=== PATIENT | female | born 1960 | race Caucasian/White ===

== ENCOUNTER 2023-11-06 14:22 | Inpatient (IN) ==
--- NOTE | 2023-11-06 14:45 | Emergency Department Note ---
Impression & Plan Abdominal pain, Metastatic disease ED Provider Note NAME: PRANEETH SHOEMAKER AGE: 63 SEX: F : 1960 ARRIVES VIA: Walk-In INFORMANT: Patient ED PROVIDER(S): Jozef Singer DO CHIEF COMPLAINT: Abdominal pain HPI: Patient is a 63-year-old female who presents ER following abdominal pain which has been present since October. Patient notes that when she eats she has pain in the epigastric region. Patient admits to nausea but no vomiting. Denies any headache or change in vision. No chest pain or shortness of breath. She notes the pain is worse with eating and drinking. She also feels constipated and believes that the constipation started it. She has been having trouble going to the bathroom. No dysuria, urgency, or frequency. Previous bowel resection for diverticulitis. Additional history obtained by family who is present at bedside who notes she has had the resection of a foot of colon secondary to diverticulitis. No other abdominal surgeries. ADDITIONAL HISTORY OBTAINED: Per HPI Chronic Medical/Social Conditions Affecting Care: Per HPI PAST MEDICAL HISTORY:See Below PAST SURGICAL HISTORY:See Below FAMILY HISTORY:See Below SOCIAL HISTORY:See Below HOME MEDICATIONS:See Below ALLERGIES:See Below VITALS:See Below PHYSICAL EXAMINATION: GENERAL: Sitting up in bed, alert, well appearing, well nourished, no distress, non-toxic EYE EXAM: normal conjunctiva. OROPHARYNX: no exudate, no erythema, lips, buccal mucosa, and tongue normal and mucous membranes are moist NECK: supple, no nuchal rigidity, no adenopathy, non-tender LUNGS: Clear to auscultation. Normal chest wall mechanics HEART: no murmurs, S1 normal and S2 normal ABDOMEN: abdomen soft, TTP in epigastric, normo-active bowel sounds, no masses, no rebound or guarding. UPPER EXTREMITIES: upper extremities are grossly normal. LOWER EXTREMITIES: No pitting edema. NEURO EXAM: Normal sensorium, cranial nerves II-XII grossly intact, normal speech, no gross weakness of arms, no gross weakness of legs. No drift. Finger to nose intact. Gross sensation intact. MEDICAL DECISION MAKING: Patient is a 63-year-old female who presents ER for above-stated complaint. IV was established blood work was obtained. Labs show no significant leukocytosis or anemia. BMP was unremarkable with exception of a slightly low glucose of 69. Mild transaminitis. Lipase at 150. UA was clean. CT abdomen pelvis suggest diffuse metastatic disease within the abdomen. Discussed with hematology oncology and they recommended admission for further workup of her metastatic disease. She also has a lymph node on her left upper neck which is likely metastatic from the cancer. Discussed with the hospitalist for further evaluation management treatment. Consults/Care Managements Discussions: Per MDM Triage Nursing notes reviewed. Limited review of prior medical records performed Vital Signs: reviewed and remarkable for tachy Differential diagnosis: Differential diagnoses includes but is not limited to gastritis, peptic ulcer disease, GERD, gallbladder disease, pancreatitis, small bowel obstruction, appendicitis, diverticulitis, hernia, urinary tract infection, torsion, /ectopic (if female), perforation, trauma, infectious. ER treatment provided: See below Diagnostics interpreted by me include EKG and cardiac monitoring as listed below: -Cardiac Monitoring: An order was placed for continuous cardiac monitoring. The monitor shows a rate of 120 with sinus rhythm. -ECG: none -Laboratory studies:Interpreted by me as stated above in MDM and shown below. Imaging studies: Xrays: As interpreted by me:none CTs show: CT abdomen pelvis per my preliminary interpretation shows significantly abnormal liver CT abdomen pelvis shows metastatic disease Procedures:none Critical Care: None Past Med/Surg History Medical History (Updated 11/06/23 @ 20:51 by Jozef Singer DO) Diverticulitis Depression Anxiety Surgical History (Updated 11/06/23 @ 18:17 by Criselda Cota PA-C) Tubal ligation status History of colon resection partial colectomy with anastomosis in 2007 Family History (Updated 11/06/23 @ 18:17 by Criselda Cota PA-C) Other COPD (chronic obstructive pulmonary disease) Ovarian cancer Social History Smoking Status: Current every day smoker Tobacco Type: E-cigarettes / Vaping Hx Alcohol Use: No Preferred Language: [place] Feels Safe at Home: Yes Allergies Allergies Allergy/AdvReac Type Severity Reaction Status Date / Time No Known Allergies Allergy Unknown Verified 11/06/23 17:11 Home Meds Home Medications Medication Instructions Recorded Confirmed acetylcysteine 600 mg capsule (NAC) 600 mg PO DAILY 11/06/23 11/06/23 boron 6 mg tablet 6 mg PO DAILY 11/06/23 11/06/23 cholecalciferol (vitamin D3) 125 125 mcg PO DAILY 11/06/23 11/06/23 mcg (5,000 unit) tablet (Vitamin D3) colostrum, bovine 500 mg capsule 500 mg PO DAILY 11/06/23 11/06/23 cyanocobalamin (vitamin B-12) 2,000 mcg PO DAILY 11/06/23 11/06/23 2,000 mcg tablet lysine 500 mg tablet (L-Lysine) 500 mg PO DAILY 11/06/23 11/06/23 magnesium mal 50 mg-potassium cit 1 tab PO DAILY 11/06/23 11/06/23 25 mg-taurine 175 mg-B6 1 mg tablet multivitamin 1 tab PO DAILY 11/06/23 11/06/23 Results & Data (ED) Vital Signs Vital Signs - 24 hr 11/06/23 14:24 11/06/23 14:34 11/06/23 16:10 Temperature 36.6 C Temperature Source Temporal Artery Scan Pulse Rate 133 H 114 H 102 H Pulse Rhythm Regular Respiratory Rate 20 20 Respiratory Effort / Characteristics Non-Labored Spontaneous Respiratory Depth Normal Respiratory Pattern Regular Blood Pressure 127/74 Blood Pressure Mean 91 Blood Pressure Position Sitting Pulse Oximetry 93 95 Oxygen Delivery Method Room Air Room Air Sepsis Recent Fever Within 48 Hours No Sepsis New/Unexplained Change in Mental Status No Sepsis Action Taken by Nursing No Action Required Laboratory Data 11/06/23 Unknown 11/06/23 Unknown Administered Medications Discontinued Medications Sodium Chloride (Nss) 1,000 mls @ 999 mls/hr IV .Q1H1M DANNY Stop: 11/06/23 16:45 Last Infusion: 11/06/23 17:22 Dose: Infused Documented By: Admin: 11/06/23 16:06 Dose: 999 mls/hr Documented By: Infusion: 11/06/23 16:06 Dose: Infused Documented By: Admin: 11/06/23 15:01 Dose: 999 mls/hr Documented By: MARCELINO Ioversol (Optiray 320 500ml) 87 ml IV ONCE ONE Stop: 11/06/23 16:23 Last Admin: 11/06/23 16:22 Dose: 87 ml Documented By: AMOS Ioversol (Optiray 320 500ml) 84 ml IV ONCE ONE Stop: 11/06/23 19:07 Last Admin: 11/06/23 19:06 Dose: 84 ml Documented By: PATIENCE Morphine Sulfate (Morphine Sulfate 4 Mg/Ml 1 Ml Carp\Vial) 4 mg IV NOW STA Stop: 11/06/23 14:58 Last Admin: 11/06/23 16:00 Dose: 4 mg Documented By: CPB Imaging Data Radiologist's Impression: Abdomen/Pelvis CT 11/06/23 14:34 CT SCAN OF THE ABDOMEN AND PELVIS WITH IV CONTRAST CLINICAL HISTORY: Epigastric abdominal pain. COMPARISON STUDY: Abdominal CT dated 09/18/2007. TECHNIQUE: Following the IV administration of 87 cc of Optiray 320, CT scan of the abdomen and pelvis is performed from the lung bases to the proximal femora. Images are reviewed in the axial, sagittal, and coronal planes. IV contrast was administered without complication. A dose lowering technique was utilized adhering to the principles of ALARA. CT DOSE: 672.78 mGy.cm FINDINGS: Lung bases: The heart is top normal in size noting a small pericardial effusion. There are coronary artery calcifications. Emphysematous changes noted. There is bibasilar scarring/atelectasis. No airspace consolidation or pleural effusion is identified. Liver: The contrast-enhanced liver is enlarged and heterogeneous, measuring 19.7 cm in length. There is evidence of extensive/diffuse multifocal hepatic metastatic disease, with greater than 20 lesions identified. A traveling representative right lobe lesion on image #96 measures up to 4.6 cm. There is no intrahepatic biliary ductal dilatation. The hepatic veins and portal veins are patent. The main portal vein is mildly narrowed by lymphadenopathy. Gallbladder: The gallbladder is contracted and there is nonspecific gallbladder wall thickening/edema. Spleen: Normal in size and attenuation. Pancreas: Unremarkable. Adrenal glands: Unremarkable. Kidneys: The contrast enhanced kidneys are normal in size and without hydronephrosis. The kidneys enhance symmetrically. A circumaortic left renal vein is incidentally noted. Abdominal vasculature: The abdominal aorta is normal in course and caliber noting moderate to advanced atherosclerotic calcification. Bowel: There is postsurgical change from sigmoid colon resection with colocolonic anastomosis. No bowel obstruction is identified. There is rugw-gw-ekvwbrst colonic fecal retention. There are scattered colonic diverticula without CT evidence of acute diverticulitis. The appendix is well- visualized and normal. Peritoneum: No intraperitoneal free air is identified. There is trace perihepatic ascites. Lymphadenopathy: There is pathologic retroperitoneal lymphadenopathy. A left periaortic node on image #128 measures 2.2 x 1.6 cm. An aortocaval node on image #1 extra 20 measures 2.3 x 1.1 cm. There is also bulky lymphadenopathy in the lilia hepatis. A lidia aggregate on image #92 measures 4.3 x 2.5 cm. There is no pelvic sidewall or inguinal lymphadenopathy. Pelvic viscera: The bladder, uterus, and adnexa are normal as visualized. Skeletal structures: The skeletal structures are osteopenic. Mild lumbosacral spondylosis is observed. No lytic or blastic lesions are seen. IMPRESSION: 1. The liver is enlarged and infiltrated by diffuse hepatic metastatic disease. 2. There is metastatic upper abdominal and retroperitoneal lymphadenopathy. 3. There is postsurgical change from sigmoid colon resection. If there is a history of colon cancer this may represent the primary tumor. 4. The gallbladder is decompressed and the wall is thickened/edematous. This is likely related to adjacent hepatocellular disease. Correlate clinically. 5. There is trace perihepatic ascites. 6. Additional findings as above. ACT 112: Negative or not required by law. Electronically signed by: Arnie Palma M.D. 11/06/2023 4:51 PM Discharge Plan Visit Data Chief Complaint: Constipation Stated Complaint: UNABLE TO EAT NOT ABLE TO EAT ED Provider: Jozef Singer Discharge Problem: Abdominal pain, Metastatic disease Discharge Problem: Abdominal pain Qualifiers: Abdominal location: unspecified location Qualified Code(s): R10.9 - Unspecified abdominal pain Metastatic disease Qualifiers: Area of secondary neoplastic involvement: unspecified site Qualified Code(s): C 79.9 - Secondary malignant neoplasm of unspecified site
[2023-11-06] MEDS ORDERED: MoRPHine SULFATE 4 MG/ML 1 ML CARP\\VIAL IV STA (14:57)
[2023-11-06] MEDS: SODIUM CHLORIDE 0.9% 1,000 ML IV SCH ×2 (15:01→16:06)
[2023-11-06 15:27] LABS: Basophils # (auto) 0.08 K/uL (0.00-0.20); Basophils % (auto) 1.1 %; Eosinophils # (auto) 0.31 K/uL (0.00-0.50); Eosinophils % (auto) 4.1 %; Hematocrit (blood only) 43.4 % (37.0-47.0); Hemoglobin 14.5 g/dl (12.0-16.0); Immature Granulocytes # (auto) 0.02 K/uL (0.01-0.20); Immature Granulocytes % (auto) 0.3 %; Lymphocytes # (auto) 1.47 K/uL (1.20-3.40); Lymphocytes % (auto) 19.7 %; Mean Corpuscular Hemoglobin 29.4 pg (25.0-34.0); Mean Corpuscular Hgb Conc 33.4 g/dL (32.0-36.0); Mean Platelet Volume 9.4 fL (9.4-12.4); Monocytes % (auto) 9.4 %; Neutrophils # (auto) 4.89 K/uL (1.40-6.50); Neutrophils % (auto) 65.4 %; Platelet Count 293 K/uL (130-400); RDW Coefficient of Variation 12.4 % (11.5-14.5); RDW Standard Deviation 39.8 fL (36.4-46.3); Red Blood Count 4.93 M/uL (4.20-5.40); White Blood Count 7.47 K/ul (4.8-10.8)
[2023-11-06 15:34] LABS: Albumin Globulin Ratio 0.9 (0.9-2); Albumin Level 3.9 gm/dl (3.4-5.0); Calcium 9.8 mg/dl (8.6-10.3); Creatinine Clr Calc Pharmacy 66.5 ml/min; Est GFR (African American) 89.6 ml/min; Est GFR (Non-African American) 77.3 ml/min; Globulin 4.2 gm/dl (2.5-4.0); Potassium 3.9 mmol/L (3.5-5.1); Total Protein 8.1 gm/dl (6.0-8.3)
[2023-11-06] MEDS ORDERED: OPTIRAY 320 500ml IV ONE ×2 (16:22→19:06)
--- NOTE | 2023-11-06 16:53 | CT Scan Report ---
CT SCAN OF THE ABDOMEN AND PELVIS WITH IV CONTRAST CLINICAL HISTORY: Epigastric abdominal pain. COMPARISON STUDY: Abdominal CT dated 09/18/2007. TECHNIQUE: Following the IV administration of 87 cc of Optiray 320, CT scan of the abdomen and pelvi s is performed from the lung bases to the proximal femora. Images are reviewed in the axial, sagittal , and coronal planes. IV contrast was administered without complication. A dose lowering technique wa s utilized adhering to the principles of ALARA. CT DOSE: 672.78 mGy.cm FINDINGS: Lung bases: The heart is top normal in size noting a small pericardial effusion. There are coronary a rtery calcifications. Emphysematous changes noted. There is bibasilar scarring/atelectasis. No airspa ce consolidation or pleural effusion is identified. Liver: The contrast-enhanced liver is enlarged and heterogeneous, measuring 19.7 cm in length. There is evidence of extensive/diffuse multifocal hepatic metastatic disease, with greater than 20 lesions identified. A digital sales representative right lobe lesion on image #96 measures up to 4.6 cm. There is no intrah epatic biliary ductal dilatation. The hepatic veins and portal veins are patent. The main portal vein is mildly narrowed by lymphadenopathy. Gallbladder: The gallbladder is contracted and there is nonspecific gallbladder wall thickening/edema . Spleen: Normal in size and attenuation. Pancreas: Unremarkable. Adrenal glands: Unremarkable. Kidneys: The contrast enhanced kidneys are normal in size and without hydronephrosis. The kidneys enh ance symmetrically. A circumaortic left renal vein is incidentally noted. Abdominal vasculature: The abdominal aorta is normal in course and caliber noting moderate to advance d atherosclerotic calcification. Bowel: There is postsurgical change from sigmoid colon resection with colocolonic anastomosis. No bow el obstruction is identified. There is [id number]-va-[id number] colonic fecal retention. There are scattered colonic diverticula without CT evidence of acute diverticulitis. The appendix is well-visualized and normal. Peritoneum: No intraperitoneal free air is identified. There is trace perihepatic ascites. Lymphadenopathy: There is pathologic retroperitoneal lymphadenopathy. A left periaortic node on image #128 measures 2.2 x 1.6 cm. An aortocaval node on image #1 extra 20 measures 2.3 x 1.1 cm. There is also bulky lymphadenopathy in the lilia hepatis. A lidia aggregate on image #92 measures 4.3 x 2.5 cm . There is no pelvic sidewall or inguinal lymphadenopathy. Pelvic viscera: The bladder, uterus, and adnexa are normal as visualized. Skeletal structures: The skeletal structures are osteopenic. Mild lumbosacral spondylosis is observed . No lytic or blastic lesions are seen. IMPRESSION: 1. The liver is enlarged and infiltrated by diffuse hepatic metastatic disease. 2. There is metastatic upper abdominal and retroperitoneal lymphadenopathy. 3. There is postsurgical change from sigmoid colon resection. If there is a history of colon cancer t his may represent the primary tumor. 4. The gallbladder is decompressed and the wall is thickened/edematous. This is likely related to adj acent hepatocellular disease. Correlate clinically. 5. There is trace perihepatic ascites. 6. Additional findings as above. ACT 112: Negative or not required by law. Electronically signed by: Arnie Palma M.D. 11/06/2023 4:51 PM
--- NOTE | 2023-11-06 17:33 | History & Physical Report ---
Date of Service November 06, 2023 Assessment & Plan (1) Metastatic disease: Plan: This is a 63yo F with a PMH of anxiety/depression and recurrent diverticulitis s/p colon resection in 2007 who presents with persistent abdominal pain over the past few weeks and CT abd/pelvis shows diffuse metastatic disease in liver, upper abdominal and retroperitoneal lymphadenopathy. Post-prandial abdominal pain, constipation x [address] abd/pelvis with 1. The liver is enlarged and infiltrated by diffuse hepatic metastatic disease. 2. There is metastatic upper abdominal and retroperitoneal lymphadenopathy. 3. There is postsurgical change from sigmoid colon resection. If there is a history of colon cancer this may represent the primary tumor. 4. The gallbladder is decompressed and the wall is thickened/edematous. This is likely related to adjacent hepatocellular disease. Correlate clinically. 5. There is trace perihepatic ascites. Obtain CT head, CT chest for further staging, unknown primary GI consult for abd pain, N/V, possible indication for scope if concern for obstruction given above findings Discussed with Dr. Worthy, heme/onc who requests CT chest, clinic follow-up. Confirmed patient prefers to establish with [facility] IR FNA biopsy prominent L anterior cervical lymph node vs liver biopsy if preferred by IR Gentle fluids overnight, clears as tolerated for now, NPO at [place] in case of IR intervention in AM (2) Depression: (3) Anxiety: Plan: Stable mood; not on any medications besides supplements which she has been holding for past few weeks DVT Ppx: SCDs until biopsy then consider adding chemical VTE Code status: FULL PCP: Jarod Dispo: Admit to med/surg Patient seen in collaboration with Dr. Luz. Please see addendum. History of Present Illness Chief Complaint: abdominal pain, N/V Primary Care Provider: NO PCP This is a 63yo F with a PMH of anxiety/depression and recurrent diverticulitis s/p colon resection in 2007 who presents with persistent abdominal pain over the past few weeks. Notable increased constipation over the holidays. Last bowel movement on Sunday and then no bowel movement again for 4 days. Has been eating less due to abdominal pain that follows, so feels extremely hungry. Passing gas. Notably swollen lymph node on front aspect of L neck noticed this past Sunday. Increased fatigue and has been less active than previously. Tiring easily when ambulating in the house, which is new over the past few weeks. + occasional dizziness from chronic ear issues. No F/C, lightheadedness, CP, SOB, dysuria, hematuria, vaginal bleeding or diarrhea. Does have a 20-wtmg-qrpz history of smoking but has transition to vaping in the past few years. Was due for a colonoscopy this past April but canceled for insurance purposes. Allergies Allergy/AdvReac Type Severity Reaction Status Date / Time No Known Allergies Allergy Unknown Verified 11/06/23 17:11 Home Medications Medication Instructions Recorded Confirmed Type acetylcysteine 600 mg capsule (NAC) 600 mg PO DAILY 11/06/23 11/06/23 History boron 6 mg tablet 6 mg PO DAILY 11/06/23 11/06/23 History cholecalciferol (vitamin D3) 125 125 mcg PO DAILY 11/06/23 11/06/23 History mcg (5,000 unit) tablet (Vitamin D3) colostrum, bovine 500 mg capsule 500 mg PO DAILY 11/06/23 11/06/23 History cyanocobalamin (vitamin B-12) 2,000 mcg PO DAILY 11/06/23 11/06/23 History 2,000 mcg tablet lysine 500 mg tablet (L-Lysine) 500 mg PO DAILY 11/06/23 11/06/23 History magnesium mal 50 mg-potassium cit 1 tab PO DAILY 11/06/23 11/06/23 History 25 mg-taurine 175 mg-B6 1 mg tablet multivitamin 1 tab PO DAILY 11/06/23 11/06/23 History Past Med/Surg History Medical History (Updated 11/06/23 @ 18:10 by Criselda Cota PA-C) Diverticulitis Depression Anxiety Surgical History (Updated 11/06/23 @ 18:17 by Criselda Cota PA-C) Tubal ligation status History of colon resection partial colectomy with anastomosis in 2007 Family History (Updated 11/06/23 @ 18:17 by Criselda Cota PA-C) Other COPD (chronic obstructive pulmonary disease) Ovarian cancer Social History Smoking Status: Current every day smoker Tobacco Type: E-cigarettes / Vaping Hx Alcohol Use: No Preferred Language: Amharic Feels Safe at Home: Yes Review of Systems Review of Systems: At least ten systems reviewed and negative except as noted in the HPI. Physical Exam Physical Exam: Please see Dr. Luz' addendum for physical exam. Results & Data Results & Data Vital Signs (Past 12 Hours) Vital Signs Temp Pulse Resp BP Pulse Ox O2 Del Method 11/06/23 16:10 102 H 11/06/23 14:34 114 H 20 95 Room Air 11/06/23 14:24 36.6 C 133 H 20 127/74 93 Room Air Laboratory Results Short CBC 11/06/23 Range/Units Unknown WBC 7.47 (4.8-10.8) K/ul Hgb 14.5 (12.0-16.0) g/dl Hct 43.4 (37.0-47.0) % Plt Count 293 (130-400) K/uL BMP 11/06/23 Unknown Sodium 135 L Potassium 3.9 Chloride 99 Carbon Dioxide 24 BUN 17 Creatinine 0.81 Glucose 69 L Calcium 9.8 Liver Function 11/06/23 Range/Units Unknown Total Bilirubin 1.0 (0.2-1.0) mg/dl AST 90 H (13-39) U/L ALT 89 H (7-52) U/L Alkaline Phosphatase 319 H (34-104) U/L Albumin 3.9 (3.4-5.0) gm/dl Diagnostic Findings Abdomen/Pelvis CT 11/06/23 14:34 CT SCAN OF THE ABDOMEN AND PELVIS WITH IV CONTRAST CLINICAL HISTORY: Epigastric abdominal pain. COMPARISON STUDY: Abdominal CT dated 09/18/2007. TECHNIQUE: Following the IV administration of 87 cc of Optiray 320, CT scan of the abdomen and pelvis is performed from the lung bases to the proximal femora. Images are reviewed in the axial, sagittal, and coronal planes. IV contrast was administered without complication. A dose lowering technique was utilized adhering to the principles of ALARA. CT DOSE: 672.78 mGy.cm FINDINGS: Lung bases: The heart is top normal in size noting a small pericardial effusion. There are coronary artery calcifications. Emphysematous changes noted. There is bibasilar scarring/atelectasis. No airspace consolidation or pleural effusion is identified. Liver: The contrast-enhanced liver is enlarged and heterogeneous, measuring 19.7 cm in length. There is evidence of extensive/diffuse multifocal hepatic metastatic disease, with greater than 20 lesions identified. 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 There is no intrahepatic biliary ductal dilatation. The hepatic veins and portal veins are patent. The main portal vein is mildly narrowed by lymphadenopathy. Gallbladder: The gallbladder is contracted and there is nonspecific gallbladder wall thickening/edema. Spleen: Normal in size and attenuation. Pancreas: Unremarkable. Adrenal glands: Unremarkable. Kidneys: The contrast enhanced kidneys are normal in size and without hydronephrosis. The kidneys enhance symmetrically. A circumaortic left renal vein is incidentally noted. Abdominal vasculature: The abdominal aorta is normal in course and caliber noting moderate to advanced atherosclerotic calcification. Bowel: There is postsurgical change from sigmoid colon resection with colocolonic anastomosis. No bowel obstruction is identified. There is [id number] colonic fecal retention. There are scattered colonic diverticula without CT evidence of acute diverticulitis. The appendix is well- visualized and normal. Peritoneum: No intraperitoneal free air is identified. There is trace perihepatic ascites. Lymphadenopathy: There is pathologic retroperitoneal lymphadenopathy. A left periaortic node on image #128 measures 2.2 x 1.6 cm. An aortocaval node on image #1 extra 20 measures 2.3 x 1.1 cm. There is also bulky lymphadenopathy in the lilia hepatis. A lidia aggregate on image #92 measures 4.3 x 2.5 cm. There is no pelvic sidewall or inguinal lymphadenopathy. Pelvic viscera: The bladder, uterus, and adnexa are normal as visualized. Skeletal structures: The skeletal structures are osteopenic. Mild lumbosacral spondylosis is observed. No lytic or blastic lesions are seen. IMPRESSION: 1. The liver is enlarged and infiltrated by diffuse hepatic metastatic disease. 2. There is metastatic upper abdominal and retroperitoneal lymphadenopathy. 3. There is postsurgical change from sigmoid colon resection. If there is a history of colon cancer this may represent the primary tumor. 4. The gallbladder is decompressed and the wall is thickened/edematous. This is likely related to adjacent hepatocellular disease. Correlate clinically. 5. There is trace perihepatic ascites. 6. Additional findings as above. ACT 112: Negative or not required by law. Electronically signed by: Arnie Palma M.D. 11/06/2023 4:51 PM Supervising Physician Co-Signing Physician Notes I have seen and discussed the case with the collaborating ANGY. I agree with the above H&P. I have reviewed and confirmed the patients medical history, the findings on physical examination, and the patients diagnosis and treatment plan with Cipriano TRAVIS and agree with the information documented. In short, Ms. Martinez is a 63 year old woman with history of recurrent diverticulitis s/p resection in 2007 who presented for concerns of constipation. Admission for concerns of metastatic disease on imaging with plans for biopsy and GI consult. Dr. Worthy with heme/onc aware. Patient denies history of cancer, family history of cancer, unintentional weightloss. She reports issues with constipation for over 2 weeks, not responding to usual bowel regimen. Still with belching/flatus. Endorsing epigastric pain postprandial. Labs with LFT elevation, Lipase 152 CT with diffuse hepatic metastatic disease and upper abdominal/retroperitoneal LAD. Physical Exam General: cooperative and pleasant woman, NAD CV sinus tachycardia, no murmur Resp CTAB GI soft, nontender outside of mild epigastric discomfort MSK no focal deficits LYMPH, Left anterior cervical chain palable mobile LN, nontender, bulky ?LAD in axillary difficult to ascertain (left), no LAD on right, no inguinal LAD BL Plan #Diffuse Metastatic Disease, unknown primary #Lymphadenopathy, palpable Left anterior cervical LN #Transaminitis -Hep panel (likely 2/2 mets, however, B/C for eitology?) -Trend CMP -CT chest head for other lesions -Heme/ONc on consult, appreciate further recs -NPO midnight for biopsy of LN #Epigastric pain #Constipation -Iv antiemetics prn -GI consult, timing of scope? Rest of plan as above
--- NOTE | 2023-11-06 19:59 | CT Scan Report ---
Exam(s): CT HEAD With Contrast IV Amt: 84 ml optiray 320 EXAM: CT Head With Intravenous Contrast CLINICAL HISTORY: Reason for exam: diffuse metastatic disease on ct abd/pelvis, LAD. TECHNIQUE: Axial computed tomography images of the head/brain with intravenous contrast. CTDI is 36.79 mGy and DLP is 546.36 mGy-cm. Automated exposure control was utilized for the study. A dose lowering technique was utilized adhering to the principles of ALARA. CONTRAST: Patient received 84 ml optiray 320 of IV contrast COMPARISON: No relevant prior studies available. FINDINGS: Brain: Unremarkable. No hemorrhage. No edema. Normal enhancement. Ventricles: Unremarkable. No ventriculomegaly. Bones/joints: Unremarkable. No acute fracture. Soft tissues: Unremarkable. Sinuses: Unremarkable as visualized. No acute sinusitis. Mastoid air cells: Unremarkable as visualized. No mastoid effusion. IMPRESSION: Normal head/brain CT. The presence of contrast limits evaluation for small bleeds. Need for brain MRI should be determined clinically. Electronically signed by: Rafael Levi MD 11/06/23 19:59 PM
--- NOTE | 2023-11-06 20:01 | CT Scan Report ---
Exam(s): CT CHEST With Contrast IV Amt: 84 ml optiray 320 EXAM: CT Chest With Intravenous Contrast CLINICAL HISTORY: Reason for exam: diffuse metastatic disease, unknown primary. TECHNIQUE: Axial computed tomography images of the chest with intravenous contrast. CTDI is 36.79 mGy and DLP is 546.36 mGy-cm. Automated exposure control was utilized for the study. A dose lowering technique was utilized adhering to the principles of ALARA. CONTRAST: Patient received 84 ml optiray 320 of IV contrast COMPARISON: No relevant prior studies available. FINDINGS: Lungs: Centrilobular emphysema. No mass. No consolidation. Pleural space: Unremarkable. No pneumothorax. No significant effusion. Heart: Unremarkable. No cardiomegaly. No significant pericardial effusion. No significant coronary artery calcifications. Mediastinum: Mass in the RIGHT upper lobe, measures 4.5 x 2.6 cm. Findings are concerning for lung cancer. RIGHT hilar mass measures 3.3 x 4.7 cm. Enlarged subcarinal lymph node measures 4.9 x 2.7 cm. Bones/joints: Unremarkable. No acute fracture. No dislocation. Soft tissues: Unremarkable. Vasculature: Unremarkable. No thoracic aortic aneurysm. Lymph nodes: See above. Liver: Diffuse hepatic metastases. IMPRESSION: 1. Mass in the RIGHT upper lobe, measures 4.5 x 2.6 cm. Findings are concerning for lung cancer. RIGHT hilar mass measures 3.3 x 4.7 cm. Enlarged subcarinal lymph node measures 4.9 x 2.7 cm. 2. Diffuse hepatic metastases. 3. Centrilobular emphysema. Electronically signed by: Rafael Levi MD 11/06/23 20:00 PM
[2023-11-06 20:13] LABS: Appearance Urine Clear (Clear); Bilirubin Urine Negative (Negative); Blood Urine Negative (Negative); Color Urine Yellow; Glucose Urine UA Negative (Negative); Ketones Urine 1+ (Negative); Leukocyte Esterase Urine Negative (Negative); Nitrite Urine Negative (Negative); Protein Urine Negative (Negative); Specific Gravity Urine > 1.045 (1.000-1.030); Urobilinogen Urine Negative (Negative); pH Urine 5.5 (4.5-7.5)
[2023-11-06] MEDS ORDERED: POLYETHYLENE (MIRALAX) 17 GM PACK PO PRN (21:26)
[2023-11-06] MEDS ORDERED: ACETAMINOPHEN 1,000 MG/100 ML VIAL IV PRN (21:26)
[2023-11-06] MEDS ORDERED: ONDANSETRON INJ 2 MG/ML 2 ML VIAL IV PRN (21:26)
[2023-11-06] MEDS ORDERED: SODIUM CHLORIDE 0.9% 1,000 ML IV SCH (21:26)
[2023-11-07] MEDS: MoRPHine SULFATE 4 MG/ML 1 ML CARP\\VIAL IV PRN (05:28)
[2023-11-07 07:58] LABS: Hematocrit (blood only) 36.3 % (37.0-47.0); Hemoglobin 11.7 g/dl (12.0-16.0); Mean Corpuscular Hemoglobin 28.6 pg (25.0-34.0); Mean Corpuscular Hgb Conc 32.2 g/dL (32.0-36.0); Mean Corpuscular Volume 88.8 fL (80.0-100.0); Mean Platelet Volume 9.4 fL (9.4-12.4); Platelet Count 241 K/uL (130-400); RDW Coefficient of Variation 12.5 % (11.5-14.5); RDW Standard Deviation 40.5 fL (36.4-46.3); Red Blood Count 4.09 M/uL (4.20-5.40); White Blood Count 5.29 K/ul (4.8-10.8)
[2023-11-07] MEDS: MULTIVITAMIN TAB PO SCH (08:15)
[2023-11-07 08:22] LABS: Albumin Globulin Ratio 0.9 (0.9-2); Albumin Level 3.2 gm/dl (3.4-5.0); BUN Creatinine Ratio 18.8 (10-20); Bilirubin,Total 0.8 mg/dl (0.2-1.0); Calcium 8.6 mg/dl (8.6-10.3); Creatinine Clr Calc Pharmacy 84.2 ml/min; Est GFR (African American) 110.1 ml/min; Globulin 3.4 gm/dl (2.5-4.0); Total Protein 6.6 gm/dl (6.0-8.3)
--- NOTE | 2023-11-07 08:25 | Anesthesiology Consultation ---
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 Surgery Operation Date: 11/07/23 09:15 Proposed Procedures p Endoscopic Ultrasonography Matthew - Selena Faust DO Height/Weight Height: 5 ft 6 in Weight: 66 kg Allergies Allergy/AdvReac Type Severity Reaction Status Date / Time No Known Allergies Allergy Unknown Verified 11/06/23 17:11 Medications Home Medications Medication Instructions Recorded Confirmed Last Taken acetylcysteine 600 mg capsule (NAC) 600 mg PO DAILY 11/06/23 11/06/23 Unknown boron 6 mg tablet 6 mg PO DAILY 11/06/23 11/06/23 Unknown cholecalciferol (vitamin D3) 125 125 mcg PO DAILY 11/06/23 11/06/23 Unknown mcg (5,000 unit) tablet (Vitamin D3) colostrum, bovine 500 mg capsule 500 mg PO DAILY 11/06/23 11/06/23 Unknown cyanocobalamin (vitamin B-12) 2,000 mcg PO DAILY 11/06/23 11/06/23 Unknown 2,000 mcg tablet lysine 500 mg tablet (L-Lysine) 500 mg PO DAILY 11/06/23 11/06/23 Unknown magnesium mal 50 mg-potassium cit 1 tab PO DAILY 11/06/23 11/06/23 Unknown 25 mg-taurine 175 mg-B6 1 mg tablet multivitamin 1 tab PO DAILY 11/06/23 11/06/23 Unknown Active Medications Generic Name Dose Route Start Last Admin Trade Name Freq PRN Reason Stop Dose Admin Sodium Chloride 1,000 mls @ 80 mls/hr 11/06/23 21:26 11/06/23 22:17 Nss IV 11/07/23 09:55 80 mls/hr .[id number] DANNY Administration Morphine Sulfate 3 mg 11/06/23 21:26 11/07/23 05:28 Morphine Sulfate 4 Mg/Ml 1 Ml Carp\Vial IV 11/20/23 21:25 3 mg Q4H PRN Administration Severe Pain (Scale 7, 8, 9,10) Multivitamins 1 tab 11/07/23 09:00 11/07/23 08:15 Multivitamin Tab PO 12/07/23 08:59 1 tab DAILY DANNY Administration Past Medical History Medical History Diverticulitis Depression Anxiety Past Family History Family History Other COPD (chronic obstructive pulmonary disease) Ovarian cancer Past Surgical History Surgical History Tubal ligation status History of colon resection partial colectomy with anastomosis in 2007 Social History Smoking Status: Current some day smoker Do You Dip or Chew Tobacco: No Hx Alcohol Use: Yes alcohol intake frequency: holidays/special occasions only Hx Substance Use: No substance use type: does not use Physical Exam Vital Signs Last Vital Signs Temp 97.7 F 11/07/23 08:00 Pulse 86 11/07/23 08:00 Resp 16 11/07/23 08:00 BP 100/67 11/07/23 08:00 Pulse Ox 92 11/07/23 08:00 O2 Del Method Room Air 11/07/23 08:00 Testing Laboratory Results 11/07/23 07:02 11/07/23 07:02 Urine Color Yellow 11/06/23 19:56 Urine Appearance Clear (Clear) 11/06/23 19:56 Urine pH 5.5 (4.5-7.5) 11/06/23 19:56 Ur Specific [place] > 1.045 (1.000-1.030) H 11/06/23 19:56 Urine Protein Negative (Negative) 11/06/23 19:56 Urine Glucose (UA) Negative (Negative) 11/06/23 19:56 Urine Ketones 1+ (Negative) H 11/06/23 19:56 Urine Nitrite Negative (Negative) 11/06/23 19:56 Ur Leukocyte Esterase Negative (Negative) 11/06/23 19:56
[2023-11-07] MEDS ORDERED: MIDAZOLAM HCL 1 MG/ML 2ML VIAL ONE (08:40)
[2023-11-07] MEDS ORDERED: fentaNYL citrate PF 100 MCG/2 ML VIAL ONE (08:40)
[2023-11-07] MEDS ORDERED: LIDOCAINE 2% 2 ML VIAL/AMP(20MG/ML) INFIL ONE (08:46)
[2023-11-07] MEDS ORDERED: ONDANSETRON INJ 2 MG/ML 2 ML VIAL ONE (08:46)
[2023-11-07] MEDS ORDERED: PROPOFOL IV EMULSION 10 MG/ML 20 ML VIAL IV ONE ×2 (08:46→08:50)
--- NOTE | 2023-11-07 09:14 | Gastrointestinal Consultation ---
Date of Consultation November 07, 2023 Assessment & Plan (1) Abdominal pain: (2) Metastatic disease: Pt is a 63 yo female w abd pain, n/v, weight and appetite loss symptoms, found to have elevated LFTs and CT chest/abd/pelvis signs of lung masses w suspected liver mets. - NPO - EUS w FNA of liver masses today - Heme/Onc consult - GI recs after procedure above completed Supervising Physician Co-Signing Physician Notes I have examined the patient, reviewed the History & Physical and in the interval since the performance of the History & Physical I have noted the following changes of clinical significance: no changes noted. The patient appears to have evidence of metastatic disease based on her recent CT scan. Suspect the elevated liver enzymes are a result of diffuse hepatic metastasis. Will plan to proceed with upper endoscopy and endoscopic ultrasound for further evaluation today. I discussed the risks and benefits of the procedure with the patient and her to include bleeding infection perforation pain insufficient cellularity and the need for follow-up studies. History of Present Illness Reason for Consultation: Abd pain, elevated LFTs, ? liver mets on CT Requesting Physician: Dr. Glen Siegel Attending Physician: Dr. Selena Faust History of Present Illness Pt is a 63 yo male w PMHx of anxiety/depression and recurrent diverticulitis s/p colon resection in 2007 who presents with persistent abdominal pain over the past few weeks. Has associated constipation, nausea, and vomiting. Loss of appetite with 10lbs weight loss in the last week or so. She also noticed inc reased fatigue, L neck lymph node swelling. Workup here showed elevated LFTs: Tbili 0.8, AST 63, ALT 64, alk phos 233. CT chest/abd/pelvis concerning for RUL mass, R hilar mass, diffuse hepatic metastases w several lymphadenopathies. She was a smoker, social ETOH drinker. Father w hx of lung ca. Last colonoscopy in 2010: diverticulosis Allergies Allergy/AdvReac Type Severity Reaction Status Date / Time No Known Allergies Allergy Unknown Verified 11/06/23 17:11 Home Medications Medication Instructions Recorded Confirmed Type acetylcysteine 600 mg capsule (NAC) 600 mg PO DAILY 11/06/23 11/06/23 History boron 6 mg tablet 6 mg PO DAILY 11/06/23 11/06/23 History cholecalciferol (vitamin D3) 125 125 mcg PO DAILY 11/06/23 11/06/23 History mcg (5,000 unit) tablet (Vitamin D3) colostrum, bovine 500 mg capsule 500 mg PO DAILY 11/06/23 11/06/23 History cyanocobalamin (vitamin B-12) 2,000 mcg PO DAILY 11/06/23 11/06/23 History 2,000 mcg tablet lysine 500 mg tablet (L-Lysine) 500 mg PO DAILY 11/06/23 11/06/23 History magnesium mal 50 mg-potassium cit 1 tab PO DAILY 11/06/23 11/06/23 History 25 mg-taurine 175 mg-B6 1 mg tablet multivitamin 1 tab PO DAILY 11/06/23 11/06/23 History Patient History Medical History Diverticulitis Depression Anxiety Surgical History Tubal ligation status History of colon resection partial colectomy with anastomosis in 2007 Family History Other COPD (chronic obstructive pulmonary disease) Ovarian cancer Social History Smoking Status: Current some day smoker Tobacco Type: E-cigarettes / Vaping Second Hand Exposure: No; Do You Dip or Chew Tobacco: No; Tobacco Cessation Education Requested by Patient: No Hx Alcohol Use: Yes Hx Substance Use: No Preferred Language: Czech Communication Ability: Effective Air Analysis Engineering Technician Required: No Beliefs That Will Affect Care: None Current Living Situation: Spouse Other Information That Helps Us Care for You: No Feels Safe at Home: Yes Safety Concerns: Feels Safe At This Time Assistive Devices: Glasses Review of Systems Review of Systems: All systems reviewed & are unremarkable except as noted in HPI & below Physical Exam Constitutional: WD/WN, vitals as above well groomed, cooperative and comfortable Eyes: PERRL, conjunctivae normal, anicteric sclerae ENMT: external ear and nose normal, oropharynx normal Respiratory: normal respiratory effort, lungs clear to auscultation Cardiovascular: RRR, no murmur, no edema Gastrointestinal (Abdomen): normal bowel sounds, soft, nontender, no hepatosplenomegaly Skin: no rashes, warm and dry no jaundice Psychiatric: A+Ox3, euthymic affect Lymphatic: no lymphedema Results & Data Vital Signs (Past 12 Hours) Vital Signs Temp Pulse Resp BP Pulse Ox O2 Del Method 11/07/23 08:00 36.5 C 86 16 100/67 92 Room Air 11/06/23 22:33 Room Air 11/06/23 21:10 36.4 C L 93 H 18 129/74 93 Room Air Laboratory Results Laboratory Results - last 24 hr 11/06/23 11/06/23 11/07/23 19:56 Unknown 07:02 WBC 7.47 5.29 RBC 4.93 4.09 L Hgb 14.5 11.7 L Hct 43.4 36.3 L MCV 88.0 88.8 MCH 29.4 28.6 MCHC 33.4 32.2 RDW Std Deviation 39.8 40.5 RDW Coeff of Brad 12.4 12.5 Plt Count 293 241 MPV 9.4 9.4 Immature Gran % (Auto) 0.3 Neut % (Auto) 65.4 Lymph % (Auto) 19.7 [place] % (Auto) 9.4 Eos % (Auto) 4.1 Baso % (Auto) 1.1 Neut # (Auto) 4.89 Lymph # (Auto) 1.47 [place] # (Auto) 0.70 H Eos # (Auto) 0.31 Baso # (Auto) 0.08 Immature Gran # (Auto) 0.02 Sodium 135 L 136 Potassium 3.9 4.0 Chloride 99 105 Carbon Dioxide 24 24 Anion Gap 12 H 7 BUN 17 12 Creatinine 0.81 0.64 Est Cr Clr Drug Dosing 66.5 84.2 Est GFR ( Amer) 89.6 110.1 Est GFR (Non-Af Amer) 77.3 95.0 BUN/Creatinine Ratio 21.0 H 18.8 Glucose 69 L 73 Calcium 9.8 8.6 Total Bilirubin 1.0 0.8 AST 90 H 63 H ALT 89 H 64 H Alkaline Phosphatase 319 H 233 H Total Protein 8.1 6.6 Albumin 3.9 3.2 L Globulin 4.2 H 3.4 Albumin/Globulin Ratio 0.9 0.9 Lipase 152 H Urine Color Yellow Urine Appearance Clear Urine pH 5.5 Ur Specific [place] > 1.045 H Urine Protein Negative Urine Glucose (UA) Negative Urine Ketones 1+ H Urine Blood Negative Urine Nitrite Negative Urine Bilirubin Negative Urine Urobilinogen Negative Ur Leukocyte Esterase Negative Hepatitis A IgM Ab Pending Hep Bs Antigen Pending Hep Bs Ag Confirmation Pending Hep B Core IgM Ab Pending Hepatitis C Ab (EIA) Pending Diagnostic Findings [place], [place] [phone] CT Scan Report Patient: PRANEETH SHOEMAKER Admit Date: 11/06/23 MR#: [id number] Address1: [address] Acct ID:[id number] Address2: Date: 1960 [facility] Zip: [place] [address] Age: 63 Location: ED Sex: F Room/Bed: Att Phy: Diagnosis: UNABLE TO EAT NOT ABLE TO EAT Ronda Phy: PCP,NO Service Date: 11/06/23 Fam Phy: Interpreting Phy: Arnie Palma MD Admit Phy: Ordering Phy: Jozef Singer, DO cc: ~ CT SCAN OF THE ABDOMEN AND PELVIS WITH IV CONTRAST CLINICAL HISTORY: Epigastric abdominal pain. COMPARISON STUDY: Abdominal CT dated 09/18/2007. TECHNIQUE: Following the IV administration of 87 cc of Optiray 320, CT scan of the abdomen and pelvis is performed from the lung bases to the proximal femora. Images are reviewed in the axial, sagittal, and coronal planes. IV contrast was administered without complication. A dose lowering technique was utilized adhering to the principles of ALARA. CT DOSE: 672.78 mGy.cm FINDINGS: Lung bases: The heart is top normal in size noting a small pericardial effusion. There are coronary artery calcifications. Emphysematous changes noted. There is bibasilar scarring/atelectasis. No airspace consolidation or pleural effusion is identified. Liver: The contrast-enhanced liver is enlarged and heterogeneous, measuring 19.7 cm in length. There is evidence of extensive/diffuse multifocal hepatic metastatic disease, with greater than 20 lesions identified. A termite control representative right lobe lesion on image #96 measures up to 4.6 cm. There is no intrahepatic biliary ductal dilatation. The hepatic veins and portal veins are patent. The main portal vein is mildly narrowed by lymphadenopathy. Gallbladder: The gallbladder is contracted and there is nonspecific gallbladder wall thickening/edema. Spleen: Normal in size and attenuation. Pancreas: Unremarkable. Adrenal glands: Unremarkable. Kidneys: The contrast enhanced kidneys are normal in size and without hydronephrosis. The kidneys enhance symmetrically. A circumaortic left renal vein is incidentally noted. Abdominal vasculature: The abdominal aorta is normal in course and caliber noting moderate to advanced atherosclerotic calcification. Bowel: There is postsurgical change from sigmoid colon resection with colocolonic anastomosis. No bowel obstruction is identified. There is [id number] colonic fecal retention. There are scattered colonic diverticula without CT evidence of acute diverticulitis. The appendix is well- visualized and normal. Peritoneum: No intraperitoneal free air is identified. There is trace jerel hepatic ascites. Lymphadenopathy: There is pathologic retroperitoneal lymphadenopathy. A left periaortic node on image #128 measures 2.2 x 1.6 cm. An aortocaval node on image #1 extra 20 measures 2.3 x 1.1 cm. There is also bulky lymphadenopathy in the lilia hepatis. A lidia aggregate on image #92 measures 4.3 x 2.5 cm. There is no pelvic sidewall or inguinal lymphadenopathy. Pelvic viscera: The bladder, uterus, and adnexa are normal as visualized. Skeletal structures: The skeletal structures are osteopenic. Mild lumbosacral spondylosis is observed. No lytic or blastic lesions are seen. IMPRESSION: 1. The liver is enlarged and infiltrated by diffuse hepatic metastatic disease. 2. There is metastatic upper abdominal and retroperitoneal lymphadenopathy. 3. There is postsurgical change from sigmoid colon resection. If there is a history of colon cancer this may represent the primary tumor. 4. The gallbladder is decompressed and the wall is thickened/edematous. This is likely related to adjacent hepatocellular disease. Correlate clinically. 5. There is trace perihepatic ascites. 6. Additional findings as above. (1) Abdominal pain Abdominal location: unspecified location Qualified Code(s): R10.9 - Unspecified abdominal pain (2) Metastatic disease Area of secondary neoplastic involvement: unspecified site Qualified Code(s): C79.9 - Secondary malignant neoplasm of unspecified site
[2023-11-07] MEDS ORDERED: ONDANSETRON INJ 2 MG/ML 2 ML VIAL IV PRN (09:27)
[2023-11-07] MEDS ORDERED: ePHEDrine sulfate 50 MG/ML AMP IV PRN (09:27)
[2023-11-07] MEDS ORDERED: fentaNYL citrate PF 100 MCG/2 ML VIAL IV PRN (09:27)
[2023-11-07] MEDS ORDERED: ATROPINE SULFATE 0.1 MG/ML 10ML SYR IV PRN (09:27)
--- NOTE | 2023-11-07 09:43 | History & Physical Bridge Note ---
Date of Service November 07, 2023 History & Physical Bridge Note I have examined the patient, reviewed the History & Physical and in the interval since the performance of the History & Physical I have noted the following changes of clinical significance: no changes noted. The patient appears to have evidence of metastatic disease based on her recent CT scan. Suspect the elevated liver enzymes are a result of diffuse hepatic metastasis. Will plan to proceed with upper endoscopy and endoscopic ultrasound for further evaluation today. I discussed the risks and benefits of the procedure with the patient and her to include bleeding infection perforation pain insufficient cellularity and the need for follow-up studies.
[2023-11-07] MEDS ORDERED: LACTATED RINGER'S 1,000 ML IV SCH (09:45)
--- NOTE | 2023-11-07 10:19 | Post Operative Brief Note ---
Immediate Post Op Note v1 Date of Surgery November 07, 2023 Pre & Post Diagnosis Operation Date: 11/07/23 09:15 Upper endoscopy Endoscopic ultrasound with fine-needle aspiration I identified the patient and participated in the time-out.: Yes Procedure Operation Date: 11/07/23 09:15 <No data on this case meets the specified criteria> Surgeon Selena Faust, DO Wet Process Head Miller none Estimated Blood Loss 0 Findings See Below (Gastritis, probable Lopez's esophagus, diffuse masses throughout the liver)
--- NOTE | 2023-11-07 10:21 | Communication Note ---
Date of Service: November 07, 2023 The patient underwent to be an endoscopic ultrasound this morning. The patient was found to have mild gastritis and possible Lopez's esophagus numerous masses were also noted throughout the liver. Biopsies were taken from the stomach and esophagus. A fine-needle aspiration of the masses within the liver. No evidence of biliary obstruction. Recommendations Await pathology results Medical oncology referral Would suggest tumor markers to include, CA19-9, CEA, AFP and CA-125 Avoid NSAIDS for 1 week Please call with questions, GI to sign off.
--- NOTE | 2023-11-07 10:24 | GI REPORT ---
Patient Name: María Martinez Procedure Date: 11/07/2023 9:35 AM Date of : 1960 Admit Type: Inpatient Age: 63 Gender: Female Attending MD: Selena Faust DO, Procedure: Upper GI endoscopy Providers: Selena Faust DO Referring MD: Glen Siegel Md Indications: Epigastric abdominal pain, Abnormal CT of the GI tract Medicines: Monitored Anesthesia Care Complications: No immediate complications. Estimated blood loss: Minimal. Estimated Blood Loss: Estimated blood loss was minimal. Procedure: Pre-Anesthesia Assessment: - Prior to the procedure, a History and Physical was performed, and patient medications, allergies and sensitivities were reviewed. The patient's tolerance of previous anesthesia was reviewed. - The risks and benefits of the procedure and the sedation options and risks were discussed with the patient. All questions were answered and informed consent was obtained. - Patient identification and proposed procedure were verified prior to the procedure by the physician, the nurse and the shingle sawyer. The procedure was verified in the procedure room. - Pre-procedure physical examination revealed no contraindications to sedation. - ASA Grade Assessment: III - A patient with severe systemic disease. - After reviewing the risks and benefits, the patient was deemed in satisfactory condition to undergo the procedure. - The anesthesia plan was to use monitored anesthesia care (MAC). - Immediately prior to administration of medications, the patient was re-assessed for adequacy to receive sedatives. - The heart rate, respiratory rate, oxygen saturations, blood pressure, adequacy of pulmonary ventilation, and response to care were monitored throughout the procedure. - The physical status of the patient was re-assessed after the procedure. After obtaining informed consent, the endoscope was passed under direct vision. Throughout the procedure, the patient's blood pressure, pulse, and oxygen saturations were monitored continuously. The Endoscope was introduced through the mouth, and advanced to the third part of duodenum. The upper GI endoscopy was accomplished without difficulty. The patient tolerated the procedure well. Findings: The examined esophagus was normal. The Z-line was irregular and was found 39 cm from the incisors. Biopsies were taken with a cold forceps for histology. The pathology specimen was placed into Bottle B. Estimated blood loss was minimal. Diffuse mild inflammation characterized by erythema and granularity was found in the entire examined stomach. Biopsies were taken with a cold forceps for histology. The pathology specimen was placed into Bottle A. Estimated blood loss was minimal. The examined duodenum was normal. Impression: - Normal esophagus. - Z-line irregular, 39 cm from the incisors. Biopsied. - Gastritis. Biopsied. - Normal examined duodenum. Recommendation: - Perform an upper endoscopic ultrasound (UEUS) today. - Await pathology results. Selena Faust D.O. Selena Faust, DO 11/07/2023 10:23:22 AM This report has been signed electronically. Note Initiated On: 11/07/2023 9:35 AM Number of Addenda: 0 I attest to the content of the Intraoperative Record and orders documented therein, exceptions below {[id number]}
--- NOTE | 2023-11-07 10:32 | GI REPORT ---
Patient Name: María Martinez Procedure Date: 11/07/2023 9:34 AM Date of : 1960 Admit Type: Inpatient Age: 63 Gender: Female Attending MD: Selena Faust DO, Procedure: Upper EUS Providers: Selena Faust DO Referring MD: Glen Siegel Md Indications: Suspected mass in liver on CT scan Medicines: Monitored Anesthesia Care Complications: No immediate complications. Estimated blood loss: Minimal. Estimated Blood Loss: Estimated blood loss was minimal. Procedure: Pre-Anesthesia Assessment: - Prior to the procedure, a History and Physical was performed, and patient medications, allergies and sensitivities were reviewed. The patient's tolerance of previous anesthesia was reviewed. - The risks and benefits of the procedure and the sedation options and risks were discussed with the patient. All questions were answered and informed consent was obtained. - Patient identification and proposed procedure were verified prior to the procedure by the physician, the nurse and the security developer. The procedure was verified in the procedure room. - Pre-procedure physical examination revealed no contraindications to sedation. - ASA Grade Assessment: III - A patient with severe systemic disease. - After reviewing the risks and benefits, the patient was deemed in satisfactory condition to undergo the procedure. - The anesthesia plan was to use monitored anesthesia care (MAC). - The heart rate, respiratory rate, oxygen saturations, blood pressure, adequacy of pulmonary ventilation, and response to care were monitored throughout the procedure. - The physical status of the patient was re-assessed after the procedure. After obtaining informed consent, the endoscope was passed under direct vision. Throughout the procedure, the patient's blood pressure, pulse, and oxygen saturations were monitored continuously. The Endosonoscope was introduced through the mouth, and advanced to the second part of duodenum. The upper EUS was accomplished without difficulty. The patient tolerated the procedure well. Findings: ENDOSONOGRAPHIC FINDING: : There was no sign of significant endosonographic abnormality in the ampulla. No masses were identified. There was no sign of significant endosonographic abnormality in the entire pancreas. The pancreatic duct measured up to 2 mm in diameter. No masses, no cysts, the pancreatic duct was thin in caliber. There was no sign of significant endosonographic abnormality in the common bile duct. The maximum diameter of the duct was 4 mm. No stones, no biliary sludge, ducts of normal caliber and ducts with regular contour were identified. There was no sign of significant endosonographic abnormality in the gallbladder. No masses, no stones and no biliary sludge were identified. There was no sign of significant endosonographic abnormality in the left adrenal gland. No adrenal gland enlargement was identified. Multiple oval masses (too numerous to count) was identified endosonographically in the visualized portion of the liver. The mass was hypoechoic. The mass measured 22 mm by 12 mm in maximal cross-sectional diameter. The endosonographic borders were well-defined. Fine needle aspiration for cytology was performed. Color Doppler imaging was utilized prior to needle puncture to confirm a lack of significant vascular structures within the needle path. Five passes were made with the 22 gauge needle (InboundWriter Pro-Core) using a transgastric approach. A stylet was used. A gleason operator was present and performed a preliminary cytologic examination. Final cytology results are pending. Estimated blood loss was minimal. A few enlarged lymph nodes were visualized in the celiac region (level 20). The largest measured 22 mm by 10 mm in maximal cross-sectional diameter. The nodes were irregular, hypoechoic and had well defined margins. Many enlarged lymph nodes were visualized in the lilai hepatis region. The largest measured 20 mm by 18 mm in maximal cross-sectional diameter. The nodes were irregular, hypoechoic and had well defined margins. Impression: - There was no sign of significant pathology in the ampulla. - There was no sign of significant pathology in the entire pancreas. - There was no sign of significant pathology in the common bile duct. No evidence of biliary obstruction. - There was no sign of significant pathology in the gallbladder. - Endosonographic images of the left adrenal gland were unremarkable. - Multiple masses were found in the visualized portion of the liver. Fine needle aspiration performed. - A few enlarged lymph nodes were visualized in the celiac region (level 20). - Many enlarged lymph nodes were visualized in the lilia hepatis region. Recommendation: - [facility]. - Await cytology results. Selena Faust D.O. Selena Faust DO 11/07/2023 10:32:15 AM This report has been signed electronically. Note Initiated On: 11/07/2023 9:34 AM Number of Addenda: 0 I attest to the content of the Intraoperative Record and orders documented therein, exceptions below {[id number]}
--- NOTE | 2023-11-07 10:50 | Anesthesiology Progress Note ---
Date of Service November 07, 2023 Anesthesia Post Procedure Vital Signs Vital Signs: Temp Pulse Pulse Pulse Resp BP BP 11/07/23 10:40 99.3 F 79 16 102/58 L 11/07/23 10:30 86 22 94/60 L 11/07/23 10:23 97.0 F L 83 18 98/60 L 11/07/23 09:15 98.2 F 87 20 118/70 11/07/23 08:00 97.7 F 86 16 100/67 11/06/23 22:33 11/06/23 21:10 97.5 F L 93 H 18 129/74 11/06/23 20:39 90 20 103/68 11/06/23 20:23 93 H 11/06/23 20:00 97 H 23 11/06/23 19:18 106 H 22 117/72 11/06/23 19:00 109 H 13 11/06/23 18:09 101 H 19 11/06/23 18:00 98 H 24 11/06/23 17:00 105 H 18 11/06/23 16:10 102 H 11/06/23 16:01 101 H 26 H 11/06/23 14:34 114 H 20 11/06/23 14:24 97.9 F 133 H 20 127/74 Pulse Ox O2 Del Method O2 Flow Rate 11/07/23 10:40 93 Nasal Cannula 2 11/07/23 10:30 93 Oxymask 5 11/07/23 10:23 92 Oxymask 5 11/07/23 09:15 92 Room Air 11/07/23 08:00 92 Room Air 11/06/23 22:33 Room Air 11/06/23 21:10 93 Room Air 11/06/23 20:39 11/06/23 20:23 11/06/23 20:00 91 11/06/23 19:18 11/06/23 19:00 11/06/23 18:09 97 11/06/23 18:00 11/06/23 17:00 11/06/23 16:10 11/06/23 16:01 95 11/06/23 14:34 95 Room Air 11/06/23 14:24 93 Room Air Pain Intensity Right Shoulder: Pain Intensity: 3 Upper Abdomen: Pain Intensity: 2 Transfer of Care Handoff Completed per policy Notes Mental Status: alert / awake / arousable and participated in evaluation Patient Amnestic to Procedure: Yes Nausea / Vomiting: adequately controlled Pain: adequately controlled Airway Patency, RR, SpO2: stable & adequate BP & HR: stable & adequate Hydration State: stable & adequate Anesthetic Complications: no major complications apparent and Pt Satisfied with anesthetic care
--- NOTE | 2023-11-07 11:20 | Hospitalist Progress Note ---
Date of Service November 07, 2023 Assessment & Plan (1) Metastatic disease: Plan: This is a 63 yo F with a PMH of anxiety/depression and recurrent diverticulitis s/p colon resection in 2007 who presents with persistent abdominal pain over the past few weeks and CT abd/pelvis shows diffuse metastatic disease in liver, upper abdominal and retroperitoneal lymphadenopathy. Post-prandial abdominal pain, constipation x [address] abd/pelvis with 1. The liver is enlarged and infiltrated by diffuse hepatic metastatic disease. 2. There is metastatic upper abdominal and retroperitoneal lymphadenopathy. 3. There is postsurgical change from sigmoid colon resection. If there is a history of colon cancer this may represent the primary tumor. 4. The gallbladder is decompressed and the wall is thickened/edematous. This is likely related to adjacent hepatocellular disease. Correlate clinically. 5. There is trace perihepatic ascites. Obtain CT head, CT chest for further staging, unknown primary Discussed with Dr. Worthy, sugey/onc who requests CT chest, clinic follow-up. Confirmed patient prefers to establish with [facility] sugey onc CT head - Normal head/brain CT. CT chest - 1. Mass in the RIGHT upper lobe, measures 4.5 x 2.6 cm. Findings are concerning for lung cancer. RIGHT hilar mass measures 3.3 x 4.7 cm. Enlarged subcarinal lymph node measures 4.9 x 2.7 cm. 2. Diffuse hepatic metastases. 3. Centrilobular emphysema. IR FNA biopsy ordered by admitting team - prominent L anterior cervical lymph node vs liver biopsy if preferred by IR -> GI discussed w/ IR that they were able to obtain biopsies, therefore cancelled IR consult GI consulted for abd pain, N/V, possible indication for scope if concern for obstruction given above findings - per GI - The patient appears to have evidence of metastatic disease based on her recent CT scan. Suspect the elevated liver enzymes are a result of diffuse hepatic metastasis. Will plan to proceed with upper endoscopy and endoscopic ultrasound for further evaluation today. The patient underwent an endoscopic ultrasound this morning (11/07/2023). The patient was found to have mild gastritis and possible Lopez's esophagus numerous masses were also noted throughout the liver. Biopsies were taken from the stomach and esophagus. A fine-needle aspiration of the masses within the liver. No evidence of biliary obstruction. Recommendations Await pathology results Medical oncology referral Would suggest tumor markers to include, CA19-9, CEA, AFP and CA-125 Avoid NSAIDS for 1 week (2) Depression: (3) Anxiety: Plan: Stable mood - not on any medications besides supplements which she has been holding for past few weeks Code status: FULL PCP: Dr. Olivera Dispo: med/surg Admission and Anticipated Discharge Date Admission Date: November 06, 2023 Subjective Pt seen in follow up of metastatic disease, n/v Underwent endoscopy w/ biopsies w/ GI today. Currently sitting up in chair, in NAD. She is on suppl. O2. Pt's is present at the bedside. Pt currently denies any abd. pain, n/v, overall seems to feel somewhat better. Discussed in detail need for close follow up with hematology/ oncology - pt and her are aware. Review of Systems Review of Systems: All systems reviewed & are unremarkable except as noted in Subjective Physical Exam Physical Exam: General: WD/WN F in NAD HEENT: NC/AT, EOMI, PERRL CV : rrr, no murmur Resp: CTAB Abdomen : soft, + mild epigastric discomfort on palp. , + bowel sounds MSK : moves extremities LYMPH: + Left anterior cervical chain palpable mobile LN, nontender, bulky Skin: warm, dry, no rashes Results & Data Results & Data Vital Signs (Past 12 Hours) Vital Signs Temp Pulse Pulse Resp BP Pulse Ox O2 Del Method 11/07/23 10:55 36.7 C 78 16 98/60 L 93 Nasal Cannula 11/07/23 10:40 37.4 C 79 16 102/58 L 93 Nasal Cannula 11/07/23 10:30 86 22 94/60 L 93 Oxymask 11/07/23 10:23 36.1 C L 83 18 98/60 L 92 Oxymask 11/07/23 09:15 36.8 C 87 20 118/70 92 Room Air 11/07/23 08:00 36.5 C 86 16 100/67 92 Room Air O2 Flow Rate 11/07/23 10:55 2 11/07/23 10:40 2 11/07/23 10:30 5 11/07/23 10:23 5 11/07/23 09:15 11/07/23 08:00 Laboratory Results 11/07/23 11/06/23 11/06/23 Range/Units 07:02 Unknown 19:56 WBC 5.29 7.47 (4.8-10.8) K/ul RBC 4.09 L 4.93 (4.20-5.40) M/uL Hgb 11.7 L 14.5 (12.0-16.0) g/dl Hct 36.3 L 43.4 (37.0-47.0) % MCV 88.8 88.0 (80.0-100.0) fL MCH 28.6 29.4 (25.0-34.0) pg MCHC 32.2 33.4 (32.0-36.0) g/dL RDW Std Deviation 40.5 39.8 (36.4-46.3) fL RDW Coeff of Brad 12.5 12.4 (11.5-14.5) % Plt Count 241 293 (130-400) K/uL MPV 9.4 9.4 (9.4-12.4) fL Immature Gran % (Auto) 0.3 % Neut % (Auto) 65.4 % Lymph % (Auto) 19.7 % [place] % (Auto) 9.4 % Eos % (Auto) 4.1 % Baso % (Auto) 1.1 % Neut # (Auto) 4.89 (1.40-6.50) K/uL Lymph # (Auto) 1.47 (1.20-3.40) K/uL Sequ[place]ah # (Auto) 0.70 H (0.11-0.59) K/uL Eos # (Auto) 0.31 (0.00-0.50) K/uL Baso # (Auto) 0.08 (0.00-0.20) K/uL Immature Gran # (Auto) 0.02 (0.01-0.20) K/uL Sodium 136 135 L (136-145) mmol/L Potassium 4.0 3.9 (3.5-5.1) mmol/L Chloride 105 99 (98-107) mmol/L Carbon Dioxide 24 24 (21-32) mmol/L Anion Gap 7 12 H (3-11) BUN 12 17 (6-23) mg/dl Creatinine 0.64 0.81 (0.6-1.2) mg/dl Est Cr Clr Drug Dosing 84.2 66.5 ml/min Est GFR ( Amer) 110.1 89.6 ml/min Est GFR (Non-Af Amer) 95.0 77.3 ml/min BUN/Creatinine Ratio 18.8 21.0 H (10-20) Glucose 73 69 L (70-99(Fasting)) mg/dl Calcium 8.6 9.8 (8.6-10.3) mg/dl Total Bilirubin 0.8 1.0 (0.2-1.0) mg/dl AST 63 H 90 H (13-39) U/L ALT 64 H 89 H (7-52) U/L Alkaline Phosphatase 233 H 319 H (34-104) U/L Total Protein 6.6 8.1 (6.0-8.3) gm/dl Albumin 3.2 L 3.9 (3.4-5.0) gm/dl Globulin 3.4 4.2 H (2.5-4.0) gm/dl Albumin/Globulin Ratio 0.9 0.9 (0.9-2) Lipase 152 H (11-82) U/L Urine Color Yellow Urine Appearance Clear (Clear) Urine pH 5.5 (4.5-7.5) Ur Specific [place] > 1.045 H (1.000-1.030) Urine Protein Negative (Negative) Urine Glucose (UA) Negative (Negative) Urine Ketones 1+ H (Negative) Urine Blood Negative (Negative) Urine Nitrite Negative (Negative) Urine Bilirubin Negative (Negative) Urine Urobilinogen Negative (Negative) Ur Leukocyte Esterase Negative (Negative) Hepatitis A IgM Ab Pending Hep Bs Antigen Pending Hep Bs Ag Confirmation Pending Hep B Core IgM Ab Pending Hepatitis C Ab (EIA) Pending Medications Administered Current Inpatient Medications Acetaminophen (Ofirmev) 1,000 mg in 100 mls @ 400 mls/hr IV Q8H PRN PRN Reason: Pain Stop: 11/09/23 21:25 Morphine Sulfate (Morphine Sulfate 4 Mg/Ml 1 Ml Carp\Vial) 3 mg IV Q4H PRN PRN Reason: Severe Pain (Scale 7, 8, 9,10) Stop: 11/20/23 21:25 Last Admin: 11/07/23 05:28 Dose: 3 mg Multivitamins (Multivitamin Tab) 1 tab PO DAILY DANNY Stop: 12/07/23 08:59 Last Admin: 11/07/23 08:15 Dose: 1 tab Ondansetron HCl (Ondansetron Inj 2 Mg/Ml 2 Ml Vial) 4 mg IV Q6H PRN PRN Reason: Nausea Stop: 12/06/23 21:25 Polyethylene Glycol (Polyethylene (Miralax) 17 Gm Pack) 17 gm PO DAILY PRN PRN Reason: Constipation Stop: 12/06/23 21:25 (1) Metastatic disease Area of secondary neoplastic involvement: unspecified site Qualified Code(s): C79.9 - Secondary malignant neoplasm of unspecified site
[2023-11-07] MEDS: SODIUM CHLORIDE 0.9% 1,000 ML IV SCH (15:10)
[2023-11-07] MEDS ORDERED: MELATONIN 3 MG TAB PO PRN (23:37)
[2023-11-08] MEDS: SODIUM CHLORIDE 0.9% 1,000 ML IV SCH ×2 (03:01→15:50)
[2023-11-08] MEDS: MULTIVITAMIN TAB PO SCH (08:33)
[2023-11-08 12:52] LABS: HBSAG NON-REACTIVE (NON-REACTIVE); Hepatitis A Antibody IgM NON-REACTIVE (NON-REACTIVE); Hepatitis B Core Antibody IgM NON-REACTIVE (NON-REACTIVE)
--- NOTE | 2023-11-08 13:23 | Hospitalist Progress Note ---
Date of Service November 08, 2023 Assessment & Plan (1) Metastatic disease: Plan: This is a 63 yo F with a PMH of anxiety/depression and recurrent diverticulitis s/p colon resection in 2007 who presents with persistent abdominal pain over the past few weeks and CT abd/pelvis shows diffuse metastatic disease in liver, upper abdominal and retroperitoneal lymphadenopathy. Post-prandial abdominal pain, constipation x [address] abd/pelvis with 1. The liver is enlarged and infiltrated by diffuse hepatic metastatic disease. 2. There is metastatic upper abdominal and retroperitoneal lymphadenopathy. 3. There is postsurgical change from sigmoid colon resection. If there is a history of colon cancer this may represent the primary tumor. 4. The gallbladder is decompressed and the wall is thickened/edematous. This is likely related to adjacent hepatocellular disease. Correlate clinically. 5. There is trace perihepatic ascites. Obtain CT head, CT chest for further staging, unknown primary Discussed with Dr. Worthy, sugey/onc who requests CT chest, clinic follow-up. Confirmed patient prefers to establish with [facility] sugey onc CT head - Normal head/brain CT. CT chest - 1. Mass in the RIGHT upper lobe, measures 4.5 x 2.6 cm. Findings are concerning for lung cancer. RIGHT hilar mass measures 3.3 x 4.7 cm. Enlarged subcarinal lymph node measures 4.9 x 2.7 cm. 2. Diffuse hepatic metastases. 3. Centrilobular emphysema. IR FNA biopsy ordered by admitting team - prominent L anterior cervical lymph node vs liver biopsy if preferred by IR -> GI discussed w/ IR that they were able to obtain biopsies, therefore cancelled IR consult GI consulted for abd pain, N/V, possible indication for scope if concern for obstruction given above findings - per GI - The patient appears to have evidence of metastatic disease based on her recent CT scan. Suspect the elevated liver enzymes are a result of diffuse hepatic metastasis. Will plan to proceed with upper endoscopy and endoscopic ultrasound for further evaluation today. The patient underwent an endoscopic ultrasound this morning (11/07/2023). The patient was found to have mild gastritis and possible Lopez's esophagus numerous masses were also noted throughout the liver. Biopsies were taken from the stomach and esophagus. A fine-needle aspiration of the masses within the liver. No evidence of biliary obstruction. Recommendations Await pathology results Medical oncology referral Would suggest tumor markers to include, CA19-9, CEA, AFP and CA-125 Avoid NSAIDS for 1 week Gastritis, poss. Lopez's esophagus - started PPI ? cholecystitis Gallbladder on CT scan decompressed and edematous, likely from adjacent hepatocellular disease. Discussed with general surgery. They did evaluate the patient, and offered HIDA scan, patient declined at this time. (2) Depression: (3) Anxiety: Plan: Stable mood - not on any medications besides supplements which she has been holding for past few weeks Code status: FULL PCP: Dr. Olivera Dispo: med/surg Admission and Anticipated Discharge Date Admission Date: November 06, 2023 Subjective Pt seen in follow up of metastatic disease, n/v Underwent endoscopy w/ biopsies w/ GI Currently sitting up in bed in NAD. Off oxygen. Pt's and daughter present at the bedside. Continues to have abd. discomfort and difficulty eating Discussed in detail need for close follow up with hematology/ oncology - pt and her are aware. Review of Systems Review of Systems: All systems reviewed & are unremarkable except as noted in Subjective Physical Exam Physical Exam: General: WD/WN F in NAD HEENT: NC/AT, EOMI, PERRL CV : rrr, no murmur Resp: CTAB Abdomen : soft, + mild epigastric discomfort on palp. , + bowel sounds MSK : moves extremities LYMPH: + Left anterior cervical chain palpable mobile LN, nontender, bulky Skin: warm, dry, no rashes Results & Data Results & Data Vital Signs (Past 12 Hours) Vital Signs Temp Pulse Resp BP Pulse Ox O2 Del Method 11/08/23 06:59 37.2 C 89 16 112/69 94 Room Air (1) Metastatic disease Area of secondary neoplastic involvement: unspecified site Qualified Code(s): C79.9 - Secondary malignant neoplasm of unspecified site
[2023-11-08] MEDS: PANTOprazole 40 MG in SYRINGE 0 ML IV SCH ×2 (14:10→20:16)
[2023-11-08] MEDS: SENNA 8.6 MG TAB PO SCH (14:11)
[2023-11-08] MEDS: POLYETHYLENE (MIRALAX) 17 GM PACK PO SCH (14:11)
--- NOTE | 2023-11-08 15:02 | Surgery Consultation ---
<Statement entered by Dorothy Delarosa DO - 11/08/23 21:52> This case was discussed with the surgical PA. Acute cholecystitis not suspicious with current clinical presentation. Please re-consult surgery if patient decides to move forward with further work up that reveals acute cholecystitis. Otherwise, she may follow up as an outpatient. Date of Consultation November 08, 2023 Assessment & Plan (1) Abdominal pain: Patient is a pleasant 63 yo female with PMH of diverticulitis, depression and anxiety that presented to the [facility] 11/06/23 with complaint of abdominal pain that has been ongoing for sometime. She reports that it is not associated with nausea, vomiting, or eating certain foods, that she has this pain eating anything. Pain is described as a pressure and reports it a 2/10. She reports that she also has been dealing with some constipation and has been taking OTC stool softeners, and increasing her water intake and thought abdominal pain was associated with constipation. Past surgical history includes a sigmoid bowel resection in 2007 at [facility]. Last colonoscopy 8 years ago and a Tubal in 1990. Work up in the ER included an Abdominal /pelvis CT , chest CT, and head CT. abd/pelvis IMPRESSION: 1. The liver is enlarged and infiltrated by diffuse hepatic metastatic disease. 2. There is metastatic upper abdominal and retroperitoneal lymphadenopathy. 3. There is postsurgical change from sigmoid colon resection. If there is a history of colon cancer this may represent the primary tumor. 4. The gallbladder is decompressed and the wall is thickened/edematous. This is likely related to adjacent hepatocellular disease. Correlate clinically. 5. There is trace perihepatic ascites. chest IMPRESSION: 1. Mass in the RIGHT upper lobe, measures 4.5 x 2.6 cm. Findings are concerning for lung cancer. RIGHT hilar mass measures 3.3 x 4.7 cm. Enlarged subcarinal lymph node measures 4.9 x 2.7 cm. 2. Diffuse hepatic metastases. 3. Centrilobular emphysema. General surgery was consulted on abd/pelvis CT reading decompressed GB with thickened/edematous wall. On exam patient is afebrile, in no acute distress, abdomen is soft non- distended, TTP in the midepigastric region. VSS, WBC wnl, LFTs mildly elevated AST 63 (90), ALT 64 (89), alkaline phosphatase 233 (319), T.bili 0.8 (1.0). Patient underwent an EUS upper FNA, and EGD w. bx with Dr. Faust today, results not in yet. Discussed with patient that her abdominal pain and GB decompression/ thickened wall reading on CT could be related to the under lying malignancy, however if she wished to proceed with a HIDA scan to r/o acute cholecystitis this would be a reasonable option. Patient wished to defer HIDA scan at this time. Patient verbalized understanding that if she changes her mind it can be ordered and she can also have the scan done as an outpatient. All questions answered, hospitalist updated. Thank you for allowing us to participate in the care of this patient, General surgery will sign off at this time. Please call with question /concerns. (2) Metastatic disease: Follow up with oncology History of Present Illness Reason for Consultation: gallbladder is decompression and gallbladder wall is thickened/edematous Attending Physician: Glen Siegel MD History of Present Illness Patient is a pleasant 63 yo female with PMH of diverticulitis, depression and anxiety that presented to the [facility] 11/06/23 with complaint of abdominal pain that has been ongoing for sometime. She reports that it is not associated with nausea, vomiting, or eating certain foods, that she has this pain eating anything. Pain is described as a pressure and reports it a 2/10. She reports that she also has been dealing with some constipation and has been taking OTC stool softeners, and increasing her water intake and thought abdominal pain was associated with constipation. Past surgical history includes a sigmoid bowel resection in 2007 at [facility]. Last colonoscopy 8 years ago and a Tubal in 1990. Allergies Allergy/AdvReac Type Severity Reaction Status Date / Time No Known Allergies Allergy Unknown Verified 11/06/23 17:11 Home Medications Medication Instructions Recorded Confirmed Type acetylcysteine 600 mg capsule (NAC) 600 mg PO DAILY 11/06/23 11/06/23 History boron 6 mg tablet 6 mg PO DAILY 11/06/23 11/06/23 History cholecalciferol (vitamin D3) 125 125 mcg PO DAILY 11/06/23 11/06/23 History mcg (5,000 unit) tablet (Vitamin D3) colostrum, bovine 500 mg capsule 500 mg PO DAILY 11/06/23 11/06/23 History cyanocobalamin (vitamin B-12) 2,000 mcg PO DAILY 11/06/23 11/06/23 History 2,000 mcg tablet lysine 500 mg tablet (L-Lysine) 500 mg PO DAILY 11/06/23 11/06/23 History magnesium mal 50 mg-potassium cit 1 tab PO DAILY 11/06/23 11/06/23 History 25 mg-taurine 175 mg-B6 1 mg tablet multivitamin 1 tab PO DAILY 11/06/23 11/06/23 History Patient History Medical History Diverticulitis Depression Anxiety Surgical History Tubal ligation status History of colon resection partial colectomy with anastomosis in 2007 Family History Other COPD (chronic obstructive pulmonary disease) Ovarian cancer Social History Smoking Status: Current some day smoker Tobacco Type: E-cigarettes / Vaping Second Hand Exposure: No; Do You Dip or Chew Tobacco: No; Tobacco Cessation Education Requested by Patient: No Hx Alcohol Use: Yes Hx Substance Use: No Preferred Language: Georgian Communication Ability: Effective Producer Director Required: No Beliefs That Will Affect Care: None Current Living Situation: Spouse Other Information That Helps Us Care for You: No Feels Safe at Home: Yes Safety Concerns: Feels Safe At This Time Assistive Devices: None Review of Systems Constitutional: no fever and no chills Ear, Nose, Mouth, Throat: no problem reported Respiratory: no dyspnea Cardiovascular: no chest pain Gastrointestinal: + abdominal pain and + constipation; no nausea and no vomiting Genitourinary: no problem reported Musculoskeletal: no muscle weakness Integumentary: no rash Neurologic: no confusion and no memory loss Psychiatric: no problem reported Physical Exam Physical Exam: alert oriented Constitutional: cooperative and comfortable; no acute distress ENMT: external ear and nose normal, oropharynx normal Respiratory: normal respiratory effort and able to speak in complete sentences; no respiratory distress Cardiovascular: Rate/Rhythm: regular rate Gastrointestinal (Abdomen): Inspection/Auscultation: abdomen not distended Percussion/Palpation: + abdomen tender (mid epigastric ) and abdomen soft; no guarding Musculoskeletal: no cyanosis or clubbing, extremities motor strength 5/5 Skin: no rashes, warm and dry Psychiatric: A+Ox3, euthymic affect Results & Data Vital Signs (Past 12 Hours) Vital Signs Temp Pulse Resp BP Pulse Ox O2 Del Method 11/08/23 14:23 97.9 F 88 16 96/56 L 95 Room Air 11/08/23 06:59 99.0 F 89 16 112/69 94 Room Air Diagnostic Findings [place] [phone] CT Scan Report Patient: PRANEETH SHOEMAKER Admit Date: 11/06/23 MR#: [id number] Address1: [address] Acct ID:[id number] Address2: Date: 1960 [facility] Zip: [place] [id number] Age: 63 Location: ED Sex: F Room/Bed: Att Phy: Diagnosis: UNABLE TO EAT NOT ABLE TO EAT Ronda Phy: PCP,NO Service Date: 11/06/23 Fam Phy: Interpreting Phy: Arnie Palma MDAdmit Phy: Ordering Phy: Jozef Singer, DO cc: ~ CT SCAN OF THE ABDOMEN AND PELVIS WITH IV CONTRAST CLINICAL HISTORY: Epigastric abdominal pain. COMPARISON STUDY: Abdominal CT dated 09/18/2007. TECHNIQUE: Following the IV administration of 87 cc of Optiray 320, CT scan of the abdomen and pelvis is performed from the lung bases to the proximal femora. Images are reviewed in the axial, sagittal, and coronal planes. IV contrast was administered without complication. A dose lowering technique was utilized adhering to the principles of ALARA. CT DOSE: 672.78 mGy.cm FINDINGS: Lung bases: The heart is top normal in size noting a small pericardial effusion. There are coronary artery calcifications. Emphysematous changes noted. There is bibasilar scarring/atelectasis. No airspace consolidation or pleural effusion is identified. Liver: The contrast-enhanced liver is enlarged and heterogeneous, measuring 19.7 cm in length. There is evidence of extensive/diffuse multifocal hepatic metastatic disease, with greater than 20 lesions identified. 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 There is no intrahepatic biliary ductal dilatation. The hepatic veins and portal veins are patent. The main portal vein is mildly narrowed by lymphadenopathy. Gallbladder: The gallbladder is contracted and there is nonspecific gallbladder wall thickening/edema. Spleen: Normal in size and attenuation. Pancreas: Unremarkable. Adrenal glands: Unremarkable. Kidneys: The contrast enhanced kidneys are normal in size and without hydronephrosis. The kidneys enhance symmetrically. A circumaortic left renal vein is incidentally noted. Abdominal vasculature: The abdominal aorta is normal in course and caliber noting moderate to advanced atherosclerotic calcification. Bowel: There is postsurgical change from sigmoid colon resection with colocolonic anastomosis. No bowel obstruction is identified. There is [id number] colonic fecal retention. There are scattered colonic diverticula without CT evidence of acute diverticulitis. The appendix is well- visualized and normal. Peritoneum: No intraperitoneal free air is identified. There is trace perihepatic ascites. Lymphadenopathy: There is pathologic retroperitoneal lymphadenopathy. A left periaortic node on image #128 measures 2.2 x 1.6 cm. An aortocaval node on image #1 extra 20 measures 2.3 x 1.1 cm. There is also bulky lymphadenopathy in the lilia hepatis. A lidia aggregate on image #92 measures 4.3 x 2.5 cm. There is no pelvic sidewall or inguinal lymphadenopathy. Pelvic viscera: The bladder, uterus, and adnexa are normal as visualized. Skeletal structures: The skeletal structures are osteopenic. Mild lumbosacral spondylosis is observed. No lytic or blastic lesions are seen. IMPRESSION: 1. The liver is enlarged and infiltrated by diffuse hepatic metastatic disease. 2. There is metastatic upper abdominal and retroperitoneal lymphadenopathy. 3. There is postsurgical change from sigmoid colon resection. If there is a history of colon cancer this may represent the primary tumor. 4. The gallbladder is decompressed and the wall is thickened/edematous. This is likely related to adjacent hepatocellular disease. Correlate clinically. 5. There is trace perihepatic ascites. 6. Additional findings as above. ACT 112: Negative or not required by law. Electronically signed by: Arnie Palma M.D. 11/06/2023 4:51 PM Dictated: 11/06/231642 Transcribed: 11/06/23 164 [place], [place] [phone] CT Scan Report Patient: PRANEETH SHOEMAKER Admit Date: 11/06/23 MR#: [id number] Address1: [address] Acct ID:[id number] Address2: Date: 1960 [facility] Zip: [place] [id number] Age: 63 Location: [facility] Sex: F Room/Bed: [facility] 1-3 Att Phy: Maria Dolores Luz MD Diagnosis: DIFFUSE METASTATIC DISEASE ON CT ABD/PELVIS, UNKNO Ronda Phy: Abdulkadir Olivera MD Service Date: 11/06/23 [facility] Phy: Interpreting Phy: Rafael Levi MDAdmit Phy: Maria Dolores Luz MD Ordering Phy: Criselda Cota PA-C cc: ~ Exam(s): CT CHEST With Contrast IV Amt: 84 ml optiray 320 EXAM: CT Chest With Intravenous Contrast CLINICAL HISTORY: Reason for exam: diffuse metastatic disease, unknown primary. TECHNIQUE: Axial computed tomography images of the chest with intravenous contrast. CTDI is 36.79 mGy and DLP is 546.36 mGy-cm. Automated exposure control was utilized for the study. A dose lowering technique was utilized adhering to the principles of ALARA. CONTRAST: Patient received 84 ml optiray 320 of IV contrast COMPARISON: No relevant prior studies available. FINDINGS: Lungs: Centrilobular emphysema. No mass. No consolidation. Pleural space: Unremarkable. No pneumothorax. No significant effusion. Heart: Unremarkable. No cardiomegaly. No significant pericardial effusion. No significant coronary artery calcifications. Mediastinum: Mass in the RIGHT upper lobe, measures 4.5 x 2.6 cm. Findings are concerning for lung cancer. RIGHT hilar mass measures 3.3 x 4.7 cm. Enlarged subcarinal lymph node measures 4.9 x 2.7 cm. Bones/joints: Unremarkable. No acute fracture. No dislocation. Soft tissues: Unremarkable. Vasculature: Unremarkable. No thoracic aortic aneurysm. Lymph nodes: See above. Liver: Diffuse hepatic metastases. IMPRESSION: 1. Mass in the RIGHT upper lobe, measures 4.5 x 2.6 cm. Findings are concerning for lung cancer. RIGHT hilar mass measures 3.3 x 4.7 cm. Enlarged subcarinal lymph node measures 4.9 x 2.7 cm. 2. Diffuse hepatic metastases. 3. Centrilobular emphysema. Electronically signed by: Rafael Levi MD 11/06/23 20:00 PM Dictated: 11/06/231999 Transcribed: 11/06/231999 Results Complete Blood Count Results: RBC 4.09 M/uL (4.20-5.40) L 11/07/23 WBC 5.29 K/ul (4.8-10.8) 11/07/23 Hgb 11.7 g/dl (12.0-16.0) L 11/07/23 Hct 36.3 % (37.0-47.0) L 11/07/23 Plt Count 241 K/uL (130-400) 11/07/23 Results CMP Results: Na 136 mmol/L (136-145) 11/07/23 K 4.0 mmol/L (3.5-5.1) 11/07/23 Cl 105 mmol/L (98-107) 11/07/23 CO2 24 mmol/L (21-32) 11/07/23 Anion Gap 7 (3-11) 11/07/23 BUN 12 mg/dl (6-23) 11/07/23 Creatinine 0.64 mg/dl (0.6-1.2) 11/07/23 Estimated GFR ( Amer) 110.1 ml/min 11/07/23 Estimated GFR (Non-Af Amer) 95.0 ml/min 11/07/23 BUN/Creatinine Ratio 18.8 (10-20) 11/07/23 Glu 73 mg/dl (70-99(Fasting)) 11/07/23 Ca 8.6 mg/dl (8.6-10.3) 11/07/23 Total Bilirubin 0.8 mg/dl (0.2-1.0) 11/07/23 AST 63 U/L (13-39) H 11/07/23 ALT 64 U/L (7-52) H 11/07/23 Alkaline Phosphatase 233 U/L (34-104) H 11/07/23 TP 6.6 gm/dl (6.0-8.3) 11/07/23 Albumin 3.2 gm/dl (3.4-5.0) L 11/07/23 Globulin 3.4 gm/dl (2.5-4.0) 11/07/23 Albumin/Globulin Ratio 0.9 (0.9-2) 11/07/23 Results BMP Results: Sodium 136 mmol/L (136-145) 11/07/23 Potassium 4.0 mmol/L (3.5-5.1) 11/07/23 Chloride 105 mmol/L (98-107) 11/07/23 Carbon Dioxide 24 mmol/L (21-32) 11/07/23 Anion Gap 7 (3-11) 11/07/23 BUN 12 mg/dl (6-23) 11/07/23 Creatinine 0.64 mg/dl (0.6-1.2) 11/07/23 Glucose 73 mg/dl (70-99(Fasting)) 11/07/23 PG Care Time/CCT Total # of Minutes Spent Total Time Spent with Patient: Total time spent is greater than 50% in coordination of care (as documented) at patient's floor/unit and/or counseling patient: Coding Level of Care Code 35204 IN/OBS CONSULT LVL 4,60M Diagnoses Abdominal pain R10.9 Abdominal location: unspecified location Metastatic disease C79.9 Area of secondary neoplastic involvement: unspecified site (1) Abdominal pain Abdominal location: unspecified location Qualified Code(s): R10.9 - Unspecified abdominal pain (2) Metastatic disease Area of secondary neoplastic involvement: unspecified site Qualified Code(s): C79.9 - Secondary malignant neoplasm of unspecified site
[2023-11-08] MEDS: MoRPHine SULFATE 4 MG/ML 1 ML CARP\\VIAL IV PRN (20:25)
[2023-11-09] MEDS: SODIUM CHLORIDE 0.9% 1,000 ML IV SCH (03:24)
[2023-11-09 07:31] LABS: Hematocrit (blood only) 35.6 % (37.0-47.0); Hemoglobin 11.7 g/dl (12.0-16.0); Mean Corpuscular Hemoglobin 28.8 pg (25.0-34.0); Mean Corpuscular Hgb Conc 32.9 g/dL (32.0-36.0); Mean Corpuscular Volume 87.7 fL (80.0-100.0); Mean Platelet Volume 9.4 fL (9.4-12.4); Platelet Count 202 K/uL (130-400); RDW Coefficient of Variation 12.4 % (11.5-14.5); RDW Standard Deviation 39.8 fL (36.4-46.3); Red Blood Count 4.06 M/uL (4.20-5.40); White Blood Count 5.52 K/ul (4.8-10.8)
[2023-11-09 08:14] LABS: Albumin Globulin Ratio 0.9 (0.9-2); BUN Creatinine Ratio 9.2 (10-20); Bilirubin,Total 0.8 mg/dl (0.2-1.0); Calcium 8.5 mg/dl (8.6-10.3); Creatinine Clr Calc Pharmacy 82.9 ml/min; Est GFR (African American) 109.5 ml/min; Est GFR (Non-African American) 94.5 ml/min; Globulin 3.2 gm/dl (2.5-4.0); Magnesium 1.7 mg/dl (1.7-2.4); Phosphorus 2.9 mg/dl (2.5-4.9); Total Protein 6.2 gm/dl (6.0-8.3)
[2023-11-09] MEDS: SENNA 8.6 MG TAB PO SCH (08:24)
[2023-11-09] MEDS: MULTIVITAMIN TAB PO SCH (08:24)
[2023-11-09] MEDS: PANTOprazole 40 MG in SYRINGE 0 ML IV SCH (08:24)
[2023-11-09] MEDS: POLYETHYLENE (MIRALAX) 17 GM PACK PO SCH (08:24)
--- NOTE | 2023-11-09 15:59 | Discharge Summary ---
Date of Service November 09, 2023 Admission HPI Per Admitting Provider This is a 63yo F with a PMH of anxiety/depression and recurrent diverticulitis s/p colon resection in 2007 who presents with persistent abdominal pain over the past few weeks. Notable increased constipation over the holidays. Last bowel movement on Sunday and then no bowel movement again for 4 days. Has been eating less due to abdominal pain that follows, so feels extremely hungry. Passing gas. Notably swollen lymph node on front aspect of L neck noticed this past Sunday. Increased fatigue and has been less active than previously. Tiring easily when ambulating in the house, which is new over the past few weeks. + occasional dizziness from chronic ear issues. No F/C, lightheadedness, CP, SOB, dysuria, hematuria, vaginal bleeding or diarrhea. Does have a [id number] history of smoking but has transition to vaping in the past few years. Was due for a colonoscopy this past April but canceled for insurance purposes. Admission Exam Per Admitting Provider General: cooperative and pleasant woman, NAD CV sinus tachycardia, no murmur Resp CTAB GI soft, nontender outside of mild epigastric discomfort MSK no focal deficits LYMPH, Left anterior cervical chain palable mobile LN, nontender, bulky ?LAD in axillary difficult to ascertain (left), no LAD on right, no inguinal LAD BL Principal Diagnosis Diffuse metastatic disease, liver lesions, lung lesion Gastritis, possible Lopez's esophagus Discharge Exam General: WD/WN F in NAD HEENT: NC/AT, EOMI, PERRL CV : rrr, no murmur Resp: CTAB Abdomen : soft, + mild epigastric discomfort on palp. , + bowel sounds MSK : moves extremities LYMPH: + Left anterior cervical chain palpable mobile LN, nontender, bulky Skin: warm, dry, no rashes Discharge Data Allergies Allergy/AdvReac Type Severity Reaction Status Date / Time No Known Allergies Allergy Unknown Verified 11/06/23 17:11 Consultations 11/06/23 17:23 ED Decision to Admit Stat 11/07/23 08:00 Consult Gastroenterology Routine 11/08/23 13:47 Consult General Surgery Routine Procedures Performed Operation Date: 11/07/23 09:15 Actual Procedures p EUS upper FNA - Selena Faust DO s EGD w/ BX, - Selena Faust DO Ordered Studies 11/06/23 14:34 CT abd pelvis IV con only Stat FINDINGS: Lung bases: The heart is top normal in size noting a small pericardial effusion. There are coronary artery calcifications. Emphysematous changes noted. There is bibasilar scarring/atelectasis. No airspace consolidation or pleural effusion is identified. Liver: The contrast-enhanced liver is enlarged and heterogeneous, measuring 19.7 cm in length. There is evidence of extensive/diffuse multifocal hepatic metastatic disease, with greater than 20 lesions identified. A admitting representative right lobe lesion on image #96 measures up to 4.6 cm. There is no intrahepatic biliary ductal dilatation. The hepatic veins and portal veins are patent. The main portal vein is mildly narrowed by lymphadenopathy. Gallbladder: The gallbladder is contracted and there is nonspecific gallbladder wall thickening/edema. Spleen: Normal in size and attenuation. Pancreas: Unremarkable. Adrenal glands: Unremarkable. Kidneys: The contrast enhanced kidneys are normal in size and without hydronephrosis. The kidneys enhance symmetrically. A circumaortic left renal vein is incidentally noted. Abdominal vasculature: The abdominal aorta is normal in course and caliber noting moderate to advanced atherosclerotic calcification. Bowel: There is postsurgical change from sigmoid colon resection with colocolonic anastomosis. No bowel obstruction is identified. There is [id number]-[id number] colonic fecal retention. There are scattered colonic diverticula without CT evidence of acute diverticulitis. The appendix is well-visualized and normal. Peritoneum: No intraperitoneal free air is identified. There is trace perihepatic ascites. Lymphadenopathy: There is pathologic retroperitoneal lymphadenopathy. A left periaortic node on image #128 measures 2.2 x 1.6 cm. An aortocaval node on image #1 extra 20 measures 2.3 x 1.1 cm. There is also bulky lymphadenopathy in the lilia hepatis. A lidia aggregate on image #92 measures 4.3 x 2.5 cm. There is no pelvic sidewall or inguinal lymphadenopathy. Pelvic viscera: The bladder, uterus, and adnexa are normal as visualized. Skeletal structures: The skeletal structures are osteopenic. Mild lumbosacral spondylosis is observed. No lytic or blastic lesions are seen. IMPRESSION: 1. The liver is enlarged and infiltrated by diffuse hepatic metastatic disease. 2. There is metastatic upper abdominal and retroperitoneal lymphadenopathy. 3. There is postsurgical change from sigmoid colon resection. If there is a history of colon cancer this may represent the primary tumor. 4. The gallbladder is decompressed and the wall is thickened/edematous. This is likely related to adjacent hepatocellular disease. Correlate clinically. 5. There is trace perihepatic ascites. 6. Additional findings as above. 11/06/23 18:41 CT chest diagnostic w con Routine FINDINGS: Lungs: Centrilobular emphysema. No mass. No consolidation. Pleural space: Unremarkable. No pneumothorax. No significant effusion. Heart: Unremarkable. No cardiomegaly. No significant pericardial effusion. No significant coronary artery calcifications. Mediastinum: Mass in the RIGHT upper lobe, measures 4.5 x 2.6 cm. Findings are concerning for lung cancer. RIGHT hilar mass measures 3.3 x 4.7 cm. Enlarged subcarinal lymph node measures 4.9 x 2.7 cm. Bones/joints: Unremarkable. No acute fracture. No dislocation. Soft tissues: Unremarkable. Vasculature: Unremarkable. No thoracic aortic aneurysm. Lymph nodes: See above. Liver: Diffuse hepatic metastases. IMPRESSION: 1. Mass in the RIGHT upper lobe, measures 4.5 x 2.6 cm. Findings are concerning for lung cancer. RIGHT hilar mass measures 3.3 x 4.7 cm. Enlarged subcarinal lymph node measures 4.9 x 2.7 cm. 2. Diffuse hepatic metastases. 3. Centrilobular emphysema. CT head/brain w con Routine FINDINGS: Brain: Unremarkable. No hemorrhage. No edema. Normal enhancement. Ventricles: Unremarkable. No ventriculomegaly. Bones/joints: Unremarkable. No acute fracture. Soft tissues: Unremarkable. Sinuses: Unremarkable as visualized. No acute sinusitis. Mastoid air cells: Unremarkable as visualized. No mastoid effusion. IMPRESSION: Normal head/brain CT. The presence of contrast limits evaluation for small bleeds. Need for brain MRI should be determined clinically. 11/07/23 09:34 US upper EUS PACS images Routine 11/07/23 09:44 US upper EUS PACS images Routine Impression: - There was no sign of significant pathology in the ampulla. - There was no sign of significant pathology in the entire pancreas. - There was no sign of significant pathology in the common bile duct. No evidence of biliary obstruction. - There was no sign of significant pathology in the gallbladder. - Endosonographic images of the left adrenal gland were unremarkable. - Multiple masses were found in the visualized portion of the liver. Fine needle aspiration performed. - A few enlarged lymph nodes were visualized in the celiac region (level 20). - Many enlarged lymph nodes were visualized in the lilia hepatis region. Recommendation: - [facility]. - Await cytology results. Hospital Course (1) Metastatic disease: This is a 63 yo F with a PMH of anxiety/depression and recurrent diverticulitis s/p colon resection in 2007 who presents with persistent abdominal pain over the past few weeks and CT abd/pelvis shows diffuse metastatic disease in liver, upper abdominal and retroperitoneal lymphadenopathy. Post-prandial abdominal pain, constipation x [address] abd/pelvis with 1. The liver is enlarged and infiltrated by diffuse hepatic metastatic d isease. 2. There is metastatic upper abdominal and retroperitoneal lymphadenopathy. 3. There is postsurgical change from sigmoid colon resection. If there is a history of colon cancer this may represent the primary tumor. 4. The gallbladder is decompressed and the wall is thickened/edematous. This is likely related to adjacent hepatocellular disease. Correlate clinically. 5. There is trace perihepatic ascites. Obtain CT head, CT chest for further staging, unknown primary Discussed with Dr. Worthy, sugey/onc who requests CT chest, clinic follow-up. Confirmed patient prefers to establish with [facility] sugey onc CT head - Normal head/brain CT. CT chest - 1. Mass in the RIGHT upper lobe, measures 4.5 x 2.6 cm. Findings are concerning for lung cancer. RIGHT hilar mass measures 3.3 x 4.7 cm. Enlarged subcarinal lymph node measures 4.9 x 2.7 cm. 2. Diffuse hepatic metastases. 3. Centrilobular emphysema. IR FNA biopsy ordered by admitting team - prominent L anterior cervical lymph node vs liver biopsy if preferred by IR -> GI discussed w/ IR that they were able to obtain biopsies, therefore cancelled IR consult GI consulted for abd pain, N/V, possible indication for scope if concern for obstruction given above findings - per GI - The patient appears to have evidence of metastatic disease based on her recent CT scan. Suspect the elevated liver enzymes are a result of diffuse hepatic metastasis. Will plan to proceed with upper endoscopy and endoscopic ultrasound for further evaluation today. The patient underwent an endoscopic ultrasound this morning (11/07/2023). The patient was found to have mild gastritis and possible Lopez's esophagus numerous masses were also noted throughout the liver. Biopsies were taken from the stomach and esophagus. A fine-needle aspiration of the masses within the liver. - pending results No evidence of biliary obstruction. Recommendations Await pathology results Medical oncology referral - appointment scheduled w/ Dr. Worthy - oncology - November 13, 2023. Would suggest tumor markers to include, CA19-9, CEA, AFP and CA-125 - ordered a nd results pending. Hepatitis panel also obtained and negative. Avoid NSAIDS for 1 week Gastritis, poss. Lopez's esophagus - started PPI ? cholecystitis Gallbladder on CT scan decompressed and edematous, likely from adjacent hepatocellular disease. Discussed with general surgery. They did evaluate the patient, and offered HIDA scan, patient declined at this time. (2) Depression: (3) Anxiety: Stable mood - not on any medications besides supplements which she has been holding for past few weeks Total Time Total Time Spent Total Time Spent (In Minutes): 40 Discharge Plan Discharge Items Patient Disposition: Home - Self-Care Reason For Visit: DIFFUSE METASTATIC DISEASE ON CT ABD/PELVIS, [place] Discharge Diagnosis: Diffuse metastatic disease, liver lesions, lung lesion Gastritis, possible Lopez's esophagus Activity: Per Instructions section Non-emergency contact: Primary Care Provider and Oncologist Call non-emergency contact if: you have any medication questions and your symptoms worsen Follow-up/Referrals: Jose Worthy MD [Surgeon] - 11/13/23 2:45 pm (This is a direct number to the Hematology/Oncology office, . Please contact them with any questions or the need to reschedule. ) Abdulkadir Olivera MD [Primary Care Provider] - (Date & Time 11/14/2023 11:00 AM Provider Abdulkadir Olivera MD [facility] ) Diet: Regular Addtl Attending Provider Instructions: Follow-up with primary care provider, and oncologist. The appointment with Dr. Worthy, oncologist was scheduled for you for November 13, 2023. The appointment with your primary care provider was scheduled for you for November 14, 2023. Take pantoprazole daily as prescribed for gastritis. Pending Studies at Discharge: Yes Studies:: biopsy, tumor markers Stand-Alone Forms: [employer], Smoking Cessation Medications and DC Order Prescriptions: New pantoprazole 40 mg tablet,delayed release (DR/EC) 40 mg PO DAILY Qty: 30 0RF Continued multivitamin Tablet 1 tab PO DAILY cholecalciferol (vitamin D3) [Vitamin D3] 125 mcg (5,000 unit) Tablet 125 mcg PO DAILY cyanocobalamin (vitamin B-12) 2,000 mcg Tablet 2,000 mcg PO DAILY Discontinued boron 6 mg Tablet 6 mg PO DAILY lysine [L-Lysine] 500 mg Tablet 500 mg PO DAILY acetylcysteine [NAC] 600 mg Capsule 600 mg PO DAILY colostrum, bovine 500 mg Capsule 500 mg PO DAILY magnesium mal-pot [id number]-[id number] 50-25-175-1 mg Tablet 1 tab PO DAILY Discharge Orders: Discharge Order (Routine); Ordered 11/09/23 Ordered By: Glen Siegel Admission Data Admit Date/Time: 11/06/23 17:51 Attending Provider: Glen Siegel Admit Provider: Maria Dolores Luz Primary Care Provider: Abdulkadir Olivera Other Providers: Maria Dolores Luz; Selena Fauts; Dorothy Dlearosa
[2023-11-14 16:17] LABS: AFP Tumor Marker Serum 1.8 ng/mL
== END 2023-11-09 17:04 | disposition home or self-care (01) | DRG 181 ==
LOC: ED 14:22 → SUATTDRO 17:51 → EDINP 17:51 → 3W 20:58

== ENCOUNTER 2023-11-30 20:56 | Inpatient (IN) ==
--- NOTE | 2023-11-30 21:21 | Emergency Department Note ---
Impression & Plan Fever and neutropenia, Acute hyponatremia ED Provider Note NAME: PRANEETH SHOEMAKER AGE: 63 SEX: F : 1960 ARRIVES VIA: Walk-In INFORMANT: Patient, the patient's family member ED PROVIDER(S): Rosales Morales DO CHIEF COMPLAINT: Fever HPI: The patient is a 63-year-old female who has a history of lung cancer who received chemotherapy last week who presented to the emergency department for an evaluation of fever. The patient has no specific symptoms although the family members noted she had some sores in her mouth. She denies having any dysuria or frequency. She did have some episodes of emesis. She denies having any rectal bleeding. She is not able to take medications for fever because of her liver issues. The patient's family called the oncologist this evening and they were told to go to the emergency department for further evaluation. ROS: See above HPI for pertinent positives & negatives. A total of 10 systems reviewed and were otherwise negative. PAST MEDICAL HISTORY: See Below PAST SURGICAL HISTORY: See Below FAMILY HISTORY: See Below SOCIAL HISTORY: See Below HOME MEDICATIONS: See Below ALLERGIES: See Below VITALS: See Below PHYSICAL EXAMINATION: GENERAL: The patient is awake but somewhat listless appearing. She does not appear to be in significant pain. EYES: The conjunctivae are clear. The pupils are round and reactive. EARS, NOSE, MOUTH AND THROAT: The nose is without any evidence of any deformity. Mucous membranes are moist. NECK: The neck is nontender and supple. RESPIRATORY: Diminished breath sounds are noted in the left lung field. There is no specific tachypnea or conversational dyspnea. CARDIOVASCULAR: Tachycardic and regular heart sounds were noted to auscultation. There is no definite murmur. GASTROINTESTINAL: The abdomen is soft. Abdomen is nontender. BACK: No midline tenderness or or step-off noted range of motion in flexion extension as well as rotation no signs of muscle spasm noted MUSCULOSKELETAL/EXTREMITIES: There is no evidence of gross deformity full range of motion is noted in the hips and shoulders. SKIN: There is no obvious evidence of any rash. Skin was cool and dry. Pedal edema was noted bilaterally. NEUROLOGIC: Patient is awake and oriented x3 strength was diminished but symmetric MEDICAL DECISION MAKING: The patient is a 63-year-old female who presented to the emergency department for an evaluation of fever. The patient has a history of lung cancer. She was recently started on chemotherapy for this. The patient presented to the emergency department this evening with fever. The patient was found to be neutropenic. She was treated with IV fluids and well as IV cefepime. The patient was reevaluated. Initially she did have hypotension. She responded well to the IV fluid bolus. She was awake and alert. No definite source for her fever could be found although she does have which could be a pulmonary infiltrate in the right base but the family states that this is where she has her lung cancer. The patient was feeling much better on reevaluation. I discussed this case with the on-call [facility]. They will evaluate the patient in the emergency department. Triage Nursing notes reviewed. Prior medical records reviewed Vital Signs: reviewed and remarkable for hypotension. Differential diagnosis: Viral syndrome, otitis, pharyngitis, pneumonia, influenza, meningitis, urinary tract infection, sepsis, bacteremia, as well as other pathologies. ER treatment provided: See below Diagnostics interpreted by me: ECG: EKG was obtained in the emergency department. My interpretation is sinus tachycardia [address] segment abnormalities were noted. This was compared to a tracing from November 15, 2007. There is an increase in the ventricular rate otherwise no specific changes were noted Cardiac Monitoring: An order was placed for continuous cardiac monitoring. The monitor shows a rate of 108 bpm with sinus tachycardia. Laboratory studies: As stated above and show below. Imaging studies: See below. Radiographic imaging was reviewed by myself Consultation(s): I discussed this case with Dr. Pratt who is on-call for the [facility] group. ED COURSE: Procedures: none Critical Care: I have personally spent greater than 45 minutes of critical care time in the direct management of this patient. This includes bedside care, interpretation of diagnostic studies, and testing, discussion with consultants, patient, and family members, and other required patient management activities. This 45 minutes is in excess of all separately billable procedures. Past Med/Surg History Medical History Diverticulitis Depression Anxiety Surgical History Tubal ligation status History of colon resection partial colectomy with anastomosis in 2007 Family History Other COPD (chronic obstructive pulmonary disease) Ovarian cancer Social History Smoking Status: Former smoker Tobacco Type: E-cigarettes / Vaping Second Hand Exposure: No; Do You Dip or Chew Tobacco: No; Hx Alcohol Use: Yes Hx Substance Use: No Preferred Language: Yakut Communication Ability: Effective Field Care Coordinator Required: No Beliefs That Will Affect Care: None Current Living Situation: Spouse Feels Safe at Home: Yes Assistive Devices: None Allergies Allergies Allergy/AdvReac Type Severity Reaction Status Date / Time No Known Allergies Allergy Unknown Verified 11/30/23 22:31 Home Meds Home Medications Medication Instructions Recorded Confirmed cholecalciferol (vitamin D3) 125 125 mcg PO DAILY 11/06/23 11/30/23 mcg (5,000 unit) tablet (Vitamin D3) cyanocobalamin (vitamin B-12) 2,000 mcg PO DAILY 11/06/23 11/30/23 2,000 mcg tablet multivitamin 1 tab PO DAILY 11/06/23 11/30/23 Previous Rx's Medication Instructions Recorded pantoprazole 40 mg tablet,delayed 40 mg PO DAILY #30 tabs 11/09/23 release Results & Data (ED) Vital Signs Vital Signs - 24 hr 11/30/23 20:59 11/30/23 21:19 11/30/23 21:50 Temperature 36.9 C Temperature Source Oral Pulse Rate 124 H 111 H Pulse Rate from SpO2 Sensor Respiratory Rate 18 Respiratory Effort / Characteristics Non-Labored Spontaneous Respiratory Depth Normal Respiratory Pattern Regular Blood Pressure 91/61 L Blood Pressure Mean 71 Pulse Oximetry 93 93 Oxygen Delivery Method Room Air Room Air Sepsis Recent Fever Within 48 Hours Yes Sepsis New/Unexplained Change in Mental Status No Sepsis Action Taken by Nursing No Action Required 11/30/23 21:50 11/30/23 22:00 Temperature Temperature Source Pulse Rate 110 H 108 H Pulse Rate from SpO2 Sensor 112 H 108 H Respiratory Rate 21 24 Respiratory Effort / Characteristics Respiratory Depth Respiratory Pattern Blood Pressure 97/50 L Blood Pressure Mean 65 Pulse Oximetry 93 95 Oxygen Delivery Method Sepsis Recent Fever Within 48 Hours Sepsis New/Unexplained Change in Mental Status Sepsis Action Taken by Alf Medications Current Medication List: was personally reviewed by me Laboratory Data Attestation: I reviewed the patient's lab results. 11/30/23 21:09 11/30/23 21:09 Lab Results 11/30/23 11/30/23 11/30/23 Range/Units 21:09 21:30 22:34 WBC 0.58 L* (4.8-10.8) K/ul RBC 3.70 L (4.20-5.40) M/uL Hgb 10.7 L (12.0-16.0) g/dl Hct 31.5 L (37.0-47.0) % MCV 85.1 (80.0-100.0) fL MCH 28.9 (25.0-34.0) pg MCHC 34.0 (32.0-36.0) g/dL RDW Std Deviation 37.1 (36.4-46.3) fL RDW Coeff of Brad 11.9 (11.5-14.5) % Plt Count 93 L (130-400) K/uL MPV 9.7 (9.4-12.4) fL Immature Gran % (Auto) 0.0 % Neut % (Auto) 3.5 % Lymph % (Auto) 87.9 % [place] % (Auto) 6.9 % Eos % (Auto) 1.7 % Baso % (Auto) 0.0 % Neut # (Auto) 0.02 L* (1.40-6.50) K/uL Lymph # (Auto) 0.51 L (1.20-3.40) K/uL [place] # (Auto) 0.04 L (0.11-0.59) K/uL Eos # (Auto) 0.01 (0.00-0.50) K/uL Baso # (Auto) 0.00 (0.00-0.20) K/uL Immature Gran # (Auto) 0.00 L (0.01-0.20) K/uL Platelet Estimate Decreased L (Normal) PT 12.1 H (9.0-12.0) Seconds INR 1.1 (0.9-1.1) APTT 30 (21-31) Seconds PTT Ratio 1.1 VBG pH 7.47 H (7.36-7.41) VBG pCO2 36 L (38-50) mmHg VBG pO2 30 mmHg VBG HCO3 26 mmol/L VBG O2 Saturation < 60.0 % VBG Base Excess 2.7 mEq/L Sodium 129 L (136-145) mmol/L Potassium 3.7 (3.5-5.1) mmol/L Chloride 96 L (98-107) mmol/L Carbon Dioxide 25 (21-32) mmol/L Anion Gap 8 (3-11) BUN 10 (6-23) mg/dl Creatinine 0.78 (0.6-1.2) mg/dl Est Cr Clr Drug Dosing Not Reportable Est GFR ( Amer) 93.8 ml/min Est GFR (Non-Af Amer) 80.9 ml/min BUN/Creatinine Ratio 12.8 (10-20) Glucose 116 H (70-99(Fasting)) mg/dl Lactate 1.2 (0.4-2.0) mmol/L Calcium 9.1 (8.6-10.3) mg/dl Magnesium 1.9 (1.7-2.4) mg/dl Total Bilirubin 0.8 (0.2-1.0) mg/dl AST 35 (13-39) U/L ALT 29 (7-52) U/L Alkaline Phosphatase 226 H (34-104) U/L Ammonia TNP 18.0 Troponin I High Sens 2.7 (0-14) pg/ml Total Protein 7.5 (6.0-8.3) gm/dl Albumin 3.5 (3.4-5.0) gm/dl Globulin 4.0 (2.5-4.0) gm/dl Albumin/Globulin Ratio 0.9 (0.9-2) Procalcitonin 0.74 H (0-0.5) ng/ml Administered Medications Sodium Chloride (Nss) 1,000 mls @ 999 mls/hr IV .Q1H1M ONE Stop: 11/30/23 23:29 Last Admin: 11/30/23 22:40 Dose: 999 mls/hr Documented By: KMF Discontinued Medications Sodium Chloride (Nss) 1,000 mls @ 999 mls/hr IV .Q1H1M ONE Stop: 11/30/23 22:10 Last Infusion: 11/30/23 22:50 Dose: Infused Documented By: Admin: 11/30/23 21:39 Dose: 999 mls/hr Documented By: MIK Cefepime HCl (Maxipime) 2,000 mg in 20 mls @ 5 mls/min IV NOW STA; Protocol Stop: 11/30/23 22:32 Last Admin: 11/30/23 22:40 Dose: 5 mls/min Documented By: ROMI Imaging Data Attestation: I personally reviewed and interpreted this imaging study as follows: My Impression: 1 view chest x-ray was obtained in the emergency department. My interpretation is no free air, atelectasis and increased interstitial markings were noted at the right base. There was also hilar fullness noted at the right base. No previous chest x-ray was available. Final report pending. Discharge Plan Visit Data Chief Complaint: Fever Stated Complaint: FEVER,GOING THROUGH CHEMO ED Provider: Rosales Morales Discharge Problem: Fever and neutropenia, Acute hyponatremia Forms Stand Alone Forms: My [facility] Prescriptions Prescriptions: No Action multivitamin Tablet 1 tab PO DAILY cholecalciferol (vitamin D3) [Vitamin D3] 125 mcg (5,000 unit) Tablet 125 mcg PO DAILY cyanocobalamin (vitamin B-12) 2,000 mcg Tablet 2,000 mcg PO DAILY pantoprazole 40 mg tablet,delayed release (DR/EC) 40 mg PO DAILY Qty: 30 0RF Referrals Referrals: Abdulkadir Olivera MD [Primary Care Provider] -
[2023-11-30] MEDS: SODIUM CHLORIDE 0.9% 1,000 ML IV ONE ×2 (21:39→22:40)
[2023-11-30 21:48] LABS: Alanine Aminotransferase 29 U/L (7-52); Albumin Globulin Ratio 0.9 (0.9-2); Albumin Level 3.5 gm/dl (3.4-5.0); Alkaline Phosphatase 226 U/L (34-104); Anion Gap 8 (3-11); Aspartate Aminotransferase 35 U/L (13-39); BUN Creatinine Ratio 12.8 (10-20); Bilirubin,Total 0.8 mg/dl (0.2-1.0); Blood Urea Nitrogen 10 mg/dl (6-23); Calcium 9.1 mg/dl (8.6-10.3); Carbon Dioxide 25 mmol/L (21-32); Chloride 96 mmol/L (98-107); Est GFR (African American) 93.8 ml/min; Est GFR (Non-African American) 80.9 ml/min; Glucose 116 mg/dl (70-99(Fasting)); Magnesium 1.9 mg/dl (1.7-2.4); Potassium 3.7 mmol/L (3.5-5.1); Sodium 129 mmol/L (136-145); Total Protein 7.5 gm/dl (6.0-8.3)
[2023-11-30 21:52] LABS: Base Excess VBG 2.7 mEq/L; HCO3 VBG 26 mmol/L; Oxygen Saturation VBG < 60.0 %; PCO2 VBG 36 mmHg (38-50); PO2 VBG 30 mmHg; pH VBG 7.47 (7.36-7.41)
[2023-11-30 21:55] LABS: INR 1.1 (0.9-1.1); Partial Thromboplastin Ratio 1.1; Partial Thromboplastin Time 30 Seconds (21-31); Prothrombin Time 12.1 Seconds (9.0-12.0); Troponin I High Sensitivity 2.7 pg/ml (0-14)
[2023-11-30 22:28] LABS: Hematocrit (blood only) 31.5 % (37.0-47.0); Hemoglobin 10.7 g/dl (12.0-16.0); Mean Corpuscular Hemoglobin 28.9 pg (25.0-34.0); Mean Corpuscular Volume 85.1 fL (80.0-100.0); Mean Platelet Volume 9.7 fL (9.4-12.4); Platelet Count 93 K/uL (130-400); RDW Coefficient of Variation 11.9 % (11.5-14.5); RDW Standard Deviation 37.1 fL (36.4-46.3); White Blood Count 0.58 K/ul (4.8-10.8)
[2023-11-30 22:40] LABS: Platelet Estimate Decreased (Normal)
[2023-11-30] MEDS: CEFEPIME 2,000 MG/20 ML VIAL IV STA (22:40)
[2023-11-30 22:42] LABS: Eosinophils # (auto) 0.01 K/uL (0.00-0.50); Eosinophils % (auto) 1.7 %; Lymphocytes # (auto) 0.51 K/uL (1.20-3.40); Lymphocytes % (auto) 87.9 %; Monocytes # (auto) 0.04 K/uL (0.11-0.59); Monocytes % (auto) 6.9 %; Neutrophils # (auto) 0.02 K/uL (1.40-6.50); Neutrophils % (auto) 3.5 %
[2023-11-30 23:21] LABS: Influenza A virus by PCR Negative (Neg); Influenza B virus by PCR Negative (Neg); RSV by PCR Negative (Neg); SARS CoV2 RNA(COVID-19) Ceph NEGATIVE (Negative)
--- NOTE | 2023-12-01 00:06 | History & Physical Report ---
Date of Service November 30, 2023 Assessment & Plan (1) Fever and neutropenia: Plan: 63-year-old female with past med history significant for metastatic small cell lung cancer, depression, anxiety presents with fever. Patient was recently diagnosed with right upper lobe small cell lung cancer with multiple metastatic lesions in the liver and right hilar metastasis, subcarinal lymph node status and the left lower cervical lymph node and upper abdominal lymphadenopathy. MRI brain negative for metastasis. Patient was started on chemo last week. Today patient developed fevers at home. No cough. Has some nausea. Appetite is down. No chest pain or shortness of breath. No headache or neck pain. No abdominal pain. Normal bowel and bladder movements. Hemodynamics are okay. Febrile neutropenia Recently diagnosed with small cell lung cancer metastatic Started on chemo last week Procalcitonin 0.74 UA is pending COVID, flu, RSV negative Empirically on IV cefepime and doxycycline IV fluids Will follow MRSA screen Neutropenic precautions Close monitor Pancytopenia Mostly from metastatic cancer and chemo Will follow labs Metastatic small cell lung cancer Started chemo last week Follow-up with heme-onc Hyponatremia Sodium 129 Getting fluids Will follow the labs DVT prophylaxis SCDs as platelets are 93 Full code Med/tele History of Present Illness Chief Complaint: Fever Primary Care Provider: Abdulkadir Olivera MD 63-year-old female with past med history significant for metastatic small cell lung cancer, depression, anxiety presents with fever. Patient was recently diagnosed with right upper lobe small cell lung cancer with multiple metastatic lesions in the liver and right hilar metastasis, subcarinal lymph node status and the left lower cervical lymph node and upper abdominal lymphadenopathy. MRI brain negative for metastasis. Patient was started on chemo last week. Today patient developed fevers at home. No cough. Has some nausea. Appetite is down. No chest pain or shortness of breath. No headache or neck pain. No abdominal pain. Normal bowel and bladder movements. Hemodynamics are okay. Past medical history. As mentioned above Past surgical history. Colonoscopy. Ligation of oviducts. Sigmoidectomy. Right ovarian cystectomy. Treatment of ectopic laparoscopic. Social history. . Smoked 1 pack a day for 26 years. No alcohol use. No drug use. Family history. Mother had cervical cancer and uterine cancer at age 40. Mother had hypothyroidism. Father had COPD. Allergies Allergy/AdvReac Type Severity Reaction Status Date / Time No Known Allergies Allergy Unknown Verified 11/30/23 22:31 Home Medications Medication Instructions Recorded Confirmed Type cholecalciferol (vitamin D3) 125 125 mcg PO DAILY 11/06/23 11/30/23 History mcg (5,000 unit) tablet (Vitamin D3) cyanocobalamin (vitamin B-12) 2,000 mcg PO DAILY 11/06/23 11/30/23 History 2,000 mcg tablet multivitamin 1 tab PO DAILY 11/06/23 11/30/23 History pantoprazole 40 mg tablet,delayed 40 mg PO DAILY #30 tabs 11/09/23 11/30/23 Rx release Past Med/Surg History Medical History Diverticulitis Depression Anxiety Surgical History Tubal ligation status History of colon resection partial colectomy with anastomosis in 2007 Family History Other COPD (chronic obstructive pulmonary disease) Ovarian cancer Social History Smoking Status: Light tobacco smoker Tobacco Type: E-cigarettes / Vaping Second Hand Exposure: No; Do You Dip or Chew Tobacco: No; Hx Alcohol Use: Yes Hx Substance Use: No Preferred Language: Georgian Communication Ability: Effective [employer] Required: No Beliefs That Will Affect Care: None Current Living Situation: Spouse Other Information That Helps Us Care for You: No Feels Safe at Home: Yes Safety Concerns: Feels Safe At This Time Assistive Devices: None Review of Systems Review of Systems: All systems reviewed & are unremarkable except as noted in HPI & below Physical Exam Physical Exam: General- Not in distress Head- atraumatic Eyes- PERRL. ENT- oropharynx clear Neck- supple, no JVD. Lungs- clear to auscultation no wheezing or crackles. Heart- regular rhythm; no murmur, no gallop. Abdomen- normal bowel sounds, soft, nontender, no distension. Extremities- no pretibial edema, no erythema. Neuro- alert, oriented x 3; PERRL, no facial palsy; no dysarthria; moves extremities. Skin- warm & dry Results & Data Results & Data Vital Signs (Past 12 Hours) Vital Signs Temp Pulse Resp BP Pulse Ox O2 Del Method 11/30/23 23:00 103 H 14 99/58 L 96 11/30/23 22:45 104 H 14 105/63 95 11/30/23 22:38 77/59 L 93 11/30/23 22:00 108 H 24 97/50 L 95 11/30/23 21:50 110 H 21 93 11/30/23 21:50 111 H 11/30/23 21:19 93 Room Air 11/30/23 20:59 36.9 C 124 H 18 91/61 L 93 Room Air Diagnostic Findings Laboratory Results WBC 0.58 K/ul (4.8-10.8) L* 11/30/23 21:09 RBC 3.70 M/uL (4.20-5.40) L 11/30/23 21:09 Hgb 10.7 g/dl (12.0-16.0) L 11/30/23 21:09 Hct 31.5 % (37.0-47.0) L 11/30/23 21:09 MCV 85.1 fL (80.0-100.0) 11/30/23 21:09 MCH 28.9 pg (25.0-34.0) 11/30/23 21:09 MCHC 34.0 g/dL (32.0-36.0) 11/30/23 21:09 RDW Std Deviation 37.1 fL (36.4-46.3) 11/30/23 21:09 RDW Coeff of Brad 11.9 % (11.5-14.5) 11/30/23 21:09 Plt Count 93 K/uL (130-400) L 11/30/23 21:09 MPV 9.7 fL (9.4-12.4) 11/30/23 21:09 Immature Gran % (Auto) 0.0 % 11/30/23 21:09 Neut % (Auto) 3.5 % 11/30/23 21:09 Lymph % (Auto) 87.9 % 11/30/23 21:09 [place] % (Auto) 6.9 % 11/30/23 21:09 Eos % (Auto) 1.7 % 11/30/23 21:09 Baso % (Auto) 0.0 % 11/30/23 21:09 Neut # (Auto) 0.02 K/uL (1.40-6.50) L* 11/30/23 21:09 Lymph # (Auto) 0.51 K/uL (1.20-3.40) L 11/30/23 21:09 [place] # (Auto) 0.04 K/uL (0.11-0.59) L 11/30/23 21:09 Eos # (Auto) 0.01 K/uL (0.00-0.50) 11/30/23 21:09 Baso # (Auto) 0.00 K/uL (0.00-0.20) 11/30/23 21:09 Immature Gran # (Auto) 0.00 K/uL (0.01-0.20) L 11/30/23 21:09 Platelet Estimate Decreased (Normal) L 11/30/23 21:09 PT 12.1 Seconds (9.0-12.0) H 11/30/23 21:09 INR 1.1 (0.9-1.1) 11/30/23 21:09 APTT 30 Seconds (21-31) 11/30/23 21:09 PTT Ratio 1.1 11/30/23 21:09 VBG pH 7.47 (7.36-7.41) H 11/30/23 21:30 VBG pCO2 36 mmHg (38-50) L 11/30/23 21:30 VBG pO2 30 mmHg 11/30/23 21:30 VBG HCO3 26 mmol/L 11/30/23 21:30 VBG O2 Saturation < 60.0 % 11/30/23 21:30 VBG Base Excess 2.7 mEq/L 11/30/23 21:30 Sodium 129 mmol/L (136-145) L 11/30/23 21:09 Potassium 3.7 mmol/L (3.5-5.1) 11/30/23 21:09 Chloride 96 mmol/L (98-107) L 11/30/23 21:09 Carbon Dioxide 25 mmol/L (21-32) 11/30/23 21:09 Anion Gap 8 (3-11) 11/30/23 21:09 BUN 10 mg/dl (6-23) 11/30/23 21:09 Creatinine 0.78 mg/dl (0.6-1.2) 11/30/23 21:09 Est Cr Clr Drug Dosing Not Reportable 11/30/23 21:09 Est GFR ( Amer) 93.8 ml/min 11/30/23 21:09 Est GFR (Non-Af Amer) 80.9 ml/min 11/30/23 21:09 BUN/Creatinine Ratio 12.8 (10-20) 11/30/23 21:09 Glucose 116 mg/dl (70-99(Fasting)) H 11/30/23 21:09 Lactate 1.2 mmol/L (0.4-2.0) 11/30/23 21:09 Calcium 9.1 mg/dl (8.6-10.3) 11/30/23 21:09 Magnesium 1.9 mg/dl (1.7-2.4) 11/30/23 21:09 Total Bilirubin 0.8 mg/dl (0.2-1.0) 11/30/23 21:09 AST 35 U/L (13-39) 11/30/23 21:09 ALT 29 U/L (7-52) 11/30/23 21:09 Alkaline Phosphatase 226 U/L (34-104) H 11/30/23 21:09 Ammonia 18.0 umol/L (18-72) 11/30/23 22:34 Troponin I High Sens 2.7 pg/ml (0-14) 11/30/23 21:09 Total Protein 7.5 gm/dl (6.0-8.3) 11/30/23 21:09 Albumin 3.5 gm/dl (3.4-5.0) 11/30/23 21:09 Globulin 4.0 gm/dl (2.5-4.0) 11/30/23 21:09 Albumin/Globulin Ratio 0.9 (0.9-2) 11/30/23 21:09 Procalcitonin 0.74 ng/ml (0-0.5) H 11/30/23 21:09 SARS-CoV-2 (PCR) NEGATIVE (Negative) 11/30/23 Unknown Influenza Type A (PCR) Negative (Neg) 11/30/23 Unknown Influenza Type B (PCR) Negative (Neg) 11/30/23 Unknown RSV (RT-PCR) Negative (Neg) 11/30/23 Unknown ECG Additional Comments: ECG. Sinus tachycardia rate of 111. Code Status & VTE Plan VTE Prophylaxis Plan VTE Prophylaxis will be ordered: Yes
[2023-12-01] MEDS: SODIUM CHLORIDE 0.9% 500 ML IV SCH (03:49)
[2023-12-01] MEDS ORDERED: NITROGLYCERIN SL 0.4 MG/TAB TAB SL PRN (03:50)
[2023-12-01] MEDS ORDERED: POLYETHYLENE (MIRALAX) 17 GM PACK PO PRN (03:50)
[2023-12-01] MEDS: DOXYCYCLINE HYCLATE 100 MG in DEXTROSE 5% MINI-B 100 ML IV SCH (04:57)
[2023-12-01] MEDS: SODIUM CHLORIDE 0.9% 1,000 ML IV SCH (04:57)
[2023-12-01 05:34] LABS: Hematocrit (blood only) 26.1 % (37.0-47.0); Hemoglobin 8.9 g/dl (12.0-16.0); Mean Corpuscular Hemoglobin 28.8 pg (25.0-34.0); Mean Corpuscular Hgb Conc 34.1 g/dL (32.0-36.0); Mean Corpuscular Volume 84.5 fL (80.0-100.0); Mean Platelet Volume 9.4 fL (9.4-12.4); Platelet Count 55 K/uL (130-400); RDW Coefficient of Variation 11.9 % (11.5-14.5); RDW Standard Deviation 36.1 fL (36.4-46.3); Red Blood Count 3.09 M/uL (4.20-5.40); White Blood Count 0.73 K/ul (4.8-10.8)
[2023-12-01 05:42] LABS: BUN Creatinine Ratio 17.6 (10-20); Calcium 7.8 mg/dl (8.6-10.3); Creatinine Clr Calc Pharmacy 105.7 ml/min; Est GFR (African American) 118.6 ml/min; Est GFR (Non-African American) 102.3 ml/min; Magnesium 1.7 mg/dl (1.7-2.4); Potassium 3.4 mmol/L (3.5-5.1)
[2023-12-01] MEDS: CEFEPIME 2,000 MG in SYRINGE 0 ML IV SCH (05:45)
[2023-12-01 05:50] LABS: Dohle Bodies 1+; Lymphocytes # (auto) 0.65 K/uL (1.20-3.40); Monocytes # (auto) 0.06 K/uL (0.11-0.59); Monocytes % (auto) 8.2 %; Neutrophils # (auto) 0.02 K/uL (1.40-6.50); Neutrophils % (auto) 2.8 %
--- NOTE | 2023-12-01 07:15 | XRay Report ---
XR chest 1V not portable HISTORY: 63 years-old Female Sepsis acute sepsis COMPARISON: Chest CT 11/06/2023 TECHNIQUE: AP view of the chest FINDINGS: Cardiomediastinal and hilar silhouettes are unchanged. Pulmonary emphysema. Resolution of the previou sly described right upper lobe consolidation. New from prior study is a subsegmental focus of right b asilar consolidation. IMPRESSION: 1. There is a new focus of right basilar consolidation suggestive of pneumonia. 2. Please refer to the chest CT from 11/06/2023 for discussion of the pathologic thoracic lymphadenopat hy. 3. Pulmonary emphysema.. ACT 112: Negative or not required by law. The above report was generated using voice recognition software. It may contain grammatical, syntax o r spelling errors. Electronically signed by: Jorje Serrano M.D. 12/01/2023 7:14 AM
--- NOTE | 2023-12-01 08:47 | Hospitalist Progress Note ---
Date of Service December 01, 2023 Assessment & Plan (1) Fever and neutropenia: Plan: 63 yo F with past med history significant for metastatic small cell lung cancer, depression, anxiety presents with fever. Patient was recently diagnosed with right upper lobe small cell lung cancer with multiple metastatic lesions in the liver and right hilar metastasis, subcarinal lymph node status and the left lower cervical lymph node and upper abdominal lymphadenopathy. MRI brain negative for metastasis. Patient was started on chemo last week. Today patient developed fevers at home. No cough. Has some nausea. Appetite is down. No chest pain or shortness of breath. No headache or neck pain. No abdominal pain. Normal bowel and bladder movements. Hemodynamics are okay. Febrile neutropenia Pancytopenia secondary to chemotherapy Recently diagnosed with small cell lung cancer metastatic Started on chemo last week PNA Procalcitonin 0.74 CXR - 1. There is a new focus of right basilar consolidation suggestive of pneumonia. 2. Please refer to the chest CT from 11/06/2023 for discussion of the pathologic thoracic lymphadenopathy. 3. Pulmonary emphysema. Sputum cultx - pending Guaifenesin, flutter valve, IS UA is pending COVID, flu, RSV negative Empirically on IV cefepime and doxycycline IV fluids Will follow MRSA screen Neutropenic precautions Close monitor Pancytopenia Mostly from metastatic cancer and chemo Will follow labs Metastatic small cell lung cancer Started chemo last week Follow-up with heme-onc Hyponatremia Sodium 129 Getting fluids, current na 132 Will follow the labs Hypokalemia replete and monitor DVT prophylaxis SCDs as platelets are 93-> 55 Full code Med/tele Admission and Anticipated Discharge Date Admission Date: December 01, 2023 Subjective Pt seen in follow up of neutropenic fever, recently started on chemo CXR concerning for pna urine and blood cultx pending Currently sitting up in bed in NAD, reports she is already feeling better than yesterday Denies having any cough Currently no fevers chills chest pain shortness of breath abdominal pain nausea vomiting Family present at bedside Review of Systems Review of Systems: All systems reviewed & are unremarkable except as noted in Subjective Physical Exam Physical Exam: General- Not in distress Head- atraumatic Eyes- PERRL. ENT- oropharynx clear Neck- supple, no JVD. Lungs- clear to auscultation no wheezing or crackles. Heart- regular rhythm; no murmur, no gallop. Abdomen- normal bowel sounds, soft, nontender, no distension. Extremities- no pretibial edema, no erythema. Neuro- alert, oriented x 3; PERRL, no facial palsy; no dysarthria; moves extremities. Skin- warm & dry Results & Data Results & Data Vital Signs (Past 12 Hours) Vital Signs Temp Pulse Pulse Resp BP BP Pulse Ox 12/01/23 08:19 93 12/01/23 07:36 37.3 C 99 H 18 92/60 L 91 12/01/23 07:21 102 H 12/01/23 05:52 37 C 100 H 18 92/54 L 94 12/01/23 04:15 109 H 12/01/23 03:04 37.0 C 101 H 18 91/50 L 93 12/01/23 02:00 97 H 24 98/59 L 91 12/01/23 01:49 98 H 12/01/23 01:00 102 H 24 95/63 L 92 12/01/23 00:30 102 H 24 97/61 L 91 12/01/23 00:00 103 H 28 H 107/62 90 11/30/23 23:30 107 H 18 101/65 94 11/30/23 23:00 103 H 14 99/58 L 96 11/30/23 22:45 104 H 14 105/63 95 11/30/23 22:38 77/59 L 93 11/30/23 22:00 108 H 24 97/50 L 95 11/30/23 21:50 110 H 21 93 11/30/23 21:50 111 H 11/30/23 21:19 93 11/30/23 20:59 36.9 C 124 H 18 91/61 L 93 O2 Del Method 12/01/23 08:19 Room Air 12/01/23 07:36 Room Air 12/01/23 07:21 12/01/23 05:52 Room Air 12/01/23 04:15 12/01/23 03:04 Room Air 12/01/23 02:00 12/01/23 01:49 12/01/23 01:00 12/01/23 00:30 12/01/23 00:00 11/30/23 23:30 11/30/23 23:00 11/30/23 22:45 11/30/23 22:38 11/30/23 22:00 11/30/23 21:50 11/30/23 21:50 11/30/23 21:19 Room Air 11/30/23 20:59 Room Air Laboratory Results 12/01/23 11/30/23 11/30/23 Range/Units 05:10 Unknown 22:34 WBC 0.73 L* (4.8-10.8) K/ul RBC 3.09 L (4.20-5.40) M/uL Hgb 8.9 L (12.0-16.0) g/dl Hct 26.1 L (37.0-47.0) % MCV 84.5 (80.0-100.0) fL MCH 28.8 (25.0-34.0) pg MCHC 34.1 (32.0-36.0) g/dL RDW Std Deviation 36.1 L (36.4-46.3) fL RDW Coeff of Brad 11.9 (11.5-14.5) % Plt Count 55 L (130-400) K/uL MPV 9.4 (9.4-12.4) fL Immature Gran % (Auto) 0.0 % Neut % (Auto) 2.8 % Lymph % (Auto) 89.0 % [place] % (Auto) 8.2 % Eos % (Auto) 0.0 % Baso % (Auto) 0.0 % Neut # (Auto) 0.02 L* (1.40-6.50) K/uL Lymph # (Auto) 0.65 L (1.20-3.40) K/uL [place] # (Auto) 0.06 L (0.11-0.59) K/uL Eos # (Auto) 0.00 (0.00-0.50) K/uL Baso # (Auto) 0.00 (0.00-0.20) K/uL Immature Gran # (Auto) 0.00 L (0.01-0.20) K/uL Dohle Bodies 1+ Platelet Estimate (Normal) PT (9.0-12.0) Seconds INR (0.9-1.1) APTT (21-31) Seconds PTT Ratio VBG pH (7.36-7.41) VBG pCO2 (38-50) mmHg VBG pO2 mmHg VBG HCO3 mmol/L VBG O2 Saturation % VBG Base Excess mEq/L Sodium 132 L (136-145) mmol/L Potassium 3.4 L (3.5-5.1) mmol/L Chloride 105 (98-107) mmol/L Carbon Dioxide 21 (21-32) mmol/L Anion Gap 6 (3-11) BUN 9 (6-23) mg/dl Creatinine 0.51 L (0.6-1.2) mg/dl Est Cr Clr Drug Dosing 105.7 Est GFR ( Amer) 118.6 ml/min Est GFR (Non-Af Amer) 102.3 ml/min BUN/Creatinine Ratio 17.6 (10-20) Glucose 95 (70-99(Fasting)) mg/dl Lactate (0.4-2.0) mmol/L Calcium 7.8 L (8.6-10.3) mg/dl Magnesium 1.7 (1.7-2.4) mg/dl Total Bilirubin (0.2-1.0) mg/dl AST (13-39) U/L ALT (7-52) U/L Alkaline Phosphatase (34-104) U/L Ammonia 18.0 Troponin I High Sens (0-14) pg/ml Total Protein (6.0-8.3) gm/dl Albumin (3.4-5.0) gm/dl Globulin (2.5-4.0) gm/dl Albumin/Globulin Ratio (0.9-2) Procalcitonin (0-0.5) ng/ml SARS-CoV-2 (PCR) NEGATIVE (Negative) Influenza Type A (PCR) Negative (Neg) Influenza Type B (PCR) Negative (Neg) RSV (RT-PCR) Negative (Neg) 11/30/23 11/30/23 Range/Units 21:30 21:09 WBC 0.58 L* (4.8-10.8) K/ul RBC 3.70 L (4.20-5.40) M/uL Hgb 10.7 L (12.0-16.0) g/dl Hct 31.5 L (37.0-47.0) % MCV 85.1 (80.0-100.0) fL MCH 28.9 (25.0-34.0) pg MCHC 34.0 (32.0-36.0) g/dL RDW Std Deviation 37.1 (36.4-46.3) fL RDW Coeff of Brad 11.9 (11.5-14.5) % Plt Count 93 L (130-400) K/uL MPV 9.7 (9.4-12.4) fL Immature Gran % (Auto) 0.0 % Neut % (Auto) 3.5 % Lymph % (Auto) 87.9 % [place] % (Auto) 6.9 % Eos % (Auto) 1.7 % Baso % (Auto) 0.0 % Neut # (Auto) 0.02 L* (1.40-6.50) K/uL Lymph # (Auto) 0.51 L (1.20-3.40) K/uL [place] # (Auto) 0.04 L (0.11-0.59) K/uL Eos # (Auto) 0.01 (0.00-0.50) K/uL Baso # (Auto) 0.00 (0.00-0.20) K/uL Immature Gran # (Auto) 0.00 L (0.01-0.20) K/uL Dohle Bodies Platelet Estimate Decreased L (Normal) PT 12.1 H (9.0-12.0) Seconds INR 1.1 (0.9-1.1) APTT 30 (21-31) Seconds PTT Ratio 1.1 VBG pH 7.47 H (7.36-7.41) VBG pCO2 36 L (38-50) mmHg VBG pO2 30 mmHg VBG HCO3 26 mmol/L VBG O2 Saturation < 60.0 % VBG Base Excess 2.7 mEq/L Sodium 129 L (136-145) mmol/L Potassium 3.7 (3.5-5.1) mmol/L Chloride 96 L (98-107) mmol/L Carbon Dioxide 25 (21-32) mmol/L Anion Gap 8 (3-11) BUN 10 (6-23) mg/dl Creatinine 0.78 (0.6-1.2) mg/dl Est Cr Clr Drug Dosing Not Reportable Est GFR ( Amer) 93.8 ml/min Est GFR (Non-Af Amer) 80.9 ml/min BUN/Creatinine Ratio 12.8 (10-20) Glucose 116 H (70-99(Fasting)) mg/dl Lactate 1.2 (0.4-2.0) mmol/L Calcium 9.1 (8.6-10.3) mg/dl Magnesium 1.9 (1.7-2.4) mg/dl Total Bilirubin 0.8 (0.2-1.0) mg/dl AST 35 (13-39) U/L ALT 29 (7-52) U/L Alkaline Phosphatase 226 H (34-104) U/L Ammonia TNP Troponin I High Sens 2.7 (0-14) pg/ml Total Protein 7.5 (6.0-8.3) gm/dl Albumin 3.5 (3.4-5.0) gm/dl Globulin 4.0 (2.5-4.0) gm/dl Albumin/Globulin Ratio 0.9 (0.9-2) Procalcitonin 0.74 H (0-0.5) ng/ml SARS-CoV-2 (PCR) (Negative) Influenza Type A (PCR) (Neg) Influenza Type B (PCR) (Neg) RSV (RT-PCR) (Neg) Medications Administered Current Inpatient Medications Acetaminophen (Acetaminophen 325 Mg Tab) 650 mg PO Q4H PRN PRN Reason: Pain or Fever Stop: 12/31/23 03:49 Guaifenesin (Guaifenesin 600 Mg Tabcr) 600 mg PO Q12 [facility] Stop: 12/31/23 08:59 Doxycycline Hyclate 100 mg/ (Dextrose) 100 mls @ 50 mls/hr IV Q12H [facility] Stop: 12/08/23 03:59 Last Infusion: 12/01/23 07:13 Dose: Infused Cefepime HCl 2,000 mg/ Syringe 20 mls @ 5 mls/min IV Q8H [facility]; Protocol Stop: 12/08/23 05:59 Last Admin: 12/01/23 05:45 Dose: 5 mls/min Sodium Chloride (Nss) 1,000 mls @ 100 mls/hr IV .Q10H [facility] Stop: 12/01/23 23:49 Last Admin: 12/01/23 04:57 Dose: 100 mls/hr Albumin Human (Albumin 25%) 25 gm in 100 mls @ 50 mls/hr IV ONE ONE Stop: 12/01/23 10:33 Magnesium Oxide (Magnesium Oxide 400 Mg Tab) 400 mg PO QAM [facility] Stop: 12/31/23 08:59 Multivitamins (Multivitamin Tab) 1 tab PO DAILY DANNY Stop: 12/31/23 08:59 Nitroglycerin (Nitroglycerin Sl 0.4 Mg/Tab Tab) 0.4 mg SL Q5M PRN PRN Reason: Chest Pain Stop: 12/31/23 03:49 Pantoprazole Sodium (Pantoprazole 40 Mg Tab) 40 mg PO DAILY DANNY Stop: 12/31/23 08:59 Polyethylene Glycol (Polyethylene (Miralax) 17 Gm Pack) 17 gm PO DAILY PRN PRN Reason: Constipation Stop: 12/31/23 03:49 Potassium Chloride (Potassium Chloride Crtab 20 Meq Tabcr) 40 meq PO NOW STA Stop: 12/01/23 08:37 Vitamin D (Cholecalciferol 125 Mcg (5,000 Units) Tab) 125 mcg PO DAILY DANNY Stop: 12/31/23 08:59
--- OUTSIDE RECORDS SUMMARY | 2023-12-01 08:47 | External Medical Summary | Summary of Care ---
Author Name Unknown Organization [facility] Address [address] [facility] [place] [address] Phone [phone] Care Team Providers Care Software Manager Name Role Phone Abdulkadir Olivera MD Primary Care Provider [phone] Reason for Visit * Reason Comments Chemotherapy Etoposide * Episode Based Medications (Routine) - Authorized Specialty Diagnoses / Procedures Referred By Contac t Referred To Contact Diagnoses Encounter for antineoplastic chemotherapy Metastasis to liver (HCC) Metastasis to mediastinal lymph node (HCC) Small cell lung cancer (HCC) Procedures FL CARBOPLATIN INJECTION FL FOSAPREPITANT INJECTION FL ETOPOSIDE 10 MG INJ FL INJ, ATEZOLIZUMAB,10 MG Jose Worthy MD [address] [place] [id number] [place] [facility] [address] [address] Referral ID Status Reason Start Date Expiration Date V isits Requested Visits Authorized [id number] Authorized 11/15/2023 10/28/2099 [id number] Encounter Details Date Type Department Care Team (Latest Contact Info) Description 11/21/2023 11:30 AM EST Hem/Onc Treatment Hematology/Oncolog y Treatment, [address] [address] Encounter for antineoplastic chemotherapy*; Metastasis to liver (HCC); Metastasis to mediastinal lymph node (HCC); Small cell lung cancer (HCC) Allergies No known active allergiesdocumented as of this encounter (statuses as of 11/21/2023) Medications Medication Sig Dispensed Refills Start Date End Date Status MULTIVITAMINS PO CAPS 1 tablet daily 0 Active Vitamin D 125 MCG (5000 UT) Oral Capsule Take by mouth. 0 Active Vitamin B-12 ER 2000 MCG Oral Tablet Extended Release Take by mouth. 0 Acti ve Pantoprazole Sodium 40 MG Oral Tablet Delayed Release (Protonix) Take 1 Tablet by mouth in the morning. 0 11/09/2023 Active Ondansetron HCl 8 MG Oral Tablet (Zofran)Indications:Sm all cell lung cancer (HCC),Metastasis to liver (HCC),Metastasis to mediastinal lymph node (HCC) Take 1 Tablet by mouth every 8 hours as needed for Nausea. 30 Tablet 3 11/16/2023 Active Prochlorperazine Maleate 10 MG Oral Tablet (Compazine)Indications :Small cell lung cancer (HCC),Metastasis to liver (HCC),Metastasis to mediastinal lymph node (HCC) Take 1 Tablet by mouth every 6 hours as needed for Nausea. 30 Tablet 3 11/16/2023 Active oxyCODONE HCl 5 MG Oral Tablet (Oxy IR)Indications:Small cell lung cancer (HCC),Metastasis to liver (HCC),Metastasis to mediastinal lymph node (HCC),Other chest pain Take 1 Tablet by mouth every 4 hours as needed for Pain, Breakthrough. 30 Tablet 0 11/16/2023 Active documented as of this encounter (statuses as of 11/21/2023) Active Problems Problem Noted Date Diagnosed Date Small cell lung cancer 11/15/2023 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 Encounter for antineoplastic chemotherapy 2023 Depression 11/03/2013 Anxiety 11/03/2013 Other ectopic documented as of this encounter (statuses as of 11/21/2023) Immunizations Name Administration Dates Next Due Pneumococcal Polysaccharide PPV23 (Pneumovax) 07/04/2011 Seasonal Influenza, Split, I IV3, With Preserve, Inj 10/30/2013,10/14/2013(Deferred: Patient Refused) TD - Tetanus/Diptheria (ADULT) 09/06/2000 TD, Preservative Free 12/27/2022 TDAP (age 11 and older)(Adacel) 06/13/2011 documented as of this encounter Social History Tobacco Use Types Packs/Day Years Used Date Smoking Tobacco: Every Day Cigarettes 1 26 Last attempted to quit: 03/28/2013 Vaporizer Smokeless Tobacco: Never Alcohol Use Standard Drinks/Week Comments No 0 (1 standard drink = 0.6 oz pur e alcohol) PHQ-2 Answer Date Recorded PHQ Adult Total Score 0 12/27/2022 Hunger Vital Sign Answer Date Recorded Within the past 12 months, y ou worried that your food would run out before you got the money to buy more. Never true 12/28/19 23 Within the past 12 months, t he food you bought just didn't last and you didn't have money to get more. Never true 12/27/2022 Sex and Gender Information Value Date Recorded Sex Assigned at Female 12/27/2022 8:43 AM EST Gender Identity Female 12/27/2022 8:43 AM EST Sexual Orientation Straight 12/27/2022 8: 43 AM EST Job Start Date Occupation Industry Not on file Not on file Not on file documented as of this encounter Last Filed Vital Signs Vital Sign Reading Time Taken Comments Blood Pressure 100/62 11/21/2023 11:45 AM EST Pulse 110 11/21/2023 11:45 AM EST Temperature 37.2 C (99 F) 11/21/2023 11:45 AM EST Respiratory Rate 18 11/21/2023 11:45 AM EST Oxygen Saturation 95% 11/21/2023 11:45 AM EST Inhaled Oxygen Concentration - - Weight 65.9 kg (145 lb 3.2 oz) 11/21/2023 11:45 AM EST Height - - Body Mass Index 23.44 11/13/2023 2:38 PM EST documented in this encounter Progress Notes * Anshul Marion, RN - 11/21/2023 3:22 PM EST Infusion completed. Pt IV removed without issue. Pt denies any reportable reaction symptoms. Pt ambulated from treatment room in stable condition. Goals: Patient will remain free from injury. Possible barriers to meeting goals: Fatigue r/t chemotherapy, IV lines. Stability of the patient: Moderately stable - low risk of patient condition declining or worsening Summary regarding today's goals: Met: Pt remained free from injury. documented in this encounter Nursing Notes * Anshul Marion RN - 11/21/2023 3:20 PM EST Chair 6. Pt IV inserted without complication. Fluids infusing. Pt states that she feels very fatigued today and was experiencing some consitipation in which she took laxatives with relief. This RN advised patient to take a stool softener 2 days prior to next chemo to help prevent constipation from treatment. This RN also advised that Zofran may constipate patient and if she doesn't have relief from Colaceshe may add Miralax to help with her bowels. Pt denies other symptoms, is eating/tolerating fluids.Pre-treatment Zofran given, Etoposide started. Safety and Risk for Injury Patient will remain free from injury. Ensure appropriate safety devices are available. Provide and maintain safe environment. documented in this encounter Plan of Treatment Upcoming Encounters Date Type Department Care Team (Late st Contact Info) Description 12/10/2023 7:20 AM EST Laboratory Laboratory Scenery [address] [place] [id number] [place], Lab Scenery [address] [facility] [place] [address] 12/10/2023 8:30 AM EST Hem/Onc Treatment Hematology/[address] [address] Adrianna, Chair 9 Hem Onc Scenery [address] [facility] [place] [address] 12/11/2023 10:00 AM EST Hem/Onc Treatment [facility]cology [facility], [place] [facility] [address] Adrianna, Chair 3 Hem Onc Scenery [address] [facility] [place] [address] 12/12/2023 10:30 AM EST Hem/Onc Treatment Hematology/Oncology Treatment, [address] [place] [address] Adrianna, Chair 4 Hem Onc Scenery [address] [facility] [place] [address] 12/31/2023 9:00 AM EST Office Visit [facility] [address] [place] [place] [phone] Abdulkadir Olivera MD [address] [place], [place] [id number] 01/01/2024 9:15 AM EST Office Visit Hematology/Oncology [facility] [address] [facility] [place] [address] Jose Worthy MD [address] [facility], [place] [address] Health Maintenance Due Date Last Done Comments COVID-19 Vaccine (#1) 1965 HIV Screening 1975 Hepatitis C Screening 1978 Zoster Vaccines (1 of 2) 1979 HPV/Co-Test 1990 Pneumococcal Vaccine: Pediatrics (0 to 5 Years) and At-Risk Patients (6 to 64 Years) (2 - PCV) 07/04/2012 07/04/2011 Mammogram 05/07/2015 05/07/2014, 01/28, 07/15/2012, Additional history exists Cervical Cancer Screening 03/03/2016 Pap Smear 03/03/2016 03/03/2013, 12/2009, 01/03/2001 COLONOSCOPY-EVERY 5 YRS AGES 18-100 08/07/2016 08/07/2011, 08/07/2011, 11/27/2007, Additional history exists Influenza Vaccine (FLU shot) (#1) 2023 10/30/2013 Depression Screening 12/28/2023 12/27/2022 Lipid Panel 12/28/2027 12/27/2022, 06/2014, 09/22/2013, Additional history exists DTaP,Tdap,and Td Vaccines (3 - Td or Tdap) 12/27/2032 12/27/2022, 06/13/2011, 09/06/2000 GARDASIL-HPV IMMUNIZATION SERIES Aged Out No longer eligible based on patient's age to complete this topic Hepatitis B Aged Out No longer eligi ble based on patient's age to complete this topic MENINGOCOCCAL (MENACTRA/MENVEO) Aged Out No longer eligible based on patient's age to complete this topic documented as of this encounter Medical Devices Not on filedocumented as of this encounter Visit Diagnoses Diagnosis Encounter for antineoplastic chemotherapy- Primary Metastasis to liver (HCC) 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 Small cell lung cancer (HCC) Malignant neoplasm of bronchus and lung, unspecified site documented in this encounter Administered Medications Active Administered Medications - up to 3 most recent administrations Medication Order MAR Action Action Date Dose Rate Site diphenhydrAMINE (Benadryl) inj 50 mg 50 mg, IV Push, ONCE PRN Other, Hypersensitivity Reaction, Starting on Sun11/21/23 at 1204, Until Veronica 11/22/23 at 1203, For 24 hours EPINEPHrine 1 MG/ML inj 0.3 mg 0.3 mg, Intramuscular, ONCE PRN Other, Hypersensitivity Reaction or Anaphylaxis, Starting on Sun11/21/23 at 1204, Until Veronica 11/22/23 at 1203, For 24 hours hEParin 100 UNIT/ML Lock Flush inj 500 Units 500 Units (5 mL), IV Lock, PRN Other, IV Flush, Starting on Sun11/21/23 at 1204, Until Veronica 11/22/23 at 1203, For 24 hours, Do not flush if lock, PICC, or central line not in place; IV infusing or unable to flush. Hydrocortisone Sod Suc (PF) (Solu-Cortef) inj 100 mg 100 mg, IV Push, ONCE PRN Other, Hypersensitivity Reaction, Starting on Sun11/21/23 at 1204, Until Veronica 11/22/23 at 1203, For 24 hours LORAzepam (Ativan) tab 0.5 mg 0.5 mg, Oral, ONCE PRN Anxiety, Nausea, Starting on Sun11/21/23 at 1315, Until Discontinued NSS infusion Intravenous, at 50 mL/hr, PRN, Starting on Sun11/21/23 at 1315, Until Discontinued, Maintenance line Start Infusion 11/21/2023 12:26 PM EST 50 mL/hr oxygen GAS Inhalation, OXYGEN, First dose on Sun11/21/23 at 1600, Until Discontinued, Device/Managed by: Low Flow Device, Goal SPO2 (%): 91-95, Starting Device: Nasal Cannula, Initial Flow Rate (LPM): 2, Lowest Support: Nasal Cannula: Flow 0-6 LPM. Titrate up/down by 1 LPM., Higher Support: Non-Rebreather (NRB) Mask: Minimum of 10 LPM. Titrate to maintain bag inflation., Titration Interval: Q2 minutes and as needed., Notify Provider: For sudden DECREASE in resting SPO2 to less than 85% and when escalating delivery device., Wean patient off Oxygen when the oxygen saturation is greater than or equal to 93% sodium chloride 0.9 % flush central line 10 mL 10 mL, IV Push, PRN Other, IV Flush, Starting on Sun11/21/23 at 1204, Until Veronica 11/22/23 at 1203, For 24 hours, Do not flush if lock, PICC, or central line not in place; IV infusing or unable to flush. Inactive Administered Medications - up to 3 most recent administrations Medication Order MAR Action Action Date Dose Rate Site etoposide (VEPESID) 180 mg in NSS 500 mL infusion 180 mg (rounded from 175 mg = 100 mg/m2 1.75 m2 Treatment Plan BSA from Recorded weight), IV Piggyback, ONCE, 1 dose, On Sun11/21/23 at 1345, Administer over 60 Minutes, Recommended concentration is less than or equal to 0.4 mg/mL. If concentration is greater than 0.4 mg/mL recommend to administer through 0.22 micron low protein binding filter. Start Infusion 11/21/2023 12:26 PM EST 180 mg 500 mL/hr ondansetron (Zofran) tab 8 mg 8 mg, Oral, ONCE, On Sun11/21/23 at 1315, For 1 dose, Give 30 minutes prior to chemotherapy. Given 11/21/2023 12:11 PM EST 8 mg documented in this encounter Care Teams Software Manager Relationship Specialty Start Date End Date Abdulkadir Olivera MD [address] [place] [address] PCP - General Family Medicine 12/27/22 documented as of this encounter
--- OUTSIDE RECORDS SUMMARY | 2023-12-01 08:47 | External Medical Summary | Summary of Care ---
Author Name Unknown Organization [facility] Address [address] [facility] [place] [address] Phone [phone] Care Team Providers Care Alodize Machine Helper Name Role Phone Abdulkadir Olivera MD Primary Care Provider Reason for Visit * Reason Comments Chemotherapy C1D1 Tecentriq/Carbo /Etoposide * Episode Based Medications (Routine) - Pending Review Specialty Diagnoses / Procedures Referred By Mai guzman Referred To Contact Diagnoses Encounter for antineoplastic chemotherapy Metastasis to liver (HCC) Metastasis to mediastinal lymph node (HCC) Small cell lung cancer (HCC) Procedures LA CARBOPLATIN INJECTION LA FOSAPREPITANT INJECTION LA ETOPOSIDE 10 MG INJ LA INJ, ATEZOLIZUMAB,10 MG Jose Worthy MD [address] [facility] [place] [address] Anc Hem/Onc [address] [address] Referral ID Status Reason Start Date Expiration Date V isits Requested Visits Authorized [id number] Pending Review 11/15/2023 10/28/[id number] Encounter Details Date Type Department Care Team (Latest Contact Info) Description 11/19/2023 10:00 AM EST Hem/Onc Treatment Hematology/Oncolog y Treatment, [address] [address] Adrianna, Chair 9 Hem Onc Scenery [address] [place] [address] [place] [address] Encounter for antineoplastic chemotherapy*; Metastasis to liver (HCC); Metastasis to mediastinal lymph node (HCC); Small cell lung cancer (HCC) Allergies No known active allergiesdocumented as of this encounter (statuses as of 11/19/2023) Medications Medication Sig Dispensed Refills Start Date [...] as of this encounter (statuses as of 11/19/2023) Active Problems Problem Noted Date Diagnosed Date Small cell lung cancer 11/15/2023 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 Encounter for antineoplastic chemotherapy 2023 Depression 11/03/2013 Anxiety 11/03/2013 Other ectopic documented as of this encounter (statuses as of 11/19/2023) Immunizations Name Administration Dates Next Due Pneumococcal Polysaccharide PPV23 (Pneumovax) 07/04/2011 Seasonal Influenza, Split, I IV3, With Preserve, Inj 10/30/2013,10/14/2013(Deferred: Patient Refused) TD, Preservative Free 12/27/2022 TDAP (age 11 [...] Sign Reading Time Taken Comments Blood Pressure 109/71 11/19/2023 10:10 AM EST Pulse 114 11/19/2023 10:10 AM EST Temperature 36.8 C (98.2 F) 11/19/2023 1 0:10 AM EST Respiratory Rate 18 11/19/2023 10:1 0 AM EST Oxygen Saturation 94% 11/19/2023 10: 10 AM EST Inhaled Oxygen Concentration - - Weight 64.3 kg (141 lb 12.8 oz) 024 10:10 AM EST Height - - Body Mass Index 22.89 11/13/2023 2:38 PM EST documented in this encounter Nursing Notes * Yuli Mckeon RN - 11/19/2023 2:29 PM EST Functional status at today's visit: Fully active, able to carry on all pre-disease performance without restriction The drug name, dose, infusion volume, rate and route of administration, expiration date and time, appearance and physical integrity of the drug and rate set on the pump and sequencing of drug administration (as applicable) were verified by me and second sign-in RN. Patient was assessed for symptoms or adverse side effects during treatment. Goals: Knowledge Deficit Patient and Caregiver will demonstrate understanding. Possible barriers to meeting goals: anxoius about starting g chemotherapy Stability of the patient: Moderately stable - low risk of patient condition declining or worsening Summary regarding today's goals: Met: Pt able to verbalize understanding of treatment plan, upcoming appointments and management of possible side effects Goals: Safety and Risk for Injury Patient will remain free from injury Possible barriers to meeting goals: ambulation with IV pole Stability of the patient: Moderately stable - low risk of patient condition declining or worsening Summary regarding today's goals: Met: Pt remained free of injury during treatment Patient tolerated treatment well and was discharged in stable condition. IV site remains intact fortreatment tomorrow. Coverage by Ceci Alfaro RN. * Yuli Mckeon RN - 11/19/2023 10:50 AM EST Chair 6, present. Chemo agents Tecentriq/Carbo/Etoposide Appetite good Nausea/Vomiting no Diarrhea no Constipation no Mucositis no Fatigue no Bleeding no Infection no Rash no Numbness tingling no Pain in abdomen, constant ache Radiation no ABN Labs WNL for treatment Alt in Tx: no Return in 1 day Knowledge Deficit Patient and Caregiver will demonstrate understanding. Assess current knowledge base. Reinforce education. Teach at level of understanding. Safety and Risk for Injury Patient will remain free from injury. Ensure appropriate safety devices are available. Provide and maintain safe environment. IV started in the left forearm without difficulty, good blood return noted, flushed with NSS, fluids infusing. documented in this encounter Plan of Treatment Upcoming Encounters Date Type Department Care Team (Late st Contact Info) Description 11/20/2023 10:00 AM EST Hem/Onc Treatment Hematology/Oncology Treatment, [place] [address] [place] [address] Adrianna, Chair 11 Hem Onc Scenery [address] [place] [address] 11/21/2023 11:30 AM EST Hem/Onc Treatment Hematology/Oncology Treatment, [place] [address] [place] [address] 12/10/2023 7:20 AM EST Laboratory Laboratory Scenery [place] [address] [place] [id number] Adrianna, Lab Scenery [address] [place] [address] 12/10/2023 8:30 AM EST Hem/Onc Treatment Hematology/Oncology Treatment, [place] [address] [place] [address] Adrianna, Chair 9 Hem Onc Scenery [address] [place] [address] 12/11/2023 10:00 AM EST Hem/Onc Treatment Hematology/Oncology Treatment, [place] [address] [place] [address] Adrianna, Chair 3 Hem Onc Scenery [address] [place], [place] [address] 12/12/2023 10:30 AM EST Hem/Onc Treatment Hematology/Oncology Treatment, [place] [address] [place] [address] Adrianna, Chair 4 Hem Onc Scenery 200 [facility] [place] [address] 12/31/2023 9:00 AM EST Office Visit [facility] [address] [place] [phone] Abdulkadir Olivera MD [address] [place] [address] 01/01/2024 9:15 AM EST Office Visit Hematology/Oncology Scenery [place] [address] [place] [address] Jose Worthy MD [address] [place] [address] Health Maintenance Due Date Last Done Comments COVID-19 Vaccine (#1) 1965 HIV Screening 1975 Hepatitis C Screening 1978 Zoster Vaccines (1 of 2) 1979 HPV/Co-Test 1990 Pneumococcal Vaccine: Pediatrics (0 to 5 Years) and At-Risk Patients (6 to 64 Years) (2 - PCV) 07/04/2012 07/04/2011 Mammogram 05/07/2015 05/07/2014, 01/28, 07/15/2012, Additional history exists Cervical Cancer Screening 03/03/2016 Pap Smear 03/03/2016 03/03/2013, 0912/2009, 01/03/2001 COLONOSCOPY-EVERY 5 YRS AGES 18-100 08/07/2016 08/07/2011, 08/07/2011, 11/27/2007, Additional history exists Influenza Vaccine (FLU shot) (#1) 2023 10/30/2013 Depression Screening 12/28/2023 12/27/2022 Lipid Panel 12/28/2027 12/27/2022, 05/0 06/2014, 09/22/2013, Additional history exists DTaP,Tdap,and Td [...] ONCE PRN Other, Hypersensitivity Reaction, Starting on Sun11/19/23 at 1028, Until Sun11/20/23 at 1027, For 24 hours EPINEPHrine 1 MG/ML inj 0.3 mg 0.3 mg, Intramuscular, ONCE PRN Other, Hypersensitivity Reaction or Anaphylaxis, Starting on Sun11/19/23 at 1028, Until Sun11/20/23 at 1027, For 24 hours hEParin 100 UNIT/ML Lock Flush inj 500 Units 500 Units (5 mL), IV Lock, PRN Other, IV Flush, Starting on Sun11/19/23 at 1028, Until Sun11/20/23 at 1027, For 24 hours, Do not flush if lock, PICC, or central line not in place; IV infusing or unable to flush. Given 11/19/2023 1:55 PM EST 500 Units Hydrocortisone Sod Suc (PF) (Solu-Cortef) inj 100 mg 100 mg, IV Push, ONCE PRN Other, Hypersensitivity Reaction, Starting on Sun11/19/23 at 1028, Until Sun11/20/23 at 1027, For 24 hours LORAzepam (Ativan) tab 0.5 mg 0.5 mg, Oral, ONCE PRN Anxiety, Nausea, Starting on Sun11/19/23 at 1130, Until Discontinued NSS infusion Intravenous, at 50 mL/hr, PRN, Starting on Sun11/19/23 at 1130, Until Discontinued, Maintenance line Start Infusion 11/19/2023 10:25 AM EST 50 mL/hr oxygen GAS Inhalation, OXYGEN, First dose on Sun11/19/23 at 1100, Until Discontinued, Device/Managed by: Low Flow Device, [...] Push, PRN Other, IV Flush, Starting on Sun11/19/23 at 1028, Until Sun11/20/23 at 1027, For 24 hours, Do not flush if lock, PICC, or central line not in place; IV infusing or unable to flush. Given 11/19/2023 1:54 PM EST 10 mL Inactive Administered Medications - up to 3 most recent administrations Medication Order MAR Action Action Date Dose Rate Site Atezolizumab (Tecentriq) 1,200 mg in NSS 250 mL infusion 1,200 mg, IV Piggyback, ONCE, 1 dose, On Sun11/19/23 at 1200, Administer over 60 Minutes, Administer first infusion over 60 minutes and if tolerated, subsequent doses may be infused over 30 minutes. Start Infusion 11/19/2023 11:05 AM EST 1,200 mg 250 mL/hr CARBOplatin (Paraplatin) 457 mg in D5W 250 mL infusion 457 mg (Target AUC = 5), IV Piggyback, at 500 mL/hr Administer over 30 Minutes, PROTECT FROM LIGHT (Max Creatinine Clearance at 125 ml/min for calculating AUC dose), ONCE, 1 dose, On Sun11/19/23 at 1300 Start Infusion 11/19/2023 12:14 PM EST 457 mg 500 mL/hr etoposide (VEPESID) 180 mg in NSS 500 mL infusion 180 mg (rounded from 175 mg = 100 mg/m2 1.75 m2 Treatment Plan BSA from Recorded weight), IV Piggyback, ONCE, 1 dose, On Sun11/19/23 at 1330, Administer over 60 Minutes, Recommended concentration is less than or equal to 0.4 mg/mL. If concentration is greater than 0.4 mg/mL recommend to administer through 0.22 micron low protein binding filter. Start Infusion 11/19/2023 12:49 PM EST 180 mg 500 mL/hr Fosaprepitant Dimeglumine (Emend) 150 mg, ondansetron (Zofran) 16 mg, dexamethasone sodium phosphate 12 mg in NSS 250 mL Infusion 150 mg, IV Piggyback, ONCE, 1 dose, On Sun11/19/23 at 1130, Administer over 30 Minutes, Give 30 minutes prior to chemotherapy. Infuse over 30 minutes. Start Infusion 11/19/2023 10:30 AM EST 150 mg 500 mL/hr documented in this encounter Care Teams Alodize Machine Helper Relationship Specialty Start Date End Date Abdulkadir Olivera MD [address] [facility] [place] [phone] PCP - General Family Medicine 12/27/22 documented as of this encounter
--- OUTSIDE RECORDS SUMMARY | 2023-12-01 08:47 | External Medical Summary | Summary of Care ---
Author Name Unknown Organization [facility] Address [address] [place] [place] [address] Phone [phone] Care Team Providers Care Waterproofer Helper Name Role Phone Abdulkadir Olivera MD Primary Care Provider [phone] Reason for Visit * Reason Onset Date Comments Test Results Imaging Study 11/19/2023 Encounter Details Date Type Department Care Team (Late st Contact Info) Description 11/19/2023 Telephone Hematology/Oncology Treatment, [place] [address] [place] [address] Jose Worthy MD 200 [place] [address] Test Results Imaging Study Allergies No known active allergiesdocumented as of [...] on file documented as of this encounter Miscellaneous Notes * Telephone Encounter - Kailey Spain RN - 11/19/2023 12:03 PM EST Spoke to patient in treatment room, she verbalized understanding. * Telephone Encounter - Kailey Spain RN - 11/19/2023 12:02 PM EST ----- Message from Joes Worthy MD sent at 11/19/2023 8:59 AM EST ----- - Brain MRI (11/17/2023) -> No evidence of metastatic disease. documented in this encounter Plan of Treatment Upcoming Encounters Date Type Department Care Team (Late st Contact Info) Description 11/20/2023 10:00 AM EST Hem/Onc Treatment [address]ematology[address] [address] Adrianna, Chair 11 Hem Onc [place] [address] [place] [address] [place] [address] 11/21/2023 11:30 AM EST Hem/Onc Treatment [address]ematology/[address], [address] [address] 12/10/2023 8:30 AM EST Hem/Onc Treatment Hematology/[address], [address] [address] Adrianna, Chair 9 Hem Onc Scenery [address] [place] [address] [place] [address] 12/31/2023 9:00 AM EST Office [facility] [address] [facility] [phone] Abdulkadir Olivera MD [address] [facility], [place] [address] 01/01/2024 9:15 AM EST Office Visit Hematology/Oncology [employer] [address] [place] [address] Jose Worthy MD [address] [facility] [place] [address] Health Maintenance Due Date Last Done Comments [...] Screening 12/28/2023 12/27/2022 Lipid Panel 12/28/2027 12/27/2022, 050 06/2014, 09/22/2013, Additional history exists DTaP,Tdap,and Td [...] Not on filedocumented as of this encounter Care Teams Waterproofer Helper Relationship Specialty Start Date End Date Abdulkadir Olivera MD [address] [place] [address] PCP - General Family Medicine 12/27/22 documented as of this encounter
--- OUTSIDE RECORDS SUMMARY | 2023-12-01 08:47 | External Medical Summary | Summary of Care ---
Author Name Unknown Organization [facility] Address [address] [facility] [place] [address] Phone [phone] Care Team Providers Care Quality Control Expert Name Role Phone Abdulkadir Olievra MD Primary Care Provider Reason for Visit * Reason Comments Chemotherapy Etoposide * Episode Based Medications (Routine) - Authorized Specialty Diagnoses / Procedures Referred By Contac t Referred To Contact Diagnoses Encounter for antineoplastic chemotherapy Metastasis to liver (HCC) Metastasis to mediastinal lymph node (HCC) Small cell lung cancer (HCC) Procedures [place] CARBOPLATIN INJECTION [place] FOSAPREPITANT INJECTION [place] ETOPOSIDE 10 MG INJ [place] INJ, ATEZOLIZUMAB,10 MG Jose Worthy MD [address] [place] [id number] Anc Hem/Onc [facility] [address] [address] Referral ID Status Reason Start Date Expiration Date V isits Requested Visits Authorized [id number] Authorized 11/15/2023 10/28/[phone] Encounter Details Date Type Department Care Team (Latest Contact Info) Description 11/21/2023 11:30 AM EST Hem/Onc Treatment Hematology/Oncolog y Treatment, [address] [address] Encounter for antineoplastic chemotherapy*; Metastasis to liver [...] Date Smoking Tobacco: Every Day Cigarettes 1 Last attempted to quit: 03/28/2013 Vaporizer Smokeless [...] in this encounter Progress Notes * Anshul Marion RN - 11/21/2023 3:22 PM EST Infusion [...] Description 12/10/2023 7:20 AM EST Laboratory Laboratory [facility] [address] [facility] [place] [phone] [place], Lab Scenery 200 [facility] [place] [address] 12/10/2023 8:30 AM EST Hem/Onc Treatment [facility]ology[facility]cology Treatment, [place] [address] [facility] [address] Adrianna, Chair 9 Hem Onc Scenery 200 [place] [place] [address] 12/11/2023 10:00 AM EST Hem/Onc Treatment Hematology/Oncology Treatment, [place] [address] [facility] [address] Adrianna, Chair 3 Hem Onc Scenery 200 [facility] [place] [address] 12/12/2023 10:30 AM EST Hem/Onc Treatment Hematology/Oncology Treatment, [place] [address] [facility] [address] Adrianna, Chair 4 Hem Onc Scenery 200 [facility] [place] [address] 12/31/2023 9:00 AM EST Office Visit [facility] [address] [place] [phone] Abdulkadir Olivera MD [address] [place] [address] 01/01/2024 9:15 AM EST Office Visit Hematology/Oncology [facility] [place] [address] [facility] [place] [address] Jose Worthy MD [address] [facility] [place] [address] Health Maintenance Due Date Last Done Comments [...] Reaction, Starting on Sun11/21/23 at 1204, Until Sun11/22/23 at 1203, For 24 hours EPINEPHrine 1 MG/ML inj 0.3 mg 0.3 mg, Intramuscular, ONCE PRN Other, Hypersensitivity Reaction or Anaphylaxis, Starting on Sun11/21/23 at 1204, Until Sun11/22/23 at 1203, For 24 hours hEParin 100 UNIT/ML Lock Flush inj 500 Units 500 Units (5 mL), IV Lock, PRN Other, IV Flush, Starting on Sun11/21/23 at 1204, Until Sun11/22/23 at 1203, For 24 hours, Do not [...] mg documented in this encounter Care Teams Quality Control Expert Relationship Specialty Start Date End Date Abdulkadir Olivera MD [address] [place] [address] PCP - General Family Medicine 12/27/22 documented as of this encounter
--- OUTSIDE RECORDS SUMMARY | 2023-12-01 08:47 | External Medical Summary | Summary of Care ---
Author Name Unknown Organization [facility] Address [address] [facility] [place] [address] Phone [phone] Care Team Providers Care Shafting Worker Name Role Phone Abdulkadir Olivera MD Primary Care Provider [phone] Reason for Visit * Reason Comments Chemotherapy C1D2 etoposide * Episode Based Medications (Routine) - Authorized Specialty Diagnoses / Procedures Referred By Contlucila t Referred To Contact Diagnoses Encounter for antineoplastic chemotherapy Metastasis to liver (HCC) Metastasis to mediastinal lymph node (HCC) Small cell lung cancer (HCC) Procedures [place] CARBOPLATIN INJECTION [place] FOSAPREPITANT INJECTION [place] ETOPOSIDE 10 MG INJ [place] INJ, ATEZOLIZUMAB,10 MG Jose Worthy MD [address] [place] [address] Anc Hem/Onc [address] [address] Referral ID Status Reason Start Date Expiration Date V isits Requested Visits Authorized [id number] Authorized 11/15/2023 10/28/[phone] Encounter Details Date Type Department Care Team (Latest Contact Info) Description 11/20/2023 10:00 AM EST Hem/Onc Treatment Hematology/Oncolog y Treatment, [address] [address] Adrianna, Chair 11 Hem Onc [address] [place] [address] Encounter for antineoplastic chemotherapy*; Metastasis to liver (HCC); Metastasis to mediastinal lymph node (HCC); Small cell lung cancer (HCC) Allergies No known active allergiesdocumented as of this encounter (statuses as of 11/20/2023) Medications Medication Sig Dispensed Refills Start Date [...] as of this encounter (statuses as of 11/20/2023) Active Problems Problem Noted Date Diagnosed Date Small cell lung cancer 11/15/2023 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 Encounter for antineoplastic chemotherapy 2023 Depression 11/03/2013 Anxiety 11/03/2013 Other ectopic documented as of this encounter (statuses as of 11/20/2023) Immunizations Name Administration Dates Next Due Pneumococcal [...] money to buy more. Never true 12/28/19 Within the past 12 months, t he [...] Sign Reading Time Taken Comments Blood Pressure 118/79 11/20/2023 10:20 AM EST Pulse 104 11/20/2023 10:20 AM EST Temperature 36.6 C (97.9 F) 11/20/2023 10:[address] Respiratory Rate 18 11/20/2023 10:20 AM EST Oxygen Saturation 93% 11/20/2023 10:20 AM EST Inhaled Oxygen Concentration - - Weight - - Height - - Body Mass Index - - documented in this encounter Nursing Notes * Fatou Lee, RN - 11/20/2023 11:26 AM EST Chair 6 Pt here for C1D2 etoposide. Reports feeling constipated and took meds this AM for it. Denies N/V and reports "great appetite" yesterday. No new labs today. Safety and Risk for Injury Patient will remain free from injury. Ensure appropriate safety devices are available. Provide and maintain safe environment. Goals: Patient will remain free from injury. Possible barriers to meeting goals: ambulation with IV pole Stability of the patient: Moderately stable - low risk of patient condition declining or worsening Summary regarding today's goals: Met: patient without injury during treatment today Functional status at today's visit: Restricted in physically strenuous activity but ambulatory and able to carry out work on a light orsedentary nature, e.g. light house work, office work The drug name, dose, infusion volume, rate and route of administration, expiration date and time, appearance and physical integrity of the drug and rate set on the pump and sequencing of drug administration (as applicable) were verified by me and second sign-in RN. Patient was assessed for symptoms or adverse side effects during treatment. Pt tolerated infusion well. No complaints. Discharged in stable condition. documented in this encounter Plan of Treatment Upcoming Encounters Date Type Department Care Team (Late st Contact Info) Description 11/21/2023 11:30 AM EST Hem/Onc Treatment Hematology/[address]cology Treatment, [address] [address] 12/10/2023 7:20 AM EST Laboratory Laboratory [facility] [address] [place] [phone] Adrianna, Lab Scenery [address] [place] [address] [place] [address] 12/10/2023 8:30 AM EST Hem/Onc Treatment Hematology/Oncology Treatment, [address] [address] Adrianna, Chair 9 Hem Onc [facility] [address] [facility] [place] [address] 12/11/2023 10:00 AM EST Hem/Onc Treatment Hematology/Oncology [address], [address] [address] Adrianna, Chair 3 Hem Onc Scenery [address] [facility] [place] [address] 12/12/2023 10:30 AM EST Hem/Onc Treatment [facility], [place] [facility] [address] Adrianna, Chair 4 Hem Onc Scenery [address] [facility] [place] [address] 12/31/2023 9:00 AM EST Office Visit [facility] [address] [place] [facility] [place] [address] Abdulkadir Olivera MD [address] [place] [address] 01/01/2024 9:15 AM EST Office Visit Hematology/Oncology [facility] [address] [place] [address] Jose Worthy MD [address] [place] [address] Health Maintenance Due Date Last Done Comments [...] ONCE PRN Other, Hypersensitivity Reaction, Starting on Sun11/20/23 at 1021, Until Sun11/21/23 at 1020, For 24 hours EPINEPHrine 1 MG/ML inj 0.3 mg 0.3 mg, Intramuscular, ONCE PRN Other, Hypersensitivity Reaction or Anaphylaxis, Starting on Sun11/20/23 at 1021, Until Sun11/21/23 at 1020, For 24 hours hEParin 100 UNIT/ML Lock Flush inj 500 Units 500 Units (5 mL), IV Lock, PRN Other, IV Flush, Starting on Sun11/20/23 at 1021, Until Sun11/21/23 at 1020, For 24 hours, Do not flush if lock, PICC, or central line not in place; IV infusing or unable to flush. Hydrocortisone Sod Suc (PF) (Solu-Cortef) inj 100 mg 100 mg, IV Push, ONCE PRN Other, Hypersensitivity Reaction, Starting on Sun11/20/23 at 1021, Until Sun11/21/23 at 1020, For 24 hours LORAzepam (Ativan) tab 0.5 mg 0.5 mg, Oral, ONCE PRN Anxiety, Nausea, Starting on Sun11/20/23 at 1130, Until Discontinued NSS infusion Intravenous, at 50 mL/hr, PRN, Starting on Sun11/20/23 at 1130, Until Discontinued, Maintenance line Start Infusion 11/20/2023 10:25 AM EST 50 mL/hr oxygen GAS Inhalation, OXYGEN, First dose on Sun11/20/23 at 1100, Until Discontinued, Device/Managed by: Low [...] Push, PRN Other, IV Flush, Starting on Sun11/20/23 at 1021, Until Sun11/21/23 at 1020, For 24 hours, Do not flush if [...] weight), IV Piggyback, ONCE, 1 dose, On Sun11/20/23 at 1200, Administer over 60 Minutes, Recommended concentration is less than or equal to 0.4 mg/mL. If concentration is greater than 0.4 mg/mL recommend to administer through 0.22 micron low protein binding filter. Start Infusion 11/20/2023 10:28 AM EST 180 mg 500 mL/hr documented in this encounter Care Teams Shafting Worker Relationship Specialty Start Date End Date Abdulkadir Olivera MD [address] [place], [place] [phone] PCP - General Family Medicine 12/27/22 documented as of this encounter
--- OUTSIDE RECORDS SUMMARY | 2023-12-01 08:47 | External Medical Summary | Summary of Care ---
Author Name Unknown Organization [facility] Address [address] [facility] [place] [address] Phone [phone] Care Team Providers Care Rooter Operator Name Role Phone Abdulkadir Olivera MD Primary Care Provider [phone] Reason for Visit * Reason Onset Date Comments Advice 11/29/2023 Encounter Details Date Type Department Care Team (Late st Contact Info) Description 11/29/2023 Telephone Hematology/Oncology Carla [facility]anna [place] [address] [facility] [place] [address] [facility] [address] Advice Allergies No known active allergiesdocumented as of this encounter (statuses as of 11/30/2023) Medications Medication Sig Dispensed Refills Start Date [...] as of this encounter (statuses as of 11/30/2023) Active Problems Problem Noted Date Diagnosed Date Small cell lung cancer 11/15/2023 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 States the warm salt waterand baking soda mixed has helped tremendously. Denies any further needs/concerns/questions. Advisedto let us know if there was anything else we could help her with. Verbalized understanding. * Telephone Encounter - Bianca Godinez RN - 11/29/2023 8:39 AM EST Called and spoke with the patient directly. States she woke this morning with sores to her mouth and throat. Has been drinking cool water and jello to help soothe the throat. Did suggest warm salt water and baking soda rinses 4 times a day and then as needed. Aware there is something called Magic Swizzle that is available as a prescription if she needed/wanted that but wishes to just use the warmwater, baking soda and salt water first. Advised to call should this get worse in any way. Verbalized understanding of instructions provided. Dr. Deacon STRANGE * Telephone Encounter - Rosario Rubio OSA - 11/29/2023 8:17 AM EST Patient woke up and has sores on her tongue and back of throat. She stated that she woke up this morning with them. If someone can call her back to discuss what she should so. documented in this encounter Plan of Treatment Upcoming Encounters Date Type Department Care Team (Late st Contact Info) Description 12/10/2023 7:20 AM EST Laboratory Laboratory [facility] [place] [address] [facility] [place] [id number] Adrianna, Lab Scenery [address] [place] [address] 12/10/2023 8:30 AM EST Hem/Onc Treatment Hematology/Oncology Treatment, [place] 200 [facility] [place] [address] Adrianna, Chair 9 Hem Onc Scenery [address] [facility] [place], [place] [address] 12/11/2023 10:00 AM EST Hem/Onc Treatment Hematology/Oncology Treatment, [place] [address] [facility] [place] [address] Adrianna, Chair 3 Hem Onc Scenery [address] [facility] [place], [place] [address] 12/12/2023 10:30 AM EST Hem/Onc Treatment Hematology/Oncology Treatment, [place] [address] [facility] [place] [address] Adrianna, Chair 4 Hem Onc Scenery [address] [facility] [place], [place] [address] 12/31/2023 9:00 AM EST Office Visit [facility] [address] [place] [id number] Abdulkadir Olivera MD [address] [place] [address] 01/01/2024 9:15 AM EST Office Visit Hematology/Oncology [facility] [place] [address] [facility] [place] [address] Jose Worthy MD [address] [place] [address] Health Maintenance Due Date Last Done Comments COVID-19 Vaccine (#1) 1965 HIV Screening 1975 Hepatitis C Screening 1978 Zoster Vaccines (1 of 2) 1979 HPV/Co-Test 1990 Pneumococcal Vaccine: Pediatrics (0 to 5 Years) and At-Risk Patients (6 to 64 Years) (2 - PCV) 07/04/2012 07/04/2011 Mammogram 05/07/2015 05/07/2014, 01/28, 07/15/2012, Additional history exists Cervical Cancer Screening 03/03/2016 Pap Smear 03/03/2016 03/03/2013, 090 12/2009, 01/03/2001 COLONOSCOPY-EVERY 5 YRS AGES 18-100 [...] filedocumented as of this encounter Care Teams Rooter Operator Relationship Specialty Start Date End Date Abdulkadir Olivera MD [address] [place] [address] PCP - General Family Medicine 12/27/22 documented as of this encounter
--- OUTSIDE RECORDS SUMMARY | 2023-12-01 08:47 | External Medical Summary | Summary of Care ---
Author Name Unknown Organization [facility] Address [address] [facility] [place] [address] Phone [phone] Care Team Providers Care Differential Repairer Name Role Phone Abdulkadir Olivera MD Primary Care Provider Reason for Visit * Reason Onset Date Comments Precert Future 11/15/2023 Tecentriq, carbo platin, etoposide Encounter Details Date Type Department Care Team (Late st Contact Info) Description 11/15/2023 Telephone Hematology/Oncology Treatment, [place] 200 [place] [address] Jose Worthy MD 200 [place] [address] Precert Future (Tecentriq, carboplatin, et... Allergies No known active allergiesdocumented as of [...] mouth in the morning. 0 11/09/2023 Active documented as of this encounter (statuses [...] encounter Miscellaneous Notes * Telephone Encounter - Carina Alexander, NAN - 11/19/2023 8:29 AM EST Date of Services: 11/19/2023 Facility: Hem/Onc Carla Adrianna Estimate of Services for the following CPT(s): J9045 Carbo, J9181 Etoposide, J9022 Tecentriq Estimated Out of Pocket: $20,276.34 (SP estimate) Contacted patient: Kailey Spain at Hem/Onc is aware of estimate and will have patient sign NOFR for services. Will refer patient to whoever helped her at [facility] with MA or assistance office to check status of this process. Date of Services: 11/20/2023 Facility: Hem/Onc Scenery Adrianna Estimate of Services for the following CPT(s): J9181 Etoposide Estimated Out of Pocket: $1,255.02 (SP estimate) Contacted patient: Kailey Spain requesting this estimate as well to have patient sign NOFR on DOS. * Telephone Encounter - Kailey Spain RN - 11/16/2023 1:14 PM EST Patient scheduled for 11/19/23, ABN email sent. * Telephone Encounter - Courtney Ventura CMA - 11/16/2023 12:17 PM EST Scheduled and patient given AVS * Telephone Encounter - Kailey Spain RN - 11/16/2023 11:[address] Worthy, would like patient to start chemotherapy next week Scheduling: please schedule patient for 3 day treatment Day 1: - 4 hour appt "C1D1 tecentriq/ carbo/ etoposide- use labs from 11/16/23" Day 2: - 2 hour appt "C1D2 etoposide Day 3: - 2 hour appt "C1D3 etoposide" Patient will go for labs today- "CBCd, CMP, TSH/T4, hep B" Thanks! * Telephone Encounter - Carina Alexander OSA - 11/15/2023 12:07 PM EST I do not see any notes from any [facility]'s and I do not see any admissions for patient in [place]. There are scans in her chart that she was admitted at [facility] on 11/06/23, is that where someone met with her and started paperwork for her? If so, I unfortunately will not be able to see any of that information. If someone there started [place] paperwork for her, she can contact her local [facility] assistance office to check the status of that. * Telephone Encounter - Kailey Spain RN - 11/15/2023 11:44 AM EST Order received for tecentriq, carbo, etoposide. Parker plan built. Waiting for auth. Consent signed 11/13/23. Nurse education 11/16/23. Patient needs hep B labs. Brain MRI 11/17/23. Patient does not have insurance but states that when she was admitted in [place], someone started paperwork for her- she isnt sure what is going on with that. PFC: do you know who is helping patient with this/ is there an update? documented in this encounter Plan of Treatment Upcoming Encounters Date Type Department Care Team (Late st Contact Info) Description 11/19/2023 10:00 AM EST Hem/Onc Treatment Hematology/[address]cology [address] [address] Adrianna, Chair 9 Hem Onc [address] [place] [address] 11/20/2023 10:00 AM EST Hem/Onc Treatment Hematology/Oncology [address], [address] [address] Adrianna, Chair 11 Hem Onc Scenery [address] [place] [address] [place] [address] 11/21/2023 11:30 AM EST Hem/Onc Treatment Hematology/Oncology [address], [address] [address] 12/31/2023 9:00 AM EST [address] [phone] Abdulkadir Olivera MD [address] [place], [place] [phone] Scheduled Orders Name Type Priority Associated Diagnoses Orde r Schedule CBC WITH WBC DIFFERENTIAL Lab STAT Small cell lung cancer (HCC) Metastasis to liver (HCC) Metastasis to mediastinal lymph node (HCC) Every 3 Weeks for 18 Occurrences starting 11/15/2023 until 11/15/2024, 1 completed COMPREHENSIVE METABOLIC PANEL Lab STAT Small cell lung cancer (HCC) Metastasis to liver (HCC) Metastasis to mediastinal lymph node (HCC) Every 3 Weeks for 18 Occurrences starting 11/15/2023 until 11/15/2024, 1 completed TSH WITH FREE T4 IF INDICATED Lab STAT Small cell lung cancer (HCC) Metastasis to liver (HCC) Metastasis to mediastinal lymph node (HCC) Every 3 Weeks for 18 Occurrences starting 11/15/2023 until 11/15/2024, 1 completed Health Maintenance Due Date Last Done Comments [...] Screening 12/28/2023 12/27/2022 Lipid Panel 12/28/2027 12/27/2022, 0506/2014, 09/22/2013, Additional history exists DTaP,Tdap,and Td Vaccines [...] Not on filedocumented as of this encounter Results * HEPATITIS B CORE ANTIBODIES IGG AND IGM (11/16/2023 12:08 PM EST) Hepatitis B Core Antibodies IgG and IgM Negative Negative 11/16/2023 6:36 PM EST [facility] Blood Venous blood specimen / Unknown Venipuncture / Unknown 11/16/2023 12:08 PM EST 11/16/2023 12:08 PM EST Jose Worthy MD LAB BLOOD ORDERABLES Performing Organization Address [facility] Co de Phone Number [facility] [address] [place] [address] * HEPATITIS B SURFACE ANTIGEN (11/16/2023 12:08 PM EST) Hepatitis B Surface Antigen Negative Negative 11/16/2023 6:36 PM EST [facility] Blood Venous blood specimen / Unknown Venipuncture / Unknown 11/16/2023 12:08 PM EST 11/16/2023 12:08 PM EST Jose Worthy MD LAB BLOOD ORDERABLES Performing Organization Address [facility] Co de Phone Number [facility] [address] [place] [address] * HEPATITIS B SURFACE ANTIBODY (11/16/2023 12:08 PM EST) Hepatitis B Surface Antibody, Quantitative <3.5 mIU/mL 11/16/2023 6:36 PM EST [facility] Hepatitis B Surface Antibody, Qualitative Negative 11/16/2023 6:36 PM EST [facility] Hepatitis B Surface Antibody, Interpretation NOT immune to Hepatitis B Virus 11/16/2023 6:36 PM EST [facility] Comment: POSITIVE: >=11.5 mIU/mL INDETERMINATE: 8.5-<11.5 mIU/mL NEGATIVE: <8.5 mIU/mL Blood Venous blood specimen / Unknown Venipuncture / Unknown 11/16/2023 12:08 PM EST 11/16/2023 12:08 PM EST Jose Worthy MD LAB BLOOD ORDERABLES [facility] [address] [place] [address] * TSH WITH FREE T4 IF INDICATED (11/16/2023 12:08 PM EST) Pathologist [facility] TSH 3.35 0.27 - 4.20 uIU/mL 11/16/2023 5:42 PM EST [facility] Blood Venous blood specimen / Unknown Venipuncture / Unknown 11/16/2023 12:08 PM EST 11/16/2023 12:08 PM EST Jose Worthy MD LAB BLOOD ORDERABLES [facility] [address] [place] [address] * (ABNORMAL) COMPREHENSIVE METABOLIC PANEL (11/16/2023 12:08 PM EST) BUN 16 6 - 20 mg/dL 11/16/2023 12:38 PM EST [facility] 56-02 Creatinine 0.9 0.5 - 1.0 mg/dL 11/16/2023 12:38 PM EST [facility] 56-02 Estimated Glomerular Filtration Rate 76 >=60 mL/min 11/16/2023 12:38 PM EST [facility] 56-02 Comment:eGFR is calculated b ased on the CKD-EPI 2020 equation Sodium 134(L) 135 - 146 mmol/L 11/16/2023 12:38 PM EST [facility] 56-02 Potassium 4.3 3.5 - 5.1 mmol/L 11/16/2023 12:38 PM EST [facility] 56-02 Chloride 96(L) 98 - 107 mmol/L 11/16/2023 12:38 PM [facility] 56- CO2 25 22 - 32 mmol/L 11/16/2023 12:38 PM EST [facility] 56- Anion Gap 13 7 - 15 mmol/L 11/16/2023 12:38 PM [facility] 56- Glucose 92 70 - 120 mg/dL 11/16/2023 12:38 PM [facility] 56 Albumin 3.7(L) 3.8 - 5.0 g/dL 11/16/2023 12:38 PM [facility] 56 AST 171(H) 10 - 35 U/L 11/16/2023 12:38 PM [facility] 56 Alkaline Phosphatase 535(H) 35 - 130 U/L 11/16/2023 12:[address] Bilirubin, Total 1.1 <=1.2 mg/dL 11/16/2023 12:38 PM EST [address] Calcium 10.1 8.4 - 10.2 mg/dL 11/16/2023 12:[address] Protein 8.1 6.0 - 8.3 g/dL 11/16/2023 12:38 PM [facility] 56 ALT 141(H) 10 - 35 U/L 11/16/2023 12:38 PM [facility] 56 Blood Venous blood specimen / Unknown Venipuncture / Unknown 11/16/2023 12:08 PM EST 11/16/2023 12:08 PM EST Jose Worthy MD LAB BLOOD ORDERABLES [facility] [address]- [address] [place] [address] documented in this encounter Visit Diagnoses Diagnosis Small cell lung cancer (HCC)- Primary Malignant neoplasm of bronchus and lung, unspecified site Metastasis to liver (HCC) 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
--- OUTSIDE RECORDS SUMMARY | 2023-12-01 08:48 | External Medical Summary | Summary of Care ---
Author Name Unknown Organization [facility] Address [address] [facility] [address] Phone [phone] Care Team Providers Care Hot Stick Man Name Role Phone Abdulkadir Olivera MD Primary Care Provider [phone] Reason for Visit * Reason Onset Date Comments NEW PATIENT 11/08/2023 Encounter Details Date Type Department Care Team (Late st Contact Info) Description 11/08/2023 Telephone Hematology/Oncology Treatment, [place] [address] [place] [address] Jose Worthy MD [address] [place] [address] NEW PATIENT Allergies No known active allergiesdocumented as of this encounter (statuses as of 11/12/2023) Medications Medication Sig Dispensed Refills Start Date End Date Status MULTIVITAMINS PO CAPS 1 tablet daily 0 Active Colostrum 500 MG Oral Capsule Take by mouth. 0 Active Nac 600 600 MG Oral Capsule (Acetylcysteine) Take 1 Capsule by mouth in the morning. 0 Active Vitamin D 125 MCG (5000 UT) Oral Capsule Take by mouth. 0 Active Vitamin B-12 ER 2000 MCG Oral Tablet Extended Release Take by mouth. 0 Acti ve Magnesium Malate 1250 (141.7 Mg) MG Oral Tablet Take by mouth. 0 Active L-Lysine 500 MG Oral Capsule Take by mouth. 0 Active [place] 6 MG Oral Tablet Take by mouth. 0 Active documented as of this encounter (statuses as of 11/12/2023) Active Problems Problem Noted Date Diagnosed Date Depression 11/03/2013 Anxiety 11/03/2013 Other ectopic documented as of this encounter (statuses as of 11/12/2023) Immunizations Name Administration Dates Next Due Pneumococcal [...] Telephone Encounter - Kailey Spain RN - 11/08/2023 3:33 PM EST Received message from [place] at [facility]. Patient admitted for abdominal pain, found to have metastatic disease. Had biopsies of stomach and FNA liver. Admitting team spoke to Dr Worthy about this patient,she would like to establish with [facility] hem/onc on discharge. Patient likely is being discharged tomorrow. Reviewed with Dr Worthy- can schedule patient 11/13/23 at 2:45pm. Scheduling: please add new patient appt on 11/13/23 at 2:45pm. Guanako with [facility] is making patient aware. Thanks! documented in this encounter Plan of Treatment Upcoming Encounters Date Type Department Care Team (Late st Contact Info) Description 11/13/2023 2:45 PM EST Office Visit Hematology/Oncology [facility] [place] [address] [facility] [place] [address] Jose Worthy MD [address] [facility] [place] [address] 12/31/2023 9:00 AM EST Office Visit [facility] [address] [place] [address] Abdulkadir Olivera MD [address] [place] [address] Health Maintenance Due Date Last Done Comments COVID-19 Vaccine (#1) 03/01/1961 HIV Screening 1975 Hepatitis C Screening 1978 HPV/Co-Test 1990 LUNG CANCER SCREENING - USE SMARTSET 46467 2010 Zoster Vaccines (1 of 2) 2010 Pneumococcal Vaccine: Pediatrics (0 to 5 Years) and At-Risk Patients (6 to 64 Years) (2 - PCV) 07/04/2012 07/04/2011 Mammogram 05/07/2015 05/07/2014, 01/28, 07/15/2012, Additional history exists Cervical Cancer Screening 03/03/2016 Pap Smear 03/03/2016 03/03/2013, 12/2009, 01/03/2001 COLONOSCOPY-EVERY 5 YRS AGES 18-100 08/07/2016 08/07/2011, 08/07/2011, 11/27/2007, Additional history exists Influenza Vaccine (FLU shot) (#1) 2023 10/30/2013 Depression Screening 12/28/2023 12/27/2022 Diabetes Screening 12/27/2025 12/27/2022, 0 07/04/2011, 07/01/2010, Additional history exists Lipid Panel 12/28/2027 12/27/2022, 050 06/2014, 09/22/2013, [...] filedocumented as of this encounter Care Teams Hot Stick Man Relationship Specialty Start Date End Date Abdulkadir Olivera MD [address] [place] [address] PCP - General Family Medicine 12/27/22 documented as of this encounter
--- OUTSIDE RECORDS SUMMARY | 2023-12-01 08:48 | External Medical Summary ---
Author Name Unknown Address Unknown Organization [id number]:[facility] [place] [address] [place] [address] Laboratory Report Ordering Provider Test Date Status ANGUS BAUM 11/16/2023 12:08:37 Final Observation Date Value Abnormality Reference (Units ) Status TSH 11/16/2023 12:08:37 3.35 0.27-4.20 (uIU/mL) Final Performing Location [facility] [address] [facility] [address]
--- OUTSIDE RECORDS SUMMARY | 2023-12-01 08:48 | External Medical Summary | Summary of Care ---
Author Name Unknown Organization [facility] Address [address] [place] [place] [address] Phone [phone] Care Team Providers Care Unit Aide Tech Name Role Phone Abdulkadir Olivera MD Primary Care Provider Reason for Visit * Reason Onset Date Comments Precert Future 11/15/2023 Tecentriq, carbo platin, etoposide Encounter Details Date Type Department Care Team (Late st Contact Info) Description 11/15/2023 Telephone Hematology/Oncology Treatment, [place] [address] [place] [address] Jose Worthy MD [address] [place] [address] Precert Future (Tecentriq, carboplatin, et... 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 [place] plan built. Waiting for auth. Consent signed 11/13/23. Nurse education 11/16/23. Patient needs hep B labs. Brain MRI 11/17/23. Patient does not have insurance but states that when she was admitted in [place], someone started paperwork for her- she isnt sure what is going on with that. PFC: do you know who is helping patient with this/ is there an update? documented in this encounter Plan of Treatment Upcoming Encounters Date Type Department Care Team (Late st Contact Info) Description 11/16/2023 11:00 AM EST Nurse Only Hematology/Oncology [facility] [address] [place] [address] [place], Nurse Hem Onc [place] [address] [place] [address] 11/17/2023 8:45 AM EST Imaging Radiology [facility] 1st [facility] [address] [facility] [place] [address] 12/31/2023 9:00 AM EST Office Visit [facility] [address] [place] [address] Abdulkadir Olivera MD [address] [place] [address] Scheduled Orders Name Type Priority Associated Diagnoses Orde r Schedule CBC WITH WBC DIFFERENTIAL Lab STAT Small cell lung cancer (HCC) Metastasis to liver (HCC) Metastasis to mediastinal lymph node (HCC) Every 3 Weeks for 18 Occurrences starting 11/15/2023 until 11/15/2024 COMPREHENSIVE METABOLIC PANEL Lab STAT Small cell lung cancer (HCC) Metastasis to liver (HCC) Metastasis to mediastinal lymph node (HCC) Every 3 Weeks for 18 Occurrences starting 11/15/2023 until 11/15/2024 TSH WITH FREE T4 IF INDICATED Lab STAT Small cell lung cancer (HCC) Metastasis to liver (HCC) Metastasis to mediastinal lymph node (HCC) Every 3 Weeks for 18 Occurrences starting 11/15/2023 until 11/15/2024 HEPATITIS B SURFACE ANTIBODY Lab STAT Small cell lung cancer (HCC) Metastasis to liver (HCC) Metastasis to mediastinal lymph node (HCC) Expected: 11/19/2023 (Approximate), Expires: 11/15/2024 HEPATITIS B SURFACE ANTIGEN Lab STAT Small cell lung cancer (HCC) Metastasis to liver (HCC) Metastasis to mediastinal lymph node (HCC) Expected: 11/19/2023 (Approximate), Expires: 11/15/2024 HEPATITIS B CORE ANTIBODIES IGG AND IGM Lab STAT Small cell lung cancer (HCC) Metastasis to liver (HCC) Metastasis to mediastinal lymph node (HCC) Expected: 11/19/2023 (Approximate), Expires: 11/15/2024 Health Maintenance Due Date Last Done Comments COVID-19 Vaccine (#1) 03/01/1961 HIV Screening 1975 Hepatitis C Screening 1978 HPV/Co-Test 1990 LUNG CANCER SCREENING - USE SMARTSET 87334 2010 Zoster Vaccines (1 of 2) 2010 [...] as of this encounter Visit Diagnoses Diagnosis Small cell lung cancer (HCC)- Primary Malignant neoplasm of bronchus and lung, unspecified site Metastasis to liver (HCC) 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 documented in this encounter Care Teams Unit Aide Tech Relationship Specialty Start Date End Date Abdulkadir Olivera MD [address] [facility] [place] [address] PCP - General Family Medicine 12/27/22 documented as of this encounter
--- OUTSIDE RECORDS SUMMARY | 2023-12-01 08:48 | External Medical Summary ---
Author Name Unknown Address Unknown Organization K09:[facility]ATORY [facility] - [address] [place] [address] Laboratory Report Ordering Provider Test Date Status ANGUS BAUM 11/16/2023 12:08:37 Final Observation Date Value Abnormality Reference (Units ) Status BUN 11/16/2023 12:08:37 16 6-20 (mg/dL) Final Creatinine 11/16/2023 12:08:37 0.9 0.5-1.0 (mg/dL) Final Glomerular filtration rate/1.73 sq M.predicted [Volume Rate/Area] in Serum, Plasma or Blood by Creatinine-based formula (CKD-EPI) 11/16/2023 12:08:37 76 >=60 (mL/min) Final eGFR is calculated based on the CKD-EPI 2020 equation SODIUM 11/16/2023 12:08:37 134 Below low normal 135 -146 (mmol/L) Final Potassium 11/16/2023 12:08:37 4.3 3.5-5.1 (m mol/L) Final Cl 11/16/2023 12:08:37 96 Below low normal 98- 107 (mmol/L) Final CO2 11/16/2023 12:08:37 25 22-32 (mmo l/L) Final Anion gap 11/16/2023 12:08:37 13 7-15 (mmol /L) Final Glucose 11/16/2023 12:08:37 92 70-120 (mg /dL) Final Albumin 11/16/2023 12:08:37 3.7 Below low normal 3.8 -5.0 (g/dL) Final AST (Aspartate aminotransferase) 11/16/2023 12:08:37 171 Above high normal 10-35 (U/L) Final Alk Phos 11/16/2023 12:08:37 535 Above high normal 35 -130 (U/L) Final Bilirubin, Total 11/16/2023 12:08:37 1.1 <=1 .2 (mg/dL) Final Calcium 11/16/2023 12:08:37 10.1 8.4-10.2 ( mg/dL) Final Protein 11/16/2023 12:08:37 8.1 6.0-8.3 (g /dL) Final ALT (Alanine aminotransferase) 11/16/2023 12:08:37 141 Above high normal 10-35 (U/L) Final Performing Location [facility] - [address] [place] [address]
--- OUTSIDE RECORDS SUMMARY | 2023-12-01 08:48 | External Medical Summary ---
Author Name Unknown Address Unknown Organization [id number]:[facility] [place] [address] [place] [address] Laboratory Report Ordering Provider Test Date Status ANGUS BAUM 11/16/2023 12:08:37 Final Observation Date Value Abnormality Reference (Units ) Status Hepatitis B virus core Ab [Presence] in Serum 11/16/2023 12:08:37 Negative Negative Final Performing Location [facility] - [address] [place] [address]
--- OUTSIDE RECORDS SUMMARY | 2023-12-01 08:48 | External Medical Summary | Summary of Care ---
Author Name Unknown Organization [facility] Address [address] [place] [facility] [place] [address] Phone [phone] Care Team Providers Care Asphalt Paving Foreman Name Role Phone Abdulkadir Olivera MD Primary Care Provider Reason for Visit * Reason Onset Date Comments Precert Future 11/15/2023 Tecentriq, carbo platin, etoposide Encounter Details Date Type Department Care Team (Late st Contact Info) Description 11/15/2023 Telephone Hematology/Oncology Treatment, [place] [address] [place] [address] Jose Worthy MD [address] [place] [address] Precert Future (Tecentriq, carboplatin, et... 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 There are scans in her chart that she was admitted at [facility] on 11/06/23, is that where someone met with her and started paperwork for her? If so, I unfortunately will not be able to see any of that information. If someone there started [place] paperwork for her, she can contact her local critical access hospital assistance office to check the status of that. * Telephone Encounter - Kailey Spain RN - 11/15/2023 11:44 AM EST Order received for tecentriq, carbo, etoposide. [place] plan built. Waiting for auth. Consent signed 11/13/23. Nurse education 11/16/23. Patient needs hep B labs. Brain MRI 11/17/23. Patient does not have insurance but states that when she was admitted in [place], someone started paperwork for her- she isnt sure what is going on with that. PFC: do you know who is helping patient with this/ is there an update? documented in this encounter Plan of Treatment Upcoming Encounters Date Type Department Care Team (Latest Contact Info) Description 11/16/2023 12:20 PM EST Laboratory Laboratory [place] [place] Mary Rodas [address] [place] [phone] Jigna Rodas [address] [place] [address] Small cell lung cancer (HCC); Metastasis to liver (HCC); Metastasis to mediastinal lymph node (HCC) 11/17/2023 8:45 AM EST Imaging Radiology [facility] 1st [facility], [place] [address] [facility] [place], [place] [address] 11/19/2023 10:00 AM EST Hem/Onc Treatment Hematology/Oncology Treatment, [place] 200 [facility], [place] [address] Adrianna, Chair 9 Hem Onc Scenery [address] [facility] [place], [place] [address] 11/20/2023 10:00 AM EST Hem/Onc Treatment Hematology/Oncology Treatment, [place] [address] [facility], [place] [address] Adrianna, Chair 11 Hem Onc Scenery 200 [facility] [place], [place] [address] 11/21/2023 11:30 AM EST Hem/Onc Treatment Hematology/Oncology Treatment, [place] [address] [facility], [place] [address] 12/31/2023 9:00 AM EST Office Visit [facility] [address] [place] [phone] Abdulkadir Olivera MD [address] [place] [address] Pending Results Name Type Priority Associated Diagnoses Date /Time COMPREHENSIVE METABOLIC PANEL Lab STAT Small cell lung cancer (HCC) Metastasis to liver (HCC) Metastasis to mediastinal lymph node (HCC) 11/16/2023 12:08 PM EST TSH WITH FREE T4 IF INDICATED Lab STAT Small cell lung cancer (HCC) Metastasis to liver (HCC) Metastasis to mediastinal lymph node (HCC) 11/16/2023 12:08 PM EST HEPATITIS B SURFACE ANTIBODY Lab STAT Small cell lung cancer (HCC) Metastasis to liver (HCC) Metastasis to mediastinal lymph node (HCC) 11/16/2023 12:08 PM EST HEPATITIS B SURFACE ANTIGEN Lab STAT Small cell lung cancer (HCC) Metastasis to liver (HCC) Metastasis to mediastinal lymph node (HCC) 11/16/2023 12:08 PM EST HEPATITIS B CORE ANTIBODIES IGG AND IGM Lab STAT Small cell lung cancer (HCC) Metastasis to liver (HCC) Metastasis to mediastinal lymph node (HCC) 11/16/2023 12:08 PM EST Scheduled Orders Name Type Priority Associated Diagnoses [...] nodes documented in this encounter Care Teams Asphalt Paving Foreman Relationship Specialty Start Date End Date Abdulkadir Olivera MD [address] [place] [address] PCP - General Family Medicine 12/27/22 documented as of this encounter
--- OUTSIDE RECORDS SUMMARY | 2023-12-01 08:48 | External Medical Summary | Summary of Care ---
Author Name Unknown Organization [facility] Address [address] [facility] [place] [address] Phone [phone] Care Team Providers Care Clinical Research Monitor Name Role Phone Abdulkadir Olivera MD Primary Care Provider [phone] Encounter Details Date Type Department Care Team (Late st Contact Info) Description 11/07/2023 Result Scan Unspecified Department Selena Faust DO [address] [place] [address] <No scans attached> Allergies No known active allergiesdocumented as of this encounter (statuses as of 11/09/2023) Medications Medication Sig Dispensed Refills Start Date [...] Oral Capsule Take by mouth. 0 Active [place] 6 MG Oral Tablet Take by mouth. 0 Active documented as of this encounter (statuses as of 11/09/2023) Active Problems Problem Noted Date Diagnosed Date Depression 11/03/2013 Anxiety 11/03/2013 Other ectopic documented as of this encounter (statuses as of 11/09/2023) Immunizations Name Administration Dates Next Due Pneumococcal [...] on file documented as of this encounter Plan of Treatment Upcoming Encounters Date Type Department Care Team (Late st Contact Info) Description 11/13/2023 2:45 PM EST Office Visit Hematology/Oncology [facility] [place] [address] [place], [place] [address] Jose Worthy MD [address] [place] [address] 11/14/2023 11:00 AM EST Office Visit [facility] [address] [place] [facility] [place] [phone] Abdulkadir Olivera MD [address] [place] [address] 12/31/2023 9:00 AM EST Office Visit [facility] [address] [place] [address] Abdulkadir Olivera MD [address] [place], [place] [phone] Health Maintenance Due Date Last Done Comments COVID-19 Vaccine (#1) 03/01/1961 HIV Screening 1975 Hepatitis C Screening 1978 HPV/Co-Test 1990 LUNG CANCER SCREENING - USE SMARTSET 18902 2010 Zoster Vaccines (1 of 2) 2010 [...] Additional history exists Lipid Panel 12/28/2027 12/27/2022, 05/0 06/2014, 09/22/2013, [...] Not on filedocumented as of this encounter Procedures Procedure Name Priority Date/Time Associated Diagnosis Comments PATHOLOGY SCANNED RESULT 11/07/2023 documented in this encounter Results * PATHOLOGY SCANNED RESULT (11/07/2023) 11/07/2023 Selena Faust DO PATHOLOGY documented in this encounter Care Teams Clinical Research Monitor Relationship Specialty Start Date End Date Abdulkadir Olivera MD [address] [place] [address] PCP - General Family Medicine 12/27/22 documented as of this encounter
--- OUTSIDE RECORDS SUMMARY | 2023-12-01 08:48 | External Medical Summary | Summary of Care ---
Author Name Unknown Organization [facility] Address [address] [place] [address] Phone [phone] Care Team Providers Care Tile Installer Name Role Phone Abdulkadir Olivera MD Primary Care Provider [phone] Reason for Visit * Reason Onset Date Comments Hospital Follow-Up 11/12/2023 MANISH Encounter Details Date Type Department Care Team (Late st Contact Info) Description 11/12/2023 Telephone [place] [address] [place] [address] Sandy Rapp, FABIENNE Hospital Follow-Up (MANISH) Allergies No known active allergiesdocumented as of this encounter (statuses as of 11/12/2023) Medications Medication Sig Dispensed Refills Start Date End Date Status MULTIVITAMINS PO CAPS 1 tablet daily 0 Active Vitamin D 125 MCG (5000 UT) Oral Capsule Take by mouth. 0 Active Vitamin B-12 ER 2000 MCG Oral Tablet Extended Release Take by mouth. 0 Active Pantoprazole Sodium 40 MG Oral Tablet Delayed Release (Protonix) Take 1 Tablet by mouth in the morning. 0 11/09/2023 Active Colostrum 500 MG Oral Capsule Take by mouth. 0 11/12/2023 Disconti nued( Discharged) Nac 600 600 MG Oral Capsule (Acetylcysteine) Take 1 Capsule by mouth in the morning. 0 11/12/2023 Discontinued( Discharged) Magnesium Malate 1250 (141.7 Mg) MG Oral Tablet Take by mouth. 0 11/12/2023 Discontin ued( Discharged) L-Lysine 500 MG Oral Capsule Take by mouth. 0 11/12/2023 Disconti nued( Discharged) [place] 6 MG Oral Tablet Take by mouth. 0 11/12/2023 Discontinu ed( Discharged) documented as of this encounter (statuses as [...] encounter Miscellaneous Notes * Telephone Encounter - Sandy Rapp RN - 11/12/2023 11:31 AM EST Transitions of Care Note Reason for Referral:Recent Admission Phone visit for follow up: MANISH Admitted to: [facility], Date: 11/06/2023 Discharged to: Home, Date: 11/09/2023 Diagnosis driving hospitalization: Diffuse Metastatic Disease, Liver lesions, Lung lesion Source/Contact: Patient SUBJECTIVE Consent: Verbal consent for review of hospital discharge: Yes REVIEW OF SYSTEMS Patient/Other Reports: Current patient/caregiver problems or concerns: States she is doing "good" at home. Eating soft andmushy foods and tolerating well. Staying hydrated. Denies abdominal pain, states only occasional. To see Oncology tomorrow. CV: Denies problems Pulmonary: Denies problems Chills/Sweats/Fever:Denies chills/sweats Denies fever Appetite:Denies problems such as nausea, vomiting, burning, decreased appetite Current diet: Regular Bowel: denies problems Bladder: denies problems Wound (If applicable): N/A Pain:Denies Sleep:Denies problems FUNCTIONAL STATUS: ADL'S: Needs Assistance With:N/A as pt is independent IADL'S: Needs Assistance With:N/A as pt is independent Cognitive and Mental Health: denies problems, alert and oriented x 3, and able to communicate, understand instructions, process information. MEDICATION RECONCILIATION Medications: Discharge med list reviewed with patient or caregiver New medication: Pantoprazole Discontinued medication: Acetylcysteine, [place], Colostrum, Lysine, Magnesium ASSESSMENT Medication Risk Assessment: No risks identified Did patient fail outpatient treatment? No Discharge instructions available for review? Yes PLAN Symptom Monitoring Interventions:Member/caregiver education - signs and symptoms to contact PrimaryCare (DO NOT DELETE-Three kent symptoms patient is to report to PCP) 1. Chest Pain 2. SOB 3. Worsening abdominal pain Esthetician/Skin TherapistStock Clerk of Care interventions/Action Plan: Patient cancelled PCP appointment, offered to make another appt, patient declined, states she will follow up with Oncology tomorrow and contact PCP if needed Educated on role of MANISH completed with patient/caregiver. Educated patient/caregiver on patient right to have input on MANISH plan of care. Verification of Home Health/DME if indicated: NA Identified Care Gaps: No Care Gaps closed this call: Transition of Care follow-up communication Re-evaluation of Plan of Care and progress towards goals achievement: Patient education this visit: Verbal, Discussed reasons to call office as above, notified of late hours and weekend provider visits available if needed. Plan to instructed to call Primary Care Provider with change in symptoms or as needed before next follow-up, discharge needs met, verbalizes understanding and agrees with plan. [place] Heather Rapp, RN documented in this encounter Plan of Treatment Upcoming Encounters Date Type Department Care Team (Late st Contact Info) Description 11/13/2023 2:45 PM EST Office Visit Hematology/Oncology [facility] [address] [place] [address] Jose Worthy MD [address] [place] [address] 12/31/2023 9:00 AM EST Office Visit [facility] [address] [place] [address] Abdulkadir Olivera MD [address] [place] [address] Health Maintenance Due Date Last Done Comments COVID-19 Vaccine (#1) 03/01/1961 HIV Screening 1975 Hepatitis C Screening 1978 HPV/Co-Test 1990 LUNG CANCER SCREENING - USE SMARTSET 07777 2010 Zoster Vaccines (1 of 2) 2010 [...] Additional history exists Lipid Panel 12/28/2027 12/27/2022, 2014, 09/22/2013, Additional history exists DTaP,Tdap,and Td Vaccines [...] filedocumented as of this encounter Care Teams Tile Installer Relationship Specialty Start Date End Date Abdulkadir Olivera MD [address] [place] [address] PCP - General Family Medicine 12/27/22 documented as of this encounter
--- OUTSIDE RECORDS SUMMARY | 2023-12-01 08:48 | External Medical Summary | Summary of Care ---
Author Name Unknown Organization [facility] Address [address] [place] [address] Phone [phone] Care Team Providers Care Head Tennis Coach Name Role Phone Abdulkadir Olivera MD Primary Care Provider [phone] Reason for Visit * Reason Onset Date Comments Test Results Lab 11/16/2023 Encounter Details Date Type Department Care Team (Late st Contact Info) Description 11/16/2023 Telephone Hematology/Oncology Treatment, [place] [address] [place] [address] Jose Worthy MD [address] [place] [address] Test Results Lab Allergies No known active allergiesdocumented as of [...] Encounter - Kailey Spain RN - 11/16/2023 2:[address] Worthy: "Blood workup done on 11/16/2023: -BUN/Creat: 16/0.9, AST 171, ALT 141, alkaline phosphatase 535, bilirubin level 1.1. -normal blood counts. Abnormal LFT with normal bilirubin level noted, related to significant liver involvement. We should hold for Tylenol NSAID for the symptomatic treatment, we could consider for oxycodone 5 mg every 6 hourly for the pain management. Planning start chemotherapy early next week with carboplatin, etoposide and atezolizumab. E-prescribed oxycodone." Called patient who verbalized understanding. documented in this encounter Plan of Treatment Upcoming Encounters Date Type Department Care Team (Late st Contact Info) Description 11/17/2023 8:45 AM EST Imaging Radiology [facility] 1st [facility], [place] [address] [facility] [place] [address] 11/19/2023 10:00 AM EST Hem/Onc Treatment Hematology/[address] [address] Adrianna, Chair [address] Hem On[address] [place] [address] 11/20/2023 10:00 AM EST Hem/Onc Treatment Hematology/Oncology [address], [address] [address] Adrianna, Chair 11 Hem Onc [address] [place] [address] 11/21/2023 11:30 AM EST Hem/Onc Treatment [facility] [place] [facility] [address] 12/31/2023 9:00 AM EST Office Visit [place] [address] [place] [phone] Abdulkadir Olivera MD [address], [place] [phone] Health Maintenance Due Date Last Done Comments [...] filedocumented as of this encounter Care Teams Head Tennis Coach Relationship Specialty Start Date End Date Abdulkadir lOivera MD [address] [place] [facility] [place] [address] PCP - General Family Medicine 12/27/22 documented as of this encounter
--- OUTSIDE RECORDS SUMMARY | 2023-12-01 08:48 | External Medical Summary | Summary of Care ---
Author Name Unknown Organization [facility] Address [address] [place] [place] [place] [address] Phone [phone] Care Team Providers Care Metal Worker Name Role Phone Abdulkadir Olivera MD Primary Care Provider [phone] Reason for Visit * Reason Onset Date Comments NEW PATIENT 11/08/2023 Encounter Details Date Type Department Care Team (Late st Contact Info) Description 11/08/2023 Telephone Hematology/Oncology Treatment, [place] [address] [place] [address] Jose Worthy MD [address] [place] [address] NEW PATIENT Allergies No known active allergiesdocumented as of this encounter (statuses as of 11/08/2023) Medications Medication Sig Dispensed Refills Start Date [...] Oral Capsule Take by mouth. 0 Active Hamilton 6 MG Oral Tablet Take by mouth. 0 Active documented as of this encounter (statuses as of 11/08/2023) Active Problems Problem Noted Date Diagnosed Date Depression 11/03/2013 Anxiety 11/03/2013 Other ectopic documented as of this encounter (statuses as of 11/08/2023) Immunizations Name Administration Dates Next Due Pneumococcal [...] PM EST Received message from [place] at [facility]. Patient admitted for abdominal pain, found to have metastatic disease. Had biopsies of stomach and FNA liver. Admitting team spoke to Dr Worthy about this patient,she would like to establish with [facility] hem/onc on discharge. Patient likely is being discharged tomorrow. Reviewed with Dr Worthy- can schedule patient 11/13/23 at 2:45pm. Scheduling: please add new patient appt on 11/13/23 at 2:45pm. [place] with [facility] is making patient aware. Thanks! documented in this encounter Plan of Treatment Upcoming Encounters Date Type Department Care Team (Late st Contact Info) Description 11/14/2023 11:00 AM EST Office Visit [place] [address] [facility] [place] [phone] Abdulkadir Olivera MD [address] [place] [address] 12/31/2023 9:00 AM EST Office Visit [facility] [address] [place] [facility] [address] Abdulkadir Olivera MD [address] [place] [facility] [place] [address] Health Maintenance Due Date Last Done Comments COVID-19 Vaccine (#1) 03/01/1961 HIV Screening 1975 Hepatitis C Screening 1978 HPV/Co-Test 1990 LUNG CANCER SCREENING - USE SMARTSET 02294 2010 Zoster Vaccines (1 of 2) 2010 [...] filedocumented as of this encounter Care Teams Metal Worker Relationship Specialty Start Date End Date Abdulkadir Olivera MD [address] [place] [address] PCP - General Family Medicine 12/27/22 documented as of this encounter
--- OUTSIDE RECORDS SUMMARY | 2023-12-01 08:48 | External Medical Summary | Summary of Care ---
Author Name Unknown Organization [facility] Address [address] [place] [address] Phone [phone] Care Team Providers Care Commercial Painter Name Role Phone Abdulkadir Olivera MD Primary Care Provider [phone] Reason for Visit * Reason Comments Outpatient Testing Encounter Details Date Type Department Care Team (Late st Contact Info) Description 11/16/2023 12:20 PM EST Laboratory Laboratory [facility] [address] [place] [phone] [facility] [address] [address] Small cell lung cancer (HCC); Metastasis to liver (HCC); Metastasis to mediastinal lymph node (HCC) Allergies No known active allergiesdocumented as [...] for Nausea. 30 Tablet 3 11/16/2023 Active documented as of this encounter [...] Description 11/17/2023 8:45 AM EST Imaging Radiology [facility] 1st Floor, [place] [address] [place] [address] 11/19/2023 10:00 AM EST Hem/Onc Treatment Hematology/Oncology Treatment, [place] [address] [place] [address] Adrianna, Chair 9 Hem Onc [place] [address] [place] [address] 11/20/2023 10:00 AM EST Hem/Onc Treatment Hematology/Oncology Treatment, [place] [address] [facility], [place] [address] Adrianna, Chair 11 Hem Onc Scen[address] [facility] [place] [address] 11/21/2023 11:30 AM EST Hem/Onc Treatment Hematology/Oncology Treatment, [place] [address] [facility], [place] [address] 12/31/2023 9:00 AM EST Office Visit [facility] [address] [place] [address] Abdulkadir Olivera MD [address] [place] [address] Pending Results Name Type Priority Associated Diagnoses [...] lymph node (HCC) 11/16/2023 12:08 PM EST Health Maintenance Due Date Last Done Comments [...] Procedure Name Priority Date/Time Associated Diagnosis Comments DIFFERENTIAL, AUTOMATED STAT 11/16/2023 12:08 PM EST Small cell lung cancer (HCC) Metastasis to liver (HCC) Metastasis to mediastinal lymph node (HCC) CBC STAT 11/16/2023 12:08 PM EST Small cell lung cancer (HCC) Metastasis to liver (HCC) Metastasis to mediastinal lymph node (HCC) CBC STAT 11/16/2023 12:08 PM EST Small cell lung cancer (HCC) Metastasis to liver (HCC) Metastasis to mediastinal lymph node (HCC) documented in this encounter Results * DIFFERENTIAL, AUTOMATED (11/16/2023 12:08 PM EST) WBC 8.27 4.00 - 10.80 K/uL 11/16/2023 12:13 PM EST [address] 56-02 Neutrophils % 65.2 40.0 - 75.0 % 11/16/2023 12:13 PM EST LABORATORY [place] 56-02 Lymphocytes % 21.6 18.0 - 42.0 % 11/16/2023 12:13 PM EST LAB[facility]ATORY [place] 56-02 Monocytes % 10.5 1.0 - 11.0 % 11/16/2023 12:13 PM EST [facility]ATORY [place] 56-02 Eosinophils % 2.5 0.0 - 6.0 % 11/16/2023 12:13 PM EST [facility]ORY [place] 56-02 Basophils % 0.2 0.0 - 2.0 % 11/16/2023 12:13 PM EST [facility]ATORY [place] 56-02 Absolute Neutrophils 5.38 1.80 - 7.70 K/uL 11/16/2023 12:13 PM EST [facility]ATORY [place] 56-02 Absolute Lymphocytes 1.79 1.00 - 4.80 K/ul 11/16/2023 12:13 PM EST LABORATORY [place] 56-02 Absolute Monocytes 0.87 0.00 - 1.10 K/uL 11/16/2023 12:13 PM EST [facility]ORY [place] 56-02 Absolute Eosinophils 0.21 0.00 - 0.70 K/uL 11/16/2023 12:13 PM EST [facility]ORY [place] 56-02 Absolute Basophils 0.02 0.00 - 0.20 K/uL 11/16/2023 12:13 PM EST [facility]ATORY [place] 56-02 Blood Venous blood specimen / Unknown Venipuncture / Unknown 11/16/2023 12:08 PM EST 11/16/2023 12:08 PM EST Jose Worthy MD LAB BLOOD ORDERABLES [facility] [address] [place] [address] * CBC (11/16/2023 12:08 PM EST) WBC 8.27 4.00 - 10.80 K/uL 11/16/2023 12:13 PM EST [facility] 56- RBC 4.55 3.85 - 5.15 M/uL 11/16/2023 12:13 PM EST [facility] 56 HGB 13.1 12.0 - 15.3 g/dL 11/16/2023 12:13 PM EST [facility] 56 HCT 40.8 36.0 - 45.2 % 11/16/2023 12:13 PM EST [facility] 56 MCV 89.7 81.5 - 97.5 fL 11/16/2023 12:13 PM EST [address] MCH 28.8 27.0 - 34.0 pg 11/16/2023 12:13 PM EST [facility] 5602 MCHC 32.1 32.0 - 36.0 g/dL 11/16/2023 12:13 PM EST [facility] 56 RDW 13.0 11.5 - 15.5 % 11/16/2023 12:13 PM EST [facility] 5602 PLT 362 140 - 400 K/uL 11/16/2023 12:13 PM EST [facility] 5602 MPV 9.1 6.6 - 11.1 fL 11/16/2023 12:13 PM EST [facility] 5602 Blood Venous blood specimen / Unknown Venipuncture / Unknown 11/16/2023 12:08 PM EST 11/16/2023 12:08 PM EST Jose Worthy MD LAB BLOOD ORDERABLES [facility] [address] [place] [address] documented in this encounter Visit Diagnoses Diagnosis Small cell lung cancer (HCC) Malignant neoplasm of bronchus and lung, unspecified site Metastasis to liver (HCC) 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
--- OUTSIDE RECORDS SUMMARY | 2023-12-01 08:48 | External Medical Summary | Summary of Care ---
Author Name Unknown Organization [facility] Address [address] [place] [address] Phone [phone] Care Team Providers Care Mechanical Systems Design Engineer Name Role Phone Abdulkadir Olivera MD Primary Care Provider [phone] Reason for Referral * Precert (Within 10 days (routine)) - Pending Review Specialty Diagnoses / Procedures Referred By Contlucila t Referred To Contact Radiology Diagnoses Small cell lung cancer (HCC) Metastasis to liver (HCC) Metastasis to mediastinal lymph node (HCC) Procedures MRI BRAIN W WO CONTRAST Jose Worthy MD [address] [place] [address] Referral ID Status Reason Start Date Expiration Date V isits Requested Visits Authorized [id number] Pending Review 11/13/2023 999 999 Reason for Visit * Reason Comments Consultation Chemotherapy consult Encounter Details Date Type Department Care Team (Late st Contact Info) Description 11/13/2023 2:45 PM EST Office Visit [facility]ology[facility] [address] [place] [address] Jose Worthy MD [address] [place] [address] Small cell lung cancer (HCC)*; Metastasis to liver (HCC); Metastasis to mediastinal lymph node (HCC) Allergies No known active allergiesdocumented as of this encounter (statuses as of 11/13/2023) Medications Medication Sig Dispensed Refills Start Date [...] as of this encounter (statuses as of 11/13/2023) Active Problems Problem Noted Date Diagnosed Date Depression 11/03/2013 Anxiety 11/03/2013 Other ectopic documented as of this encounter (statuses as of 11/13/2023) Immunizations Name Administration Dates Next Due Pneumococcal [...] Sign Reading Time Taken Comments Blood Pressure 118/71 11/13/2023 2:38 PM EST Pulse 87 11/13/2023 2:38 PM EST Temperature 37.5 C (99.5 F) 11/13/2023 2:38 PM ES T Respiratory Rate 18 11/13/2023 2:38 PM EST Oxygen Saturation 94% 11/13/2023 2:38 PM EST Inhaled Oxygen Concentration - - Weight 65.7 kg (144 lb 14.4 oz) 11/13/2023 2:38 PM EST Height 167.6 cm (5' 6") 11/13/2023 2:38 PM EST Body Mass Index 23.39 11/13/2023 2:38 PM EST documented in this encounter Progress Notes * Jose Worthy MD - 11/13/2023 2:45 PM EST Hematology/Oncology Outpatient Consult Note [facility] [address] [facility] [place] [address] PRANEETH SHOEMAKER MR # [id number] :1960 63-year-old female, REASON FOR CONSULTATION: Consultation for Praneeth Shoemaker requested for evaluation and discussion of treatment options for metastatic small cell lung cancer. ( by [facility] hospitalist). Date of consultation:11/13/2023 DIAGNOSIS: Small cell lung cancer involving the right upper lobe, 4.6 cm in the size, right hilar mass, subcarinal lymphadenopathy, palpable left lower cervical lymphadenopathy on physical examination, multipleat least 20+ liver lesions, upper abdominal lymphadenopathy. T2b N3 M1c, stage IVB CURRENT TREATMENT: Planning for systemic chemotherapy with carboplatin, etoposide and atezolizumab. DIAGNOSTIC WORKUP: Recently she had some increasing abdominal pain, constipation for the last several months, she was then admitted at [facility], reviewed the hospital records, she had imaging studies and diagnostic workup as follows. Weight loss by about 8 to 10 lb noted lately. Before that she was trying to lose weight. Current weight around [address] scan of the abdomen pelvis on 11/06/2023: -extensive diffuse multifocal hepatic metastatic disease,, more than 20 lesions identified. Right lobe lesion measuring 4.6 cm, biliary ductal dilatation. -spleen normal -retroperitoneal lymphadenopathy, left para-aortic lymph node measuring 2.2 x 1.6 cm, aortocaval lymph node 2.3 x 1.1 cm, lilia hepatis lymphadenopathy measuring 4.3 x 2.5 cm S/P sigmoid colon resection -gallbladder decompressed and gallbladder wall is thickened/edematous. -trace perihepatic ascites. CT chest on 11/06/2023: -right upper lobe mass measuring 4.6 x 2.6 cm Right hilar mass measuring 3.3 x 4.7 cm -subcarinal lymph node measuring 4.9 x 2.7 cm. Biopsy from the liver lesion (11/07/2023 ) -metastatic high-grade neutropenia carcinoma, constipation small cell carcinoma. Biopsy from the stomach --> benign findings (11/07/2023). Biopsy from the GE junction --> moderate chronic Lopez's esophagitis with diffuse intestinal metaplasia. -no dysplasia or carcinoma seen Additional Staging workup: -CT head with contrast (11/06/2023 ) --> negative for metastatic disease. - she had a partial colectomy for the diverticulosis in the past. No cancer diagnosis INTERVAL HISTORY: She has come the clinic for the initial use, accompanied by her and daughter in the office She does complain of some mild abdominal discomfort, constipation has improved after using senna type of medication. No nausea, poor appetite, weight loss noted, current weight around 144 lb. Mild coughing present, no shortness of breath, overall not feeling quite well, no focal neurological symptoms, left-sided headache lately, no leg edema, no bleeding from the sites. Discontinued smoking habit recently. She says that her son of acute lymphoid leukemia at the age of 30. REVIEW OF SYSTEMS: GENERAL: Weight loss noted, fatigue present,, no fever, sweats or chills. SKIN: No skin rash, no bruising. HEAD: No new headache, no dizziness. EYES: No recent change in the vision, no diplopia, EARS: No earache no tinnitus, NOSE: No epistaxis, No nasal discharge or stuffiness, MOUTH: No sores, no dysphagia, no hoarseness of voice, NECK: No lumps, No swelling in thyroid area. No stiffness. PULMONARY: cough, No shortness of breath, no hemoptysis, no chest pain, No wheezing. CARDIOVASCULAR: No anginal chest pain, no PND, no orthopnea. No palpitation, no leg edema. No syncope. GASTROINTESTINAL: No abdominal pain, no nausea or vomiting. No diarrhea, No constipation. No blood in stool or black tarry stools. No abdominal distention. UROLOGIC: No burning urination. No hematuria. MUSCULOSKELETAL: No joint pain, No joint swelling, no muscle weakness. HEMATOLOGIC: No anemia, no bleeding disorder, No bruising. NEUROLOGIC: No seizures, no focal weakness, no speech difficulty, No memory disturbances. No tingling or numbness of the extremities. PSYCHIATRIC: No depression. Some anxiety. No psychosis. Past Medical History: Diagnosis Date Other ectopic 1993 Torn rotator cuff 2010 PT Past Surgical History: Procedure Laterality Date COLONOSCOPY, DIAGNOSTIC (RECTUM) 11/27/07 diverticula COLONOSCOPY, DIAGNOSTIC (RECTUM) 08/07/11 diverticulosis LIGATE/CUT OVIDUCT(S) PARTIAL COLECTOMY W/ANASTOMOSIS 11/28/07 Sigmoidectomy w/ primary stapled anastomosis;right ovarian cystectomy and completion proctoscopy/[facility]/ TREAT ECTOPIC /LAPAROSCOPY 1993 Current Outpatient Medications Medication Sig Dispense Refill MULTIVITAMINS PO CAPS 1 tablet daily Vitamin D 125 MCG (5000 UT) Oral Capsule Take by mouth. Vitamin B-12 ER 2000 MCG Oral Tablet Extended Release Take by mouth. Pantoprazole Sodium 40 MG Oral Tablet Delayed Release (Protonix) Take 1 Tablet by mouth in the morning. No current facility-administered medications for this visit. 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 Tobacco Use Smoking status: Every Day Packs/day: 1.00 Years: 26.00 Additional pack years: 0.00 Total pack years: 26.00 Types: Vaporizer, Cigarettes Last attempt to quit: 03/28/2013 Years since quittin.6 Smokeless tobacco: Never Substance and Sexual Activity Alcohol use: No Drug use: No Sexual activity: Yes Partners: Male control/protection: Surgical Other Topics Concern Not on file Social History Narrative Not on file Social Determinants of Health Financial Resource Strain: Not on file Food Insecurity: No Food Insecurity (12/27/2022) Hunger Vital Sign Worried About Running Out of Food in the Last Year: Never true Ran Out of Food in the Last Year: Never true Transportation Needs: Not on file Physical Activity: Not on file Stress: Not on file Social Connections: Not on file Intimate Partner Violence: Not on file Housing Stability: Not on file On Exam: LMP 08/04/2011 Constitutional: Patient is alert, cooperative and oriented x 3. Well built man, Patient is in no acute distress. HEENT:No icterus, no pallor, Throat and pharynx normal. Sinuses are non-tender. Neck: Left lower cervical lymph node measuring about 1 cm. Lungs: Emphysematous chest Cardiovascular: Normal heart sounds, no murmurs.Regular rate and rhythm. Abdomen: soft, nontender, liver palpable, about 8 to 10 cm below the right costal margin, slightly tender, no splenomegaly. Bowel sounds are normal. Neurological: No gross focal neurological deficit; walks with a normal gait. Extremities: No finger clubbing, No cyanosis. No leg edema. Skin:: No skin rash. SPINE: No spinal or paraspinal tenderness. Blood workup done on 11/06/2023 at [facility]: -WBC 7400, H&H of 14.5/43.4, Platelet count of 028505. -BUN/Creat: 6/0.6 -AST 63, ALT 64, alkaline phosphatase 233, bilirubin level 0.8 -CEA level --> 185.5 -CA 19-9, AFP and CA 15-3 --> pending IMAGING: As described above Planning for brain MRI. ASSESSMENT AND PLAN: 63-year-old female, A case of small cell lung cancer involving the right upper lobe, right hilar metastasis, subcarinallymph lidia status, also has palpable left lower cervical lymph node on physical examination, multiple liver lesions, at least 20+, upper abdominal lymphadenopathy, CT scan of the head negative for metastatic disease. Reviewed with the patient and family member regarding the diagnostic workup, overall she has extensive stage disease, reviewed them regarding information outlined on NCCN website. Overall treatment goal which would be palliative and not curative. No role of surgery. Talked to them about role of systemic chemotherapy that can be considered, reviewed with them regarding treatment schedule side effect profile with carboplatin, etoposide and atezolizumab iron the after discussion, she is in agreement for that. Chemotherapy teaching soon. She had CT scan of the head which was negative, she has some left-sided headache, would like to getbrain MRI to rule out for brain metastatic disease. We also talked about prognosis in her case. She does not have insurance but when she was admitted [facility], they have started paperwork for her insurance coverage. Once we start treatment, will see her before the 2nd cycle of chemotherapy She is at high risk for tumor lysis, she will receive prophylactic allopurinol. Thanks for the consultation Dr. Jose Worthy Hem/Onc (This note was completed using the dictation program Fluency Direct. As such, there may be misspellings word substitutions, or other variations that should not change the essence of the clinical content of this encounter note. If there is need for further clarification, please direct questions to the provider listed above.) documented in this encounter Nursing Notes * Kimber Pallavimaria guadalupe Chalwa LPN - 11/13/2023 2:39 PM EST Patient identifed by name and birthdate Do you have any concerns about pain management for today's visit? Yes. Patient instructed to discuss pain concerns with provider during the visit today Living Will or Advance Directive for Health Care as noted on the problem list. [facility] is a way you can talk to your provider on line through e-mail. Would you like to sign up? I can activate it for you? NO Filed Vitals: 11/13/23 1438 BP: 118/71 Pulse: 87 Resp: 18 Temp: 37.5 C (99.5 F) TempSrc: Tympanic SpO2: 94% Weight: 65.7 kg (144 lb 14.4 oz) Height: 1.676 m (5' 6") Patient was instructed to not get up on the exam table/exam chair until directed and assisted by their provider; patient is to remain seated in the chair/ wheelchair/ exam table/ exam chair for fall prevention and safety reasons. Patient is aware to have assistance to step down off exam table/exam chair with personnel. Patient voiced full comprehension of instructions. documented in this encounter Plan of Treatment Upcoming Encounters Date Type Department Care Team (Late st Contact Info) Description 11/16/2023 11:00 AM EST Nurse Only Hematology/Oncology [facility] [address] [place] [address] Adrianna, Nurse Hem Onc [facility] [address] [place] [address] 11/17/2023 8:45 AM EST Imaging Radiology [address] [facility] [place] [address] 12/31/2023 9:00 AM EST Office [facility] [address] [facility] [phone] Abdulkadir Olivera [facility] [address] [facility] [place] [address] Scheduled Orders Name Type Priority Associated Diagnoses Orde r Schedule MRI BRAIN W WO CONTRAST Medical Imaging Routine Small cell lung cancer (HCC) Metastasis to liver (HCC) Metastasis to mediastinal lymph node (HCC) Ordered: 11/13/2023 Health Maintenance Due Date Last Done Comments COVID-19 Vaccine (#1) 03/01/1961 HIV Screening 1975 Hepatitis C Screening 1978 HPV/Co-Test 1990 LUNG CANCER SCREENING - USE SMARTSET 49453 2010 Zoster Vaccines (1 of 2) 2010 [...] nodes documented in this encounter Care Teams Mechanical Systems Design Engineer Relationship Specialty Start Date End Date Abdulkadir Olivera MD [address] [place] [address] PCP - General Family Medicine 12/27/22 documented as of this encounter
--- OUTSIDE RECORDS SUMMARY | 2023-12-01 08:48 | External Medical Summary | Summary of Care ---
Author Name Unknown Organization [facility] Address [address] [facility] [place] [address] Phone [phone] Care Team Providers Care Coo Name Role Phone Abdulkadir Olivera MD Primary Care Provider [phone] Encounter Details Date Type Department Care Team (Late st Contact Info) Description 11/07/2023 Orders Only Gastroenterology, [facility] [address] [place] [address] Selena Faust DO [address] [place] [address] Allergies No known active allergiesdocumented as of this encounter (statuses as of 11/07/2023) Medications Medication Sig Dispensed Refills Start Date [...] Oral Capsule Take by mouth. 0 Active Florence 6 MG Oral Tablet Take by mouth. 0 Active documented as of this encounter (statuses as of 11/07/2023) Active Problems Problem Noted Date Diagnosed Date Depression 11/03/2013 Anxiety 11/03/2013 Other ectopic documented as of this encounter (statuses as of 11/07/2023) Immunizations Name Administration Dates Next Due Pneumococcal [...] Care Team (Late st Contact Info) Description 12/31/2023 9:00 AM EST Office Visit [facility] [address] [place] [address] Abdulkadir Olivera MD [address] [place] [address] Health Maintenance Due Date Last Done Comments COVID-19 Vaccine (#1) 03/01/1961 HIV Screening 1975 Hepatitis C Screening 1978 HPV/Co-Test 1990 LUNG CANCER SCREENING - USE SMARTSET 92311 2010 Zoster Vaccines (1 of 2) 2010 [...] Procedure Name Priority Date/Time Associated Diagnosis Comments UPPER ENDOSCOPIC U/S 11/07/2023 UPPER GI ENDOSCOPY 11/07/2023 documented in this encounter Results * UPPER ENDOSCOPIC U/S (11/07/2023) 11/07/2023 Selena Faust DO GASTRO UPPER * UPPER GI ENDOSCOPY (11/07/2023) 11/07/2023 Selena ZAFAR documented in this encounter Care Teams Coo Relationship Specialty Start Date End Date Abdulkadir Olivera MD [address] [place] [address] PCP - General Family Medicine 12/27/22 documented as of this encounter
--- OUTSIDE RECORDS SUMMARY | 2023-12-01 08:48 | External Medical Summary | Summary of Care ---
Author Name Unknown Organization [facility] Address [address] [place] [facility] [place] [address] Phone [phone] Care Team Providers Care Flag Decorator Name Role Phone Abdulkadir Olivera MD Primary Care Provider [phone] Encounter Details Date Type Department Care Team (Late st Contact Info) Description 11/16/2023 Orders Only Hematology/Oncology [facility] [address] [place] [address] [facility] [place] [address] Jose Worthy MD [address] [facility] [place] [address] Small cell lung cancer (HCC)*; Metastasis to liver (HCC); Metastasis to mediastinal lymph node (HCC); Other chest pain Allergies No known active allergiesdocumented as of [...] on file documented as of this encounter Progress Notes * Jose Worthy MD - 11/16/2023 2:43 PM EST Blood workup done on 11/16/2023: -BUN/Creat: 16/0.9, AST [...] week with carboplatin, etoposide and atezolizumab. E-prescribed oxycodone. documented in this encounter Plan of Treatment Upcoming Encounters Date Type Department Care Team (Late st Contact Info) Description 11/17/2023 8:45 AM EST Imaging Radiology [facility] 1st Floor, [address] [place] [address] 11/19/2023 10:00 AM EST Hem/Onc Treatment Hematology/Oncology [address] [address] Adrianna, Chair 9 Hem Onc [facility] [address] [place] [address] [place] [address] 11/20/2023 10:00 AM EST Hem/Onc Treatment Hematology/Oncology Treatment, [address] [address] Adrianna, Chair 11 Hem Onc [facility] [address] [place] [address] [place] [address] 11/21/2023 11:30 AM EST Hem/Onc Treatment Hematology/Oncology Treatment, [place] [address] [facility] [address] 12/31/2023 9:00 AM EST Office Visit [address] [place] [address] Abdulkadir Olivera MD [address] [facility] [place] [id number] Health Maintenance Due Date Last Done Comments [...] unspecified malignant neoplasm of intrathoracic lymph nodes Other chest pain documented in this encounter Care Teams Flag Decorator Relationship Specialty Start Date End Date Abdulkadir Olivera MD [address] [place] [address] PCP - General Family Medicine 12/27/22 documented as of this encounter
--- OUTSIDE RECORDS SUMMARY | 2023-12-01 08:48 | External Medical Summary | Summary of Care ---
Author Name Unknown Organization [facility] Address [address] [facility] [place] [address] Phone [phone] Care Team Providers Care Office Machine Inspector Name Role Phone Abdulkadir Olivera MD Primary Care Provider Reason for Visit * Reason Onset Date Comments Precert Future 11/15/2023 Tecentriq, carbo platin, etoposide Encounter Details Date Type Department Care Team (Late st Contact Info) Description 11/15/2023 Telephone Hematology/Oncology Treatment, [place] [address] [place] [address] Jose Worthy MD [address] [place] [address] Precert Future (Tecentriq, carboplatin, et... Allergies No [...] do not see any notes from any [facility] PFC's and I do not see any admissions for patient in [place]. There are scans in her chart that she was admitted at [facility] on 11/06/23, is that where someone met with her and started paperwork for her? If so, I unfortunately will not be able to see any of that information. If someone there started [place] paperwork for her, she can contact her local [facility] assistance office to check the status of that. * Telephone Encounter - Kailey Spain RN - 11/15/2023 11:44 AM EST Order received for tecentriq, carbo, etoposide. [place] plan built. Waiting for auth. Consent signed 11/13/23. Nurse education 11/16/23. Patient needs hep B labs. Brain MRI 11/17/23. Patient does not have insurance but states that when she was admitted in [place], someone started paperwork for her- she isnt sure what is going on with that. PFC: do you know who is helping patient with this/ is there an update? documented in this encounter Plan of Treatment Upcoming Encounters Date Type Department Care Team (Late st Contact Info) Description 11/17/2023 8:45 AM EST Imaging Radiology [facility] [address] [facility], [place] [address] [facility] [place] [address] 12/31/2023 9:00 AM EST Office Visit [facility] [address] [facility] [phone] Abdulkadir Olivera [facility] [address] [facility] [address] Scheduled Orders Name Type Priority Associated Diagnoses [...] Cancer Screening 03/03/2016 Pap Smear 03/03/2016 03/03/2013, 09/0 12/2009, 01/03/2001 COLONOSCOPY-EVERY 5 YRS AGES 18-100 [...] nodes documented in this encounter Care Teams Office Machine Inspector Relationship Specialty Start Date End Date Abdulkadir Olivera MD [address] [place] [address] PCP - General Family Medicine 12/27/22 documented as of this encounter
--- OUTSIDE RECORDS SUMMARY | 2023-12-01 08:48 | External Medical Summary | Summary of Care ---
Author Name Unknown Organization [facility] Address [address] [place] [place] [place] [address] Phone [phone] Care Team Providers Care Novelty Printing Machine Operator Name Role Phone Abdulkadir Olivera MD Primary Care Provider Reason for Visit * Reason Onset Date Comments Precert Future 11/15/2023 Tecentriq, carbo platin, etoposide Encounter Details Date Type Department Care Team (Late st Contact Info) Description 11/15/2023 Telephone Hematology/Oncology Treatment, [place] [address] [place] [address] Jose Worthy MD [address] [place] [address] Precert Future (Tecentriq, carboplatin, et... Allergies No [...] not see any admissions for patient in [place]. There are scans in her chart that she was admitted at [facility] on 11/06/23, is that where someone met with her and started paperwork for her? If so, I unfortunately will not be able to see any of that information. If someone there started [place] paperwork for her, she can contact her local [facility] assistance office to check the status of that. * Telephone Encounter - Kailey Spain RN - 11/15/2023 11:44 AM EST Order received for tecentriq, carbo, etoposide. [place] plan built. Waiting for auth. Consent signed 11/13/23. Nurse education 11/16/23. Patient needs hep B labs. Brain MRI 11/17/23. Patient does not have insurance but states that when she was admitted in [place], someone started paperwork for her- she isnt sure what is going on with that. PFC: do you know who is helping patient with this/ is there an update? documented in this encounter Plan of Treatment Upcoming Encounters Date Type Department Care Team (Late st Contact Info) Description 11/17/2023 8:45 AM EST Imaging Radiology [facility] 1st Floor, [place] [address] [place] [address] 11/19/2023 10:00 AM EST Hem/Onc Treatment Hematology/Oncology Treatment, [place] [address] [facility], [place] [address] Adrianna, Chair 9 Hem Onc Scenery 200 [facility] [place] [address] 11/20/2023 10:00 AM EST Hem/Onc Treatment [facility], [place] [facility] [address] Adrianna, Chair 11 Hem Onc Scenery 200 [facility] [place] [address] 11/21/2023 11:30 AM EST Hem/Onc Treatment Hematology/Oncology Treatment, [place] [address] [facility], [place] [address] 12/31/2023 9:00 AM EST Office Visit [facility] [address] [place] [phone] Abdulkadir Olivera MD [address] [place] [address] Pending Results Name Type Priority Associated Diagnoses Date /Time TSH WITH FREE T4 IF INDICATED Lab [...] filedocumented as of this encounter Results * (ABNORMAL) COMPREHENSIVE METABOLIC PANEL (11/16/2023 12:08 PM EST) BUN 16 6 - 20 mg/dL 11/16/2023 12:38 PM EST [facility]ORY [facility] 56- Creatinine 0.9 0.5 - 1.0 mg/dL 11/16/2023 12:38 PM EST [facility] 56-02 Estimated Glomerular Filtration Rate 76 >=60 mL/min 11/16/2023 12:38 PM EST LABORATORY [place] 56-02 Comment:eGFR is calculated b ased on the CKD-EPI 2020 equation Sodium 134(L) 135 - 146 mmol/L 11/16/2023 12:38 PM EST [facility] 56-02 Potassium 4.3 3.5 - 5.1 mmol/L 11/16/2023 12:38 PM EST LAB[facility] 56-02 Chloride 96(L) 98 - 107 mmol/L 11/16/2023 12:38 PM EST [facility] 56-02 CO2 25 22 - 32 mmol/L 11/16/2023 12:38 PM EST [facility] 56- Anion Gap 13 7 - 15 mmol/L 11/16/2023 12:38 PM EST [facility] 56-02 Glucose 92 70 - 120 mg/dL 11/16/2023 12:38 PM EST [facility] 56- Albumin 3.7(L) 3.8 - 5.0 g/dL 11/16/2023 12:38 PM EST [facility] 56- AST 171(H) 10 - 35 U/L 11/16/2023 12:38 PM EST [facility] 56- Alkaline Phosphatase 535(H) 35 - 130 U/L 11/16/2023 12:38 PM EST [facility] 56 Bilirubin, Total 1.1 <=1.2 mg/dL 11/16/2023 12:38 PM EST [facility] 56- Calcium 10.1 8.4 - 10.2 mg/dL 11/16/2023 12:38 PM [facility] 56- Protein 8.1 6.0 - 8.3 g/dL 11/16/2023 12:38 PM EST [facility] 56- ALT 141(H) 10 - 35 U/L 11/16/2023 12:38 PM [facility] 56 Blood Venous blood specimen / Unknown Venipuncture / Unknown 11/16/2023 12:08 PM EST 11/16/2023 12:08 PM EST Jose Worthy MD LAB BLOOD ORDERABLES [facility] [address] [place] [address] documented in this encounter Visit Diagnoses Diagnosis Small cell lung cancer (HCC)- Primary Malignant neoplasm of bronchus and lung, unspecified site Metastasis to liver (HCC) 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
--- OUTSIDE RECORDS SUMMARY | 2023-12-01 08:48 | External Medical Summary ---
Author Name Unknown Address Unknown Organization [id number]:[facility] [place] [address] [place] [address] [address] Laboratory Report Ordering Provider Test Date Status ANGUS BAUM 11/16/2023 12:08:37 Final Observation Date Value Abnormality Reference (Units ) Status Hep B surface Ag 11/16/2023 12:08:37 Negative Neg ative Final Performing Location LABORATORY [facility] - [address] [place] [address]
--- OUTSIDE RECORDS SUMMARY | 2023-12-01 08:48 | External Medical Summary | Summary of Care ---
Author Name Unknown Organization [facility] Address [address] [place] [facility] [place] [place] [address] Phone [phone] Care Team Providers Care Plate And Frame Filter Operator Name Role Phone Abdulkadir Olivera MD Primary Care Provider Reason for Visit * Reason Onset Date Comments Precert Future 11/15/2023 Tecentriq, carbo platin, etoposide Encounter Details Date Type Department Care Team (Late st Contact Info) Description 11/15/2023 Telephone Hematology/Oncology Treatment, [place] [address] [place] [address] Jose Worthy MD [address] [place] [address] Precert Future (Tecentriq, carboplatin, et... Allergies No [...] Telephone Encounter - Carina Alexander, NAN - 11/15/2023 12:07 PM EST I do not see any notes from any [facility]'s and I do not see any admissions for patient in [place]. There are scans in her chart that she was admitted at [facility] on 11/06/23, is that where someone met with her and started paperwork for her? If so, I unfortunately will not be able to see any of that information. If someone there started [place] paperwork for her, she can contact her local [facility] assistance office to check the status of that. * Telephone Encounter - Kailey Spain RN - 11/15/2023 11:44 AM EST Order received for tecentriq, carbo, etoposide. [place] plan built. Waiting for auth. Consent signed 11/13/23. Nurse education 11/16/23. Patient needs hep B labs. Brain MRI 11/17/23. Patient does not have insurance but states that when she was admitted in [place], someone started paperwork for her- she isnt sure what is going on with that. PFC: do you know who is helping patient with this/ is there an update? documented in this encounter Plan of Treatment Upcoming Encounters Date Type Department Care Team (Late st Contact Info) Description 11/16/2023 11:00 AM EST Nurse Only Hematology/Oncology Scenery [facility] [address] [place] [address] Adrianna, Nurse Hem Onc Scenery [address] [place] [address] 11/17/2023 8:45 AM EST Imaging Radiology [address] [place] [address] 12/31/2023 9:00 AM EST Office Visit [facility] [address] [place] [phone] Abdulkadir Olivera MD [address] [place], [place] [phone] Scheduled Orders Name Type Priority Associated Diagnoses [...] 1990 LUNG CANCER SCREENING - USE SMARTSET 40488 2010 Zoster Vaccines (1 of 2) 2010 [...] nodes documented in this encounter Care Teams Plate And Frame Filter Operator Relationship Specialty Start Date End Date Abdulkadir Olivera MD [address] [place] [address] PCP - General Family Medicine 12/27/22 documented as of this encounter
--- OUTSIDE RECORDS SUMMARY | 2023-12-01 08:48 | External Medical Summary | Summary of Care ---
Author Name Unknown Organization [facility] Address [address] [facility] [place] [address] Phone [phone] Care Team Providers Care Mobile Security Specialist Name Role Phone Abdulkadir Olivera MD Primary Care Provider [phone] Reason for Visit * Reason Onset Date Comments Test Results Biopsy 11/14/2023 Encounter Details Date Type Department Care Team (Late st Contact Info) Description 11/14/2023 Telephone Gastroenterology, [facility] [address] [place] [address] Selena Faust DO [address] [place] [address] Test Results Biopsy Allergies No known active allergiesdocumented as of this encounter (statuses as of 11/14/2023) Medications Medication Sig Dispensed Refills Start Date [...] as of this encounter (statuses as of 11/14/2023) Active Problems Problem Noted Date Diagnosed Date Depression 11/03/2013 Anxiety 11/03/2013 Other ectopic documented as of this encounter (statuses as of 11/14/2023) Immunizations Name Administration Dates Next Due Pneumococcal [...] encounter Miscellaneous Notes * Telephone Encounter - Selena Faust DO - 11/14/2023 2:37 PM EST I attempted a call to the patient this afternoon, I did leave her a brief message, she was recentlyseen by Medical Oncology and 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 I did leave her a message asking her to call me if she has any additional questions or concerns with regard to her tissue diagnosis from last week. It appears that the patient did discuss the diagnosis at great length with Medical Oncology, she was seen by Dr. Worthy yesterday. documented in this encounter Plan of Treatment Upcoming Encounters Date Type Department Care Team (Late st Contact Info) Description 11/16/2023 11:00 AM EST Nurse Only Hematology/Oncology [facility] [address] [place] [address] [place], Nurse Hem Onc Scenery [address] [place] [address] 11/17/2023 8:45 AM EST Imaging Radiology [facility] 1st [facility] [place] [address] [place] [address] 12/31/2023 9:00 AM EST Office Visit [facility] [address] [place] [facility] [place] [address] Abdulkadir Olivera MD [address] [place] [address] Health Maintenance Due Date Last Done Comments COVID-19 Vaccine (#1) 03/01/1961 HIV Screening 1975 Hepatitis C Screening 1978 HPV/Co-Test 1990 LUNG CANCER SCREENING - USE SMARTSET 48887 2010 Zoster Vaccines (1 of 2) 2010 [...] filedocumented as of this encounter Care Teams Mobile Security Specialist Relationship Specialty Start Date End Date Abdulkadir Olivera MD [address] [place] [address] PCP - General Family Medicine 12/27/22 documented as of this encounter
--- OUTSIDE RECORDS SUMMARY | 2023-12-01 08:48 | External Medical Summary | Summary of Care ---
Author Name Unknown Organization [facility] Address [address] [facility] [place] [address] Phone [phone] Care Team Providers Care Lawn Service Supervisor Name Role Phone Abdulkadir Olivera MD Primary Care Provider [phone] Reason for Visit * Reason Onset Date Comments Medication Refill 11/16/2023 Encounter Details Date Type Department Care Team (Late st Contact Info) Description 11/16/2023 Refill Hematology/Oncology [facility] [place] [address] [facility] [place] [address] Jose [facility] [address] Small cell lung cancer (HCC)*; Metastasis to [...] encounter Miscellaneous Notes * Telephone Encounter - Jose Worthy MD - 11/16/2023 11:35 AM EST E-prescribed Zofran and Compazine. * Telephone Encounter - Kailey Spain RN - 11/16/2023 11:05 AM EST Pended zofran and compazine. documented in this encounter Plan of Treatment Upcoming Encounters Date Type Department Care Team (Late st Contact Info) Description 11/17/2023 8:45 AM EST Imaging Radiology [address] [place] [address] 12/31/2023 9:00 AM EST Office Visit [facility] [address] [place] [address] Abdulkadir Olivera MD [address] [place], [place] [phone] Health Maintenance Due Date Last Done Comments [...] nodes documented in this encounter Care Teams Lawn Service Supervisor Relationship Specialty Start Date End Date Abdulkadir Olivera MD [address] [place] [address] PCP - General Family Medicine 12/27/22 documented as of this encounter
--- OUTSIDE RECORDS SUMMARY | 2023-12-01 08:48 | External Medical Summary ---
Author Name Unknown Address Unknown Organization K01:LABORATORY [place] [address] [place] [address] Laboratory Report Ordering Provider Test Date Status ANGUS BAUM 11/16/2023 12:08:37 Final Observation Date Value Abnormality Reference (Units) Status Hepatitis B virus surface Ab [Units/volume] in Serum or Plasma by Immunoassay 11/16/2023 12:08:37 <3.5 (mIU/mL) Final Hepatitis B virus surface Ab [Presence] in Serum by Immunoassay 11/16/2023 12:08:37 Negative Final HEPATITIS B SURFACE ANTIBODY, INTERPRETATION 11/16/2023 12:08:37 NOT immune to Hepatitis B Virus Final POSITIVE: >=11.5 mIU/mL
INDETERMINATE: 8.5-<11.5 mIU/mL
NEGATIVE: <8.5 mIU/mL Performing Location [facility] [place] [facility] [address] [facility] [address] [place] [address]
--- OUTSIDE RECORDS SUMMARY | 2023-12-01 08:48 | External Medical Summary ---
Author Name Unknown Address Unknown Organization K09:LABORATORY [place] [address] Laboratory Report Ordering Provider Test Date Status ANGUS BAUM 11/16/2023 12:08:37 Final Observation Date Value Abnormality Reference (Units ) Status WBC, Total 11/16/2023 12:08:37 8.27 4.00-10.8 0 (K/uL) Final RBC 11/16/2023 12:08:37 4.55 3.85-5.15 (M/uL) Final Hemoglobin 11/16/2023 12:08:37 13.1 12.0-15.3 (g/dL) Final HCT 11/16/2023 12:08:37 40.8 36.0-45.2 (%) Final MCV 11/16/2023 12:08:37 89.7 81.5-97.5 (fL) Final MCH 11/16/2023 12:08:37 28.8 27.0-34.0 (pg) Final MCHC 11/16/2023 12:08:37 32.1 32.0-36.0 (g/dL) Final RDW 11/16/2023 12:08:37 13.0 11.5-15.5 (%) Final Platelets 11/16/2023 12:08:37 362 140-400 (K /uL) Final MPV 11/16/2023 12:08:37 9.1 6.6-11.1 ( fL) Final Performing Location LABORATORY [place] [address]
[2023-12-01] MEDS: POTASSIUM CHLORIDE CRTAB 20 MEQ TABCR PO STA (09:17)
[2023-12-01] MEDS: ALBUMIN 25% 25 GM/100 ML VIAL IV ONE (09:18)
[2023-12-01] MEDS: PANTOprazole 40 MG TAB PO SCH (09:18)
[2023-12-01] MEDS: guaiFENesin 600 MG TABCR PO SCH (09:18)
[2023-12-01] MEDS: CHOLECALCIFEROL 125 MCG (5,000 UNITS) TAB PO SCH (09:18)
[2023-12-01] MEDS: MULTIVITAMIN TAB PO SCH (09:18)
[2023-12-01] MEDS: MAGNESIUM OXIDE 400 MG TAB PO SCH (09:18)
[2023-12-01 11:16] LABS: Appearance Urine Clear (Clear); Bilirubin Urine Negative (Negative); Blood Urine Negative (Negative); Color Urine Yellow; Glucose Urine UA Negative (Negative); Ketones Urine Negative (Negative); Leukocyte Esterase Urine Negative (Negative); Nitrite Urine Negative (Negative); Protein Urine Negative (Negative); Specific Gravity Urine 1.006 (1.000-1.030); Urobilinogen Urine Negative (Negative)
[2023-12-02] MEDS: ACETAMINOPHEN 325 MG TAB PO PRN (04:23)
--- NOTE | 2023-12-02 06:13 | Electrocardiogram Report ---
Test Reason : Blood Pressure : / mmHG Vent. Rate : 111 BPM Atrial Rate : 111 BPM P-R Int : 112 ms QRS Dur : 068 ms QT Int : 314 ms P-R-T Axes : 001 014 -11 degrees QTc Int : 427 ms Sinus tachycardia Otherwise normal ECG When compared with ECG of 15-NOV-2007 11:18, Vent. rate has increased BY 47 BPM Confirmed by Job Ward ([id number]) on 12/02/2023 6:12:33 AM Referred By: REFERRED SELF Confirmed By:Job Ward
[2023-12-02 07:16] LABS: BUN Creatinine Ratio 13.2 (10-20); Calcium 8.4 mg/dl (8.6-10.3); Creatinine Clr Calc Pharmacy 101.7 ml/min; Est GFR (African American) 117.1 ml/min; Magnesium 1.8 mg/dl (1.7-2.4); Phosphorus 1.9 mg/dl (2.5-4.9); Potassium 3.8 mmol/L (3.5-5.1)
--- NOTE | 2023-12-02 07:35 | Hospitalist Progress Note ---
Date of Service December 02, 2023 Assessment & Plan (1) Fever and neutropenia: Plan: 63 yo F with past med history significant for metastatic small cell lung cancer, depression, anxiety presents with fever. Patient was recently diagnosed with right upper lobe small cell lung cancer with multiple metastatic lesions in the liver and right hilar metastasis, subcarinal lymph node status and the left lower cervical lymph node and upper abdominal lymphadenopathy. MRI brain negative for metastasis. Patient was started on chemo last week. Today patient developed fevers at home. No cough. Has some nausea. Appetite is down. No chest pain or shortness of breath. No headache or neck pain. No abdominal pain. Normal bowel and bladder movements. Hemodynamics are okay. Febrile neutropenia Pancytopenia secondary to chemotherapy Recently diagnosed with small cell lung cancer metastatic Started on chemo last week PNA Procalcitonin 0.74 MRSA swab negative COVID, flu, RSV negative CXR - 1. There is a new focus of right basilar consolidation suggestive of pneumonia. 2. Please refer to the chest CT from 11/06/2023 for discussion of the pathologic thoracic lymphadenopathy. 3. Pulmonary emphysema. Sputum cultx - ordered Guaifenesin, flutter valve, IS UA negative Empirically on IV cefepime and doxycycline IV fluids Neutropenic precautions Close monitor Pancytopenia Mostly from metastatic cancer and chemo Will follow labs Metastatic small cell lung cancer Started chemo last week Follow-up with heme-onc Hyponatremia Sodium 129 on admission Getting fluids, current Na 135 Monitor Hypokalemia replete and monitor DVT prophylaxis SCDs as platelets are 69 Full code Med/tele Admission and Anticipated Discharge Date Admission Date: December 01, 2023 Subjective Pt seen in follow up of neutropenic fever, recently started on chemo CXR concerning for pna blood cultx pending Currently sitting up in bed in NAD Denies having any cough Currently denies fevers chills chest pain shortness of breath abdominal pain nausea vomiting. Tmax 37.7C in past 24 hrs Family present at bedside yesterday and updated Review of Systems Review of Systems: All systems reviewed & are unremarkable except as noted in Subjective Physical Exam Physical Exam: General- Not in distress Head- atraumatic Eyes- PERRL. ENT- oropharynx clear Neck- supple, no JVD. Lungs- clear to auscultation no wheezing or crackles. Heart- regular rhythm; no murmur, no gallop. Abdomen- normal bowel sounds, soft, nontender, no distension. Extremities- no pretibial edema, no erythema. Neuro- alert, oriented x 3; PERRL, no facial palsy; no dysarthria; moves extremities. Skin- warm & dry Results & Data Results & Data Vital Signs (Past 12 Hours) Vital Signs Temp Pulse Pulse Resp BP Pulse Ox O2 Del Method 12/02/23 07:03 100 H 12/02/23 02:39 37.7 C H 100 H 18 97/59 L 94 Room Air 12/01/23 23:41 94 H 12/01/23 23:00 37.5 C 104 H 18 98/60 L 93 Room Air 12/01/23 22:51 Room Air 12/01/23 19:46 37 C 104 H 18 101/61 94 Room Air Laboratory Results 12/02/23 12/01/23 Range/Units 06:38 Unknown WBC Pending RBC Pending Hgb Pending Hct Pending MCV Pending MCH Pending MCHC Pending Plt Count Pending Sodium 135 L (136-145) mmol/L Potassium 3.8 (3.5-5.1) mmol/L Chloride 107 (98-107) mmol/L Carbon Dioxide 23 (21-32) mmol/L Anion Gap 5 (3-11) BUN 7 (6-23) mg/dl Creatinine 0.53 L (0.6-1.2) mg/dl Est Cr Clr Drug Dosing 101.7 ml/min Est GFR ( Amer) 117.1 ml/min Est GFR (Non-Af Amer) 101.0 ml/min BUN/Creatinine Ratio 13.2 (10-20) Glucose 96 (70-99(Fasting)) mg/dl Calcium 8.4 L (8.6-10.3) mg/dl Phosphorus 1.9 L (2.5-4.9) mg/dl Magnesium 1.8 (1.7-2.4) mg/dl Urine Color Yellow Urine Appearance Clear (Clear) Urine pH 6.0 (4.5-7.5) Ur Specific [place] 1.006 (1.000-1.030) Urine Protein Negative (Negative) Urine Glucose (UA) Negative (Negative) Urine Ketones Negative (Negative) Urine Blood Negative (Negative) Urine Nitrite Negative (Negative) Urine Bilirubin Negative (Negative) Urine Urobilinogen Negative (Negative) Ur Leukocyte Esterase Negative (Negative) Nasal Screen MRSA (PCR) Negative (Negative) Medications Administered Current Inpatient Medications Acetaminophen (Acetaminophen 325 Mg Tab) 650 mg PO Q4H PRN PRN Reason: Pain or Fever Stop: 12/31/23 03:49 Last Admin: 12/02/23 04:23 Dose: 650 mg Guaifenesin (Guaifenesin 600 Mg Tabcr) 600 mg PO Q12 DANNY Stop: 12/31/23 08:59 Last Admin: 12/01/23 22:12 Dose: 600 mg Doxycycline Hyclate 100 mg/ (Dextrose) 100 mls @ 50 mls/hr IV Q12H DANNY Stop: 12/08/23 03:59 Last Infusion: 12/02/23 06:33 Dose: Infused Cefepime HCl 2,000 mg/ Syringe 20 mls @ 5 mls/min IV Q8H [facility]; Protocol Stop: 12/08/23 05:59 Last Admin: 12/02/23 06:14 Dose: 5 mls/min Magnesium Oxide (Magnesium Oxide 400 Mg Tab) 400 mg PO QAM [facility] Stop: 12/31/23 08:59 Last Admin: 12/01/23 09:18 Dose: 400 mg Multivitamins (Multivitamin Tab) 1 tab PO DAILY DANNY Stop: 12/31/23 08:59 Last Admin: 12/01/23 09:18 Dose: 1 tab Nitroglycerin (Nitroglycerin Sl 0.4 Mg/Tab Tab) 0.4 mg SL Q5M PRN PRN Reason: Chest Pain Stop: 12/31/23 03:49 Pantoprazole Sodium (Pantoprazole 40 Mg Tab) 40 mg PO DAILY [facility] Stop: 12/31/23 08:59 Last Admin: 12/01/23 09:18 Dose: 40 mg Polyethylene Glycol (Polyethylene (Miralax) 17 Gm Pack) 17 gm PO DAILY PRN PRN Reason: Constipation Stop: 12/31/23 03:49 Potassium Phosphate (Pot Phosphate Monobasic W/ Sod Tab) 1 tab PO QID [facility] Stop: 01/01/24 08:59 Vitamin D (Cholecalciferol 125 Mcg (5,000 Units) Tab) 125 mcg PO DAILY DANNY Stop: 12/31/23 08:59 Last Admin: 12/01/23 09:18 Dose: 125 mcg
[2023-12-02 07:38] LABS: Hematocrit (blood only) 27.7 % (37.0-47.0); Hemoglobin 9.3 g/dl (12.0-16.0); Mean Corpuscular Hemoglobin 28.4 pg (25.0-34.0); Mean Corpuscular Hgb Conc 33.6 g/dL (32.0-36.0); Mean Corpuscular Volume 84.7 fL (80.0-100.0); Mean Platelet Volume 9.8 fL (9.4-12.4); Platelet Count 69 K/uL (130-400); RDW Coefficient of Variation 11.9 % (11.5-14.5); RDW Standard Deviation 36.4 fL (36.4-46.3); Red Blood Count 3.27 M/uL (4.20-5.40); White Blood Count 1.03 K/ul (4.8-10.8)
[2023-12-02] MEDS: POT PHOSPHATE MONOBASIC W/ SOD TAB PO SCH (08:38)
[2023-12-02 08:49] LABS: ALC (manual) 0.96 K/uL (1.2-3.4); ANC (manual) 0.01 K/uL (1.4-6.5); Eosinophils # (manual) 0.01 K/uL (0-0.50); Eosinophils % (manual) 1 %; Lymphocytes # (manual) 0.65 K/uL (1.2-3.4); Lymphocytes % (manual) 63 %; Monocytes # (manual) 0.05 K/uL (0.11-0.59); Monocytes % (manual) 5 %; Neutrophils # (manual) 0.01 K/uL (1.40-6.50); Neutrophils % (manual) 1 %; RBC Morphology Unremarkable; Reactive Lymphocytes # (manual) 0.31 K/uL; Reactive Lymphocytes % (manual) 30 %
[2023-12-02] MEDS: ALBUMIN 25% 25 GM/100 ML VIAL IV ONE (10:04)
[2023-12-02] MEDS: SODIUM CHLORIDE 0.9% 500 ML IV SCH (10:05)
[2023-12-03 05:31] LABS: Hematocrit (blood only) 28.2 % (37.0-47.0); Hemoglobin 9.5 g/dl (12.0-16.0); Mean Corpuscular Hemoglobin 28.8 pg (25.0-34.0); Mean Corpuscular Hgb Conc 33.7 g/dL (32.0-36.0); Mean Corpuscular Volume 85.5 fL (80.0-100.0); Mean Platelet Volume 9.6 fL (9.4-12.4); Platelet Count 74 K/uL (130-400); RDW Coefficient of Variation 11.8 % (11.5-14.5); RDW Standard Deviation 36.5 fL (36.4-46.3); White Blood Count 1.39 K/ul (4.8-10.8)
[2023-12-03 05:49] LABS: Calcium 8.6 mg/dl (8.6-10.3); Creatinine Clr Calc Pharmacy 107.8 ml/min; Est GFR (African American) 119.4 ml/min; Magnesium 1.7 mg/dl (1.7-2.4); Phosphorus 3.2 mg/dl (2.5-4.9); Potassium 3.5 mmol/L (3.5-5.1)
[2023-12-03 06:35] LABS: Eosinophils # (auto) 0.02 K/uL (0.00-0.50); Eosinophils % (auto) 1.4 %; Lymphocytes # (auto) 0.97 K/uL (1.20-3.40); Lymphocytes % (auto) 69.8 %; Monocytes # (auto) 0.26 K/uL (0.11-0.59); Monocytes % (auto) 18.7 %; Neutrophils # (auto) 0.14 K/uL (1.40-6.50); Neutrophils % (auto) 10.1 %
--- NOTE | 2023-12-03 15:57 | Hospitalist Progress Note ---
Date of Service December 03, 2023 Assessment & Plan (1) Fever and neutropenia: Plan: 63 yo F with past med history significant for metastatic small cell lung cancer, depression, anxiety presents with fever. Patient was recently diagnosed with right upper lobe small cell lung cancer with multiple metastatic lesions in the liver and right hilar metastasis, subcarinal lymph node status and the left lower cervical lymph node and upper abdominal lymphadenopathy. MRI brain negative for metastasis. Patient was started on chemo last week. Today patient developed fevers at home. No cough. Has some nausea. Appetite is down. No chest pain or shortness of breath. No headache or neck pain. No abdominal pain. Normal bowel and bladder movements. Hemodynamics are okay. Febrile neutropenia Pancytopenia secondary to chemotherapy Recently diagnosed with small cell lung cancer metastatic Started on chemo last week PNA Procalcitonin 0.74 MRSA swab negative COVID, flu, RSV negative CXR - 1. There is a new focus of right basilar consolidation suggestive of pneumonia. 2. Please refer to the chest CT from 11/06/2023 for discussion of the pathologic thoracic lymphadenopathy. 3. Pulmonary emphysema. Sputum cultx - pending Guaifenesin, flutter valve, IS UA negative Empirically on IV cefepime and doxycycline IV fluids Neutropenic precautions Close monitor Pancytopenia Mostly from metastatic cancer and chemo Will follow labs, improving Metastatic small cell lung cancer Started chemo last week Follow-up with heme-onc Hyponatremia Sodium 129 on admission Getting fluids, current Na 136 Monitor Hypokalemia replete and monitor DVT prophylaxis SCDs as platelets are 74 Full code Med/tele Admission and Anticipated Discharge Date Admission Date: November 30, 2023 Subjective Pt seen in follow up of neutropenic fever, recently started on chemo CXR concerning for pna blood cultx pending Currently sitting up in bed in NAD Denies having any cough Currently denies fevers chills chest pain shortness of breath abdominal pain nausea vomiting. Review of Systems Review of Systems: All systems reviewed & are unremarkable except as noted in Subjective Physical Exam Physical Exam: General- Not in distress Head- atraumatic Eyes- PERRL. ENT- oropharynx clear Neck- supple, no JVD. Lungs- clear to auscultation no wheezing or crackles. Heart- regular rhythm; no murmur, no gallop. Abdomen- normal bowel sounds, soft, nontender, no distension. Extremities- no pretibial edema, no erythema. Neuro- alert, oriented x 3; PERRL, no facial palsy; no dysarthria; moves extremities. Skin- warm & dry Results & Data Results & Data Vital Signs (Past 12 Hours) Vital Signs Temp Pulse Pulse Resp BP Pulse Ox O2 Del Method 12/03/23 15:31 37.5 C 99 H 18 103/64 92 Room Air 12/03/23 15:12 87 12/03/23 11:16 36.8 C 95 H 18 100/65 93 Room Air 12/03/23 07:52 Room Air 12/03/23 07:37 36.7 C 94 H 18 111/63 94 Room Air 12/03/23 07:06 87 Laboratory Results 12/03/23 Range/Units 04:51 WBC 1.39 L (4.8-10.8) K/ul RBC 3.30 L (4.20-5.40) M/uL Hgb 9.5 L (12.0-16.0) g/dl Hct 28.2 L (37.0-47.0) % MCV 85.5 (80.0-100.0) fL MCH 28.8 (25.0-34.0) pg MCHC 33.7 (32.0-36.0) g/dL RDW Std Deviation 36.5 (36.4-46.3) fL RDW Coeff of Brad 11.8 (11.5-14.5) % Plt Count 74 L (130-400) K/uL MPV 9.6 (9.4-12.4) fL Immature Gran % (Auto) 0.0 % Neut % (Auto) 10.1 % Lymph % (Auto) 69.8 % Gaston % (Auto) 18.7 % Eos % (Auto) 1.4 % Baso % (Auto) 0.0 % Neut # (Auto) 0.14 L* (1.40-6.50) K/uL Lymph # (Auto) 0.97 L (1.20-3.40) K/uL Gaston # (Auto) 0.26 (0.11-0.59) K/uL Eos # (Auto) 0.02 (0.00-0.50) K/uL Baso # (Auto) 0.00 (0.00-0.20) K/uL Immature Gran # (Auto) 0.00 L (0.01-0.20) K/uL Sodium 136 (136-145) mmol/L Potassium 3.5 (3.5-5.1) mmol/L Chloride 105 (98-107) mmol/L Carbon Dioxide 23 (21-32) mmol/L Anion Gap 8 (3-11) BUN 7 (6-23) mg/dl Creatinine 0.50 L (0.6-1.2) mg/dl Est Cr Clr Drug Dosing 107.8 ml/min Est GFR ( Amer) 119.4 ml/min Est GFR (Non-Af Amer) 103.0 ml/min BUN/Creatinine Ratio 14.0 (10-20) Glucose 91 (70-99(Fasting)) mg/dl Calcium 8.6 (8.6-10.3) mg/dl Phosphorus 3.2 D (2.5-4.9) mg/dl Magnesium 1.7 (1.7-2.4) mg/dl Medications Administered Current Inpatient Medications Acetaminophen (Acetaminophen 325 Mg Tab) 650 mg PO Q4H PRN PRN Reason: Pain or Fever Stop: 12/31/23 03:49 Last Admin: 12/02/23 21:11 Dose: 650 mg Guaifenesin (Guaifenesin 600 Mg Tabcr) 600 mg PO Q12 [facility] Stop: 12/31/23 08:59 Last Admin: 12/03/23 07:29 Dose: 600 mg Doxycycline Hyclate 100 mg/ (Dextrose) 100 mls @ 50 mls/hr IV Q12H [facility] Stop: 12/08/23 03:59 Last Infusion: 12/03/23 06:18 Dose: Infused Cefepime HCl 2,000 mg/ Syringe 20 mls @ 5 mls/min IV Q8H [facility]; Protocol Stop: 12/08/23 05:59 Last Admin: 12/03/23 13:58 Dose: 5 mls/min Magnesium Oxide (Magnesium Oxide 400 Mg Tab) 400 mg PO QAM [facility] Stop: 12/31/23 08:59 Last Admin: 12/03/23 07:29 Dose: 400 mg Multivitamins (Multivitamin Tab) 1 tab PO DAILY [facility] Stop: 12/31/23 08:59 Last Admin: 12/03/23 07:30 Dose: 1 tab Nitroglycerin (Nitroglycerin Sl 0.4 Mg/Tab Tab) 0.4 mg SL Q5M PRN PRN Reason: Chest Pain Stop: 12/31/23 03:49 Pantoprazole Sodium (Pantoprazole 40 Mg Tab) 40 mg PO DAILY [facility] Stop: 12/31/23 08:59 Last Admin: 12/03/23 07:30 Dose: 40 mg Polyethylene Glycol (Polyethylene (Miralax) 17 Gm Pack) 17 gm PO DAILY PRN PRN Reason: Constipation Stop: 12/31/23 03:49 Potassium Phosphate (Pot Phosphate Monobasic W/ Sod Tab) 1 tab PO QID [facility] Stop: 01/01/24 08:59 Last Admin: 12/03/23 12:02 Dose: 1 tab Vitamin D (Cholecalciferol 125 Mcg (5,000 Units) Tab) 125 mcg PO DAILY [facility] Stop: 12/31/23 08:59 Last Admin: 12/03/23 07:30 Dose: 125 mcg
[2023-12-03] MEDS: POTASSIUM CHLORIDE CRTAB 20 MEQ TABCR PO STA (18:14)
[2023-12-04 04:17] LABS: Hematocrit (blood only) 28.2 % (37.0-47.0); Hemoglobin 9.4 g/dl (12.0-16.0); Mean Corpuscular Hemoglobin 28.6 pg (25.0-34.0); Mean Corpuscular Hgb Conc 33.3 g/dL (32.0-36.0); Mean Corpuscular Volume 85.7 fL (80.0-100.0); Mean Platelet Volume 9.6 fL (9.4-12.4); Platelet Count 101 K/uL (130-400); RDW Coefficient of Variation 11.9 % (11.5-14.5); RDW Standard Deviation 36.5 fL (36.4-46.3); Red Blood Count 3.29 M/uL (4.20-5.40); White Blood Count 1.73 K/ul (4.8-10.8)
[2023-12-04 04:24] LABS: BUN Creatinine Ratio 13.2 (10-20); Calcium 8.7 mg/dl (8.6-10.3); Creatinine Clr Calc Pharmacy 101.7 ml/min; Est GFR (African American) 117.1 ml/min; Magnesium 1.8 mg/dl (1.7-2.4); Phosphorus 3.8 mg/dl (2.5-4.9); Potassium 3.8 mmol/L (3.5-5.1)
[2023-12-04 05:31] LABS: Dohle Bodies 1+; Eosinophils # (auto) 0.02 K/uL (0.00-0.50); Eosinophils % (auto) 1.2 %; Immature Granulocytes # (auto) 0.01 K/uL (0.01-0.20); Immature Granulocytes % (auto) 0.6 %; Lymphocytes % (auto) 63.6 %; Monocytes # (auto) 0.33 K/uL (0.11-0.59); Monocytes % (auto) 19.1 %; Neutrophils # (auto) 0.27 K/uL (1.40-6.50); Neutrophils % (auto) 15.5 %
--- NOTE | 2023-12-04 11:51 | Infectious Disease Consult ---
Date of Service December 04, 2023 Telehealth Information I performed this visit using a real-time telehealth connection between my location and the patients location ([facility]). After connecting through interactive tele-video, patient was identified by name and date of and/or wristband check.Patient (or authorized healthcare customer service representative) was informed that this was a telemedicine visit and it was being conducted confidentially over secure lines. My office door was closed and no one else was present in the room with me.Patient (or authorized healthcare customer service representative) provided consent to proceed with the visit, expressed an understanding of privacy and security of the telemedicine visit, and gave permission to have a hospital customer service representative in the room in order to assist with the visit and to conduct portions of the visit, as needed. I informed the patient (or authorized healthcare customer service representative) that I reviewed their record and presented the opportunity for them to ask any questions regarding the visit today. The patient agreed to participate. Assessment & Plan (1) Fever and neutropenia: Plan: Fevers have now resolved and WBC slowly coming back up. Anticipate ANC>500 by tomorrow or . Concern for pneumonia based on CXR, but no symptoms at all to suggest this is the case. No other source of infection identified (as often is the case with febrile neutropenia). (2) Metastatic disease: Plan: Small cell lung CA, stage IV with liver mets and diffuse lymphadenopathy. Patient just now starting chemotherapy. Plan Recommend stopping doxycycline. If patient to stay in the hospital, I would continue cefepime. If ready for discharge, consider placing her on amoxicillin- clavulanate 875mg po bid to extend another 2 days. Fluoroquninolones should be avoided due to her history of tendonopathy with cipro. As her WBC increases back to normal, she should continue to improve. ID will sign off for now. Please call with any questions or should her clinical course change. History of Present Illness History of Present Illness Ms. Martinez is a 63yo female admitted to [facility] on 11/30/23 with febrile neutropenia. She has a recent diagnosis of small cell lung CA found in the RUL with associated liver mets and diffuse lymphadenopathy. She was started on chemotherapy last week. Initially she did well, but then progressively became weaker and weaker to the point she could hardly get up. She was taken to the hospital and noted to be febrile. Her WBC was down to 0.58 with an ANC of 20. She was started on cefepime and doxy. Cultures have been negative, but a CXR did suggest a possible RLL pneumonia. She, however, denies any SOB, cough, congestion, chest pain, or sore throat. No N/V or diarrhea prior to admission, though she did have one loose stool today. Overall she feels markedly better today and she has remained afebrile over the past couple days. Her WBC is slowly trending back up. Today it is 1.73 with an ANC of 270. Allergies Allergy/AdvReac Type Severity Reaction Status Date / Time No Known Allergies Allergy Unknown Verified 11/30/23 22:31 Home Medications Medication Instructions Recorded Confirmed Type cholecalciferol (vitamin D3) 125 125 mcg PO DAILY 11/06/23 11/30/23 History mcg (5,000 unit) tablet (Vitamin D3) cyanocobalamin (vitamin B-12) 2,000 mcg PO DAILY 11/06/23 11/30/23 History 2,000 mcg tablet multivitamin 1 tab PO DAILY 11/06/23 11/30/23 History pantoprazole 40 mg tablet,delayed 40 mg PO DAILY #30 tabs 11/09/23 11/30/23 Rx release Patient History Medical History Diverticulitis Depression Anxiety Surgical History Tubal ligation status History of colon resection partial colectomy with anastomosis in 2007 Family History Other COPD (chronic obstructive pulmonary disease) Ovarian cancer Social History Smoking Status: Light tobacco smoker Tobacco Type: E-cigarettes / Vaping Second Hand Exposure: No; Do You Dip or Chew Tobacco: No; Hx Alcohol Use: Yes Hx Substance Use: No Preferred Language: Urdu Communication Ability: Effective Blade Groover Required: No Beliefs That Will Affect Care: None Current Living Situation: Spouse Other Information That Helps Us Care for You: No Feels Safe at Home: Yes Safety Concerns: Feels Safe At This Time Assistive Devices: None Review of Systems Gen- NAD, cooperative with exam HEENT- no sore throat or ZUNIGA. She has some nasal congestion, mild Resp- no SOB or productive cough CV- no chest pain, no LE edema GI- one episode of diarrhea this AM, but none otherwise. No N/V. - no dysuria Skin- no rash Neuro- no numbness or tingling, weakness MSK- no joint pain or swelling Physical Exam Gen- NAD, cooperative with exam HEENT- NC AT, OP clear Lungs- normal respiratory rate on RA Ext- No edema SKin- No rash Neuro- alert and oriented Results & Data Vital Signs (Past 12 Hours) Vital Signs Temp Pulse Pulse Resp BP Pulse Ox O2 Del Method 12/04/23 11:30 36.6 C 87 18 112/67 94 Room Air 12/04/23 07:59 36.7 C 102 H 18 104/67 91 Room Air 12/04/23 07:45 Room Air 12/04/23 07:44 99 H 12/04/23 03:33 36.9 C 96 H 18 97/60 L 94 Room Air 12/04/23 00:04 36.9 C 92 H 18 96/63 L 94 Room Air Laboratory Results WBC 0.58 -> 1.73 (ANC 270 today) Hgb 9.4 Platelets 101 Na 139 Creatinine 0.5 BUN 7 UA WNL Diagnostic Findings MRSA screen negative COVID/RSV/influenza negative Sputum and blood cultures negative CXR reviewed by me: new RLL infiltrate from 11/30/23 (2) Metastatic disease Area of secondary neoplastic involvement: unspecified site Qualified Code(s): C79.9 - Secondary malignant neoplasm of unspecified site
--- NOTE | 2023-12-05 06:23 | Hospitalist Progress Note ---
Date of Service December 04, 2023 Assessment & Plan (1) Fever and neutropenia: Plan: 63 yo F with past med history significant for metastatic small cell lung cancer, depression, anxiety presents with fever. Patient was recently diagnosed with right upper lobe small cell lung cancer with multiple metastatic lesions in the liver and right hilar metastasis, subcarinal lymph node status and the left lower cervical lymph node and upper abdominal lymphadenopathy. MRI brain negative for metastasis. Patient was started on chemo last week. Today patient developed fevers at home. No cough. Has some nausea. Appetite is down. No chest pain or shortness of breath. No headache or neck pain. No abdominal pain. Normal bowel and bladder movements. Hemodynamics are okay. Febrile neutropenia Pancytopenia secondary to chemotherapy Recently diagnosed with small cell lung cancer metastatic Started on chemo last week PNA Procalcitonin 0.74 MRSA swab negative COVID, flu, RSV negative CXR - 1. There is a new focus of right basilar consolidation suggestive of pneumonia. 2. Please refer to the chest CT from 11/06/2023 for discussion of the pathologic thoracic lymphadenopathy. 3. Pulmonary emphysema. Sputum cultx - negative Guaifenesin, flutter valve, IS UA negative Empirically on IV cefepime and doxycycline IV fluids Neutropenic precautions Close monitor Pancytopenia Mostly from metastatic cancer and chemo Will follow labs, improving Metastatic small cell lung cancer Started chemo last week Follow-up with heme-onc Hyponatremia Sodium 129 on admission Getting fluids, current Na 139 Monitor Hypokalemia replete and monitor DVT prophylaxis SCDs Full code Med/tele Admission and Anticipated Discharge Date Admission Date: November 30, 2023 Subjective Pt seen in follow up of neutropenic fever, recently started on chemo CXR concerning for pna blood cultx negat. in 48 hrs Currently sitting up in bed in NAD Denies having any cough Currently denies fevers chills chest pain shortness of breath abdominal pain nausea vomiting. Review of Systems Review of Systems: All systems reviewed & are unremarkable except as noted in Subjective Physical Exam Physical Exam: General- Not in distress Head- atraumatic Eyes- PERRL. ENT- oropharynx clear Neck- supple, no JVD. Lungs- clear to auscultation no wheezing or crackles. Heart- regular rhythm; no murmur, no gallop. Abdomen- normal bowel sounds, soft, nontender, no distension. Extremities- no pretibial edema, no erythema. Neuro- alert, oriented x 3; PERRL, no facial palsy; no dysarthria; moves extremities. Skin- warm & dry Results & Data Results & Data Vital Signs (Past 12 Hours) Vital Signs Temp Pulse Pulse Resp BP Pulse Ox O2 Del Method 12/05/23 04:40 36.6 C 84 20 98/64 L 92 Room Air 12/04/23 23:42 36.7 C 95 H 20 100/65 92 Room Air 12/04/23 21:58 87 12/04/23 20:07 36.7 C 98 H 20 101/61 92 Room Air Medications Administered Current Inpatient Medications Acetaminophen (Acetaminophen 325 Mg Tab) 650 mg PO Q4H PRN PRN Reason: Pain or Fever Stop: 12/31/23 03:49 Last Admin: 12/03/23 20:04 Dose: 650 mg Guaifenesin (Guaifenesin 600 Mg Tabcr) 600 mg PO Q12 [facility] Stop: 12/31/23 08:59 Last Admin: 12/04/23 20:46 Dose: 600 mg Doxycycline Hyclate 100 mg/ (Dextrose) 100 mls @ 50 mls/hr IV Q12H [facility] Stop: 12/08/23 03:59 Last Infusion: 12/05/23 05:31 Dose: Infused Cefepime HCl 2,000 mg/ Syringe 20 mls @ 5 mls/min IV Q8H [facility]; Protocol Stop: 12/08/23 05:59 Last Admin: 12/05/23 05:19 Dose: 5 mls/min Magnesium Oxide (Magnesium Oxide 400 Mg Tab) 400 mg PO QAM [facility] Stop: 12/31/23 08:59 Last Admin: 12/04/23 07:17 Dose: 400 mg Multivitamins (Multivitamin Tab) 1 tab PO DAILY [facility] Stop: 12/31/23 08:59 Last Admin: 12/04/23 07:19 Dose: 1 tab Nitroglycerin (Nitroglycerin Sl 0.4 Mg/Tab Tab) 0.4 mg SL Q5M PRN PRN Reason: Chest Pain Stop: 12/31/23 03:49 Pantoprazole Sodium (Pantoprazole 40 Mg Tab) 40 mg PO DAILY [facility] Stop: 12/31/23 08:59 Last Admin: 12/04/23 07:19 Dose: 40 mg Polyethylene Glycol (Polyethylene (Miralax) 17 Gm Pack) 17 gm PO DAILY PRN PRN Reason: Constipation Stop: 12/31/23 03:49 Potassium Phosphate (Pot Phosphate Monobasic W/ Sod Tab) 1 tab PO QID [facility] Stop: 01/01/24 08:59 Last Admin: 12/04/23 20:46 Dose: 1 tab Vitamin D (Cholecalciferol 125 Mcg (5,000 Units) Tab) 125 mcg PO DAILY [facility] Stop: 12/31/23 08:59 Last Admin: 12/04/23 07:20 Dose: 125 mcg
[2023-12-05 06:27] LABS: Hematocrit (blood only) 28.5 % (37.0-47.0); Hemoglobin 9.3 g/dl (12.0-16.0); Mean Corpuscular Hemoglobin 28.2 pg (25.0-34.0); Mean Corpuscular Hgb Conc 32.6 g/dL (32.0-36.0); Mean Corpuscular Volume 86.4 fL (80.0-100.0); Mean Platelet Volume 9.1 fL (9.4-12.4); Platelet Count 157 K/uL (130-400); RDW Coefficient of Variation 11.9 % (11.5-14.5); RDW Standard Deviation 36.8 fL (36.4-46.3); White Blood Count 2.35 K/ul (4.8-10.8)
[2023-12-05 06:49] LABS: Calcium 8.7 mg/dl (8.6-10.3); Creatinine Clr Calc Pharmacy 107.8 ml/min; Est GFR (African American) 119.4 ml/min; Magnesium 1.8 mg/dl (1.7-2.4); Phosphorus 2.9 mg/dl (2.5-4.9); Potassium 3.5 mmol/L (3.5-5.1)
[2023-12-05 07:49] LABS: Basophils # (auto) 0.01 K/uL (0.00-0.20); Basophils % (auto) 0.4 %; Eosinophils # (auto) 0.03 K/uL (0.00-0.50); Eosinophils % (auto) 1.3 %; Immature Granulocytes # (auto) 0.02 K/uL (0.01-0.20); Immature Granulocytes % (auto) 0.9 %; Lymphocytes # (auto) 1.18 K/uL (1.20-3.40); Lymphocytes % (auto) 50.2 %; Monocytes # (auto) 0.53 K/uL (0.11-0.59); Monocytes % (auto) 22.6 %; Neutrophils # (auto) 0.58 K/uL (1.40-6.50); Neutrophils % (auto) 24.6 %
[2023-12-05 07:50] VITALS: BP 98/66; RESP 17; TEMP 98.1; O2SAT 93
[2023-12-05 07:51] LABS: Giant Platelets 1+
[2023-12-05] MEDS: SODIUM CHLORIDE 0.9% 1,000 ML IV SCH (08:37)
[2023-12-05 10:32] VITALS: PULSE 99
--- NOTE | 2023-12-05 10:34 | Discharge Summary ---
Date of Service December 05, 2023 Admission HPI Per Admitting Provider 63-year-old female with past med history significant for metastatic small cell lung cancer, depression, anxiety presents with fever. Patient was recently diagnosed with right upper lobe small cell lung cancer with multiple metastatic lesions in the liver and right hilar metastasis, subcarinal lymph node status and the left lower cervical lymph node and upper abdominal lymphadenopathy. MRI brain negative for metastasis. Patient was started on chemo last week. Today patient developed fevers at home. No cough. Has some nausea. Appetite is down. No chest pain or shortness of breath. No headache or neck pain. No abdominal pain. Normal bowel and bladder movements. Hemodynamics are okay. Past medical history. As mentioned above Past surgical history. Colonoscopy. Ligation of oviducts. Sigmoidectomy. Right ovarian cystectomy. Treatment of ectopic laparoscopic. Social history. . Smoked 1 pack a day for 26 years. No alcohol use. No drug use. Family history. Mother had cervical cancer and uterine cancer at age 40. Mother had hypothyroidism. Father had COPD. Admission Exam Per Admitting Provider General- Not in distress Head- atraumatic Eyes- PERRL. ENT- oropharynx clear Neck- supple, no JVD. Lungs- clear to auscultation no wheezing or crackles. Heart- regular rhythm; no murmur, no gallop. Abdomen- normal bowel sounds, soft, nontender, no distension. Extremities- no pretibial edema, no erythema. Neuro- alert, oriented x 3; PERRL, no facial palsy; no dysarthria; moves ext remities. Skin- warm & dry Principal Diagnosis Neutropenic fever Pancytopenia secondary to chemotherapy Recently diagnosed with small cell lung cancer metastatic Discharge Exam General- Not in distress Head- atraumatic Eyes- PERRL. ENT- oropharynx clear Neck- supple, no JVD. Lungs- clear to auscultation no wheezing or crackles. Heart- regular rhythm; no murmur, no gallop. Abdomen- normal bowel sounds, soft, nontender, no distension. Extremities- no pretibial edema, no erythema. Neuro- alert, oriented x 3; PERRL, no facial palsy; no dysarthria; moves extremities. Skin- warm & dry Discharge Data Allergies Allergy/AdvReac Type Severity Reaction Status Date / Time No Known Allergies Allergy Unknown Verified 11/30/23 22:31 Consultations 11/30/23 22:57 ED Decision to Admit Stat 12/04/23 07:58 Consult Infectious Diseases Routine Hospital Course (1) Fever and neutropenia: 63 yo F with past med history significant for metastatic small cell lung cancer, depression, anxiety presents with fever. Patient was recently diagnosed with right upper lobe small cell lung cancer with multiple metastatic lesions in the liver and right hilar metastasis, subcarinal lymph node status and the left lower cervical lymph node and upper abdominal lymphadenopathy. MRI brain negative for metastasis. Patient was started on chemo last week. Today patient developed fevers at home. No cough. Has some nausea. Appetite is down. No chest pain or shortness of breath. No headache or neck pain. No abdominal pain. Normal bowel and bladder movements. Hemodynamics are okay. Febrile neutropenia Pancytopenia secondary to chemotherapy Recently diagnosed with small cell lung cancer metastatic Started on chemo last week PNA Procalcitonin 0.74 MRSA swab negative COVID, flu, RSV negative CXR - 1. There is a new focus of right basilar consolidation suggestive of pneumonia. 2. Please refer to the chest CT from 11/06/2023 for discussion of the pathologic thoracic lymphadenopathy. 3. Pulmonary emphysema. Sputum cultx - negative Guaifenesin, flutter valve, IS UA negative Empirically on IV cefepime and doxycycline IV fluids Neutropenic precautions Close monitor ID consulted- recommend to switch to Augmentin PO for 2 more days on discharge. Pancytopenia Mostly from metastatic cancer and chemo Will follow labs, improving Metastatic small cell lung cancer Started chemo last week Follow-up with heme-onc Hyponatremia Sodium 129 on admission Getting fluids, current Na 139 Monitor Hypokalemia replete and monitor Total Time Total Time Spent Total Time Spent (In Minutes): 40 Discharge Plan Discharge Items Patient Disposition: Home - Self-Care Reason For Visit: FEVER, LUNG CANCER Discharge Diagnosis: Neutropenic fever Pancytopenia secondary to chemotherapy Recently diagnosed with small cell lung cancer metastatic Activity: Per Instructions section Non-emergency contact: Primary Care Provider, Specialist and Oncologist Call non-emergency contact if: you have any medication questions and your symptoms worsen Follow-up/Referrals: Abdulkadir Olivera MD [Primary Care Provider] - Diet: Other - See Diet Comment Diet Comment: neutropenic diet Addtl Attending Provider Instructions: Follow up with your primary care doctor and oncologist. Finish antibiotic treatment as prescribed. Pending Studies at Discharge: Yes Studies:: final results of blood cultures Stand-Alone Forms: My [facility], Smoking Cessation Medications and DC Order Prescriptions: New guaifenesin [Mucinex] 600 mg Tablet Extended Release 12hr 600 mg PO Q12 Qty: 10 0RF amoxicillin-pot clavulanate 875-125 mg tablet 1 tab PO BID 2 Days Qty: 4 0RF Continued multivitamin Tablet 1 tab PO DAILY cholecalciferol (vitamin D3) [Vitamin D3] 125 mcg (5,000 unit) Tablet 125 mcg PO DAILY cyanocobalamin (vitamin B-12) 2,000 mcg Tablet 2,000 mcg PO DAILY pantoprazole 40 mg tablet,delayed release (DR/EC) 40 mg PO DAILY Qty: 30 0RF Discharge Orders: Discharge Order (Routine); Ordered 12/05/23 Ordered By: Glen Siegel Admission Data Admit Date/Time: 11/30/23 23:54 Attending Provider: Glen Siegel Admit Provider: Elliott Pratt Primary Care Provider: Abdulkadir Olivera Other Providers: Elliott Pratt; Marty Fischer; Suyapa Dhaliwal; Conrado Cota I.; Mark Martinez II; Ruth Burks; Abdulkadir Hebert; Joey Maguire; Kathrin Meehan; James Lakhani; Alma Lynn
== END 2023-12-05 10:47 | disposition home or self-care (01) | DRG 808 ==
LOC: ED 20:56 → 2W 12-01
DX: E87.6 Hypokalemia; F17.290 Nicotine dependence, other tobacco product, uncomplicated; J18.9 Pneumonia, unspecified organism; E87.1 Hypo-osmolality and hyponatremia; C34.2 Malignant neoplasm of middle lobe, bronchus or lung; D70.9 Neutropenia, unspecified; D61.810 Antineoplastic chemotherapy induced pancytopenia

== ENCOUNTER 2024-01-23 09:18 | Inpatient (IN) ==
--- NOTE | 2024-01-23 09:45 | Emergency Department Note ---
Impression & Plan Neutropenic fever, Transaminitis, Elevated lactic acid level, Anemia, Acute hypokalemia, Hypomagnesemia ED Provider Note HISTORY OF PRESENT ILLNESS: Patient is a 63-year-old female presenting with fever. Patient is a 63-year-old female presenting from chemo for a fever. Patient reports that she woke up today and was not feeling the greatest but her temperature was normal so she went to receive her chemotherapy treatment for today. However, she was found to be febrile and was referred to the emergency department for further evaluation. Patient does report some nausea but denies any vomiting or diarrhea outside of the normal that she gets with her chemo treatments. Her last treatment was Sunday. She does report she has been very short of breath and very weak, but notes that her hemoglobin has been very low. ROS: as above PHYSICAL EXAM: Constitutional: Patient appears in no acute distress. HENT: Head: Normocephalic and atraumatic. Eyes: EOMI, PERRL Mouth/Throat: Mucous membranes moist. Neck: Trachea midline. Neck supple. Cardiovascular: Tachycardic with regular rhythm. No murmurs, rubs or gallops. Intact distal pulses. Pulmonary/Chest: No respiratory distress. Breath sounds clear and equal bilaterally. No wheezes or rales. Abdominal: Abdomen soft, no tenderness, rebound or guarding. Musculoskeletal: No edema, tenderness or deformity noted. Skin: Warm and dry. No rash, erythema, pallor or cyanosis Psychiatric: Appropriate mood and affect for situation. Neurological: Alert and keenly responsive. CN II-XII grossly intact, moving all extremities equally and fully. MDM: - Vitals signs showed tachycardia and fever. - History obtained via patient. History as above. - Chronic conditions affecting care: small cell lung cancer; anxiety/depression - Differential diagnoses include, but are not limited to: UTI; pneumonia; viral syndrome; bacteremia - Order placed for continuous cardiac monitoring. At this time, monitor showed rate of 101 bpm with normal sinus rhythm, per my interpretation. - External medical records reviewed. Discharge summary dated 12/05/2023 was reviewed. Patient was admitted at that time for neutropenic fever. She was pancytopenic secondary to her chemotherapy. - Laboratory workup interpreted by myself showed normal WBC; chronic anemia (Hgb 8.4); hyponatremia (132); hypokalemia (K 3.2); elevated lactic acid (2.9 --> 1.8); normal troponin; hypomagnesemia (Mg 1.5); transaminitis (AST 83; alt 59); normal procalcitonin; normal lipase - CXR negative for pneumonia, per my interpretation - Viral respiratory panel negative - Blood cultures obtained. - Patient placed on neutropenic precautions. - Given 2g IV cefepime. Given 1g IV tylenol for fever. Given a total of 2L NS and 4 mg IV zofran for symptomatic management. - Given 20 mEq IV potassium and 1g IV magnesium for electrolyte replacement. - Discussed case with oncologist, Dr. Worthy. He was in agreement with plan of care. - UA ordered, but not obtained prior to antibiotic dosing. - Discussion was had with family service caseworker about patient's case and need for admission - Hospitalist consulted for admission - Patient admitted to [facility] for further evaluation and management. ASSESSMENT AND PLAN: Diagnosis: neutropenic fever; hypokalemia; hypomagnesemia; transaminitis; anemia; elevated lactic acid level; fever Plan: admit Past Med/Surg History Medical History Diverticulitis Depression Anxiety Surgical History Tubal ligation status History of colon resection partial colectomy with anastomosis in 2007 Family History Other COPD (chronic obstructive pulmonary disease) Ovarian cancer Social History Smoking Status: Former smoker Tobacco Type: E-cigarettes / Vaping Second Hand Exposure: No; Do You Dip or Chew Tobacco: No; Hx Alcohol Use: Yes Hx Substance Use: No Preferred Language: Icelandic Communication Ability: Effective Hygiene Coordinator Required: No Beliefs That Will Affect Care: None Current Living Situation: Spouse Feels Safe at Home: Yes Assistive Devices: None Allergies Allergies Allergy/AdvReac Type Severity Reaction Status Date / Time No Known Allergies Allergy Unknown Verified 11/30/23 22:31 Home Meds Home Medications Medication Instructions Recorded Confirmed cholecalciferol (vitamin D3) 125 125 mcg PO PM 11/06/23 01/23/24 mcg (5,000 unit) tablet (Vitamin D3) cyanocobalamin (vitamin B-12) 2,000 mcg PO PM 11/06/23 01/23/24 2,000 mcg tablet multivitamin 1 tab PO PM 11/06/23 01/23/24 Zofran 8 mg PO UD PRN Nausea 01/23/24 01/23/24 guaifenesin 600 mg tablet, 600 mg PO Q12 PRN Other 01/23/24 01/23/24 extended release 12 hr (Mucinex) pantoprazole 40 mg tablet,delayed 40 mg PO QAM 01/23/24 01/23/24 release Results & Data (ED) Vital Signs Vital Signs - 24 hr 01/23/24 09:30 01/23/24 10:00 01/23/24 10:21 Temperature 37.7 C H Temperature Source Oral Pulse Rate 110 H 104 H 103 H Pulse Rate from SpO2 Sensor Respiratory Rate 20 20 Respiratory Effort / Characteristics Non-Labored Respiratory Depth Normal Blood Pressure 104/53 L 94/58 L Blood Pressure Mean 70 70 Pulse Oximetry 96 97 Oxygen Delivery Method Room Air Sepsis Recent Fever Within 48 Hours Yes Sepsis New/Unexplained Change in Mental Status No Sepsis Action Taken by Nursing No Action Required 01/23/24 10:30 01/23/24 11:00 Temperature Temperature Source Pulse Rate 102 H 105 H Pulse Rate from SpO2 Sensor 101 H Respiratory Rate 15 18 Respiratory Effort / Characteristics Respiratory Depth Blood Pressure 91/54 L 93/52 L Blood Pressure Mean 66 59 Pulse Oximetry 95 93 Oxygen Delivery Method Room Air Sepsis Recent Fever Within 48 Hours Sepsis New/Unexplained Change in Mental Status Sepsis Action Taken by Nursing Laboratory Data 01/23/24 09:46 01/23/24 09:46 Lab Results 01/23/24 01/23/24 01/23/24 Range/Units 09:46 09:59 11:48 WBC 8.83 (4.8-10.8) K/ul RBC 2.89 L (4.20-5.40) M/uL Hgb 8.4 L (12.0-16.0) g/dl Hct 26.0 L (37.0-47.0) % MCV 90.0 (80.0-100.0) fL MCH 29.1 (25.0-34.0) pg MCHC 32.3 (32.0-36.0) g/dL RDW Std Deviation 58.5 H (36.4-46.3) fL RDW Coeff of Brad 19.6 H (11.5-14.5) % Plt Count 183 (130-400) K/uL MPV 9.6 (9.4-12.4) fL Immature Gran % (Auto) 0.7 % Neut % (Auto) 83.4 % Lymph % (Auto) 13.0 % [place] % (Auto) 2.6 % Eos % (Auto) 0.0 % Baso % (Auto) 0.3 % Neut # (Auto) 7.36 H (1.40-6.50) K/uL Lymph # (Auto) 1.15 L (1.20-3.40) K/uL [place] # (Auto) 0.23 (0.11-0.59) K/uL Eos # (Auto) 0.00 (0.00-0.50) K/uL Baso # (Auto) 0.03 (0.00-0.20) K/uL Immature Gran # (Auto) 0.06 (0.01-0.20) K/uL PT 10.9 (9.0-12.0) Seconds INR 1.0 (0.9-1.1) Sodium 132 L (136-145) mmol/L Potassium 3.2 L (3.5-5.1) mmol/L Chloride 98 (98-107) mmol/L Carbon Dioxide 25 (21-32) mmol/L Anion Gap 9 (3-11) BUN 14 (6-23) mg/dl Creatinine 0.72 (0.6-1.2) mg/dl Est Cr Clr Drug Dosing Not Reportable Est GFR ( Amer) 103.3 ml/min Est GFR (Non-Af Amer) 89.1 ml/min BUN/Creatinine Ratio 19.4 (10-20) Glucose 91 (70-99(Fasting)) mg/dl Lactate 2.9 H* 1.8 (0.4-2.0) mmol/L Calcium 9.2 (8.6-10.3) mg/dl Magnesium 1.5 L (1.7-2.4) mg/dl Total Bilirubin 0.6 (0.2-1.0) mg/dl AST 83 H (13-39) U/L ALT 59 H (7-52) U/L Alkaline Phosphatase 147 H (34-104) U/L Troponin I High Sens 6.5 (0-14) pg/ml Total Protein 7.2 (6.0-8.3) gm/dl Albumin 3.5 (3.4-5.0) gm/dl Globulin 3.7 (2.5-4.0) gm/dl Albumin/Globulin Ratio 0.9 (0.9-2) Lipase 24 (11-82) U/L Procalcitonin 0.23 (0-0.5) ng/ml Adenovirus (PCR) Not Detected (NotDetected) B. pertussis DNA (PCR) Not Detected (NotDetected) B.parapertussis DNA PCR Not Detected (NotDetected) C. pneumoniae DNA (PCR) Not Detected (NotDetected) Coronavirus OC43 (PCR) Not Detected (NotDetected) Coronavirus HKU1 (PCR) Not Detected (NotDetected) Coronavirus 229E (PCR) Not Detected (NotDetected) SARS-CoV-2 (PCR) Not Detected (NotDetected) Coronavirus NL63 (PCR) Not Detected (NotDetected) Human Metapneumovir PCR Not Detected (NotDetected) Influenza Type A (PCR) Not Detected (NotDetected) Influenza Type B (PCR) Not Detected (NotDetected) M. pneumoniae (PCR) Not Detected (NotDetected) Parainfluenza 1 (PCR) Not Detected (NotDetected) Parainfluenza 2 (PCR) Not Detected (NotDetected) Parainfluenza 3 (PCR) Not Detected (NotDetected) Parainfluenza 4 (PCR) Not Detected (NotDetected) RSV (PCR) Not Detected (NotDetected) Entero/Rhino (PCR) Not Detected (NotDetected) Blood Type B Positive Antibody Screen NEGATIVE Administered Medications Potassium Chloride (K Darío / Wtr) 10 meq in 100 mls @ 100 mls/hr IV Q1H DANNY Stop: 01/23/24 12:59 Last Admin: 01/23/24 11:49 Dose: 100 mls/hr Documented By: Infusion: 01/23/24 11:49 Dose: Infused Documented By: Admin: 01/23/24 10:55 Dose: 100 mls/hr Documented By: OAC Sodium Chloride (Nss) 1,000 mls @ 999 mls/hr IV .Q1H1M ONE Stop: 01/23/24 13:25 Last Admin: 01/23/24 12:28 Dose: 999 mls/hr Documented By: OAC Discontinued Medications Sodium Chloride (Nss) 1,000 mls @ 999 mls/hr IV .Q1H1M ONE Stop: 01/23/24 10:42 Last Infusion: 01/23/24 11:16 Dose: Infused Documented By: Admin: 01/23/24 10:12 Dose: 999 mls/hr Documented By: OAC Cefepime HCl (Maxipime) 2,000 mg in 20 mls @ 5 mls/min IV NOW STA; Protocol Stop: 01/23/24 09:58 Last Admin: 01/23/24 10:13 Dose: 5 mls/min Documented By: OAC Acetaminophen (Ofirmev) 1,000 mg in 100 mls @ 400 mls/hr IV NOW STA Stop: 01/23/24 10:15 Last Infusion: 01/23/24 10:33 Dose: Infused Documented By: Admin: 01/23/24 10:13 Dose: 400 mls/hr Documented By: OAC Magnesium Sulfate/Dextrose (Magnesium Sulfate / D5w) 1 gm in 100 mls @ 100 mls/hr IV NOW STA Stop: 01/23/24 11:48 Last Infusion: 01/23/24 11:57 Dose: Infused Documented By: Admin: 01/23/24 10:55 Dose: 100 mls/hr Documented By: OAC Ondansetron HCl (Ondansetron Inj 2 Mg/Ml 2 Ml Vial) 4 mg IV NOW STA Stop: 01/23/24 09:43 Last Admin: 01/23/24 10:13 Dose: 4 mg Documented By: OAC Imaging Data Radiologist's Impression: Chest X-Ray 01/23/24 09:34 SINGLE VIEW CHEST CLINICAL HISTORY: Fever. FINDINGS: An AP, portable, upright chest radiograph is compared to study dated 11/30/1933. Correlation is made with chest CT dated 11/06/2023. The heart is top normal for projection noting atherosclerotic calcification of the thoracic aorta. Emphysema and chronic interstitial thickening is similar to previous. The right upper lobe masslike opacity seen by CT on 11/06/2023 has decreased in size from previous. Linear opacities at the right lung base likely represent scarring/atelectasis. No large pleural effusion or pneumothorax is seen. The skeletal structures are osteopenic. The bony thorax is grossly intact. Arthritic change is in the shoulders. Calcific tendinopathy is noted on the right. IMPRESSION: 1. Emphysema. A right upper lobe masslike opacity seen by CT on 11/06/2023 has decreased in size from prior studies. This is not well assessed by x-ray. 2. Linear opacities at the right lung base likely represent scarring/atelectasis. Correlate clinically for evidence of a superimposed pneumonia. Radiographic follow-up to resolution is recommended. ACT 112: Negative or not required by law. Electronically signed by: Arnie Palma M.D. 01/23/2024 10:27 AM Discharge Plan Visit Data Chief Complaint: Fever Stated Complaint: UNABLE TO HAVE CHEMO BC OF FEVER ED Provider: Rocío Salcido Discharge Problem: Neutropenic fever, Transaminitis, Elevated lactic acid level, Anemia, Acute hypokalemia, Hypomagnesemia Forms Stand Alone Forms: [facility] [employer] Prescriptions Prescriptions: No Action multivitamin Tablet 1 tab PO PM cholecalciferol (vitamin D3) [Vitamin D3] 125 mcg (5,000 unit) Tablet 125 mcg PO PM cyanocobalamin (vitamin B-12) 2,000 mcg Tablet 2,000 mcg PO PM Zofran 8 mg PO UD PRN (Reason: Nausea) Rx Instructions: 3 days during chemo, 3 days after. pantoprazole 40 mg tablet,delayed release (DR/EC) 40 mg PO QAM guaifenesin [Mucinex] 600 mg tablet extended release 12hr 600 mg PO Q12 PRN (Reason: Other) Referrals Referrals: Abdulkadir Olivera MD [Primary Care Provider] -
[2024-01-23] MEDS: SODIUM CHLORIDE 0.9% 1,000 ML IV ONE ×2 (10:12→12:28)
[2024-01-23] MEDS: CEFEPIME 2,000 MG/20 ML VIAL IV STA (10:13)
[2024-01-23] MEDS: ACETAMINOPHEN 1,000 MG/100 ML VIAL IV STA (10:13)
[2024-01-23] MEDS: ONDANSETRON INJ 2 MG/ML 2 ML VIAL IV STA (10:13)
[2024-01-23 10:27] LABS: Basophils # (auto) 0.03 K/uL (0.00-0.20); Basophils % (auto) 0.3 %; Hemoglobin 8.4 g/dl (12.0-16.0); Immature Granulocytes # (auto) 0.06 K/uL (0.01-0.20); Immature Granulocytes % (auto) 0.7 %; Lymphocytes # (auto) 1.15 K/uL (1.20-3.40); Mean Corpuscular Hemoglobin 29.1 pg (25.0-34.0); Mean Corpuscular Hgb Conc 32.3 g/dL (32.0-36.0); Mean Platelet Volume 9.6 fL (9.4-12.4); Monocytes # (auto) 0.23 K/uL (0.11-0.59); Monocytes % (auto) 2.6 %; Neutrophils # (auto) 7.36 K/uL (1.40-6.50); Neutrophils % (auto) 83.4 %; Platelet Count 183 K/uL (130-400); RDW Coefficient of Variation 19.6 % (11.5-14.5); RDW Standard Deviation 58.5 fL (36.4-46.3); Red Blood Count 2.89 M/uL (4.20-5.40); White Blood Count 8.83 K/ul (4.8-10.8)
--- NOTE | 2024-01-23 10:28 | XRay Report ---
SINGLE VIEW CHEST CLINICAL HISTORY: Fever. FINDINGS: An AP, portable, upright chest radiograph is compared to study dated 11/30/1933. Correlation is made with chest CT dated 11/06/2023. The heart is top normal for projection noting atherosclerotic c alcification of the thoracic aorta. Emphysema and chronic interstitial thickening is similar to previ ous. The right upper lobe masslike opacity seen by CT on 11/06/2023 has decreased in size from previous . Linear opacities at the right lung base likely represent scarring/atelectasis. No large pleural eff usion or pneumothorax is seen. The skeletal structures are osteopenic. The bony thorax is grossly int act. Arthritic change is in the shoulders. Calcific tendinopathy is noted on the right. IMPRESSION: 1. Emphysema. A right upper lobe masslike opacity seen by CT on 11/06/2023 has decreased in size from p rior studies. This is not well assessed by x-ray. 2. Linear opacities at the right lung base likely represent scarring/atelectasis. Correlate clinicall y for evidence of a superimposed pneumonia. Radiographic follow-up to resolution is recommended. ACT 112: Negative or not required by law. Electronically signed by: Arnie Palma M.D. 01/23/2024 10:27 AM
[2024-01-23 10:47] LABS: Alanine Aminotransferase 59 U/L (7-52); Albumin Globulin Ratio 0.9 (0.9-2); Albumin Level 3.5 gm/dl (3.4-5.0); Alkaline Phosphatase 147 U/L (34-104); Anion Gap 9 (3-11); Aspartate Aminotransferase 83 U/L (13-39); BUN Creatinine Ratio 19.4 (10-20); Bilirubin,Total 0.6 mg/dl (0.2-1.0); Blood Urea Nitrogen 14 mg/dl (6-23); Calcium 9.2 mg/dl (8.6-10.3); Carbon Dioxide 25 mmol/L (21-32); Chloride 98 mmol/L (98-107); Est GFR (African American) 103.3 ml/min; Est GFR (Non-African American) 89.1 ml/min; Globulin 3.7 gm/dl (2.5-4.0); Glucose 91 mg/dl (70-99(Fasting)); Lipase 24 U/L (11-82); Magnesium 1.5 mg/dl (1.7-2.4); Potassium 3.2 mmol/L (3.5-5.1); Sodium 132 mmol/L (136-145); Total Protein 7.2 gm/dl (6.0-8.3)
[2024-01-23 10:48] LABS: Troponin I High Sensitivity 6.5 pg/ml (0-14)
[2024-01-23 10:50] LABS: Prothrombin Time 10.9 Seconds (9.0-12.0)
[2024-01-23] MEDS: POTASSIUM CHLORIDE / WTR 10 MEQ/100 ML PLCT IV SCH (10:55)
[2024-01-23] MEDS: MAGNESIUM SULFATE / D5W 1 GM/100 ML BAG IV STA (10:55)
[2024-01-23 11:43] LABS: Adenovirus PCR Not Detected (NotDetected); Bordetella parapertussis PCR Not Detected (NotDetected); Bordetella pertussis PCR Not Detected (NotDetected); Chlamydia pneumoniae PCR Not Detected (NotDetected); Coronavirus 229E PCR Not Detected (NotDetected); Coronavirus CoV-2 (COVID19)PCR Not Detected (NotDetected); Coronavirus HKU1 PCR Not Detected (NotDetected); Coronavirus NL63 PCR Not Detected (NotDetected); Coronavirus OC43PCR Not Detected (NotDetected); Human Metapneumovirus PCR Not Detected (NotDetected); Influenza A PCR Not Detected (NotDetected); Influenza B PCR Not Detected (NotDetected); Mycoplasma pneumoniae PCR Not Detected (NotDetected); Parainfluenza Virus 1 PCR Not Detected (NotDetected); Parainfluenza Virus 2 PCR Not Detected (NotDetected); Parainfluenza Virus 3 PCR Not Detected (NotDetected); Parainfluenza Virus 4 PCR Not Detected (NotDetected); Respiratory Syncytial VirusPCR Not Detected (NotDetected); Rhinovirus/Enterovirus PCR Not Detected (NotDetected)
--- NOTE | 2024-01-23 12:29 | History & Physical Report ---
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 S/P chemo 01/21/24. Outpatient T: 38.4 C in clinic today. In ER T:37.7C, P: 110, R: 20, BP: 104/53, 96% on RA. In ER given IV Tylenol, cefepime 2 g, 2K riders, 1 g magnesium sulfate, Zofran, total 2L NSS WBC: 8.8. ANC: 7328. Lactate 2.9--> 1.8. Procalcitonin: 0.23 Negative respiratory viral panel UA unremarkable Blood cultures pending CXR: A right upper lobe masslike opacity seen by CT on 11/06/2023 has decreased in size from prior studies. This is not well assessed by x-ray. Linear opacities at the right lung base likely represent scarring/atelectasis. Correlate clinically for evidence of a superimposed pneumonia. Radiographic follow-up to resolution is recommended. Meets SIRS criteria. No clear source. Patient does not have indwelling port as possible source of infection Patient examined after 2L NSS. Repeat P: 99, BP: 99/65, R: 19, 94% on RA. Lungs clear, Heart rate regular rhythm, brisk capillary refill, mentating well CT abd/pelvis pending r/o abdominal etiology Cefepime, vancomycin IVF CBC, CMP in am (2) Epigastric abdominal pain: Plan: Patient reporting epigastric discomfort after eating yesterday. Lipase WNL. Initial troponin negative CT Abd/pelvis: No acute abnormalities to explain diffuse abdominal pain. Hepatic and lidia metastases are seen. Postsurgical changes of partial colectomy. Plan to continue PPI Was notified by nurse patient having chest pain. EKG obtained and sinus tachycardia without acute ST changes noted Repeat troponin negative Trend troponin, resting echo Examined patient and actually states "no chest pain, just abdominal pain" and points to epigastric region. Suspect GI source and less likely ACS Will try Pepcid and GI cocktail Clear liquid diet as tolerated (3) Acute hypokalemia: Plan: K: 3.2 In ER given 2 K riders Replace and monitor (4) Hypomagnesemia: Plan: Magnesium: 1.5 Replace and monitor (5) Anemia: Plan: H/H: 8.4/. Hgb: 9.3 on 01/21/24 Denies melena, hematochezia. Likely secondary to chemo Monitor CBC (6) Small cell lung cancer: (7) Metastatic disease: Plan: Right upper lobe small lung cancer with metastasis to liver and lymphadenopathy On carboplatin, etoposide, atezolizumab 4th cycle on 01/21/[address] Jose Worthy LFTs have been elevated and are at recent baseline Follow CBC, CMP DVT Prophylaxis Lovenox SQ Full Code as per discussion with pt Follows with Dr Olivera for routine care Pt was seen and care coordinated with Dr Thacker. See addendum I spent a total of 78 minutes reviewing notes, outpatient records, labs, medication, coordinating, documenting and providing care for this patient excluding time spent in the performance of separately billed services. 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 History obtained from patient, inpatient and outpatient chart review. Patient had recent admission hospital 11/30/2023-12/05/2023 for neutropenic fever and was treated with cefepime and Doxy. Chest x-ray at time with possible RLL pneumonia however patient was without symptoms and had negative COVID, influenza, RSV, and MRSA swab. ID was consulted and had recommended switching to oral Augmentin for discharge. She states since discharge has been doing ok. Patient started chemo the end of October 2023. She reports after chemo has generalized malaise, decreased appetite. Reports usually will have several days of constipation that resolves after taking OTC laxative. She states she has been having exertional SOB and has been anemic. Is following with Dr Worthy. Last chemo was 01/21/24 and had immunotherapy yesterday 01/22/24. Today seen at outpatient oncology as was scheduled for immunotherapy today. There had temperature reported of 38.4 C, P:104, BP 111/57, R: 20, 97% on room air and patient was referred to ER for further evaluation. Patient states yesterday when home after treatment and was very hungry and she ate pint of soup, 2 pieces of bread and cake. After states that she felt overfull and had abdominal discomfort. Last BM was 01/20/24. Patient states took laxative tea and during the night had 3 BM's. She states has some mild upper abdominal discomfort but "nothing bad". Today felt lightheaded with standing and walking. Denies syncope or fall. Reports chills at home today. Denies worsening or increased SOB. Denies nausea, vomiting, diarrhea, CP, cough, dysuria, hematuria, urinary frequency, flank pain, rhinorrhea, sore throat, melena, hematochezia, extremity weakness, extremity edema, rashes. Allergies Allergy/AdvReac Type Severity Reaction Status Date / Time No Known Allergies Allergy Unknown Verified 11/30/23 22:31 Home Medications Medication Instructions Recorded Confirmed Type cholecalciferol (vitamin D3) 125 125 mcg PO PM 11/06/23 01/23/24 History mcg (5,000 unit) tablet (Vitamin D3) cyanocobalamin (vitamin B-12) 2,000 mcg PO PM 11/06/23 01/23/24 History 2,000 mcg tablet multivitamin 1 tab PO PM 11/06/23 01/23/24 History guaifenesin 600 mg tablet, 600 mg PO Q12 PRN Other 01/23/24 01/23/24 History extended release 12 hr (Mucinex) ondansetron HCl 8 mg tablet 8 mg PO Q8H PRN Nausea And Vomiting 01/23/24 01/23/24 History pantoprazole 40 mg tablet,delayed 40 mg PO QAM 01/23/24 01/23/24 History release Past Med/Surg History Medical History Small cell lung cancer Diverticulitis Depression Anxiety Surgical History Tubal ligation status History of colon resection partial colectomy with anastomosis in 2007 Family History Other COPD (chronic obstructive pulmonary disease) Ovarian cancer Social History (Reviewed 01/23/24 @ 14:00 by CAMDEN Raymond Smoking Status: Former smoker Tobacco Type: Cigarettes and E-cigarettes / Vaping Second Hand Exposure: No; Hx Alcohol Use: No Hx Substance Use: No Preferred Language: Bengali Communication Ability: Effective Ice Handler Required: No Beliefs That Will Affect Care: Restorationism Restorationism Beliefs: Jehovah'S Witness Current Living Situation: Spouse Feels Safe at Home: Yes Safety Concerns: Feels Safe At This Time Assistive Devices: None and Glasses Review of Systems Review of Systems: All systems reviewed & are unremarkable except as noted in HPI & below Physical Exam Physical Exam: General: no acute distress, chronically ill appearing, WDWN Head: normocephalic, atraumatic Eyes: conjunctiva non-injected, anicteric ENT: normal inspection external ears, nose, mucous membranes dry Neck: supple, trachea midline Lungs: clear, no respiratory distress, no wheezing/rhonchi/rales CV: rate 98, regular rhythm, no murmur, no pretibial edema Abd: normal BS, soft, mild tenderness palpation epigastric and LUQ without rebound or guarding Ext: no cyanosis, no calf tenderness Neuro: A&O x 3, no focal deficits noted, normal affect Skin: warm, dry Results & Data Results & Data Vital Signs (Past 12 Hours) Vital Signs Temp Pulse Resp BP Pulse Ox O2 Del Method 01/23/24 11:00 105 H 18 93/52 L 93 Room Air 01/23/24 10:30 102 H 15 91/54 L 95 01/23/24 10:21 103 H 01/23/24 10:00 104 H 20 94/58 L 97 01/23/24 09:30 37.7 C H 110 H 20 104/53 L 96 Room Air Laboratory Results Short CBC 01/23/24 Range/Units 09:46 WBC 8.83 (4.8-10.8) K/ul Hgb 8.4 L (12.0-16.0) g/dl Hct 26.0 L (37.0-47.0) % Plt Count 183 (130-400) K/uL BMP 01/23/24 09:46 Sodium 132 L Potassium 3.2 L Chloride 98 Carbon Dioxide 25 BUN 14 Creatinine 0.72 Glucose 91 Calcium 9.2 Liver Function 01/23/24 Range/Units 09:46 Total Bilirubin 0.6 (0.2-1.0) mg/dl AST 83 H (13-39) U/L ALT 59 H (7-52) U/L Alkaline Phosphatase 147 H (34-104) U/L Albumin 3.5 (3.4-5.0) gm/dl Urine 01/23/24 Range/Units 13:15 Urine Color Yellow Urine Appearance Clear (Clear) Urine pH 6.0 (4.5-7.5) Ur Specific [place] 1.011 (1.000-1.030) Urine Protein Negative (Negative) Urine Glucose (UA) Negative (Negative) Diagnostic Findings Chest X-Ray 01/23/24 09:34 SINGLE VIEW CHEST CLINICAL HISTORY: Fever. FINDINGS: An AP, portable, upright chest radiograph is compared to study dated [birth year]/30/1933. Correlation is made with chest CT dated 11/06/2023. The heart is top normal for projection noting atherosclerotic calcification of the thoracic aorta. Emphysema and chronic interstitial thickening is similar to previous. The right upper lobe masslike opacity seen by CT on 11/06/2023 has decreased in size from previous. Linear opacities at the right lung base likely represent scarring/atelectasis. No large pleural effusion or pneumothorax is seen. The skeletal structures are osteopenic. The bony thorax is grossly intact. Arthritic change is in the shoulders. Calcific tendinopathy is noted on the right. IMPRESSION: 1. Emphysema. A right upper lobe masslike opacity seen by CT on 11/06/2023 has decreased in size from prior studies. This is not well assessed by x-ray. 2. Linear opacities at the right lung base likely represent scarring/atelectasis. Correlate clinically for evidence of a superimposed pneumonia. Radiographic follow-up to resolution is recommended. ACT 112: Negative or not required by law. Electronically signed by: Arnie Palma M.D. 01/23/2024 10:27 AM Abdomen/Pelvis CT 01/23/24 13:18 CT abd pelvis IV con only CLINICAL HISTORY: abd pain, fever TECHNIQUE: Helical axial images of the abdomen and pelvis were obtained and displayed. Automated dose lowering techniques and/or adjustment according to patient size were utilized for this exam. This exam was performed with intravenous contrast. CT DOSE: 770.4 mGy.cm COMPARISON: Comparison is made to CT abdomen pelvis 11/06/2023 FINDINGS: Lower chest: Focal atelectasis is seen in the lower lungs. Liver: Partial visualization of numerous hepatic metastases. Gallbladder and biliary tree: No calcified gallstones. Normal caliber wall. Trace pericholecystic fluid may represent reactive change to surrounding metastatic disease. No intra- or extrahepatic biliary ductal dilation. Pancreas: Unremarkable, no focal lesions. Spleen: Unremarkable. Adrenals: Unremarkable. Kidneys and ureters: Unremarkable. Bladder: Unremarkable. Reproductive organs: Uterus is retroverted. Bowel: Postsurgical changes are seen in the colon. Diverticulosis is seen without diverticulitis. The appendix is normal. Lymph nodes Retroperitoneal: Enlarged retroperitoneal lymph nodes are seen, stable to mildly decreased from prior exam. Pelvic: Unremarkable. Mesenteric: Unremarkable. Peritoneum: Trace free fluid in the pelvis is likely physiologic. Trace perihepatic ascites is again seen predominantly in the gallbladder fossa. Vessels: Atherosclerotic calcifications are seen. Abdominal wall: Unremarkable. Bones: Degenerative changes in the visualized spine. IMPRESSION: 1. No acute abnormalities to explain diffuse abdominal pain. 2. Hepatic and lidia metastases are seen. 3. Postsurgical changes of partial colectomy. ACT 112: Negative or not required by law. Electronically signed by: Rufus Tom M.D. 01/23/2024 2:54 PM Supervising Physician Co-Signing Physician Notes Pt was seen and examined by myself, Dinorah Thacker MD on the day of service. Care was coordinated with Maeve Lr PA-C. 63yoF pt with hx of metastatic lung cancer presenting after recent chemotherapy session with persistent fever. On exam, notes that she has been having persistent epigastric pain. Very tender to palpation. No visible wounds on exam. Small red lesion on right arm. CT abd/pelvis with no acute finding. Infectious workup with serology, UA, chest xr/ct chest, ct abd/pelvis, consider stool studies. No visible wounds. No definite infectious source at this point. Not currently neutropenic. Continue with empiric Cefepime and Vanc. Monitor fever curve. Otherwise as above. I spent a total [id number] coordinating, documenting, and providing care for this patient excluding time spent in the performance of separately billed services (7) Metastatic disease Area of secondary neoplastic involvement: unspecified site Qualified Code(s): C79.9 - Secondary malignant neoplasm of unspecified site
[2024-01-23 13:37] LABS: Appearance Urine Clear (Clear); Bacteria Urine Automated Negative (Negative); Bilirubin Urine Negative (Negative); Blood Urine Negative (Negative); Cast Urine Automated 0 /lpf (0-5); Color Urine Yellow; Epithelial Cell Urine Auto 0-5 /lpf (0-5); Glucose Urine UA Negative (Negative); Ketones Urine Negative (Negative); Leukocyte Esterase Urine Trace (Negative); Nitrite Urine Negative (Negative); Protein Urine Negative (Negative); RBC Urine Automated 0-4 /hpf (0-4); Specific Gravity Urine 1.011 (1.000-1.030); Urobilinogen Urine Negative (Negative)
[2024-01-23] MEDS: OPTIRAY 320 100ml IV ONE (13:52)
[2024-01-23] MEDS ORDERED: VANCOMYCIN CONSULT ACTIVE PRN ×5 (13:54→15:09)
[2024-01-23] MEDS ORDERED: VANCOMYCIN HCL 1,250 MG in SODIUM CHLORIDE 0.9% 500 ML IV ONE (13:54)
[2024-01-23] MEDS ORDERED: POLYETHYLENE (MIRALAX) 17 GM PACK PO PRN (14:47)
[2024-01-23] MEDS ORDERED: ONDANSETRON INJ 2 MG/ML 2 ML VIAL IV PRN (14:47)
[2024-01-23] MEDS ORDERED: ACETAMINOPHEN 325 MG TAB PO PRN (14:47)
[2024-01-23] MEDS ORDERED: VANCOMYCIN HCL 1,000 MG in SODIUM CHLORIDE 0.9% 500 ML IV SCH (14:47)
--- NOTE | 2024-01-23 14:56 | CT Scan Report ---
CT abd pelvis IV con only CLINICAL HISTORY: abd pain, fever TECHNIQUE: Helical axial images of the abdomen and pelvis were obtained and displayed. Automated dose lowering techniques and/or adjustment according to patient size were utilized for this exam. This e xam was performed with intravenous contrast. CT DOSE: 770.4 mGy.cm COMPARISON: Comparison is made to CT abdomen pelvis 11/06/2023 FINDINGS: Lower chest: Focal atelectasis is seen in the lower lungs. Liver: Partial visualization of numerous hepatic metastases. Gallbladder and biliary tree: No calcified gallstones. Normal caliber wall. Trace pericholecystic flu id may represent reactive change to surrounding metastatic disease. No intra- or extrahepatic biliary ductal dilation. Pancreas: Unremarkable, no focal lesions. Spleen: Unremarkable. Adrenals: Unremarkable. Kidneys and ureters: Unremarkable. Bladder: Unremarkable. Reproductive organs: Uterus is retroverted. Bowel: Postsurgical changes are seen in the colon. Diverticulosis is seen without diverticulitis. The appendix is normal. Lymph nodes Retroperitoneal: Enlarged retroperitoneal lymph nodes are seen, stable to mildly decreased from prior exam. Pelvic: Unremarkable. Mesenteric: Unremarkable. Peritoneum: Trace free fluid in the pelvis is likely physiologic. Trace perihepatic ascites is again seen predominantly in the gallbladder fossa. Vessels: Atherosclerotic calcifications are seen. Abdominal wall: Unremarkable. Bones: Degenerative changes in the visualized spine. IMPRESSION: 1. No acute abnormalities to explain diffuse abdominal pain. 2. Hepatic and lidia metastases are seen. 3. Postsurgical changes of partial colectomy. ACT 112: Negative or not required by law. Electronically signed by: Rufus Tom M.D. 01/23/2024 2:54 PM
--- NOTE | 2024-01-23 15:00 | Pharmacy Report ---
Pharmacy PK ABX Note - Date of Service January 23, 2024 - Assessment and Plan Assessment 63 year old F receiving vancomcyin/cefepime for empiric treatment of fever in immunocompromised patient. Patient has history of non small cell lung cancer with last chemotherapy treatment 01/21/24. Patient is not currently neutropenic. Fever of 38.4 reported in clinic today. Blood cultures pending, respiratory panel negative, UA does not look suspicious for UTI. Plan Vancomycin * Loading dose: 1500 mg IV x 1 * Maintenance dose: 1000 mg IV every 12 hours * Regimen is predicted to achieve target AUC/JYOTI of 400-600 mg/L.hr * Random level to be ordered if continued > 48 hours Pharmacy will continue to follow and will adjust dose/frequency as necessary. Thank you. Pharmacy has transitioned to AUC monitoring for vancomycin. AUC/JYOTI is the preferred PK/PD target and is associated with decreased risk of nephrotoxicity compared to traditional trough targets.
[2024-01-23] MEDS: POTASSIUM CHLORIDE CRTAB 20 MEQ TABCR PO STA (15:23)
[2024-01-23] MEDS: SODIUM CHLORIDE 0.9% 1,000 ML IV SCH (15:23)
[2024-01-23] MEDS: VANCOMYCIN HCL 1,500 MG in SODIUM CHLORIDE 0.9% 500 ML IV STA (15:23)
[2024-01-23] MEDS: ENOXAPARIN INJ 40 MG/0.4 ML SYR SQ SCH (15:23)
--- NOTE | 2024-01-23 16:27 | Electrocardiogram Report ---
Test Reason : Blood Pressure : / mmHG Vent. Rate : 102 BPM Atrial Rate : 102 BPM P-R Int : 122 ms QRS Dur : 074 ms QT Int : 344 ms P-R-T Axes : 055 045 044 degrees QTc Int : 448 ms Poor data quality, interpretation may be adversely affected Sinus tachycardia Otherwise normal ECG When compared with ECG of 30-NOV-2023 21:07, T wave inversion no longer evident in Inferior leads Confirmed by Rosales Martin ([id number]) on 01/23/2024 4:26:45 PM Referred By: Abdulkadir Olivera Confirmed By:Rosales Martin
[2024-01-23] MEDS: CEFEPIME 2,000 MG in SYRINGE 0 ML IV SCH (17:33)
[2024-01-23] MEDS: ALUMINUM/MAGNESIUM SUSP 30 ML UDC PO STA (17:33)
[2024-01-23] MEDS: FAMOTIDINE 20MG IV PUSH 20 MG/5 ML SYR IV SCH (17:33)
--- OUTSIDE RECORDS SUMMARY | 2024-01-23 19:16 | External Medical Summary ---
Author Name Unknown Address Unknown Organization K09:[facility] [place] [address] Laboratory Report Ordering Provider Test Date Status ANGUS BAUM 01/21/2024 07:53:52 Final Observation Date Value Abnormality Reference (Units ) Status WBC, Total 01/21/2024 07:53:52 5.69 4.00-10.8 0 (K/uL) Final RBC 01/21/2024 07:53:52 3.18 3.85-5.15 (M/uL) Final Hemoglobin 01/21/2024 07:53:52 9.3 Below low normal 12 .0-15.3 (g/dL) Final HCT 01/21/2024 07:53:52 29.2 Below low normal 36. 0-45.2 (%) Final MCV 01/21/2024 07:53:52 91.8 81.5-97.5 (fL) Final MCH 01/21/2024 07:53:52 29.2 27.0-34.0 (pg) Final MCHC 01/21/2024 07:53:52 31.8 32.0-36.0 (g/dL) Final RDW 01/21/2024 07:53:52 18.5 11.5-15.5 (%) Final Platelets 01/21/2024 07:53:52 122 Below low normal 140 -400 (K/uL) Final MPV 01/21/2024 07:53:52 9.6 6.6-11.1 ( fL) Final Performing Location [facility] [place] [address]
--- OUTSIDE RECORDS SUMMARY | 2024-01-23 19:16 | External Medical Summary | Summary of Care ---
Author Name Unknown Organization [facility] Address [address] [facility] [address] Phone [phone] Care Team Providers Care Bdr Name Role Phone Abdulkadir Olivera MD Primary Care Provider [phone] Reason for Visit * Reason Onset Date Comments Appointment 01/22/2024 Encounter Details Date Type Department Care Team (Late st Contact Info) Description 01/22/2024 Telephone Hematology/Oncology Carla Adrianna [place] [address] [facility] [place] [phone] Jose Worthy [facility] [address] [facility] [id number] Appointment Allergies No known active allergiesdocumented as of this encounter (statuses as of 01/22/2024) Medications Medication Sig Dispensed Refills Start Date End Date Status MULTIVITAMINS PO CAPS 1 tablet daily 0 Active Vitamin D 125 MCG (5000 UT) Oral Capsule Take by mouth. 0 Active Vitamin B-12 ER 2000 MCG Oral Tablet Extended Release Take by mouth. 0 Acti ve Ondansetron HCl 8 MG Oral Tablet (Zofran)Indications:S mall cell lung cancer (HCC),Metastasis to liver (HCC),Metastasis to mediastinal lymph node (HCC) Take 1 Tablet by mouth every 8 hours as needed for Nausea. 30 Tablet 3 11/16/2023 Active Prochlorperazine Maleate 10 MG Oral Tablet (Compazine)Indication s:Small cell lung cancer (HCC),Metastasis to liver (HCC),Metastasis [...] Pain, Breakthrough. 30 Tablet 0 11/16/2023 Active guaiFENesin ER 600 MG Oral Tablet Extended Release 12 Hour (Humibid LA) Take 1 Tablet by mouth in the morning and 1 Tablet before bedtime. 0 Active Pantoprazole Sodium 40 MG Oral Tablet Delayed Release (Protonix)Indications :Small cell lung cancer (HCC),Metastasis to liver (HCC),Metastasis to mediastinal lymph node (HCC) Take 1 Tablet by mouth in the morning. 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 Encounter for antineoplastic chemotherapy 2023 Depression 11/03/2013 Anxiety 11/03/2013 Other ectopic documented as of this encounter (statuses as of 01/22/2024) Immunizations Name Administration Dates Next Due Pneumococcal Polysaccharide PPV23 (Pneumovax) 07/04/2011 Seasonal Influenza, Split, I IV3, With Preserve, Inj 10/30/2013,10/14/2013(Deferred: Patient Refused) TD, Preservative Free 12/27/2022 TDAP (age 11 and older)(Adacel) 06/13/2011 documented as of this encounter Social History Tobacco Use Types Packs/Day Years Used Date Smoking Tobacco: Every Day Cigarettes 1 26 Started: 03/28/1987; Last attempted to quit: 03/28/2013 Vaporizer Smokeless [...] encounter Miscellaneous Notes * Telephone Encounter - Paty Bennett OSA - 01/22/2024 10:01 AM EDT MRI scheduled for 5-3 at 9 at [facility] documented in this encounter Plan of Treatment Upcoming Encounters Date Type Department Care Team (Late st Contact Info) Description 01/23/2024 8:45 AM EDT Hem/Onc Treatment Hematology/Oncology [address] [phone] Adrianna, Chair [address] Hem On[address] [place] [address] 02/18/2024 8:50 AM EDT Laboratory Laboratory [facility] Adrianna [address] [place] [phone] Adrianna, Lab [address] [facility] [place] [address] 02/18/2024 9:30 AM EDT Office Visit Hematology/Oncology [facility] [address] [place] [phone] Carrie Dela Cruz CRNP [address] [place] [address] [place] [address] 02/18/2024 10:00 AM EDT Hem/Onc Treatment Hematology/Oncology [address] [phone] 02/19/2024 9:00 AM EDT Hem/Onc Treatment Hematology/Oncology Treatment, [place] [address] [place] [phone] Adiranna, Chair 3 Hem [facility]c [facility] [address] [facility] [place], [place] [address] 02/20/2024 9:00 AM EDT Hem/Onc Treatment Hematology/Oncology Treatment, [place] [address] [place], [place] [phone] Adrianna, Chair 3 Hem Onc [address] [place], [place] [address] 02/29/2024 9:00 AM EDT Imaging Radiology [facility] 1st Floor, [place] [address] [facility] [place] [address] Health Maintenance Due Date Last Done Comments COVID-19 Vaccine (#1) 1965 HIV Screening 1975 Hepatitis C Screening 1978 Zoster Vaccines (1 of 2) 1979 HPV/Co-Test 1990 Pneumococcal Vaccine: Pediatrics (0 to 5 Years) and At-Risk Patients (6 to 64 Years) (2 of 2 - PCV) 07/04/2012 07/04/2011 Mammogram 05/07/2015 05/07/2014, [...] filedocumented as of this encounter Care Teams Bdr Relationship Specialty Start Date End Date Abdulkadir Olivera MD [address] [place] [address] PCP - General Family Medicine 12/27/22 documented as of this encounter
--- OUTSIDE RECORDS SUMMARY | 2024-01-23 19:16 | External Medical Summary ---
Author Name Unknown Address Unknown Organization K01[facility] [place] [address] [place] [address] Laboratory Report Ordering Provider Test Date Status ANGUS BAUM 01/21/2024 07:53:52 Final Observation Date Value Abnormality Reference (Units ) Status Iron 01/21/2024 07:53:52 78 33-151 (ug/dL) Final Iron-binding capacity 01/21/2024 07:53:52 240 Below low normal 250-425 (ug/dL) Final Transferrin Sat % 01/21/2024 07:53:52 33 15-55 (%) Final Performing Location [facility] [place] [address] [place] [address]
--- OUTSIDE RECORDS SUMMARY | 2024-01-23 19:16 | External Medical Summary | Summary of Care ---
Author Name Unknown Organization [facility] Address [address] [place] [address] Phone [phone] Care Team Providers Care Object Oriented Developer Name Role Phone Abdulkadir Olivera MD Primary Care Provider Reason for Visit * Reason Comments Outpatient Testing Encounter Details Date Type Department Care Team (Late st Contact Info) Description 01/21/2024 7:50 AM EDT Laboratory Laboratory [facility] [place] [address] [place] [phone] [place], Lab Scenery [address] [place] [address] [place] Other*[id number]; Small cell lung cancer (HCC); Metastasis to liver (HCC); Metastasis to mediastinal lymph node (HCC) Allergies No known active allergiesdocumented as of this encounter (statuses as of 01/21/2024) Medications Medication Sig Dispensed Refills Start Date [...] Active Ondansetron HCl 8 MG Oral Tablet (Zofran)Indications:S [...] as of this encounter (statuses as of 01/21/2024) Active Problems Problem Noted Date Diagnosed Date Small cell lung cancer 11/15/2023 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 Encounter for antineoplastic chemotherapy 2023 Depression 11/03/2013 Anxiety 11/03/2013 Other ectopic documented as of this encounter (statuses as of 01/21/2024) Immunizations Name Administration Dates Next Due Pneumococcal [...] Care Team (Late st Contact Info) Description 01/21/2024 9:00 AM EDT Hem/Onc Treatment Hematology/Oncology [address], [address] [phone] Adrianna, Chair 3 Hem Onc [address] [place] [address] Arrived 01/22/2024 8:45 AM EDT Office Visit Hematology/Oncology [facility] [place] [address] [address] [place] [phone] Jose Worthy MD 200 [facility] [place] [address] 01/22/2024 9:15 AM EDT Hem/Onc Treatment Hematology/Oncology Treatment, [address], [place] [phone] Adrianna, Chair 8 Hem Onc Scenery [facility] Samuel [place], [place] [address] 01/23/2024 8:45 AM EDT Hem/Onc Treatment Hematology/Oncology Treatment, [address] [phone] Adrianna, Chair 9 Hem Onc Scenery [facility] [place] [address] Pending Results Name Type Priority Associated Diagnoses Date /Time MYCODE SUBSEQUENT ADULT Lab Routine MyCode Research Other*[id number] 01/21/2024 7:53 AM EDT CBC WITH WBC DIFFERENTIAL Lab STAT Small cell lung cancer (HCC) Metastasis to liver (HCC) Metastasis to mediastinal lymph node (HCC) 01/21/2024 7:53 AM EDT COMPREHENSIVE METABOLIC PANEL Lab STAT Small cell lung cancer (HCC) Metastasis to liver (HCC) Metastasis to mediastinal lymph node (HCC) 01/21/2024 7:53 AM EDT TSH WITH FREE T4 IF INDICATED Lab STAT Small cell lung cancer (HCC) Metastasis to liver (HCC) Metastasis to mediastinal lymph node (HCC) 01/21/2024 7:53 AM EDT MYCODE SST1 Lab Routine [employer]Code [employer] Other*[id number] 01/21/2024 7:53 AM EDT MYCODE SST2 Lab Routine [employer] Other*[id number] 01/21/2024 7:53 AM EDT CBC Lab STAT Small cell lung cancer (HCC) Metastasis to liver (HCC) Metastasis to mediastinal lymph node (HCC) 01/21/2024 7:53 AM EDT DIFFERENTIAL, AUTOMATED Lab STAT Small cell lung cancer (HCC) Metastasis to liver (HCC) Metastasis to mediastinal lymph node (HCC) 01/21/2024 7:53 AM EDT Health Maintenance Due Date Last Done Comments [...] as of this encounter Visit Diagnoses Diagnosis MyCode [employer] Other*[id number] Small cell lung cancer (HCC) Malignant neoplasm of bronchus and lung, unspecified site Metastasis to liver (HCC) 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
--- OUTSIDE RECORDS SUMMARY | 2024-01-23 19:16 | External Medical Summary ---
Author Name Unknown Address Unknown Organization K09:[facility] [address] [place] [address] Laboratory Report Ordering Provider Test Date Status ANGUS BAUM 01/21/2024 07:53:52 Final Observation Date Value Abnormality Reference (Units ) Status BUN 01/21/2024 07:53:52 7 6-20 (mg/dL) Final Creatinine 01/21/2024 07:53:52 0.7 0.5-1.0 (mg/dL) Final Glomerular filtration rate/1.73 sq M.predicted [Volume Rate/Area] in Serum, Plasma or Blood by Creatinine-based formula (CKD-EPI) 01/21/2024 07:53:52 >90 >=60 (mL/min) Final eGFR is calculated based on the CKD-EPI 2020 equation Sodium 01/21/2024 07:53:52 140 135-146 (m mol/L) Final Potassium 01/21/2024 07:53:52 3.6 3.5-5.1 (m mol/L) Final Cl 01/21/2024 07:53:52 102 98-107 (mm ol/L) Final CO2 01/21/2024 07:53:52 24 22-32 (mmo l/L) Final Anion gap 01/21/2024 07:53:52 14 7-15 (mmol /L) Final Glucose 01/21/2024 07:53:52 89 70-120 (mg /dL) Final Albumin 01/21/2024 07:53:52 3.8 3.8-5.0 (g /dL) Final AST (Aspartate aminotransferase) 01/21/2024 07:53:52 86 Above high normal 10-35 (U/L) Final Alk Phos 01/21/2024 07:53:52 175 Above high normal 35 -130 (U/L) Final Bilirubin, Total 01/21/2024 07:53:52 0.3 <=1 .2 (mg/dL) Final Calcium 01/21/2024 07:53:52 9.8 8.4-10.2 ( mg/dL) Final Protein 01/21/2024 07:53:52 8.2 6.0-8.3 (g /dL) Final ALT (Alanine aminotransferase) 01/21/2024 07:53:52 59 Above high normal 10-35 (U/L) Final Performing Location [facility] [address] [place] [address]
--- OUTSIDE RECORDS SUMMARY | 2024-01-23 19:16 | External Medical Summary ---
Author Name Unknown Address Unknown Organization K01:[facility] [place] - [address] [place] [address] Laboratory Report Ordering Provider Test Date Status ANGUS BAUM 01/21/2024 07:53:52 Final Observation Date Value Abnormality Reference (Units ) Status Ferritin 01/21/2024 07:53:52 1753 Above high normal 13 -150 (ng/mL) Final Postmenopausal women have hi gher ferritin levels than pre-menopausal women. The above reference interval is based on pre-menopausal women. Performing Location [facility] [place] - [address] [place] [address]
--- OUTSIDE RECORDS SUMMARY | 2024-01-23 19:16 | External Medical Summary | Summary of Care ---
Author Name Unknown Organization [facility] Address [address] [place] [facility] [place] [address] Phone [phone] Care Team Providers Care Gsa Coordinator Name Role Phone Abdulkadir Olivera MD Primary Care Provider [phone] Reason for Visit * Reason Onset Date Comments Information 01/22/2024 Encounter Details Date Type Department Care Team (Late st Contact Info) Description 01/22/2024 Telephone Hematology/Oncology Treatment, [place] [address] [place] [address] Jose Worthy MD [address] [place] [address] Information Allergies No known active allergiesdocumented as of [...] the money to buy more. Never true 03/01/20 23 Within the past 12 months, t [...] Telephone Encounter - Kailey Spain RN - 01/22/2024 9:10 AM EDT Patient saw Dr Worthy today. Per Dr Worthy, changing chemo to be every 28 days instead of every 21 days. Next cycle will be due 02/18/24. Scheduling: please move all appts 02/10-02/12 to the following week. Patient should also have follow up with Carrie prior to treatment 02/10. Thanks! documented in this encounter Plan of Treatment Upcoming Encounters Date Type Department Care Team (Late st Contact Info) Description 01/23/2024 8:45 AM EDT Hem/Onc Treatment Hematology/Oncology Treatment, [address] [phone] Adrianna, Chair 9 Hem Onc Scenery 200 [facility] [place] [address] 02/11/2024 9:00 AM EDT Hem/Onc Treatment Hematology/Oncology Treatment, [address] [phone] Adrianna, Chair 3 Hem Onc Scenery 200 [facility] [place] [address] 02/12/2024 9:00 AM EDT Hem/Onc Treatment Hematology/Oncology Treatment, [address], [place] [phone] Adrianna, Chair 2 Hem Onc Scenery 200 [facility] [place] [address] 02/13/2024 9:00 AM EDT Hem/Onc Treatment Hematology/Oncology Treatment, [place] 200 [place] [phone] Adrianna, Chair 6 Hem Onc Scenery 200 [facility] [place] [address] 02/20/2024 8:45 AM EDT Hem/Onc Treatment Hematology/Oncology Treatment, [place] 200 [place] [phone] Adrianna, Chair 2 Hem Onc Scenery 200 [facility] [place] [address] 02/21/2024 9:00 AM EDT Hem/Onc Treatment Hematology/Oncology Treatment, [place] 200 [place] [phone] Adrianna, Chair 6 Hem Onc Scenery 200 [facility] [place] [address] Health Maintenance Due Date Last Done Comments [...] filedocumented as of this encounter Care Teams Gsa Coordinator Relationship Specialty Start Date End Date Abdulkadir Olivera MD [address] [place] [address] PCP - General Family Medicine 12/27/22 documented as of this encounter
--- OUTSIDE RECORDS SUMMARY | 2024-01-23 19:16 | External Medical Summary | Summary of Care ---
Author Name Unknown Organization [facility] Address [address] [place] [facility] [place] [address] Phone [phone] Care Team Providers Care Condenser Tester Name Role Phone Abdulkadir Olivera MD Primary Care Provider Reason for Visit * Reason Comments Chemotherapy Tecentriq/Carbo/Etop D1C4 * Episode Based Medications (Routine) - Authorized Specialty Diagnoses / Procedures Referred By Contlucila t Referred To Contact Diagnoses Encounter for antineoplastic chemotherapy Metastasis to liver (HCC) Metastasis to mediastinal lymph node (HCC) Small cell lung cancer (HCC) Procedures IN CARBOPLATIN INJECTION IN FOSAPREPITANT INJECTION IN ETOPOSIDE 10 MG INJ IN INJ, ATEZOLIZUMAB,10 MG Jose Worthy MD 200 [facility] [place] [address] Anc Hem/Onc [address] [address] Referral ID Status Reason Start Date Expiration Date V isits Requested Visits Authorized [id number] Authorized 11/15/2023 06/22/2024 999 999 Encounter Details Date Type Department Care Team (Latest Contact Info) Description 01/21/2024 9:00 AM EDT Hem/Onc Treatment Hematology/Oncolog y Treatment, [address] [phone] Adrianna, Chair 3 Hem On[address] [place] [address] Encounter for antineoplastic chemotherapy*; Metastasis to liver [...] Sign Reading Time Taken Comments Blood Pressure 119/69 01/21/2024 8:41 AM EDT Pulse 96 01/21/2024 8:41 AM EDT Temperature 37.2 C (98.9 F) 01/21/2024 8:41 AM ED T Respiratory Rate 18 01/21/2024 8:41 AM EDT Oxygen Saturation 96% 01/21/2024 8:41 AM EDT Inhaled Oxygen Concentration - - Weight 65.1 kg (143 lb 9.6 oz) 01/21/2024 8:41 A M EDT Height - - Body Mass Index 23.18 11/13/2023 2:38 PM EST documented in this encounter Nursing Notes * Duyen Alfaro RN - 01/21/2024 12:28 PM EDT Pt completed treatment without issues. IV flushed with NS and heparin; clamped/capped for use with treatment tomorrow. Secured with gauze dressing. Goals: Pt will remain free from injury. Possible barriers to meeting goals: pt is a high fall risk, ambulation with IV pole, benadryl causing drowsiness Stability of the patient: Moderately stable - low risk of patient condition declining or worsening Summary regarding today's goals: Met: Pt remained free from injury during treatment today. Discharged in stable condition. No coverage. * Duyen Alfaro RN - 01/21/2024 8:44 AM EDT PRE-TREATMENT ASSESSMENT: NEURO: fatigue:stable, somewhat improved CV/RESP: denies symptoms and shortness of breath: with activity, resolves at rest GI/: denies symptoms OTHER: skin changes:Pt has 2 localized lesions, 1 on RUE and 1 on R upper buttock. This nurse only visualized lesion on RUE; oval pink area with scaly appearance. Pt states it is itchy, no pain. Pt has beenapplying lotions to both areas. Encouraged pt to show areas to Dr. Worthy during OV tomorrow. PAIN: 0 Chemotherapy/Immunotherapy agents: Tecentriq, CARBOPLATIN, and ETOPOSIDE Consent for chemotherapy drug treatment complete, dated, and signed? yes, date - 11/13/23 Treatment lab parameters met? Yes; reviewed LFTs with Dr. Worthy, okay to proceed with treatment Has treatment weight changed > than 10%? Treatment preauthorized? Yes VITALS Filed Vitals: 01/21/24 0841 BP: 119/69 Pulse: 96 Resp: 18 Temp: 37.2 C (98.9 F) SpO2: 96% Weight: 65.1 kg (143 lb 9.6 oz) Urine protein: N/A Patient education completed for treatment? Yes Blood transfusion consent signed and complete? NA Return appointment scheduled? Yes Patient had provider visit today? No - If no provider visit must complete Pretreatment Assessment PIV established; NSS infusing. Functional Status: Functional status at today's visit: Restricted in [...] symptoms or adverse side effects during treatment. documented in this encounter Plan of Treatment Upcoming Encounters Date Type Department Care Team (Late st Contact Info) Description 01/22/2024 8:45 AM EDT Office Visit Hematology/Oncology [facility] [address] [place] [phone] Jose Worthy MD 200 [facility] [place] [address] 01/22/2024 9:15 AM EDT Hem/Onc Treatment Hematology/Oncology Treatment, [address] [phone] Adrianna, Chair 8 Hem Onc [address] [place] [address] 01/23/2024 8:45 AM EDT Hem/Onc Treatment Hematology/Oncology Treatment, [address] [place] [phone] Adrianna, Chair 9 Hem Onc [address] [place] [address] 02/11/2024 7:50 AM EDT Laboratory Laboratory [facility] [place] [address] [place] [address] [phone] Adrianna, Lab [address] [facility] [place] [address] 02/11/2024 9:00 AM EDT Hem/Onc Treatment Hematology/Oncology Treatment, [place] 200 [place] [phone] Adrianna, Chair 3 Hem Onc Scenery 200 [facility] [place] [address] 02/12/2024 9:00 AM EDT Hem/Onc Treatment Hematology/Oncology Treatment, [place] [address] [place] [phone] Adrianna, Chair 2 Hem Onc Scenery 200 [facility] [place] [address] 02/13/2024 9:00 AM EDT Hem/Onc Treatment Hematology/Oncology Treatment, [place] [address] [place] [phone] Adrianna, Chair 6 Hem Onc Scenery 200 [facility] [place], [place] [address] Health Maintenance Due Date Last Done Comments [...] ONCE PRN Other, Hypersensitivity Reaction, Starting on Sun01/21/24 at 0915, Until Sun01/22/24 at 0914, For 24 hours EPINEPHrine 1 MG/ML inj 0.3 mg 0.3 mg, Intramuscular, ONCE PRN Other, Hypersensitivity Reaction or Anaphylaxis, Starting on Sun01/21/24 at 0915, Until Sun01/22/24 at 0914, For 24 hours hEParin 100 UNIT/ML Lock Flush inj 500 Units 500 Units (5 mL), IV Lock, PRN Other, IV Flush, Starting on Sun01/21/24 at 0915, Until Sun01/22/24 at 0914, For 24 hours, Do not flush if lock, PICC, or central line not in place; IV infusing or unable to flush. Given 01/21/2024 12:09 PM EDT 500 Units Hydrocortisone Sod Suc (PF) (Solu-Cortef) inj 100 mg 100 mg, IV Push, ONCE PRN Other, Hypersensitivity Reaction, Starting on Sun01/21/24 at 0915, Until Sun01/22/24 at 0914, For 24 hours LORAzepam (Ativan) tab 0.5 mg 0.5 mg, Oral, ONCE PRN Anxiety, Nausea, Starting on Sun01/21/24 at 1030, Until Discontinued NSS infusion Intravenous, at 50 mL/hr, PRN, Starting on Sun01/21/24 at 1030, Until Discontinued, Maintenance line Start Infusion 01/21/2024 9:21 AM EDT 50 mL/hr oxygen GAS Inhalation, OXYGEN, First dose on Sun01/21/24 at 1000, Until Discontinued, Device/Managed by: Low Flow Device, [...] Push, PRN Other, IV Flush, Starting on Sun01/21/24 at 0915, Until Sun01/22/24 at 0914, For 24 hours, Do not flush if lock, PICC, or central line not in place; IV infusing or unable to flush. Given 01/21/2024 12:09 PM EDT 10 mL Inactive Administered Medications - up to 3 most recent administrations Medication Order MAR Action Action Date Dose Rate Site Atezolizumab (Tecentriq) 1,200 mg in NSS 250 mL infusion 1,200 mg, IV Piggyback, ONCE, 1 dose, On Sun01/21/24 at 1000, Administer over 30 Minutes, Administer first infusion over 60 minutes and if tolerated, subsequent doses may be infused over 30 minutes. Start Infusion 01/21/2024 10:00 AM EDT 1,200 mg 500 mL/hr CARBOplatin (Paraplatin) 552 mg in D5W 250 mL infusion 552 mg (rounded from 551.5 mg, Target AUC = 5), IV Piggyback, at 500 mL/hr Administer over 30 Minutes, PROTECT FROM LIGHT (Max Creatinine Clearance at 125 ml/min for calculating AUC dose), ONCE, 1 dose, On Sun01/21/24 at 1030 Start Infusion 01/21/2024 10:34 AM EDT 552 mg 500 mL/hr diphenhydrAMINE (Benadryl) inj 25 mg 25 mg, IV Push, ONCE, On Sun01/21/24 at 0930, For 1 dose Given 01/21/2024 9:27 AM EDT 25 mg etoposide (VEPESID) 180 mg in NSS 500 mL infusion 180 mg (rounded from 175 mg = 100 mg/m2 1.75 m2 Treatment Plan BSA from Recorded weight), IV Piggyback, ONCE, 1 dose, On Sun01/21/24 at 1100, Administer over 60 Minutes, Recommended concentration is less than or equal to 0.4 mg/mL. If concentration is greater than 0.4 mg/mL recommend to administer through 0.22 micron low protein binding filter. Start Infusion 01/21/2024 11:07 AM EDT 180 mg 500 mL/hr Fosaprepitant Dimeglumine (Emend) 150 mg, ondansetron (Zofran) 16 mg, dexamethasone sodium phosphate 12 mg in NSS 250 mL Infusion 150 mg, IV Piggyback, ONCE, 1 dose, On Sun01/21/24 at 1030, Administer over 30 Minutes, Give 30 minutes prior to chemotherapy. Infuse over 30 minutes. Start Infusion 01/21/2024 9:28 AM EDT 150 mg 500 mL/hr documented in this encounter Care Teams Condenser Tester Relationship Specialty Start Date End Date Abdulkadir Olivera MD [address] [place] [address] PCP - General Family Medicine 12/27/22 documented as of this encounter
--- OUTSIDE RECORDS SUMMARY | 2024-01-23 19:16 | External Medical Summary ---
Author Name Unknown Address Unknown Organization K01:[facility] - [address] [place] [address] Laboratory Report Ordering Provider Test Date Status ANGUS BAUM 01/21/2024 07:53:52 Final Observation Date Value Abnormality Reference (Units ) Status Folic Acid 01/21/2024 07:53:52 18.9 >4.5 (ng/ mL) Final Performing Location [facility] - [address] [place] [address]
--- OUTSIDE RECORDS SUMMARY | 2024-01-23 19:16 | External Medical Summary ---
Author Name Unknown Address Unknown Organization K01:[facility] [place] [address] [place] [address] Laboratory Report Ordering Provider Test Date Status ANGUS BAUM 01/21/2024 07:53:52 Final Observation Date Value Abnormality Reference (Units ) Status TSH 01/21/2024 07:53:52 1.54 0.27-4.20 (uIU/mL) Final Performing Location [facility] [address] [facility] [address]
--- OUTSIDE RECORDS SUMMARY | 2024-01-23 19:16 | External Medical Summary | Summary of Care ---
Author Name Unknown Organization [facility] Address [address] [place] [place] [place] [address] Phone [phone] Care Team Providers Care Chipper Machine Operator Name Role Phone Abdulkadir Olivera MD Primary Care Provider [phone] Reason for Visit * Reason Onset Date Comments Information 01/22/2024 Encounter Details Date Type Department Care Team (Late st Contact Info) Description 01/22/2024 Telephone Hematology/Oncology Treatment, [place] [address] [place] [address] Jose Worthy MD 200 [place] [address] Information Allergies No known active allergiesdocumented as [...] Date Smoking Tobacco: Every Day Cigarettes 1 Started: 03/28/1987; Last attempted to quit: 03/28/2013 [...] Encounter - Paty Bennett OSA - 01/22/2024 10:24 AM EDT Appointments have been moved and scheduled appropriately * Telephone Encounter - Kailey Spain RN [...] 8:45 AM EDT Hem/Onc Treatment Hematology/Oncology Treatment, [place] [address] [place] [phone] Adrianna, Chair 9 Hem Onc Scenery [address] [place] [address] 02/18/2024 8:50 AM EDT Laboratory Laboratory [facility] [place] [address] [place] [phone] [place], Lab Scenery [address] [place] [address] 02/18/2024 9:30 AM EDT Office Visit Hematology/Oncology [facility] [place] 200 [facility] [place], [place] [phone] Carrie Dela Cruz CRNP [address] [place] [address] 02/18/2024 10:00 AM EDT Hem/Onc Treatment Hematology/Oncology [address], [address] [phone] 02/19/2024 9:00 AM EDT Hem/Onc Treatment Hematology/Oncology [address], [address] [phone] Adrianna, Chair 3 Hem On[address] [place] [address] 02/20/2024 9:00 AM EDT Hem/Onc Treatment Hematology/Oncology Treatment, [address] [phone] Adrianna, Chair 3 Hem Onc [address] [place], [place] [address] 02/29/2024 9:00 AM EDT Imaging Radiology [address], [address] [place] [address] Health Maintenance Due Date Last Done Comments [...] filedocumented as of this encounter Care Teams Chipper Machine Operator Relationship Specialty Start Date End Date Abdulkadir Olivera MD [address] [place] [facility] [place] [address] PCP - General Family Medicine 12/27/22 documented as of this encounter
--- OUTSIDE RECORDS SUMMARY | 2024-01-23 19:16 | External Medical Summary | Summary of Care ---
Author Name Unknown Organization [facility] Address [address] [place] [address] Phone [phone] Care Team Providers Care Screw Machine Tool Setter Name Role Phone Abdulkadir Olivera MD Primary Care Provider [phone] Reason for Visit * Reason Comments Chemotherapy Tecentriq, carboplat in, etoposide. * Episode Based Medications (Routine) - Authorized Specialty Diagnoses / Procedures Referred By Contac t Referred To Contact Diagnoses Encounter for antineoplastic chemotherapy Metastasis to liver (HCC) Metastasis to mediastinal lymph node (HCC) Small cell lung cancer (HCC) Procedures NM CARBOPLATIN INJECTION NM FOSAPREPITANT INJECTION NM ETOPOSIDE 10 MG INJ NM INJ, ATEZOLIZUMAB,10 MG Jose Worthy MD [address] [place] [address] Anc Hem/Onc [address] [address] Referral ID Status Reason Start Date Expiration Date V isits Requested Visits Authorized [id number] Authorized 11/15/2023 06/22/2024 999 [id number] Encounter Details Date Type Department Care Team (Latest Contact Info) Description 12/10/2023 8:30 AM EST Hem/Onc Treatment Hematology/Oncolog y Treatment, [address] [phone] Adrianna Chair 7 Hem Onc [address] [place] [address] Encounter for antineoplastic chemotherapy*; Metastasis to liver (HCC); Metastasis to mediastinal lymph node (HCC); Small cell lung cancer (HCC) Allergies No known active allergiesdocumented as of this encounter (statuses as of 01/17/2024) Medications Medication Sig Dispensed Refills Start Date [...] and 1 Tablet before bedtime. 0 Active documented as of this encounter (statuses as of 01/17/2024) Active Problems Problem Noted Date Diagnosed Date Small cell lung cancer 11/15/2023 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 Encounter for antineoplastic chemotherapy 2023 Depression 11/03/2013 Anxiety 11/03/2013 Other ectopic documented as of this encounter (statuses as of 01/17/2024) Immunizations Name Administration Dates Next Due Pneumococcal [...] Sign Reading Time Taken Comments Blood Pressure 117/62 12/10/2023 10:57 AM EST Pulse 92 12/10/2023 10:57 AM EST Temperature 36.9 C (98.4 F) 12/10/2023 8:35 AM ES T Respiratory Rate 20 12/10/2023 10:57 AM EST Oxygen Saturation 94% 12/10/2023 10:59 AM EST 2L Inhaled Oxygen Concentration - - Weight 61.5 kg (135 lb 9.6 oz) 12/10/2023 8:35 A M EST Height - - Body Mass Index 21.89 11/13/2023 2:38 PM EST documented in this encounter Nursing Notes * Annette Thao RN - 12/10/2023 2:23 PM EST Goals: Patient will remain free from injury. Possible barriers to meeting goals: Fall risk d/t ambulation with IV pole. Stability of the patient: Moderately stable - low risk of patient condition declining or worsening Summary regarding today's goals: Met: Patient remained free of injury. Functional status at today's visit: Fully active, [...] symptoms or adverse side effects during treatment. Patient tolerated the rest of the infusion well. Discharged in stable condition. * Annette Thao RN - 12/10/2023 1:50 PM EST At 1053 patient rang out and stated "Someone help me, I dont feel good, I am dizzy, my back hurts, and I feel like I'm going to pass out.". This nurse was at bedside and stopped etoposide. Patient then passed out and within 30 seconds came back to. Patient was given solu-cortef at 1054 and oxygen was applied. Patients vital signs were stable (see flowsheet). Carrie VILLEGAS was called out to bedside to evaluate patient. Patient stated she felt better almost immediately after solu-cortef wasgiven. Dr. Worthy was then tiger texted and let know of the situation, per Dr. Worthy since patient felt better so quickly it was ok to restart treatment. Per Carrie Dela Cruz give the patient the PRN dose of IV benadryl and an order was placed for PO pepcid and both were to be given before resuming etoposide, also per Carrie restart the etopside at half the rate it was ordered. IV benadryl and PO pepcid were given at 1204. Etoposide was then restarted at 250ml/hr at 1228. Patient was given call barlow and instructed to ring if she started to feel any symptoms again. * Annette Thao RN - 12/10/2023 9:54 AM EST Chair 11. Patient arrived for tecentriq, carboplatin, and etoposide. Patient states feels well overall, has no acute complaints. Per Dr. Worthy patients labs are ok for treatment, her platlets were [phone]. PIV accessed. Chemo agents tecentriq, carboplatin, and etoposide Appetite good Nausea/Vomiting no Diarrhea no Constipation no Mucositis had some but only lasted a day and are gone now. Fatigue no Bleeding no Infection no Rash no Numbness tingling no Pain no Radiation no ABN Labs WNL for treatment, see above note. Alt in Tx: no Return in 1 day. Safety and Risk for Injury Patient will remain free from injury. Ensure appropriate safety devices are available. Provide and maintain safe environment. documented in this encounter Plan of Treatment Upcoming Encounters Date Type Department Care Team (Late st Contact Info) Description 01/21/2024 7:50 AM EDT Laboratory Laboratory [facility] [address] [place] [phone] Adrianna, Lab [address] [place] [address] 01/21/2024 9:00 AM EDT Hem/Onc Treatment Hematology/Oncology Treatment, [address] [place] [phone] Adrianna, Chair 3 Hem Onc [address] [place] [address] 01/22/2024 8:45 AM EDT Office Visit Hematology/Oncology [facility] [address] [place] [phone] Jose Worthy MD [address] [facility] [place] [address] 01/22/2024 9:15 AM EDT Hem/Onc Treatment Hematology/Oncology Treatment, [address] [place] [phone] Adrianna, Chair 8 Hem [place]c [facility] [place] [address] [place] [address] [place] [address] 01/23/2024 8:45 AM EDT Hem/Onc Treatment Hematology/Oncology Treatment, [place] [address] [place], [place] [phone] Adrianna, Chair 9 Hem Onc [address] [place], [place] [address] Health Maintenance Due Date Last Done Comments [...] site documented in this encounter Administered Medications Inactive Administered Medications - up to 3 most recent administrations Medication Order MAR Action Action Date Dose Rate Site Atezolizumab (Tecentriq) 1,200 mg in NSS 250 mL infusion 1,200 mg, IV Piggyback, ONCE, 1 dose, On Sun12/10/23 at 1030, Administer over 60 Minutes, Administer first infusion over 60 minutes and if tolerated, subsequent doses may be infused over 30 minutes. Start Infusion 12/10/2023 9:40 AM EST 1,200 mg 500 mL/hr CARBOplatin (Paraplatin) 623 mg in D5W 250 mL infusion 623 mg (rounded from 622.5 mg, Target AUC = 5), IV Piggyback, at 500 mL/hr Administer over 30 Minutes, PROTECT FROM LIGHT (Max Creatinine Clearance at 125 ml/min for calculating AUC dose), ONCE, 1 dose, On Sun12/10/23 at 1130 Start Infusion 12/10/2023 10:14 AM EST 623 mg 500 mL/hr diphenhydrAMINE (Benadryl) inj 50 mg 50 mg, IV Push, ONCE PRN Other, Hypersensitivity Reaction, Starting on Sun12/10/23 at 0847, Until Sun12/10/23 at 1824, For 24 hours Given 12/10/2023 12:04 PM EST 50 mg etoposide (VEPESID) 180 mg in NSS 500 mL infusion 180 mg (rounded from 175 mg = 100 mg/m2 1.75 m2 Treatment Plan BSA from Recorded weight), IV Piggyback, ONCE, 1 dose, On Sun12/10/23 at 1200, Administer over 60 Minutes, Recommended concentration is less than or equal to 0.4 mg/mL. If concentration is greater than 0.4 mg/mL recommend to administer through 0.22 micron low protein binding filter. Restarted 12/10/2023 12:28 PM EST 250 mL/hr Start Infusion 12/10/2023 10:46 AM EST 180 mg 500 mL/h r Famotidine (Pepcid) tab 20 mg 20 mg, Oral, ONCE, On Sun12/10/23 at 1245, For 1 dose Given 12/10/2023 12:04 PM EST 20 mg Fosaprepitant Dimeglumine (Emend) 150 mg, ondansetron (Zofran) 16 mg, dexamethasone sodium phosphate 12 mg in NSS 250 mL Infusion 150 mg, IV Piggyback, ONCE, 1 dose, On Sun12/10/23 at 1000, Administer over 30 Minutes, Give 30 minutes prior to chemotherapy. Infuse over 30 minutes. Start Infusion 12/10/2023 9:07 AM EST 150 mg 500 mL/hr Hydrocortisone Sod Suc (PF) (Solu-Cortef) inj 100 mg 100 mg, IV Push, ONCE PRN Other, Hypersensitivity Reaction, Starting on Sun12/10/23 at 0847, Until Sun12/10/23 at 1824, For 24 hours Given 12/10/2023 10:54 AM EST 100 mg NSS infusion Intravenous, at 50 mL/hr, PRN, Starting on Sun12/10/23 at 1000, Until Sun12/10/23 at 1824, Maintenance line Start Infusion 12/10/2023 9:07 AM EST 50 mL/hr documented in this encounter Care Teams Screw Machine Tool Setter Relationship Specialty Start Date End Date Abdulkadir Olivera MD [address], [place] [phone] PCP - General Family Medicine 12/27/22 documented as of this encounter
--- OUTSIDE RECORDS SUMMARY | 2024-01-23 19:16 | External Medical Summary | Summary of Care ---
Author Name Unknown Organization [facility] Address [address] [place] [address] Phone [phone] Care Team Providers Care Knife Setter Assembler Name Role Phone Abdulkadir Olivera MD Primary Care Provider [phone] Reason for Referral * Precert (Within 10 days (routine)) - Pending Review Specialty Diagnoses / Procedures Referred By Contlucila t Referred To Contact Radiology Diagnoses Small cell lung cancer (HCC) Metastasis to liver (HCC) Metastasis to mediastinal lymph node (HCC) Procedures MRI BRAIN W WO CONTRAST Jose Worthy MD [address] [place] [address] Referral ID Status Reason Start Date Expiration Date V isits Requested Visits Authorized [id number] Pending Review 01/22/2024 999 999 Reason for Visit * Reason Comments Chemotherapy Chemo/recheck-review scans Encounter Details Date Type Department Care Team (Late st Contact Info) Description 01/22/2024 8:45 AM EDT Office Visit [facility]ology[facility] [address] [place] [phone] Jose Worthy MD [address] [place] [address] [address] Small cell lung cancer (HCC)*; Metastasis to [...] Extended Release Take by mouth. 0 Active Ondansetron HCl 8 MG Oral Tablet (Zofran)Indication s:Small cell lung cancer (HCC),Metastasis to liver (HCC),Metastasis to mediastinal lymph node (HCC) Take 1 Tablet by mouth every 8 hours as needed for Nausea. 30 Tablet 3 11/16/2023 Active Prochlorperazine Maleate 10 MG Oral Tablet (Compazine)Indicat ions:Small cell lung cancer (HCC),Metastasis to liver (HCC),Metastasis to mediastinal lymph node (HCC) Take 1 Tablet by mouth every 6 hours as needed for Nausea. 30 Tablet 3 11/16/2023 Active oxyCODONE HCl 5 MG Oral Tablet (Oxy IR)Indications:Sma ll cell lung cancer (HCC),Metastasis to liver (HCC),Metastasis [...] Sodium 40 MG Oral Tablet Delayed Release (Protonix)Indicati ons:Small cell lung cancer (HCC),Metastasis to liver (HCC),Metastasis to mediastinal lymph node (HCC) Take 1 Tablet by mouth in the morning. 30 Tablet 2 12/18/2023 Active Pantoprazole Sodium 40 MG Oral Tablet Delayed Release (Protonix) Take 1 Tablet by mouth in the morning. 0 11/09/2023 01/22/2024 Discontinued (Medication List Clean Up) documented as of this encounter (statuses as [...] Used Date Smoking Tobacco: Every Day Cigarettes 11 23 Started: 03/28/1987; Last attempted to quit: 03/28/2013 [...] Sign Reading Time Taken Comments Blood Pressure 123/74 01/22/2024 8:29 AM EDT Pulse 136 01/22/2024 8:29 AM EDT Temperature 36.6 C (97.8 F) 01/22/2024 8:29 AM ED T Respiratory Rate - - Oxygen Saturation 93% 01/22/2024 8:29 AM EDT Inhaled Oxygen Concentration - - Weight 65.2 kg (143 lb 11.2 oz) 01/22/2024 8:29 AM EDT Height - - Body Mass Index 23.19 11/13/2023 2:38 PM EST documented in this encounter Progress Notes * Jose Worthy MD - 01/22/2024 8:45 AM EDT Hematology/Oncology Outpatient Consult Note Amanda Rodas [address] [facility] [place] [address] PRANEETH MARTINEZ MR # [id number] :1960 63-year-old female, Date of consultation:11/13/2023 DIAGNOSIS: Small cell lung cancer involving the right upper lobe, 4.6 cm in the size, right hilar mass, subcarinal lymphadenopathy, palpable left lower cervical lymphadenopathy on physical examination, multipleat least 20+ liver lesions, upper abdominal lymphadenopathy. T2b N3 M1c, stage IVB CURRENT TREATMENT: - Carboplatin, etoposide and atezolizumab.( 11/19/2023----) - started cycle 4 on 01/21/2024. 01/22/2024 --> because of blood count issues, would like to change chemotherapy treatment to every 4 weekly. DIAGNOSTIC WORKUP: Recently she had some increasing abdominal pain, constipation for the last several months, she was then admitted at [facility], reviewed the hospital records, she had imaging [...] She has come the clinic for the follow-up, accompanied by her in the office. Previously noted palpable left cervical lymph node is no longer palpable, clinically she is doing better, previously noted pulmonary symptoms improved, appetite improved, no increasing nausea or vomiting, weight gain noted, her lowest weight was around 129 lb, current weight 143 lb, no diarrhea, no constipation, no bleeding from the sites. No increasing headache. No increasing shortness of breath, or increasing coughing. She denies any tingling and numbness of the extremities. Ambulates well, no leg edema, ECOG PS 1. Past Medical History: Diagnosis Date Other ectopic 1993 Torn rotator cuff 2010 PT Past Surgical History: Procedure Laterality Date COLONOSCOPY, DIAGNOSTIC (RECTUM) 11/27/07 diverticula COLONOSCOPY, DIAGNOSTIC (RECTUM) 08/07/11 diverticulosis LIGATE/CUT OVIDUCT(S) PARTIAL COLECTOMY W/ANASTOMOSIS 11/28/07 Sigmoidectomy w/ primary stapled anastomosis;right ovarian cystectomy and completion proctoscopy/[facility]/ TREAT ECTOPIC /LAPAROSCOPY 1993 Current Outpatient Medications Medication Sig Dispense Refill MULTIVITAMINS PO CAPS 1 tablet daily Vitamin D 125 MCG (5000 UT) Oral Capsule Take by mouth. Vitamin B-12 ER 2000 MCG Oral Tablet Extended Release Take by mouth. Pantoprazole Sodium 40 MG Oral Tablet Delayed Release (Protonix) Take 1 Tablet by mouth in the morning. Ondansetron HCl 8 MG Oral Tablet (Zofran) Take 1 Tablet by mouth every 8 hours as needed for Nausea. 30 Tablet 3 Prochlorperazine Maleate 10 MG Oral Tablet (Compazine) Take 1 Tablet by mouth every 6 hours as needed for Nausea. 30 Tablet 3 oxyCODONE HCl 5 MG Oral Tablet (Oxy IR) Take 1 Tablet by mouth every 4 hours as needed for Pain, Breakthrough. 30 Tablet 0 guaiFENesin ER 600 MG Oral Tablet Extended Release 12 Hour (Humibid LA) Take 1 Tablet by mouth in the morning and 1 Tablet before bedtime. (Patient not taking: Reported on 01/01/2024) Pantoprazole Sodium 40 MG Oral Tablet Delayed Release (Protonix) Take 1 Tablet by mouth in the morning. 30 Tablet 2 No current facility-administered medications for this visit. 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..] rash. SPINE: No spinal or paraspinal tenderness. LABS: Blood workup done on 01/21/2024: -WBC 5600, H&H of 9.3/29, Platelet count 208683 -BUN/Creat: 7/0.7, AST 86, ALT 59, alkaline phosphatase 175, bilirubin 0.3 -TSH level --> 1.54 IMAGING: - Brain MRI (11/17/2023) -> No evidence of metastatic disease. PET-CT scan done on 01/09/2024: -near complete resolution of the previously noted mediastinal hilar lymphadenopathy -residual paratracheal lymph node measuring 1.2 cm. -residual right hilar lymph node measuring 1.7 cm. -decrease in the size of the multiple liver lesions (4.6 cm --> 2.9 cm). Stable mildly enlarged retroperitoneal lymph node measuring about 1.1 cm in the left para-aortic region. ASSESSMENT AND PLAN: 63-year-old female, A case of small cell lung cancer involving the right upper lobe, right hilar metastasis, subcarinallymph lidia status, also has palpable left lower cervical lymph node on physical examination, multiple liver lesions, at least 20+, upper abdominal lymphadenopathy, CT scan of the head negative for metastatic disease. Brain MRI negative for metastatic disease (11/17/2023) Currently she is receiving systemic chemotherapy with carboplatin, etoposide atezolizumab, I reviewed with her and her regarding the follow-up PET-CT scan done after the 3 cycles of chemotherapy, overall good partial response noted Currently receiving for cycle of chemotherapy. Reviewed blood workup done yesterday, Platelet countis around 122,000 hemoglobin is on the lower side around 9.3. Will continue current treatment plan, I am planning for total 6 cycles of chemotherapy Because of low blood count issues, would like to change chemotherapy treatment to every 4 weekly for the remaining cycles. Once we are done with 6 cycles, will proceed with maintenance atezolizumab. Will see before the next cycle I would like to get brain MRI somewhere in early February of [address]24. Dr. Jose Worthy Hem/Onc (This note was completed using the dictation program Fluency Direct. As such, there may be misspellings word substitutions, or other variations that should not change the essence of the clinical content of this encounter note. If there is need for further clarification, please direct questions to the provider listed above.) documented in this encounter Nursing Notes * Courtney Ventura LPN - 01/22/2024 8:[address] Worthy was notified via face to face regarding abnormal heart rate of 136 * Elen German, MED ASSIST - 01/22/2024 8:33 AM EDT Patient identifed by name and birthdate Do you have any concerns about pain management for today's visit? No Living Will or Advance Directive for Health Care as noted on the problem list. [facility] is a way you can talk to your provider on line through e-mail. Would you like to sign up? I can activate it for you? ALREADY ACTIVE Filed Vitals: 01/22/24 0829 BP: 123/74 Pulse: 136 Temp: 36.6 C (97.8 F) TempSrc: Tympanic SpO2: 93% Weight: 65.2 kg (143 lb 11.2 oz) Patient was instructed to not get up on the exam table/exam chair until directed and assisted by their provider; patient is to remain seated in the chair/ wheelchair/ exam table/ exam chair for fall prevention and safety reasons. Patient is aware to have assistance to step down off exam table/exam chair with personnel. Patient voiced full comprehension of instructions. Note patients heart rate 136 will report to documented in this encounter Plan of Treatment Upcoming Encounters Date Type Department Care Team (Late st Contact Info) Description 01/23/2024 8:45 AM EDT Hem/Onc Treatment Hematology/[address]cology [address] [phone] [place], Chair 9 Hem Onc [address] [place] [address] 02/18/2024 8:50 AM EDT Laboratory Laboratory [facility] [address] [place] [phone] Adrianna, Lab [address] [facility] [place] [address] 02/18/2024 9:30 AM EDT Office Visit Hematology/Oncology [facility] [address] [place] [phone] Carrie Dela Cruz CRNP [address] [place] [address] 02/18/2024 10:00 AM EDT Hem/Onc Treatment Hematology/Oncology Treatment[address] [place] [phone] 02/19/2024 9:00 AM EDT Hem/Onc Treatment Hematology/Oncology Treatment, [place] [address] [place], [place] [phone] Adrianna, Chair 3 Hem Onc [address] [place] [address] 02/20/2024 9:00 AM EDT Hem/Onc Treatment Hematology/Oncology Treatment, [place] [address] [place] [phone] Adrianna, Chair 3 Hem Onc [address] [place], [place] [address] 02/29/2024 9:00 AM EDT Imaging Radiology [facility], [place] [address] [facility] [place] [address] Scheduled Orders Name Type Priority Associated Diagnoses Orde r Schedule MRI BRAIN W WO CONTRAST Medical Imaging Routine Small cell lung cancer (HCC) Metastasis to liver (HCC) Metastasis to mediastinal lymph node (HCC) Ordered: 01/22/2024 Health Maintenance Due Date Last Done Comments [...] nodes documented in this encounter Care Teams Knife Setter Assembler Relationship Specialty Start Date End Date Abdulkadir Olivera MD [address] [place] [address] PCP - General Family Medicine 12/27/22 documented as of this encounter"
--- OUTSIDE RECORDS SUMMARY | 2024-01-23 19:16 | External Medical Summary ---
Author Name Unknown Address Unknown Organization [id number][place] [place] [address] [place] [address] Laboratory Report Ordering Provider Test Date Status RONY BLACKWOOD 01/21/2024 07:53:52 Final Observation Date Value Abnormality Reference (Units ) Status MYCODE SPECIMEN-SST 01/21/2024 07:53:52 Freezing of extracted DNA, whole blood and/or serum. Final Performing Location LAB[facility]ATORY [facility] - [address] [place] [address]
--- OUTSIDE RECORDS SUMMARY | 2024-01-23 19:16 | External Medical Summary ---
Author Name Unknown Address Unknown Organization K09:[facility] [place] [address] Laboratory Report Ordering Provider Test Date Status ANGUS BAUM 01/21/2024 07:53:52 Final Observation Date Value Abnormality Reference (Units ) Status Nucleated erythrocytes/100 leukocytes [Ratio] in Blood by Automated count 01/21/2024 07:53:52 Final Acanthocytes [Presence] in Blood by Light microscopy 01/21/2024 07:53:52 Moderate Abnormal None Seen Final Variant lymphocytes [Presence] in Blood by Light microscopy 01/21/2024 07:53:52 Present Abnormal None Seen Final Performing Location [facility] [place] [address]
--- OUTSIDE RECORDS SUMMARY | 2024-01-23 19:16 | External Medical Summary ---
Author Name Unknown Address Unknown Organization K01:[facility] - [address] [place] [address] Laboratory Report Ordering Provider Test Date Status ANGUS BAUM 01/21/2024 07:53:52 Final Observation Date Value Abnormality Reference (Units ) Status Vitamin B12 01/21/2024 07:53:52 1912 Above high normal 232-1245 (pg/mL) Final Performing Location [facility] - [address] [place] [address]
--- OUTSIDE RECORDS SUMMARY | 2024-01-23 19:16 | External Medical Summary | Summary of Care ---
Author Name Unknown Organization [facility] Address [address] [facility] [place] [address] Phone [phone] Care Team Providers Care Test Equipment Mechanic Name Role Phone Abdulkadir Olivera MD Primary Care Provider [phone] Reason for Visit * Reason Comments Chemotherapy C2D2 Etoposide * Episode Based Medications (Routine) - Authorized Specialty Diagnoses / Procedures Referred By Contlucila t Referred To Contact Diagnoses Encounter for antineoplastic chemotherapy Metastasis to liver (HCC) Metastasis to mediastinal lymph node (HCC) Small cell lung cancer (HCC) Procedures [place] CARBOPLATIN INJECTION CO FOSAPREPITANT INJECTION CO ETOPOSIDE 10 MG INJ CO INJ, ATEZOLIZUMAB,10 MG Jose Worthy MD [address] [place] [address] [place] [address] Anc Hem/Onc [address] [address] Referral ID Status Reason Start Date Expiration Date V isits Requested Visits Authorized [id number] Authorized 11/15/2023 06/22/2024 999 999 Encounter Details Date Type Department Care Team (Latest Contact Info) Description 12/11/2023 10:00 AM EST Hem/Onc Treatment Hematology/Oncolog y Treatment, [address] [phone] Adrianna, Chair 3 Hem Onc [address] [place] [address] Encounter for antineoplastic chemotherapy*; Metastasis to liver [...] Sign Reading Time Taken Comments Blood Pressure 121/74 12/11/2023 10:13 AM EST Pulse 104 12/11/2023 10:13 AM EST Temperature 36.4 C (97.6 F) 12/11/2023 10:[address] Respiratory Rate 18 12/11/2023 10:13 AM EST Oxygen Saturation 94% 12/11/2023 10:13 AM EST Inhaled Oxygen Concentration - - Weight - - Height - - Body Mass Index - - documented in this encounter Nursing Notes * Yuli Mckeon RN - 12/11/2023 1:47 PM EST Functional status at today's visit: [...] or adverse side effects during treatment. Goals: Patient will remain free from injury. Possible barriers to meeting goals: ambulation with IV pole, benadryl pretreat may cause drowsiness Stability of the patient: Moderately stable - low risk of patient condition declining or worsening Summary regarding today's goals: Met: Pt remained free of injury during treatment Patient tolerated treatment well and was relieved that she did not have any reaction today. IV sitewas removed and pt was discharged in stable condition. No coverage needed today. * Yuli Mckeon RN - 12/11/2023 10:38 AM EST Chair 6 Pt arrives for C2D2 Etoposide. She states she's tired today, woke up in the middle of the night soaking wet and cold. No fever at that time. Had trouble falling back asleep then. She denies any complaints at present. IV started in the left hand without difficulty, good blood return noted, flushed with NSS, fluids infusing. Safety and Risk for Injury Patient will remain free from injury. Ensure appropriate safety devices are available. Provide and maintain safe environment. Pt given IV push benadryl 25 mg per order as pretreat, due to reaction yesterday. Etoposide also infusing over 2 hours as this was better tolerated yesterday. Dr Worthy is aware. documented in this encounter Plan of Treatment Upcoming Encounters Date Type Department Care Team (Late st Contact Info) Description 01/21/2024 7:50 AM EDT Laboratory Laboratory [facility] [place] [address] [place] [phone] Adrianna, Lab [facility] 200 [facility] [place] [address] 01/21/2024 9:00 AM EDT Hem/Onc Treatment Hematology/Oncology Treatment, [place] [address] [place] [phone] Adrianna, Chair 3 Hem Onc Scenery 200 [facility] [place] [place] [address] 01/22/2024 8:45 AM EDT Office Visit Hematology/Oncology [facility] [place] 200 [facility], [place] [phone] Jose Worthy MD 200 [facility], [place] [address] 01/22/2024 9:15 AM EDT Hem/Onc Treatment Hematology/Oncology Treatment, [place] 200 [place] [phone] Adrianna, Chair 8 Hem Onc Scenery 200 [facility] [place], [place] [address] 01/23/2024 8:45 AM EDT Hem/Onc Treatment Hematology/Oncology Treatment, [place] 200 [facility], [place] [phone] Adrianna, Chair 9 Hem Onc Scenery 200 [facility] [place] [address] Health Maintenance Due Date Last Done Comments [...] Date Dose Rate Site diphenhydrAMINE (Benadryl) inj 25 mg 25 mg, IV Push, ONCE, On Sun12/11/23 at 1115, For 1 dose Given 12/11/2023 10:45 AM EST 25 mg etoposide (VEPESID) 180 mg in NSS 500 mL infusion 180 mg (rounded from 175 mg = 100 mg/m2 1.75 m2 Treatment Plan BSA from Recorded weight), IV Piggyback, ONCE, 1 dose, On Sun12/11/23 at 1215, Administer over 60 Minutes, Recommended concentration is less than or equal to 0.4 mg/mL. If concentration is greater than 0.4 mg/mL recommend to administer through 0.22 micron low protein binding filter. Start Infusion 12/11/2023 11:00 AM EST 180 mg 250 mL/hr NSS infusion Intravenous, at 50 mL/hr, PRN, Starting on Sun12/11/23 at 1145, Until Sun12/11/23 at 1750, Maintenance line Start Infusion 12/11/2023 10:25 AM EST 50 mL/hr ondansetron (Zofran) tab 8 mg 8 mg, Oral, ONCE, On Sun12/11/23 at 1145, For 1 dose, Give 30 minutes prior to chemotherapy. Given By 12/11/2023 7:00 AM EST 8 mg documented in this encounter Care Teams Test Equipment Mechanic Relationship Specialty Start Date End Date Abdulkadir Olivera MD [address] [facility] [place] [address] PCP - General Family Medicine 12/27/22 documented as of this encounter
--- OUTSIDE RECORDS SUMMARY | 2024-01-23 19:16 | External Medical Summary | Summary of Care ---
Author Name Unknown Organization [facility] Address [address] [place] [address] Phone [phone] Care Team Providers Care Flyer Builder Name Role Phone Abdulkadir Olivera MD Primary Care Provider Reason for Visit * Reason Comments Chemotherapy Etoposide. * Episode Based Medications (Routine) - Authorized Specialty Diagnoses / Procedures Referred By Contlucila t Referred To Contact Diagnoses Encounter for antineoplastic chemotherapy Metastasis to liver (HCC) Metastasis to mediastinal lymph node (HCC) Small cell lung cancer (HCC) Procedures [place] CARBOPLATIN INJECTION [place] FOSAPREPITANT INJECTION [place] ETOPOSIDE 10 MG INJ [place] INJ, ATEZOLIZUMAB,10 MG Jose Worthy MD [address] [place] [id number] Anc Hem/Onc [address] [address] Referral ID Status Reason Start Date Expiration Date V isits Requested Visits Authorized [id number] Authorized 11/15/2023 06/22/2024 999 [id number] Encounter Details Date Type Department Care Team (Latest Contact Info) Description 01/22/2024 9:15 AM EDT Hem/Onc Treatment Hematology/Oncolog y Treatment, [address] [phone] Adrianna, Chair 8 Hem Onc [address] [place] [address] Encounter for antineoplastic chemotherapy*; Small cell lung cancer (HCC); Metastasis to [...] on file documented as of this encounter Nursing Notes * Annette Thao RN - 01/22/2024 11:26 AM EDT Goals: Patient will remain free from injury. Possible barriers to meeting goals: Fall risk d/t ambulation with IV pole. Stability of the patient: Moderately stable - low risk of patient condition declining or worsening Summary regarding today's goals: Met: Patient remained free of injury. Patient tolerated infusion well. Discharged in stable condition. * Annette Thao RN - 01/22/2024 9:24 AM EDT Chair 9. at chairside. Patient arrived for C4D2 etoposide. Patient was seen by Dr. Worthy today (see office note). Per Dr. Worthy add orders on for b12, folic acid, ferritin, and iron profile from blood work yesterday. Dr. Worthy would also like to see patient and move patients treatment to 4 weeks. Patient made aware and verbalizes understanding. PIV was left in from treatment yesterday, IV was flushed and still patent. Chemotherapy/Immunotherapy agents: ETOPOSIDE Consent for chemotherapy drug treatment complete, dated, and signed? yes, date - 11/13/23 Treatment lab parameters met? Yes Has treatment weight changed > than 10%? No Treatment preauthorized? Yes VITALS Filed Vitals: Urine protein: N/A Patient education completed for treatment? Yes Blood transfusion consent signed and complete? NA Return appointment scheduled? Yes Patient had provider visit today? Yes - Ok to release order and treat per provider Functional Status: Functional status at today's visit: [...] symptoms or adverse side effects during treatment. Safety and Risk for Injury Patient will remain free from injury. Ensure appropriate safety devices are available. Provide and maintain safe environment. documented in this encounter Plan of Treatment Upcoming Encounters Date Type Department Care Team (Late st Contact Info) Description 01/23/2024 8:45 AM EDT Hem/Onc Treatment Hematology/Oncology Treatment, [place] [address] [place] [phone] Adrianna, Chair 9 Hem Onc [address] [place] [id number] 02/18/2024 8:50 AM EDT Laboratory Laboratory [facility] [facility] Mary Rodas [address] [place] [phone] Adrianna, Lab [address] [place] [address] 02/18/2024 9:30 AM EDT Office Visit Hematology/Oncology [place] Adrianna [place] [address] [place], [place] [phone] Carrie Dela Cruz CRNP [address] [facility] [place] [address] 02/18/2024 10:00 AM EDT Hem/Onc Treatment Hematology/Oncology Treatment, [place] 200 [facility], [place] [phone] 02/19/2024 9:00 AM EDT Hem/Onc Treatment Hematology/Oncology Treatment, [place] 200 [facility], [place] [phone] Adrianna, Chair 3 Hem Onc [place] [address] [place] [address] 02/20/2024 9:00 AM EDT Hem/Onc Treatment Hematology/Oncology Treatment, [place] 200 [facility], [place] [phone] Adrianna, Chair 3 Hem Onc [address] [place], [place] [address] 02/29/2024 9:00 AM EDT Imaging Radiology [address], [address] [place] [address] Pending Results Name Type Priority Associated Diagnoses Date /Time VITAMIN B12 Lab Routine Small cell lung cancer (HCC) 01/21/2024 7:53 AM EDT FOLIC ACID Lab Routine Small cell lung cancer (HCC) 01/21/2024 7:53 AM EDT FERRITIN Lab Routine Small cell lung cancer (HCC) 01/21/2024 7:53 AM EDT IRON SCREEN, INCLUDING TIBC Lab Routine Small cell lung cancer (HCC) 01/21/2024 7:53 AM EDT Scheduled Orders Name Type Priority Associated Diagnoses Orde r Schedule VITAMIN B12 Lab Routine Small cell lung cancer (HCC) Expected: 01/22/2024, Expires: 01/21/2025 FOLIC ACID Lab Routine Small cell lung cancer (HCC) Expected: 01/22/2024, Expires: 01/21/2025 FERRITIN Lab Routine Small cell lung cancer (HCC) Expected: 01/22/2024, Expires: 01/21/2025 IRON SCREEN, INCLUDING TIBC Lab Routine Small cell lung cancer (HCC) Expected: 01/22/2024, Expires: 01/21/2025 Health Maintenance Due Date Last Done Comments [...] Diagnoses Diagnosis Encounter for antineoplastic chemotherapy- Primary Small cell lung cancer (HCC) Malignant neoplasm of bronchus and lung, unspecified site Metastasis to liver (HCC) 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 documented in this encounter Administered Medications Active Administered Medications - up to 3 most recent administrations Medication Order MAR Action Action Date Dose Rate Site diphenhydrAMINE (Benadryl) inj 50 mg 50 mg, IV Push, ONCE PRN Other, Hypersensitivity Reaction, Starting on Sun01/22/24 at 0901, Until Sun01/23/24 at 0900, For 24 hours EPINEPHrine 1 MG/ML inj 0.3 mg 0.3 mg, Intramuscular, ONCE PRN Other, Hypersensitivity Reaction or Anaphylaxis, Starting on Sun01/22/24 at 0901, Until Sun01/23/24 at 0900, For 24 hours hEParin 100 UNIT/ML Lock Flush inj 500 Units 500 Units (5 mL), IV Lock, PRN Other, IV Flush, Starting on Sun01/22/24 at 0901, Until Sun01/23/24 at 0900, For 24 hours, Do not flush if lock, PICC, or central line not in place; IV infusing or unable to flush. Hydrocortisone Sod Suc (PF) (Solu-Cortef) inj 100 mg 100 mg, IV Push, ONCE PRN Other, Hypersensitivity Reaction, Starting on Sun01/22/24 at 0901, Until Sun01/23/24 at 0900, For 24 hours LORAzepam (Ativan) tab 0.5 mg 0.5 mg, Oral, ONCE PRN Anxiety, Nausea, Starting on Sun01/22/24 at 1015, Until Discontinued NSS infusion Intravenous, at 50 mL/hr Administer over 10 Hours, PRN, Starting on Sun01/22/24 at 1015, Until Discontinued, Maintenance line Start Infusion 01/22/2024 9:10 AM EDT 50 mL/hr oxygen GAS Inhalation, OXYGEN, First dose on Sun01/22/24 at 0945, Until Discontinued, Device/Managed by: Low Flow Device, [...] Push, PRN Other, IV Flush, Starting on Sun01/22/24 at 0901, Until Sun01/23/24 at 0900, For 24 hours, Do not flush if lock, PICC, or central line not in place; IV infusing or unable to flush. Inactive Administered Medications - up to 3 most recent administrations Medication Order MAR Action Action Date Dose Rate Site diphenhydrAMINE (Benadryl) inj 25 mg 25 mg, IV Push, ONCE, On Sun01/22/24 at 0945, For 1 dose Given 01/22/2024 9:16 AM EDT 25 mg etoposide (VEPESID) 180 mg in NSS 500 mL infusion 180 mg (rounded from 175 mg = 100 mg/m2 1.75 m2 Treatment Plan BSA from Recorded weight), IV Piggyback, ONCE, 1 dose, On Sun01/22/24 at 1045, Administer over 60 Minutes, Recommended concentration is less than or equal to 0.4 mg/mL. If concentration is greater than 0.4 mg/mL recommend to administer through 0.22 micron low protein binding filter. Start Infusion 01/22/2024 9:59 AM EDT 180 mg 500 mL/hr ondansetron (Zofran) tab 8 mg 8 mg, Oral, ONCE, On Sun01/22/24 at 1015, For 1 dose, Give 30 minutes prior to chemotherapy. Given 01/22/2024 9:16 AM EDT 8 mg documented in this encounter Care Teams Flyer Builder Relationship Specialty Start Date End Date Abdulkadir Olivera MD [address] [place] [facility] [place] [address] PCP - General Family Medicine 12/27/22 documented as of this encounter
--- OUTSIDE RECORDS SUMMARY | 2024-01-23 19:16 | External Medical Summary ---
Author Name Unknown Address Unknown Organization K01:[facility] [place] [address] [place] [address] Laboratory Report Ordering Provider Test Date Status RONY BLACKWOOD 01/21/2024 07:53:52 Final Observation Date Value Abnormality Reference (Units ) Status MYCODE SPECIMEN-SST 01/21/2024 07:53:52 Freezing of extracted DNA, whole blood and/or serum. Final Performing Location LABORATORY C - [address] [place] [address]
--- OUTSIDE RECORDS SUMMARY | 2024-01-23 19:17 | External Medical Summary | Summary of Care ---
Author Name Unknown Organization [facility] Address [address] [place] [address] Phone [phone] Care Team Providers Care Emu Farm Worker Name Role Phone Abdulkadir Olivera MD Primary Care Provider Reason for Visit * Reason Comments Chemotherapy Tecentriq, carboplat in, etoposide. * Episode Based Medications (Routine) - Authorized Specialty Diagnoses / Procedures Referred By Contac t Referred To Contact Diagnoses Encounter for antineoplastic chemotherapy Metastasis to liver (HCC) Metastasis to mediastinal lymph node (HCC) Small cell lung cancer (HCC) Procedures DE CARBOPLATIN INJECTION DE FOSAPREPITANT INJECTION DE ETOPOSIDE 10 MG INJ DE INJ, ATEZOLIZUMAB,10 MG Jose Worthy MD 200 [facility] [place] [address] Anc Hem/Onc [address] [address] Referral ID Status Reason Start Date Expiration Date V isits Requested Visits Authorized [id number] Authorized 11/15/2023 06/22/2024 999 [id number] Encounter Details Date Type Department Care Team (Latest Contact Info) Description 12/10/2023 8:30 AM EST Hem/Onc Treatment Hematology/Oncolog y Treatment, [address] [phone] Adrianna Chair 7 Hem Onc [address] [place] [address] Encounter for antineoplastic chemotherapy*; Metastasis to liver [...] Description 01/21/2024 7:50 AM EDT Laboratory Laboratory [facility] [address] [place] [phone] Adrianna, Lab [address] [place] [address] 01/21/2024 9:00 AM EDT Hem/Onc Treatment Hematology/Oncology Treatment, [address] [place] [phone] Adrianna, Chair 3 Hem Onc [address] [place] [address] 01/22/2024 8:45 AM EDT Office Visit Hematology/Oncology [facility] [address] [place] [phone] Jose Worthy MD 200 [facility] [place] [address] 01/22/2024 9:15 AM EDT Hem/Onc Treatment Hematology/Oncology Treatment, [address] [place] [phone] Adrianna, Chair 8 Hem Onc [facility] [address] [place] [address] [place] [address] 01/23/2024 8:45 AM EDT Hem/Onc Treatment Hematology/Oncology Treatment, [place] [address] [place], [place] [phone] Adrianna, Chair 9 Hem Onc [address]en[address] [place], [place] [address] Health Maintenance Due Date Last Done Comments [...] mL/hr documented in this encounter Care Teams Emu Farm Worker Relationship Specialty Start Date End Date Abdulkadir Olivera MD [address] [place], [place] [phone] PCP - General Family Medicine 12/27/22 documented as of this encounter
--- OUTSIDE RECORDS SUMMARY | 2024-01-23 19:17 | External Medical Summary | Summary of Care ---
Author Name Unknown Organization [facility] Address [address] [place] [facility] [place] [place] [address] Phone [phone] Care Team Providers Care Floral Designer Salesperson Name Role Phone Abdulkadir Olivera MD Primary Care Provider Reason for Visit * Reason Comments Chemotherapy Etoposide. * Episode Based Medications (Routine) - Authorized Specialty Diagnoses / Procedures Referred By Contlucila t Referred To Contact Diagnoses Encounter for antineoplastic chemotherapy Metastasis to liver (HCC) Metastasis to mediastinal lymph node (HCC) Small cell lung cancer (HCC) Procedures [place] CARBOPLATIN INJECTION [place] FOSAPREPITANT INJECTION [place] ETOPOSIDE 10 MG INJ [place] INJ, ATEZOLIZUMAB,10 MG Jose Worthy MD 200 [place] [address] Anc Hem/Onc [address] [address] Referral ID Status Reason Start Date Expiration Date V isits Requested Visits Authorized [id number] Authorized 11/15/2023 06/22/[phone] Encounter Details Date Type Department Care Team (Latest Contact Info) Description 12/12/2023 10:30 AM EST Hem/Onc Treatment Hematology/Oncolog y Treatment, [address] [phone] Adrianna, Chair 4 Hem Onc [address] [place] [address] Encounter for antineoplastic chemotherapy*; Metastasis to liver (HCC); Metastasis to mediastinal lymph node (HCC); Small cell lung cancer (HCC) Allergies No known active allergiesdocumented as of this encounter (statuses as of 01/16/2024) Medications Medication Sig Dispensed Refills Start Date [...] as of this encounter (statuses as of 01/16/2024) Active Problems Problem Noted Date Diagnosed Date Small cell lung cancer 11/15/2023 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 Encounter for antineoplastic chemotherapy 2023 Depression 11/03/2013 Anxiety 11/03/2013 Other ectopic documented as of this encounter (statuses as of 01/16/2024) Immunizations Name Administration Dates Next Due Pneumococcal [...] Sign Reading Time Taken Comments Blood Pressure 100/66 12/12/2023 10:30 AM EST Pulse 103 12/12/2023 10:30 AM EST Temperature 36.6 C (97.8 F) 12/12/2023 10:[address] Respiratory Rate 18 12/12/2023 10:30 AM EST Oxygen Saturation 94% 12/12/2023 10:30 AM EST Inhaled Oxygen Concentration - - Weight - - Height - - Body Mass Index - - documented in this encounter Nursing Notes * Annette Thao RN - 12/12/2023 2:09 PM EST Goals: Patient will remain free [...] adverse side effects during treatment. Patient tolerated procedure well. Discharged in stable condition. * Annette Thao RN - 12/12/2023 11:01 AM EST Chair 5. Patient arrived for etoposide. Patient states overall feels well. Patient took zofran at home todaybefore coming in. PIV accessed. Chemo agents Etoposide. Appetite good Nausea/Vomiting no Diarrhea no Constipation no Mucositis no Fatigue a little Bleeding no Infection no Rash no Numbness tingling no Pain no Radiation no ABN Labs WNL for treatment Alt in Tx: no Return in 3 weeks. Safety and Risk for Injury Patient will remain free from injury. Ensure appropriate safety devices are available. Provide and maintain safe environment. documented in this encounter Plan of Treatment Upcoming Encounters Date Type Department Care Team (Late st Contact Info) Description 01/21/2024 7:50 AM EDT Laboratory Laboratory [facility] Adrianna [place] 200 [facility] [place] [phone] Jigna Rodas [address] [place] [address] 01/21/2024 9:00 AM EDT Hem/Onc Treatment Hematology/Oncology Treatment, [place] [address] [facility] [place] [phone] Adrianna Chair 3 Hem Onc [facility] 200 [facility] [place] [address] 01/22/2024 8:45 AM EDT Office Visit Hematology/Oncology [facility] Adrianna [place] [address] [place] [phone] Jose Worthy MD 200 [place] [address] 01/22/2024 9:15 AM EDT Hem/Onc Treatment Hematology/Oncology Treatment, [place] 200 [place] [phone] Adrianna, Chair 8 Hem Onc [facility] 200 [place] [address] 01/23/2024 8:45 AM EDT Hem/Onc Treatment Hematology/Oncology Treatment, [place] 200 [place] [phone] Adrianna, Chair 9 Hem Onc [facility] 200 [place] [address] Health Maintenance Due Date Last Done Comments [...] ONCE PRN Other, Hypersensitivity Reaction, Starting on Sun12/12/23 at 1040, Until Sun12/12/23 at 1813, For 24 hours Given 12/12/2023 10:49 AM EST 50 mg etoposide (VEPESID) 180 mg in NSS 500 mL infusion 180 mg (rounded from 175 mg = 100 mg/m2 1.75 m2 Treatment Plan BSA from Recorded weight), IV Piggyback, ONCE, 1 dose, On Sun12/12/23 at 1215, Administer over 60 Minutes, Recommended concentration is less than or equal to 0.4 mg/mL. If concentration is greater than 0.4 mg/mL recommend to administer through 0.22 micron low protein binding filter. Start Infusion 12/12/2023 11:31 AM EST 180 mg 250 mL/hr NSS infusion Intravenous, at 50 mL/hr, PRN, Starting on Sun12/12/23 at 1145, Until Sun12/12/23 at 1813, Maintenance line Start Infusion 12/12/2023 10:30 AM EST 50 mL/hr ondansetron (Zofran) tab 8 mg 8 mg, Oral, ONCE, On Sun12/12/23 at 1145, For 1 dose, Give 30 minutes prior to chemotherapy. Patient/Caregiver Administered 12/12/2023 7:00 AM EST 8 mg documented in this encounter Care Teams Floral Designer Salesperson Relationship Specialty Start Date End Date Abdulkadir Olivera MD [address] [facility] [place] [address] PCP - General Family Medicine 12/27/22 documented as of this encounter
--- OUTSIDE RECORDS SUMMARY | 2024-01-23 19:17 | External Medical Summary | Summary of Care ---
Author Name Unknown Organization [facility] Address [address] [place] [address] Phone [phone] Care Team Providers Care Motor Lodge Clerk Name Role Phone Abdulkadir Olivera MD Primary Care Provider [phone] Encounter Details Date Type Department Care Team (Late st Contact Info) Description 11/30/[address] 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 Encounter for antineoplastic chemotherapy 2023 Depression 11/03/2013 Anxiety 11/03/2013 Other ectopic documented as of this encounter (statuses as of 01/09/2024) Immunizations Name Administration Dates Next Due Pneumococcal [...] Care Team (Late st Contact Info) Description 01/09/2024 3:30 PM EDT Imaging Radiology [address], [place] 132 [facility] [place] [address] 01/21/2024 7:50 AM EDT Laboratory Laboratory [facility] [place] [address] [place] [phone] Adrianna, Lab Scenery [address] [place] [address] 01/21/2024 9:00 AM EDT Hem/Onc Treatment Hematology/Oncology Treatment, [place] [facility] [phone] [place], Chair 3 Hem Onc Scenery [address] [place] [address] 01/22/2024 8:45 AM EDT Office Visit Hematology/Oncology [facility] [place] [address] [place], [place] [phone] Jose Worthy MD [address] [place], [place] [address] 01/22/2024 9:15 AM EDT Hem/Onc Treatment Hematology/[address], [address] [phone] Adrianna, Chair 8 Hem Onc Scenery [address] [place], [place] [address] 01/23/2024 8:45 AM EDT Hem/Onc Treatment Hematology/Oncology Treatment, [place] 200 [facility], [place] [phone] Adrianna, Chair 9 Hem Onc Scenery [address] [place] [address] Health Maintenance Due Date Last Done Comments [...] Procedure Name Priority Date/Time Associated Diagnosis Comments RADIOLOGY EXAM - GENERAL RAD (IMAGES ONLY,NO REPORT) Routine 11/30/2023 9:35 PM EST documented in this encounter Results * RADIOLOGY EXAM - GENERAL RAD (IMAGES ONLY,NO REPORT) (11/30/2023 9:35 PM EST) 11/30/2023 9:32 PM EST Narrative Scheduling, Silent - 01/09/2024 1:01 PM EDT This is an imaging study not interpreted or resulted by a [facility] or [facility] contracted radiologist. Abdulkadir Olivera MD RADIOLOGY (RAD GENER AL) documented in this encounter Care Teams Motor Lodge Clerk Relationship Specialty Start Date End Date Abdulkadir Olivera MD [address] [place] [address] PCP - General Family Medicine 12/27/22 documented as of this encounter
--- OUTSIDE RECORDS SUMMARY | 2024-01-23 19:17 | External Medical Summary | Summary of Care ---
Author Name Unknown Organization [facility] Address [address] [place] [address] Phone [phone] Care Team Providers Care Auto Body Estimator Name Role Phone Abdulkadir Olivera MD Primary Care Provider [phone] Reason for Visit * Reason Comments Chemotherapy [...] CO INJ, ATEZOLIZUMAB,10 MG Jose Worthy MD 200 [facility] [place] [address] Anc Hem/Onc [address] [address] Referral ID Status Reason Start Date Expiration Date V isits Requested Visits Authorized [id number] Authorized 11/15/2023 06/22/2024 999 [id number] Encounter Details Date Type Department Care Team (Latest Contact Info) Description 12/10/2023 8:30 AM EST Hem/Onc Treatment Hematology/Oncolog y Treatment, [address] [address] Adrianna Chair 7 Hem Onc [address] [place] [address] Encounter for antineoplastic chemotherapy*; Metastasis to liver [...] Description 01/21/2024 7:50 AM EDT Laboratory Laboratory [facility] [address] [place] [phone] Adrianna, Lab [address] [place] [address] 01/21/2024 9:00 AM EDT Hem/Onc Treatment Hematology/Oncology Treatment, [address] [place] [phone] Adrianna, Chair 3 Hem Onc [address] [place] [address] 01/22/2024 8:45 AM EDT Office Visit Hematology/Oncology [facility] [address] [place] [phone] Jose Worthy MD 200 [facility] [place] [address] 01/22/2024 9:15 AM EDT Hem/Onc Treatment Hematology/Oncology Treatment, [address] [place] [phone] Adrianna, Chair 8 [facility] [address] [place] [address] [place] [address] 01/23/2024 8:45 AM EDT Hem/Onc Treatment Hematology/Oncology Treatment, [place] [address] [place], [place] [phone] Adrianna, Chair 9 Hem Onc Scenery [address] [place], [place] [address] Health Maintenance Due Date Last Done Comments [...] mL/hr documented in this encounter Care Teams Auto Body Estimator Relationship Specialty Start Date End Date Abdulkadir Olivera MD [address] [place], [place] [phone] PCP - General Family Medicine 12/27/22 documented as of this encounter
--- OUTSIDE RECORDS SUMMARY | 2024-01-23 19:17 | External Medical Summary | Summary of Care ---
Author Name Unknown Organization [facility] Address [address] [place] [address] Phone [phone] Care Team Providers Care Machine I Engraver Name Role Phone Abdulkadir Olivera MD Primary Care Provider [phone] Reason for Visit * Reason Comments Chemotherapy Tecentriq, carboplat in, etoposide. * Episode Based Medications (Routine) - Authorized Specialty Diagnoses / Procedures Referred By Contac t Referred To Contact Diagnoses Encounter for antineoplastic chemotherapy Metastasis to liver (HCC) Metastasis to mediastinal lymph node (HCC) Small cell lung cancer (HCC) Procedures [place] CARBOPLATIN INJECTION [place] FOSAPREPITANT INJECTION [place] ETOPOSIDE 10 MG INJ [place] INJ, ATEZOLIZUMAB,10 MG Jose Worthy MD 200 [facility] [place] [address] Anc Hem/Onc [address] [address] Referral ID Status Reason Start Date Expiration Date V isits Requested Visits Authorized [id number] Authorized 11/15/2023 06/22/[phone] Encounter Details Date Type Department Care Team (Latest Contact Info) Description 12/10/2023 8:30 AM EST Hem/Onc Treatment Hematology/Oncolog y Treatment, [address] [phone] Adrianna Chair 7 Hem On[address] [place] [address] Encounter for antineoplastic chemotherapy*; Metastasis to liver [...] Description 01/21/2024 7:50 AM EDT Laboratory Laboratory [facility] [address] [place] [phone] Adrianna, Lab [address] [place] [address] 01/21/2024 9:00 AM EDT Hem/Onc Treatment Hematology/Oncology Treatment, [address] [place] [phone] Adrianna, Chair 3 Hem Onc [address] [place] [address] 01/22/2024 8:45 AM EDT Office Visit Hematology/Oncology [facility] [address] [place] [phone] Jose Worthy MD 200 [facility] [place] [address] 01/22/2024 9:15 AM EDT Hem/Onc Treatment Hematology/Oncology Treatment, [address] [place] [phone] Adrianna, Chair 8 Hem Onc [facility] [address] [place] [address] [place] [address] 01/23/2024 8:45 AM EDT Hem/Onc Treatment Hematology/Oncology Treatment, [place] [address] [place], [place] [phone] Adrianna, Chair 9 Hem Onc Scenery [address] [place], [place] [address] Health Maintenance Due Date Last Done Comments [...] mL/hr documented in this encounter Care Teams Machine I Engraver Relationship Specialty Start Date End Date Abdulkadir Olivera MD [address] [place], [place] [phone] PCP - General Family Medicine 12/27/22 documented as of this encounter
--- OUTSIDE RECORDS SUMMARY | 2024-01-23 19:17 | External Medical Summary | Summary of Care ---
Author Name Unknown Organization [facility] Address [address] [place] [address] Phone [phone] Care Team Providers Care Stripping And Booking Machine Operator Name Role Phone Abdulkadir Olivera MD Primary Care Provider [phone] Encounter Details Date Type Department Care Team (Latest Contact Info) Description 11/06/2023 7:05 PM EST - 11/06/2023 11:59 PM EST Hospital Encounter Radiology Film File [address] [place] [address] Discharge Disposition: Home - Self Care Allergies No known active allergiesdocumented as of this encounter (statuses as of 01/10/2024) Medications Medication Sig Dispensed Refills Start Date End Date Status MULTIVITAMINS PO CAPS 1 tablet daily 0 Active Vitamin D 125 MCG (5000 UT) Oral Capsule Take by mouth. 0 Acti ve Vitamin B-12 ER 2000 MCG Oral Tablet Extended Release Take by mouth. 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 Encounter for antineoplastic chemotherapy 2023 Depression 11/03/2013 Anxiety 11/03/2013 Other ectopic documented as of this encounter (statuses as of 01/10/2024) Immunizations Name Administration Dates Next Due Pneumococcal [...] Description 01/21/2024 7:50 AM EDT Laboratory Laboratory [facility] Adrianna [place] [address] [place] [address] [phone] [place] [address] 01/21/2024 9:00 AM EDT Hem/Onc Treatment Hematology/Oncology Treatment [place] [address] [place] [phone] Adrianna, Chair 3 Hem Onc [facility] [place] [address] 01/22/2024 8:45 AM EDT Office Visit Hematology/Oncology [facility] Adrianna [place] [address] [place] [address] [phone] Jose Worthy MD 200 [facility] [place] [address] 01/22/2024 9:15 AM EDT Hem/Onc Treatment Hematology/Oncology Treatment, [place] 200 [place] [address] Adrianna, Chair 8 Hem Onc [facility] 200 [place] [address] 01/23/2024 8:45 AM EDT Hem/Onc Treatment Hematology/Oncology Treatment, [place] 200 [place] [phone] Adrianna, Chair 9 Hem Onc [address] [place] [address] Health Maintenance Due Date Last Done Comments [...] Date/Time Associated Diagnosis Comments RADIOLOGY EXAM - CT (IMAGES ONLY, NO REPORT) Routine 11/06/2023 7:05 PM EST documented in this encounter Results * RADIOLOGY EXAM - CT (IMAGES ONLY, NO REPORT) (11/06/2023 7:05 PM EST) 11/06/2023 7:04 PM EST Narrative Scheduling, Silent - 01/09/2024 1:03 PM EDT This is an imaging study not interpreted or resulted by a [facility] or [facility] contracted radiologist. Abdulkadir Olivera MD RAD CT documented in this encounter Care Teams Stripping And Booking Machine Operator Relationship Specialty Start Date End Date Abdulkadir Olivera MD [address] [place] [address] PCP - General Family Medicine 12/27/22 documented as of this encounter
--- OUTSIDE RECORDS SUMMARY | 2024-01-23 19:17 | External Medical Summary | Summary of Care ---
Author Name Unknown Organization [facility] Address [address] [place] [place] [address] Phone [phone] Care Team Providers Care Senior Network Architect Name Role Phone Abdulkadir Olivera MD Primary Care Provider [phone] Reason for Visit * Reason Comments Chemotherapy [...] INJ, ATEZOLIZUMAB,10 MG Jose Worthy MD 200 [place] [address] Anc Hem/Onc [address] [address] Referral ID Status Reason Start Date Expiration Date V isits Requested Visits Authorized [id number] Authorized 11/15/2023 06/22/[phone] Encounter Details Date Type Department Care Team (Latest Contact Info) Description 12/12/2023 10:30 AM EST Hem/Onc Treatment Hematology/Oncolog y Treatment, [address] [phone] Adrianna, Chair 4 Hem Onc [address] [place] [address] Encounter for antineoplastic chemotherapy*; Metastasis to liver [...] Description 01/21/2024 7:50 AM EDT Laboratory Laboratory [facility] Adrianna [place] 200 [facility] [place] [phone] Jigna Rodas [address] [place] [address] 01/21/2024 9:00 AM EDT Hem/Onc Treatment Hematology/Oncology Treatment, [place] [address] [facility] [place] [phone] Adrianna Chair 3 Hem Onc [facility] 200 [facility] [place] [address] 01/22/2024 8:45 AM EDT Office Visit Hematology/Oncology [facility] Adrianna [place] [address] [place] [phone] Jose Worthy MD 200 [place] [address] 01/22/2024 9:15 AM EDT Hem/Onc Treatment Hematology/Oncology Treatment, [place] 200 [place] [phone] Adrianna, Chair 8 Hem Onc [facility] 200 [facility] [place] [address] 01/23/2024 8:45 AM EDT Hem/Onc Treatment Hematology/Oncology Treatment, [place] 200 [place] [phone] Adrianna, Chair 9 Hem Onc [facility] 200 [facility] [place] [address] Health Maintenance Due Date Last Done Comments [...] mg documented in this encounter Care Teams Senior Network Architect Relationship Specialty Start Date End Date Abdulkadir Olivera MD [address] [facility] [address] PCP - General Family Medicine 12/27/22 documented as of this encounter
--- OUTSIDE RECORDS SUMMARY | 2024-01-23 19:17 | External Medical Summary | Summary of Care ---
Author Name Unknown Organization [facility] Address [address] [facility] [place] [address] Phone [phone] Care Team Providers Care Unclaimed Property Officer Name Role Phone Abdulkadir Olivera MD Primary Care Provider [phone] Reason for Visit * Reason Comments Chemotherapy Etoposide D3C3 * Episode Based Medications (Routine) - Authorized Specialty Diagnoses / Procedures Referred By Contlucila t Referred To Contact Diagnoses Encounter for antineoplastic chemotherapy Metastasis to liver (HCC) Metastasis to mediastinal lymph node (HCC) Small cell lung cancer (HCC) Procedures [place] CARBOPLATIN INJECTION [place] FOSAPREPITANT INJECTION [place] ETOPOSIDE 10 MG INJ [place] INJ, ATEZOLIZUMAB,10 MG [place] Worthy MD 200 [facility] [place] [address] Anc Hem/Onc [address] [address] Referral ID Status Reason Start Date Expiration Date V isits Requested Visits Authorized [id number] Authorized 11/15/2023 06/22/[phone] Encounter Details Date Type Department Care Team (Latest Contact Info) Description 01/02/2024 9:00 AM EST Hem/Onc Treatment Hematology/Oncolog y Treatment, [address] [phone] Adrianna, Chair 6 Hem Onc [address] [place] [address] Encounter for antineoplastic chemotherapy*; Metastasis to liver (HCC); Metastasis to mediastinal lymph node (HCC); Small cell lung cancer (HCC) Allergies No known active allergiesdocumented as of this encounter (statuses as of 01/02/2024) Medications Medication Sig Dispensed Refills Start Date [...] as of this encounter (statuses as of 01/02/2024) Active Problems Problem Noted Date Diagnosed Date Small cell lung cancer 11/15/2023 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 Encounter for antineoplastic chemotherapy 2023 Depression 11/03/2013 Anxiety 11/03/2013 Other ectopic documented as of this encounter (statuses as of 01/02/2024) Immunizations Name Administration Dates Next Due Pneumococcal [...] Sign Reading Time Taken Comments Blood Pressure 111/65 01/02/2024 9:27 AM EST Pulse 99 01/02/2024 9:27 AM EST Temperature 36.4 C (97.5 F) 01/02/2024 9:27 AM ES T Respiratory Rate 18 01/02/2024 9:27 AM EST Oxygen Saturation 98% 01/02/2024 9:27 AM EST Inhaled Oxygen Concentration - - Weight - - Height - - Body Mass Index - - documented in this encounter Nursing Notes * Duyen Alfaro, RN - 01/02/2024 3:00 PM EST Pt completed treatment without issues. IV removed. Goals: Pt will remain free from injury. Possible barriers to meeting goals: ambulation with IV pole, weakness Stability of the patient: Moderately stable - low risk of patient condition declining or worsening Summary regarding today's goals: Met: Pt remained free from injury during treatment today. Discharged in stable condition. No coverage. * Duyen Alfaro RN - 01/02/2024 9:27 AM EST Chair 11 Chemotherapy/Immunotherapy agents: ETOPOSIDE Consent for chemotherapy drug treatment complete, dated, and signed? yes, date - 11/13/23 Treatment lab parameters met? Yes Has treatment weight changed > than 10%? No Treatment preauthorized? Yes VITALS Filed Vitals: 01/02/2427 BP: 111/65 Pulse: 99 Resp: 18 Temp: 36.4 C (97.5 F) SpO2: 98% Urine protein: N/A Patient education completed for treatment? Yes Blood transfusion consent signed and complete? NA Return appointment scheduled? Yes Patient had provider visit today? No - If no provider visit must complete Pretreatment Assessment PRE-TREATMENT ASSESSMENT: NEURO: denies symptoms and fatigue:stable CV/RESP: denies symptoms and shortness of breath: only with exertion, resolves at rest. POx WNL at home. GI/: denies symptoms OTHER: denies any additional symptoms PAIN: 0 PIV assessed for patency; NSS infusing Safety and Risk for Injury Patient will remain free from injury. Ensure appropriate safety devices are available. Provide and maintain safe environment. Functional Status: Functional status at today's visit: [...] Description 01/09/2024 3:30 PM EDT Imaging Radiology [facility], [place] 132 [facility] [place] [address] 01/21/2024 7:50 AM EDT Laboratory Laboratory [facility] [place] [address] [place] [phone] Adrianna, Lab Scenery [address] [place] [address] 01/21/2024 9:00 AM EDT Hem/Onc Treatment Hematology/Oncology Treatment, [place] [facility] [phone] Adrianna, Chair 3 Hem Onc Scenery 200 [facility] [place] [address] 01/22/2024 8:45 AM EDT Office Visit Hematology/Oncology [facility] [place] [address] [place] [phone] [place] Worthy MD [address] [place] [address] 01/22/2024 9:15 AM EDT Hem/Onc Treatment Hematology/Oncology Treatment, [place] [facility] [phone] Adrianna, Chair 8 Hem Onc Scenery 200 [facility] [place] [address] 01/23/2024 8:45 AM EDT Hem/Onc Treatment Hematology/Oncology Treatment, [place] [facility] [phone] Adrianna, Chair 9 Hem Onc Scenery [address] [place] [address] Health Maintenance Due Date Last Done Comments [...] ONCE PRN Other, Hypersensitivity Reaction, Starting on 01/02/24 at 0924, Until Veronica 01/03/24 at 0923, For 24 hours EPINEPHrine 1 MG/ML inj 0.3 mg 0.3 mg, Intramuscular, ONCE PRN Other, Hypersensitivity Reaction or Anaphylaxis, Starting on Sun01/02/24 at 0924, Until Veronica 01/03/24 at 0923, For 24 hours hEParin 100 UNIT/ML Lock Flush inj 500 Units 500 Units (5 mL), IV Lock, PRN Other, IV Flush, Starting on Sun01/02/24 at 0924, Until Veronica 01/03/24 at 0923, For 24 hours, Do not flush if lock, PICC, or central line not in place; IV infusing or unable to flush. Hydrocortisone Sod Suc (PF) (Solu-Cortef) inj 100 mg 100 mg, IV Push, ONCE PRN Other, Hypersensitivity Reaction, Starting on Sun01/02/24 at 0924, Until Veronica 01/03/24 at 0923, For 24 hours LORAzepam (Ativan) tab 0.5 mg 0.5 mg, Oral, ONCE PRN Anxiety, Nausea, Starting on Sun01/02/24 at 1030, Until Discontinued NSS infusion Intravenous, at 50 mL/hr, PRN, Starting on Sun01/02/24 at 1030, Until Discontinued, Maintenance line Start Infusion 01/02/2024 9:30 AM EST 50 mL/hr oxygen GAS Inhalation, OXYGEN, First dose on Sun01/02/24 at 1000, Until Discontinued, Device/Managed by: Low [...] Push, PRN Other, IV Flush, Starting on Sun01/02/24 at 0924, Until Veronica 01/03/24 at 0923, For 24 hours, Do not flush if lock, PICC, or central line not in place; IV infusing or unable to flush. Inactive Administered Medications - up to 3 most recent administrations Medication Order MAR Action Action Date Dose Rate Site diphenhydrAMINE (Benadryl) inj 25 mg 25 mg, IV Push, ONCE, On Sun01/02/24 at 1000, For 1 dose Given 01/02/2024 9:38 AM EST 25 mg etoposide (VEPESID) 180 mg in NSS 500 mL infusion 180 mg (rounded from 175 mg = 100 mg/m2 1.75 m2 Treatment Plan BSA from Recorded weight), IV Piggyback, ONCE, 1 dose, On Sun01/02/24 at 1100, Administer over 60 Minutes, Recommended concentration is less than or equal to 0.4 mg/mL. If concentration is greater than 0.4 mg/mL recommend to administer through 0.22 micron low protein binding filter. Start Infusion 01/02/2024 10:07 AM EST 180 mg 500 mL/hr ondansetron (Zofran) tab 8 mg 8 mg, Oral, ONCE, On Sun01/02/24 at 1030, For 1 dose, Give 30 minutes prior to chemotherapy. Given 01/02/2024 9:37 AM EST 8 mg documented in this encounter Care Teams Unclaimed Property Officer Relationship Specialty Start Date End Date Abdulkadir Olivera MD [address] [place], [place] [phone] PCP - General Family Medicine 12/27/22 documented as of this encounter
--- OUTSIDE RECORDS SUMMARY | 2024-01-23 19:17 | External Medical Summary | Summary of Care ---
Author Name Unknown Organization [facility] Address [address] [place] [address] Phone [phone] Care Team Providers Care Transit Specialist Name Role Phone Abdulkadir Olivera MD Primary Care Provider Reason for Visit * Reason Comments Chemotherapy Tecentriq, carboplat in, etoposide. * Episode Based Medications (Routine) - Authorized Specialty Diagnoses / Procedures Referred By Contac t Referred To Contact Diagnoses Encounter for antineoplastic chemotherapy Metastasis to liver (HCC) Metastasis to mediastinal lymph node (HCC) Small cell lung cancer (HCC) Procedures [place] CARBOPLATIN INJECTION [place] FOSAPREPITANT INJECTION [place] ETOPOSIDE 10 MG INJ [place] INJ, ATEZOLIZUMAB,10 MG Jose Worthy MD 200 [facility] [place] [address] Anc Hem/Onc [address] [address] Referral ID Status Reason Start Date Expiration Date V isits Requested Visits Authorized [id number] Authorized 11/15/2023 06/22/[phone] Encounter Details Date Type Department Care Team (Latest Contact Info) Description 12/10/2023 8:30 AM EST Hem/Onc Treatment Hematology/Oncolog y Treatment, [address] [phone] Adrianna Chair 7 Hem Onc [address] [place] [address] Encounter for antineoplastic chemotherapy*; Metastasis to liver [...] Description 01/21/2024 7:50 AM EDT Laboratory Laboratory [facility] [address] [place] [phone] Adrianna, Lab [address] [place] [address] 01/21/2024 9:00 AM EDT Hem/Onc Treatment Hematology/Oncology Treatment, [address] [place] [phone] Adrianna, Chair 3 Hem Onc [address] [place] [address] 01/22/2024 8:45 AM EDT Office Visit Hematology/Oncology [facility] [address] [place] [phone] Jose Worthy MD 200 [facility] [place] [address] 01/22/2024 9:15 AM EDT Hem/Onc Treatment Hematology/Oncology Treatment, [address] [place] [phone] Adrianna, Chair 8 Hem Onc [facility] [address] [place] [address] [place] [address] 01/23/2024 8:45 AM EDT Hem/Onc Treatment Hematology/Oncology Treatment, [place] [address] [place], [place] [phone] Adrianna, Chair 9 Hem Onc [address]enery [address] [place], [place] [address] Health Maintenance Due Date Last Done Comments [...] mL/hr documented in this encounter Care Teams Transit Specialist Relationship Specialty Start Date End Date Abdulkadir Olivera MD [address] [place], [place] [phone] PCP - General Family Medicine 12/27/22 documented as of this encounter
--- OUTSIDE RECORDS SUMMARY | 2024-01-23 19:17 | External Medical Summary | Summary of Care ---
Author Name Unknown Organization [facility] Address [address] [place] [address] Phone [phone] Care Team Providers Care Industrial Safety Engineer Name Role Phone Abdulkadir Olivera MD Primary Care Provider [phone] Encounter Details Date Type Department Care Team (Late st Contact Info) Description 01/13/2024 Orders Only Hematology/Oncology Samuel Rodas [place] 200 [facility] [place] [phone] Jose Worthy MD 200 [facility] [place] [address] Small cell lung cancer (HCC)*; Metastasis to mediastinal lymph node (HCC); Metastasis to liver (HCC) Allergies No known active allergiesdocumented as of this encounter (statuses as of 01/13/2024) Medications Medication Sig Dispensed Refills Start Date [...] as of this encounter (statuses as of 01/13/2024) Active Problems Problem Noted Date Diagnosed Date Small cell lung cancer 11/15/2023 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 - Paratracheal information in about 1.2 cm smaller - Right upper lobe mass measuring about 3.5 cm, previously it was 5.7 cm which are - Decrease in the size of the multiple liver lesions noted. Overall partial response noted. Will continue with the current treatment plan with etoposide, carboplatin, atezolizumab. So far she received 3 cycles of chemotherapy. I'm planning for additional 3 cycles of chemotherapy. documented in this encounter Plan of Treatment Upcoming Encounters Date Type Department Care Team (Late st Contact Info) Description 01/21/2024 7:50 AM EDT Laboratory Laboratory [facility] Adrianna [place] [address] [place] [phone] Adrianna, Lab Scenery 200 Samuel Richard [facility] [place] [address] 01/21/2024 9:00 AM EDT Hem/Onc Treatment Hematology/Oncology Treatment, [place] [address] [place] [phone] Adrianna, Chair 3 Hem Onc Scenery 200 [place] [address] 01/22/2024 8:45 AM EDT Office Visit Hematology/Oncology [facility] 200 [place] [place] [phone] Jose Worthy MD 200 [place] [address] 01/22/2024 9:15 AM EDT Hem/Onc Treatment Hematology/Oncology Treatment, [place] 200 [facility] [place] [facility] [phone] Adrianna, Chair 8 Hem Onc [facility] 200 [place] [place] [address] 01/23/2024 8:45 AM EDT Hem/Onc Treatment Hematology/Oncology Treatment, [place] 200 [facility] [place] 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
--- OUTSIDE RECORDS SUMMARY | 2024-01-23 19:17 | External Medical Summary | Summary of Care ---
Author Name Unknown Organization [facility] Address [address] [place] [address] Phone [phone] Care Team Providers Care Director Of Quality Name Role Phone Abdulkadir Olivera MD Primary Care Provider Encounter Details Date Type Department Care Team (Late st Contact Info) Description 11/06/[address] [facility] [address] [place] [address] Abdulkadir Olivera MD [address] [place] [address] Allergies No known active allergiesdocumented [...] Description 01/09/2024 3:30 PM EDT Imaging Radiology [facility], [address] [place] [address] 01/21/2024 7:50 AM EDT Laboratory Laboratory [facility] Adrianna [place] [address] [place] [phone] Adrianna, Lab Scenery [address] [place] [address] 01/21/2024 9:00 AM EDT Hem/Onc Treatment Hematology/Oncology Treatment, [place] [address] [place] [phone] Adrianna, Chair 3 Hem Onc Scenery [address] [place] [address] 01/22/2024 8:45 AM EDT Office Visit Hematology/Oncology [facility] [place] [address] [facility] [address] [place], [place] [phone] Jose Worthy MD 200 [facility] [place], [place] [address] 01/22/2024 9:15 AM EDT Hem/Onc Treatment Hematology/Oncology Treatment, [place] 200 [facility], [place] [phone] Park, Chair 8 Hem Onc [facility] 200 [facility] [place] [address] 01/23/2024 8:45 AM EDT Hem/Onc Treatment Hematology/Oncology Treatment, [place] 200 [facility], [place] [phone] Adrianna, Chair 9 Hem Onc [address] [place], [place] [address] Health Maintenance Due Date Last Done Comments [...] interpreted or resulted by a [facility] or [employer] contracted radiologist. Abdulkadir Olivera MD RAD CT documented in this encounter Care Teams Director Of Quality Relationship Specialty Start Date End Date Abdulkadir Olivera MD [address] [place] [address] PCP - General Family Medicine 12/27/22 documented as of this encounter
--- OUTSIDE RECORDS SUMMARY | 2024-01-23 19:17 | External Medical Summary | Summary of Care ---
Author Name Unknown Organization [facility] Address [address] [place] [facility] [place] [address] Phone [phone] Care Team Providers Care Legal Secretary Receptionist Name Role Phone Abdulkadir Olivera MD Primary Care Provider Reason for Visit * Reason Onset Date Comments Test Results Imaging Study 01/14/2024 Encounter Details Date Type Department Care Team (Late st Contact Info) Description 01/14/2024 Telephone Hematology/Oncology Treatment, [place] [address] [facility] [place] [address] Jose Worthy MD 200 [place] [address] Test Results Imaging Study Allergies No known active allergiesdocumented as of this encounter (statuses as of 01/14/2024) Medications Medication Sig Dispensed Refills Start Date [...] as of this encounter (statuses as of 01/14/2024) Active Problems Problem Noted Date Diagnosed Date Small cell lung cancer 11/15/2023 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 She notes that in April she has a trip to [place] planned to see her brother, but as of now her treatmentwill fall on this day. Advised her that we can delay treatment a few days due to her trip- will do that once it gets closer. documented in this encounter Plan of Treatment Upcoming Encounters Date Type Department Care Team (Late st Contact Info) Description 01/21/2024 7:50 AM EDT Laboratory Laboratory [place] [address] [place] [phone] Jigna Rodas [place] [address] [facility] [place] [address] 01/21/2024 9:00 AM EDT Hem/Onc Treatment Hematology/Oncology Treatment, [place] 200 [facility] [place] [phone] Adrianna, Chair 3 Hem Onc [place] 200 [facility] [place], [place] [address] 01/22/2024 8:45 AM EDT Office Visit Hematology/Oncology [facility] [place] 200 [facility] [place], [place] [phone] Jose Worthy MD 200 [facility] [place], [place] [address] 01/22/2024 9:15 AM EDT Hem/Onc Treatment Hematology/Oncology Treatment, [place] 200 [facility] [place] [phone] Adrianna, Chair 8 Hem Onc [place] 200 [facility] [place], [place] [address] 01/23/2024 8:45 AM EDT Hem/Onc Treatment Hematology/Oncology Treatment, [place] 200 [facility] [place] [phone] Adrianna, Chair 9 Hem Onc [place] 200 [facility] [place] [address] Health Maintenance Due Date Last Done Comments [...] filedocumented as of this encounter Care Teams Legal Secretary Receptionist Relationship Specialty Start Date End Date Abdulkadir Olivera MD [address] [place] [address] PCP - General Family Medicine 12/27/22 documented as of this encounter
--- OUTSIDE RECORDS SUMMARY | 2024-01-23 19:17 | External Medical Summary | Summary of Care ---
Author Name Unknown Organization [facility] Address [address] [place] [place] [address] Phone [phone] Care Team Providers Care Secretary Board Of Commissioners Name Role Phone Abdulkadir Olivera MD Primary Care Provider Reason for Visit * Reason Comments Chemotherapy C2D2 Etoposide * Episode Based Medications (Routine) - Authorized Specialty Diagnoses / Procedures Referred By Contlucila t Referred To Contact Diagnoses Encounter for antineoplastic chemotherapy Metastasis to liver (HCC) Metastasis to mediastinal lymph node (HCC) Small cell lung cancer (HCC) Procedures MA CARBOPLATIN INJECTION MA FOSAPREPITANT INJECTION MA ETOPOSIDE 10 MG INJ MA INJ, ATEZOLIZUMAB,10 MG Jose Worthy MD [address] [place] [address] [place] [address] Anc Hem/Onc [address] [address] Referral ID Status Reason Start Date Expiration Date V isits Requested Visits Authorized [id number] Authorized 11/15/2023 06/22/2024 [id number] Encounter Details Date Type Department Care Team (Latest Contact Info) Description 12/11/2023 10:00 AM EST Hem/Onc Treatment Hematology/Oncolog y Treatment, [address] [phone] Adrianna, Chair 3 Hem On[address] [place] [address] Encounter for antineoplastic chemotherapy*; Metastasis to liver [...] Description 01/21/2024 7:50 AM EDT Laboratory Laboratory [facility] [place] [address] [place] [phone] Adrianna, Lab [facility] 200 [facility] [place] [address] 01/21/2024 9:00 AM EDT Hem/Onc Treatment Hematology/Oncology Treatment, [place] [address] [place] [address] Adrianna, Chair 3 Hem Onc Scenery 200 [place] [address] 01/22/2024 8:45 AM EDT Office Visit Hematology/Oncology [facility] [place] 200 [facility], [place] [phone] Jose Worthy MD 200 [facility], [place] [address] 01/22/2024 9:15 AM EDT Hem/Onc Treatment Hematology/Oncology Treatment, [place] 200 [facility] [place] [phone] Adrianna, Chair 8 Hem Onc Scenery 200 [facility] [place], [place] [address] 01/23/2024 8:45 AM EDT Hem/Onc Treatment Hematology/Oncology Treatment, [place] 200 [facility], [place] [phone] Adrianna, Chair 9 Hem Onc Scenery 200 [place] [address] Health Maintenance Due Date Last Done Comments [...] mg documented in this encounter Care Teams Secretary Board Of Commissioners Relationship Specialty Start Date End Date Abdulkadir Olivera MD [address] [facility] [place] [address] PCP - General Family Medicine 12/27/22 documented as of this encounter
--- OUTSIDE RECORDS SUMMARY | 2024-01-23 19:17 | External Medical Summary | Summary of Care ---
Author Name Unknown Organization [facility] Address [address] [facility] [address] Phone [phone] Care Team Providers Care Salesforce Business Analyst Name Role Phone Abdulkadir Olivera MD Primary Care Provider [phone] Encounter Details Date Type Department Care Team (Late st Contact Info) Description 11/06/2023 Orders Only Hematology/Oncology Samuel Rodas [place] 200 [facility] [place] [phone] Jose Worthy MD 200 [facility] [address] Allergies No known active allergiesdocumented as of [...] Description 01/09/2024 3:30 PM EDT Imaging Radiology [facility] 1st [facility], [address] [place] [address] 01/21/2024 7:50 AM EDT Laboratory Laboratory [facility] [place] [address] [place] [phone] Adrianna Lab Scenery [address] [place] [address] 01/21/2024 9:00 AM EDT Hem/Onc Treatment Hematology/Oncology Treatment, [place] [address] [place] [phone] Adrianna, Chair 3 Hem Onc [place] [address] [place] [address] 01/22/2024 8:45 AM EDT Office Visit Hematology/Oncology [facility] [place] 200 [facility] [place], [place] [phone] Jose Worthy MD 200 [facility], [place] [address] 01/22/2024 9:15 AM EDT Hem/Onc Treatment Hematology/Oncology Treatment, [place] 200 [facility], [place] [phone] Adrianna, Chair 8 Hem Onc [address] [place], [place] [address] 01/23/2024 8:45 AM EDT Hem/Onc Treatment Hematology/Oncology Treatment, [place] 200 [facility], [place] [phone] Adrianna, Chair 9 Hem Onc [address] [place], [place] [address] Health Maintenance Due Date Last Done Comments [...] CT (IMAGES ONLY, NO REPORT) Routine 11/06/2023 4:20 PM EST documented in this encounter Results * RADIOLOGY EXAM - CT (IMAGES ONLY, NO REPORT) (11/06/2023 4:20 PM EST) 11/06/2023 4:19 PM EST Narrative Scheduling, Silent - 01/09/2024 12:35 PM EDT This is an imaging study not interpreted or resulted by a [facility] or [facility] contracted radiologist. Jose Worthy MD RAD CT documented in this encounter Care Teams Salesforce Business Analyst Relationship Specialty Start Date End Date Abdulkadir Olivera MD [address] [place] [address] PCP - General Family Medicine 12/27/22 documented as of this encounter
--- OUTSIDE RECORDS SUMMARY | 2024-01-23 19:17 | External Medical Summary | Summary of Care ---
Author Name Unknown Organization [facility] Address [address] [place] [address] Phone [phone] Care Team Providers Care Knitted Cloth Examiner Name Role Phone Abdulkadir Olivera MD Primary Care Provider [phone] Encounter Details Date Type Department Care Team (Latest Contact Info) Description 11/30/2023 9:35 PM EST - 11/30/2023 11:59 PM EST Hospital Encounter Radiology Film File [address] [place], [place] [id number] Discharge Disposition: Home - Self Care Allergies [...] 7:50 AM EDT Laboratory Laboratory [facility] Adrianna [place] [address] [place] [phone] Adrianna, Lab Scenery 200 [facility] [place] [address] 01/21/2024 9:00 AM EDT Hem/Onc Treatment Hematology/Oncology Treatment, [place] 200 [facility] [place] [phone] Adrianna, Chair 3 Hem Onc [facility] 200 [facility] [place] [address] 01/22/2024 8:45 AM EDT Office Visit Hematology/Oncology [facility] [place] [address] [place] [phone] Jose Worthy MD [address] [place] [address] 01/22/2024 9:15 AM EDT Hem/Onc Treatment Hematology/Oncology Treatment, [place] 200 [facility] [place], [place] [phone] Adrianna, Chair 8 Hem Onc [place] 200 [facility] [place], [place] [address] 01/23/2024 8:45 AM EDT Hem/Onc Treatment Hematology/Oncology Treatment, [address] [phone] Adrianna, Chair 9 Hem Onc [place] 200 [facility] [place], [place] [address] Health Maintenance Due Date Last Done Comments COVID-19 Vaccine (#1) 1965 HIV Screening 1975 Hepatitis C Screening 1978 Zoster Vaccines (1 of 2) 1979 HPV/Co-Test 1990 Pneumococcal Vaccine: Pediatrics (0 to 5 Years) and At-Risk Patients (6 to 64 Years) (2 of 2 - PCV) 07/04/2012 07/04/2011 Mammogram 05/07/2015 05/07/2014, 04/2 11/2012, 07/15/2012, Additional history exists Cervical Cancer Screening [...] interpreted or resulted by a [facility] or [facility] contracted radiologist. Abdulkadir Olivera MD RADIOLOGY (RAD GENER AL) documented in this encounter Care Teams Knitted Cloth Examiner Relationship Specialty Start Date End Date Abdulkadir Olivera MD [address] [place] [address] PCP - General Family Medicine 12/27/22 documented as of this encounter
--- OUTSIDE RECORDS SUMMARY | 2024-01-23 19:17 | External Medical Summary | Summary of Care ---
Author Name Unknown Organization [facility] Address [address] [place] [address] Phone [phone] Care Team Providers Care Flat Grinder Operator Name Role Phone Abdulkadir Olivera MD Primary Care Provider Reason for Visit * Reason Comments Chemotherapy Tecentriq, carboplat in, etoposide. * Episode Based Medications (Routine) - Authorized Specialty Diagnoses / Procedures Referred By Contac t Referred To Contact Diagnoses Encounter for antineoplastic chemotherapy Metastasis to liver (HCC) Metastasis to mediastinal lymph node (HCC) Small cell lung cancer (HCC) Procedures NE CARBOPLATIN INJECTION NE FOSAPREPITANT INJECTION NE ETOPOSIDE 10 MG INJ NE INJ, ATEZOLIZUMAB,10 MG Jose Worthy MD 200 [facility] [place] [address] Anc Hem/Onc [address] [address] Referral ID Status Reason Start Date Expiration Date V isits Requested Visits Authorized [id number] Authorized 11/15/2023 06/22/2024 999 [id number] Encounter Details Date Type Department Care Team (Latest Contact Info) Description 12/10/2023 8:30 AM EST Hem/Onc Treatment Hematology/Oncolog y Treatment, [address] [phone] Adrianna Chair 7 Hem Onc [address] [place] [address] Encounter for antineoplastic chemotherapy*; Metastasis to liver [...] Description 01/21/2024 7:50 AM EDT Laboratory Laboratory [facility] [address] [place] [phone] Adrianna, Lab [address] [place] [address] 01/21/2024 9:00 AM EDT Hem/Onc Treatment Hematology/Oncology Treatment, [address] [place] [phone] Adrianna, Chair 3 Hem Onc [address] [place] [address] 01/22/2024 8:45 AM EDT Office Visit Hematology/Oncology [facility] [address] [place] [address] Jose Worthy MD 200 [facility] [place] [address] 01/22/2024 9:15 AM EDT Hem/Onc Treatment Hematology/Oncology Treatment, [address] [place] [phone] Adrianna, Chair 8 Hem Onc [facility] [address] [place] [address] [place] [address] 01/23/2024 8:45 AM EDT Hem/Onc Treatment Hematology/Oncology Treatment, [place] [address] [place], [place] [phone] Adrianna, Chair 9 Hem Onc [place]en[address] [place], [place] [address] Health Maintenance Due Date Last Done Comments [...] mL/hr documented in this encounter Care Teams Flat Grinder Operator Relationship Specialty Start Date End Date Abdulkadir Olivera MD [address] [place], [place] [phone] PCP - General Family Medicine 12/27/22 documented as of this encounter
--- OUTSIDE RECORDS SUMMARY | 2024-01-23 19:17 | External Medical Summary | Summary of Care ---
Author Name Unknown Organization [facility] Address [address] [place] [address] Phone [phone] Care Team Providers Care Nickel Operator Name Role Phone Abdulkadir Olivera MD Primary Care Provider Reason for Visit * Reason Comments Chemotherapy Tecentriq, carboplat in, etoposide. * Episode Based Medications (Routine) - Authorized Specialty Diagnoses / Procedures Referred By Contac t Referred To Contact Diagnoses Encounter for antineoplastic chemotherapy Metastasis to liver (HCC) Metastasis to mediastinal lymph node (HCC) Small cell lung cancer (HCC) Procedures [place] CARBOPLATIN INJECTION [place] FOSAPREPITANT INJECTION TN ETOPOSIDE 10 MG INJ TN INJ, ATEZOLIZUMAB,10 MG Jose Worthy MD 200 [facility] [place] [address] Anc Hem/Onc [address] [address] Referral ID Status Reason Start Date Expiration Date V isits Requested Visits Authorized [id number] Authorized 11/15/2023 06/22/[id number] Encounter Details Date Type Department Care Team (Latest Contact Info) Description 12/10/2023 8:30 AM EST Hem/Onc Treatment Hematology/Oncolog y Treatment, [address] [phone] Adrianna Chair 7 Hem Onc [address] [place] [address] Encounter for antineoplastic chemotherapy*; Metastasis to liver [...] Description 01/21/2024 7:50 AM EDT Laboratory Laboratory [facility] [address] [place] [phone] Adrianna, Lab [address] [place] [address] 01/21/2024 9:00 AM EDT Hem/Onc Treatment Hematology/Oncology Treatment, [address] [place] [phone] Adrianna, Chair 3 Hem Onc [address] [place] [address] 01/22/2024 8:45 AM EDT Office Visit Hematology/Oncology [facility] [address] [place] [phone] Jose Worthy MD 200 [facility] [place] [address] 01/22/2024 9:15 AM EDT Hem/Onc Treatment Hematology/Oncology Treatment, [address] [place] [phone] Adrianna, Chair 8 Hem Onc [facility] [address] [place] [address] [place] [address] 01/23/2024 8:45 AM EDT Hem/Onc Treatment Hematology/Oncology Treatment, [place] [address] [place], [place] [phone] Adrianna, Chair 9 Hem Onc [address] [place], [place] [address] Health Maintenance Due Date Last Done Comments [...] mL/hr documented in this encounter Care Teams Nickel Operator Relationship Specialty Start Date End Date Abdulkadir Olivera MD [address] [place], [place] [phone] PCP - General Family Medicine 12/27/22 documented as of this encounter
--- OUTSIDE RECORDS SUMMARY | 2024-01-23 19:17 | External Medical Summary | Summary of Care ---
Author Name Unknown Organization [facility] Address [address] [place] [address] Phone [phone] Care Team Providers Care Poultry Scientist Name Role Phone Abdulkadir Olivera MD Primary Care Provider [phone] Encounter Details Date Type Department Care Team (Latest Contact Info) Description 11/06/2023 4:20 PM EST - 11/06/2023 7:04 PM EST Hospital Encounter Radiology Film File [address] [place] [address] Discharge Disposition: Home - Self [...] Description 01/21/2024 7:50 AM EDT Laboratory Laboratory [facility] Adrianna [place] [address] [place] [address] [phone] [place] [address] 01/21/2024 9:00 AM EDT Hem/Onc Treatment Hematology/Oncology Treatment [place] [address] [place] [phone] Adrianna, Chair 3 Hem Onc [facility] [place] [address] 01/22/2024 8:45 AM EDT Office Visit Hematology/Oncology [facility] Adrianna [place] [address] [place] [address] [phone] Jose Worthy MD 200 [facility] [place] [address] 01/22/2024 9:15 AM EDT Hem/Onc Treatment Hematology/Oncology Treatment, [place] 200 [place] [phone] Adrianna, Chair 8 Hem Onc [facility] 200 [facility] [place] [address] 01/23/2024 8:45 AM EDT Hem/Onc Treatment Hematology/Oncology Treatment, [place] 200 [place] [phone] Adrianna, Chair 9 Hem Onc [address] [place] [address] Health Maintenance Due Date Last Done Comments [...] interpreted or resulted by a [facility] or [facility] contracted radiologist. Jose Worthy MD RAD CT documented in this encounter Care Teams Poultry Scientist Relationship Specialty Start Date End Date Abdulkadir Olivera MD [address] [place] [address] PCP - General Family Medicine 12/27/22 documented as of this encounter
--- OUTSIDE RECORDS SUMMARY | 2024-01-23 19:18 | External Medical Summary | Summary of Care ---
Author Name Unknown Organization [facility] Address [address] [facility] [place] [address] Phone [phone] Care Team Providers Care Flanging Operator Name Role Phone Abdulkadir Olivera MD Primary Care Provider [phone] Reason for Visit * Reason Comments Chemotherapy C1D1 Tecentriq/Carbo /Etoposide * Episode Based Medications (Routine) - Authorized Specialty Diagnoses / Procedures Referred By Contlucila t Referred To Contact Diagnoses Encounter for antineoplastic chemotherapy Metastasis to liver (HCC) Metastasis to mediastinal lymph node (HCC) Small cell lung cancer (HCC) Procedures [place] CARBOPLATIN INJECTION [place] FOSAPREPITANT INJECTION [place] ETOPOSIDE 10 MG INJ [place] INJ, ATEZOLIZUMAB,10 MG Jose Worthy MD 200 [facility] [place] [address] Anc Hem/Onc [address] [address] Referral ID Status Reason Start Date Expiration Date V isits Requested Visits Authorized [id number] Authorized 11/15/2023 10/28/2099 999 [id number] Encounter Details Date Type Department Care Team (Latest Contact Info) Description 11/19/2023 10:00 AM EST Hem/Onc Treatment Hematology/Oncolog y Treatment, [address] [address] Adrianna, Chair 9 Hem On[address] [place] [address] Encounter for antineoplastic chemotherapy*; Metastasis to liver (HCC); Metastasis to mediastinal lymph node (HCC); Small cell lung cancer (HCC) Allergies No known active allergiesdocumented as of this encounter (statuses as of 12/18/2023) Medications Medication Sig Dispensed Refills Start Date [...] as of this encounter (statuses as of 12/18/2023) Active Problems Problem Noted Date Diagnosed Date Small cell lung cancer 11/15/2023 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 Encounter for antineoplastic chemotherapy 2023 Depression 11/03/2013 Anxiety 11/03/2013 Other ectopic documented as of this encounter (statuses as of 12/18/2023) Immunizations Name Administration Dates Next Due Pneumococcal [...] Team (Late st Contact Info) Description 12/31/2023 7:50 AM EST Laboratory Laboratory Scenery State Mary Rodas [address] [place] [phone] Park, Lab Scenery [address] [place] [address] 12/31/2023 9:00 AM EST Hem/Onc Treatment Hematology/Oncology Treatment, [place] 200 [facility] [place] [phone] Adrianna, Chair 5 Hem Onc Scenery 200 [facility] [place] [address] 01/01/2024 9:15 AM EST Office Visit Hematology/Oncology [facility] [place] 200 [facility] [place], [place] [phone] Jose Worthy MD [address] [place] [address] 01/01/2024 9:45 AM EST Hem/Onc Treatment Hematology/Oncology Treatment, [place] 200 [facility] [place] [address] Adrianna, Chair 6 Hem Onc Scenery 200 [facility] [place], [place] [address] 01/02/2024 9:00 AM EST Hem/Onc Treatment Hematology/Oncology Treatment, [place] 200 [facility] [place] [phone] Adrianna, Chair 6 Hem Onc Scenery 200 [facility] [address] Health Maintenance Due Date Last Done Comments [...] 10:30 AM EST 150 mg 500 mL/hr hEParin 100 UNIT/ML Lock Flush inj 500 Units 500 Units (5 mL), IV Lock, PRN Other, IV Flush, Starting on Sun11/19/23 at 1028, Until Sun11/19/23 at 1833, For 24 hours, Do not flush if lock, PICC, or central line not in place; IV infusing or unable to flush. Given 11/19/2023 1:55 PM EST 500 Units NSS infusion Intravenous, at 50 mL/hr, PRN, Starting on Sun11/19/23 at 1130, Until Sun11/19/23 at 1833, Maintenance line Start Infusion 11/19/2023 10:25 AM EST 50 mL/hr sodium chloride 0.9 % flush central line 10 mL 10 mL, IV Push, PRN Other, IV Flush, Starting on Sun11/19/23 at 1028, Until Sun11/19/23 at 1833, For 24 hours, Do not flush if lock, PICC, or central line not in place; IV infusing or unable to flush. Given 11/19/2023 1:54 PM EST 10 mL documented in this encounter Care Teams Flanging Operator Relationship Specialty Start Date End Date Abdulkadir Olivera MD [address] [place] [address] PCP - General Family Medicine 12/27/22 documented as of this encounter
--- OUTSIDE RECORDS SUMMARY | 2024-01-23 19:18 | External Medical Summary | Summary of Care ---
Author Name Unknown Organization [facility] Address [address] [place] [address] Phone [phone] Care Team Providers Care Lease Administrator Name Role Phone Abdulkadir Olivear MD Primary Care Provider [phone] Reason for Visit * Reason Comments Chemotherapy C1D1 Tecentriq/Carbo /Etoposide * Episode Based Medications (Routine) - Authorized Specialty Diagnoses / Procedures Referred By Contlucila t Referred To Contact Diagnoses Encounter for antineoplastic chemotherapy Metastasis to liver (HCC) Metastasis to mediastinal lymph node (HCC) Small cell lung cancer (HCC) Procedures [place] CARBOPLATIN INJECTION [place] FOSAPREPITANT INJECTION [place] ETOPOSIDE 10 MG INJ [place] INJ, ATEZOLIZUMAB,10 MG Jose Worthy MD 200 [facility] [place] [address] Anc Hem/Onc [address] [address] Referral ID Status Reason Start Date Expiration Date V isits Requested Visits Authorized [id number] Authorized 11/15/2023 10/28/2099 999 [id number] Encounter Details Date Type Department Care Team (Latest Contact Info) Description 11/19/2023 10:00 AM EST Hem/Onc Treatment Hematology/Oncolog y Treatment, [address] [address] Adrianna, Chair 9 Hem Onc [address] [place] [address] Encounter for antineoplastic chemotherapy*; Metastasis to liver [...] remains intact fortreatment tomorrow. Coverage by Ceci Aflaro RN. * Yuli Mckeon RN - 11/19/2023 [...] State Mary Rodas [address] [place] [phone] [place], Lab Scenery [address] [place] [address] 12/31/2023 9:00 AM EST Hem/Onc Treatment Hematology/Oncology Treatment, [place] 200 [facility] [place] [phone] Adrianna, Chair 5 Hem Onc Scenery 200 [facility] [place] [address] 01/01/2024 9:15 AM EST Office Visit Hematology/Oncology [facility] [place] 200 [facility] [place], [place] [phone] Jose Worthy MD [address] [place] [address] 01/01/2024 9:45 AM EST Hem/Onc Treatment Hematology/Oncology Treatment, [place] 200 [facility] [phone] Adrianna, Chair 6 Hem Onc Scenery 200 [facility] [place], [place] [address] 01/02/2024 9:00 AM EST Hem/Onc Treatment Hematology/Oncology Treatment, [place] 200 [facility] [phone] Adrianna, Chair 6 Hem Onc Scenery 200 [facility] [place] [address] Health Maintenance Due Date Last Done Comments [...] mL documented in this encounter Care Teams Lease Administrator Relationship Specialty Start Date End Date Abdulkadir Olivera MD [address] [place] [address] PCP - General Family Medicine 12/27/22 documented as of this encounter
--- OUTSIDE RECORDS SUMMARY | 2024-01-23 19:18 | External Medical Summary | Summary of Care ---
Author Name Unknown Organization [facility] Address [address] [place] [address] Phone [phone] Care Team Providers Care Play Back Operator Name Role Phone Abdulkadir Olivera MD Primary Care Provider Reason for Visit * Reason Comments Outpatient Testing Encounter Details Date Type Department Care Team (Late st Contact Info) Description 12/31/2023 7:50 AM EST Laboratory [facility] [address] [place] [phone] [facility] Lab Scenery [address] [place] [address] Small cell lung cancer (HCC); Metastasis to liver (HCC); Metastasis to mediastinal lymph node (HCC) Allergies No known active allergiesdocumented as of this encounter (statuses as of 12/31/2023) Medications Medication Sig Dispensed Refills Start Date [...] as of this encounter (statuses as of 12/31/2023) Active Problems Problem Noted Date Diagnosed Date Small cell lung cancer 11/15/2023 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 Encounter for antineoplastic chemotherapy 2023 Depression 11/03/2013 Anxiety 11/03/2013 Other ectopic documented as of this encounter (statuses as of 12/31/2023) Immunizations Name Administration Dates Next Due Pneumococcal [...] Contact Info) Description 12/31/2023 9:00 AM EST Hem/Onc Treatment Hematology/Oncology [address], [address] [phone] Adrianna, Chair 5 Hem Onc [address] [place] [address] Arrived 01/01/2024 9:15 AM EST Office Visit Hematology/Oncology [facility] [address] [place] [phone] Jose Worthy MD [address] [place] [address] [place] [address] 01/01/2024 11:00 AM EST Hem/Onc Treatment Hematology/Oncology [address] [phone] Adrianna, Chair 6 Hem Onc [address] [place] [address] 01/02/2024 9:00 AM EST Hem/Onc Treatment Hematology/Oncology [address] [phone] Adrianna, Chair 6 Hem Onc [address] [place] [address] Pending Results Name Type Priority Associated Diagnoses Date /Time CBC WITH WBC DIFFERENTIAL Lab STAT Small cell lung cancer (HCC) Metastasis to liver (HCC) Metastasis to mediastinal lymph node (HCC) 12/31/2023 7:57 AM EST COMPREHENSIVE METABOLIC PANEL Lab STAT Small cell lung cancer (HCC) Metastasis to liver (HCC) Metastasis to mediastinal lymph node (HCC) 12/31/2023 7:57 AM EST TSH WITH FREE T4 IF INDICATED Lab STAT Small cell lung cancer (HCC) Metastasis to liver (HCC) Metastasis to mediastinal lymph node (HCC) 12/31/2023 7:57 AM EST CBC Lab STAT Small cell lung cancer (HCC) Metastasis to liver (HCC) Metastasis to mediastinal lymph node (HCC) 12/31/2023 7:57 AM EST DIFFERENTIAL, AUTOMATED Lab STAT Small cell lung cancer (HCC) Metastasis to liver (HCC) Metastasis to mediastinal lymph node (HCC) 12/31/2023 7:57 AM EST Health Maintenance Due Date Last Done [...] nodes documented in this encounter Care Teams Play Back Operator Relationship Specialty Start Date End Date Abdulkadir Olivera MD [address] [place] [address] PCP - General Family Medicine 12/27/22 documented as of this encounter
--- OUTSIDE RECORDS SUMMARY | 2024-01-23 19:18 | External Medical Summary ---
Author Name Unknown Address Unknown Organization [id number] [place] [address] Laboratory Report Ordering Provider Test Date Status ANGUS BAUM 12/31/2023 07:57:43 Final Observation Date Value Abnormality Reference (Units ) Status SYNC LEUKOCYTES IN BLOOD BY AUTOMATED COUNT 12/31/2023 07:57:43 8.07 4.00-10.80 (K/uL) Final Neutrophils/100 leukocytes in Blood by Manual count 12/31/2023 07:57:43 44.0 40.0-75.0 (%) Final Lymphocytes/100 leukocytes in Blood by Manual count 12/31/2023 07:57:43 35.0 18.0-42.0 (%) Final Monocytes/100 leukocytes in Blood by Manual count 12/31/2023 07:57:43 18.0 Above high normal 1.0-11.0 (%) Final Eosinophils/100 leukocytes in Blood by Manual count 12/31/2023 07:57:43 3.0 0.0-6.0 (%) Final Neutrophils [#/volume] in Blood by Manual count 12/31/2023 07:57:43 3.55 1.80-7.70 (K/uL) Final Lymphocytes [#/volume] in Blood by Manual count 12/31/2023 07:57:43 2.82 1.00-4.80 (K/uL) Final Monocytes [#/volume] in Blood by Manual count 12/31/2023 07:57:43 1.45 Above high normal 0.00-1.10 (K/uL) Final Eosinophils [#/volume] in Blood by Manual count 12/31/2023 07:57:43 0.24 0.00-0.70 (K/uL) Final Nucleated erythrocytes/100 leukocytes [Ratio] in Blood by Automated count 12/31/2023 07:57:43 Final Variant lymphocytes [Presence] in Blood by Light microscopy 12/31/2023 07:57:43 Present Abnormal None Seen Final Performing Location [facility] [place] [address]
--- OUTSIDE RECORDS SUMMARY | 2024-01-23 19:18 | External Medical Summary | Summary of Care ---
Author Name Unknown Organization [facility] Address [address] [facility] [place] [address] Phone [phone] Care Team Providers Care Inspector And Clerk Name Role Phone Abdulkadir Olivera MD Primary Care Provider Reason for Visit * Reason Comments Chemotherapy Etoposide * Episode Based Medications (Routine) - Authorized Specialty Diagnoses / Procedures Referred By Contac t Referred To Contact Diagnoses Encounter for antineoplastic chemotherapy Metastasis to liver (HCC) Metastasis to mediastinal lymph node (HCC) Small cell lung cancer (HCC) Procedures [place] CARBOPLATIN INJECTION [place] FOSAPREPITANT INJECTION [place] ETOPOSIDE 10 MG INJ [place] INJ, ATEZOLIZUMAB,10 MG Jose Worthy MD [address] [place] [address] Anc Hem/Onc [address] [address] Referral ID Status Reason Start Date Expiration Date V isits Requested Visits Authorized [id number] Authorized 11/15/2023 10/28/2099 999 [id number] Encounter Details Date Type Department Care Team (Latest Contact Info) Description 11/21/2023 11:30 AM EST Hem/Onc Treatment Hematology/Oncolog y Treatment, [address] [address] Encounter for antineoplastic chemotherapy*; Metastasis to liver (HCC); Metastasis to mediastinal lymph node (HCC); Small cell lung cancer (HCC) Allergies No known active allergiesdocumented as of this encounter (statuses as of 12/20/2023) Medications Medication Sig Dispensed Refills Start Date [...] as of this encounter (statuses as of 12/20/2023) Active Problems Problem Noted Date Diagnosed Date Small cell lung cancer 11/15/2023 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 Encounter for antineoplastic chemotherapy 2023 Depression 11/03/2013 Anxiety 11/03/2013 Other ectopic documented as of this encounter (statuses as of 12/20/2023) Immunizations Name Administration Dates Next Due Pneumococcal [...] this encounter Progress Notes * Anshul Marion, FABIENNE - 11/21/2023 3:22 PM EST Infusion completed. [...] in this encounter Nursing Notes * Anshul Marion, FABIENNE - 11/21/2023 3:20 PM EST Chair 6. [...] Description 12/31/2023 7:50 AM EST Laboratory Laboratory [facility] [address] [place] [phone] Adrianna, Lab [address] [place] [address] 12/31/2023 9:00 AM EST Hem/Onc Treatment Hematology/Oncology [address] [phone] Adrianna, Chair 5 Hem Onc [address] [place] [address] 01/01/2024 9:15 AM EST Office Visit Hematology/Oncology [facility] [address] [place] [phone] Jose Worthy MD [address] [place], [place] [address] [address] 01/01/2024 11:00 AM EST Hem/Onc Treatment Hematology/Oncology Treatment, [address] [place] [phone] Adrianna, Chair 6 Hem Onc [address] [place], [place] [address] 01/02/2024 9:00 AM EST Hem/Onc Treatment Hematology/Oncology Treatment, [place] 200 [facility], [place] [phone] Adrianna, Chair 6 Hem Onc [address] [place], [place] [address] Health Maintenance Due Date Last Done Comments [...] 12:26 PM EST 180 mg 500 mL/hr NSS infusion Intravenous, at 50 mL/hr, PRN, Starting on Sun11/21/23 at 1315, Until Sun11/21/23 at 1931, Maintenance line Start Infusion 11/21/2023 12:26 PM EST 50 mL/hr ondansetron (Zofran) tab 8 mg 8 mg, Oral, ONCE, On Sun11/21/23 at 1315, For 1 dose, Give 30 minutes prior to chemotherapy. Given 11/21/2023 12:11 PM EST 8 mg documented in this encounter Care Teams Inspector And Clerk Relationship Specialty Start Date End Date Abdulkadir Olivera MD [address] [place] [address] PCP - General Family Medicine 12/27/22 documented as of this encounter
--- OUTSIDE RECORDS SUMMARY | 2024-01-23 19:18 | External Medical Summary | Summary of Care ---
Author Name Unknown Organization [facility] Address [address] [place] [place] [place] [address] Phone [phone] Care Team Providers Care Rehabilitation Clerk Name Role Phone Abdulkadir Olivera MD [...] [place] INJ, ATEZOLIZUMAB,10 MG Jose Worthy MD [address] [place] [address] Anc Hem/Onc [address] [address] Referral ID Status Reason Start Date Expiration Date V isits Requested Visits Authorized [id number] Authorized 11/15/2023 10/28/2099 999 [id number] Encounter Details Date Type Department Care Team (Latest Contact Info) Description 11/21/2023 11:30 AM EST Hem/Onc Treatment Hematology/Oncolog y Treatment, [address] [address] Encounter for antineoplastic chemotherapy*; Metastasis [...] Description 12/31/2023 7:50 AM EST Laboratory Laboratory [facility] [address] [place] [phone] Adrianna, Lab [address] [place] [address] 12/31/2023 9:00 AM EST Hem/Onc Treatment Hematology/Oncology [address] [phone] Adrianna, Chair 5 Hem Onc [address] [place] [address] 01/01/2024 9:15 AM EST Office Visit Hematology/Oncology [facility] [address] [place] [phone] Jose Worthy MD [address] [place], [place] [address] [address] 01/01/2024 11:00 AM EST Hem/Onc Treatment Hematology/Oncology Treatment, [address] [place] [phone] Adrianna, Chair 6 Hem Onc [address] [place], [place] [address] 01/02/2024 9:00 AM EST Hem/Onc Treatment Hematology/Oncology Treatment, [place] 200 [facility], [place] [phone] Adrianna, Chair 6 Hem Onc [address] [place], [place] [address] Health Maintenance Due Date Last Done Comments [...] mg documented in this encounter Care Teams Rehabilitation Clerk Relationship Specialty Start Date End Date Abdulkadir Olivera MD [address] [place] [address] PCP - General Family Medicine 12/27/22 documented as of this encounter
--- OUTSIDE RECORDS SUMMARY | 2024-01-23 19:18 | External Medical Summary | Summary of Care ---
Author Name Unknown Organization [facility] Address [address] [place] [place] [place] [address] Phone [phone] Care Team Providers Care Dredge Captain Name Role Phone Abdulkadir Olivera MD Primary Care Provider [phone] Reason for Visit * Reason Comments Chemotherapy C1D1 Tecentriq/Carbo /Etoposide * Episode Based Medications (Routine) - Authorized Specialty Diagnoses / Procedures Referred By Contlucila t Referred To Contact Diagnoses Encounter for antineoplastic chemotherapy Metastasis to liver (HCC) Metastasis to mediastinal lymph node (HCC) Small cell lung cancer (HCC) Procedures [place] CARBOPLATIN INJECTION SC FOSAPREPITANT INJECTION SC ETOPOSIDE 10 MG INJ SC INJ, ATEZOLIZUMAB,10 MG Jose Worthy MD 200 [facility] [place] [address] Anc Hem/Onc [address] [address] Referral ID Status Reason Start Date Expiration Date V isits Requested Visits Authorized [id number] Authorized 11/15/2023 10/28/2099 999 [id number] Encounter Details Date Type Department Care Team (Latest Contact Info) Description 11/19/2023 10:00 AM EST Hem/Onc Treatment Hematology/Oncolog y Treatment, [address] [phone] Adrianna, Chair 9 Hem Onc [address] [place] [address] Encounter for antineoplastic chemotherapy*; Metastasis to liver [...] State Mary Rodas [address] [place] [phone] [place], Lab Scenery [address] [place] [address] 12/31/2023 9:00 AM EST Hem/Onc Treatment Hematology/Oncology Treatment, [place] 200 [place] [phone] Adrianna, Chair 5 Hem Onc Scenery 200 [facility] [place] [address] 01/01/2024 9:15 AM EST Office Visit Hematology/Oncology [facility] [place] 200 [facility] [place], [place] [phone] Jose Worthy MD [address] [place] [address] 01/01/2024 9:45 AM EST Hem/Onc Treatment Hematology/Oncology Treatment, [place] 200 [place] [phone] Adrianna, Chair 6 Hem Onc Scenery 200 [facility] [place], [place] [address] 01/02/2024 9:00 AM EST Hem/Onc Treatment Hematology/Oncology Treatment, [place] 200 [place] [address] Adrianna, Chair 6 Hem Onc Scenery 200 [facility] [place] [address] Health Maintenance Due Date Last Done Comments [...] mL documented in this encounter Care Teams Dredge Captain Relationship Specialty Start Date End Date Abdulkadir Olivera MD [address] [place] [address] PCP - General Family Medicine 12/27/22 documented as of this encounter
--- OUTSIDE RECORDS SUMMARY | 2024-01-23 19:18 | External Medical Summary | Summary of Care ---
Author Name Unknown Organization [facility] Address [address] [place] [facility] [place] [place] [address] Phone [phone] Care Team Providers Care Gun Perforator Loader Name Role Phone Abdulkadir Olivera MD Primary Care Provider [phone] Reason for Visit * Reason Comments Chemotherapy Etoposide * Episode Based Medications (Routine) - Authorized Specialty Diagnoses / Procedures Referred By Contac t Referred To Contact Diagnoses Encounter for antineoplastic chemotherapy Metastasis to liver (HCC) Metastasis to mediastinal lymph node (HCC) Small cell lung cancer (HCC) Procedures [place] CARBOPLATIN INJECTION [place] FOSAPREPITANT INJECTION [place] ETOPOSIDE 10 MG INJ PA INJ, ATEZOLIZUMAB,10 MG Jose Worthy MD [address] [place] [address] Anc Hem/Onc [address] [address] Referral ID Status Reason Start Date Expiration Date V isits Requested Visits Authorized [id number] Authorized 11/15/2023 10/28/2099 999 [id number] Encounter Details Date Type Department Care Team (Latest Contact Info) Description 11/21/2023 11:30 AM EST Hem/Onc Treatment Hematology/Oncolog y Treatment, [address] [address] Encounter for antineoplastic chemotherapy*; Metastasis to liver (HCC); Metastasis to mediastinal lymph node (HCC); Small cell lung cancer (HCC) Allergies No known active allergiesdocumented as of this encounter (statuses as of 12/19/2023) Medications Medication Sig Dispensed Refills Start Date [...] as of this encounter (statuses as of 12/19/2023) Active Problems Problem Noted Date Diagnosed Date Small cell lung cancer 11/15/2023 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 Encounter for antineoplastic chemotherapy 2023 Depression 11/03/2013 Anxiety 11/03/2013 Other ectopic documented as of this encounter (statuses as of 12/19/2023) Immunizations Name Administration Dates Next Due Pneumococcal [...] Description 12/31/2023 7:50 AM EST Laboratory Laboratory [facility] [address] [place] [phone] Adrianna, Lab [address] [place] [address] 12/31/2023 9:00 AM EST Hem/Onc Treatment Hematology/Oncology [address] [phone] Adrianna, Chair 5 Hem Onc [address] [place] [address] 01/01/2024 9:15 AM EST Office Visit Hematology/Oncology [facility] [address] [place] [phone] Jose Worthy MD [address] [place], [place] [address] [address] 01/01/2024 9:45 AM EST Hem/Onc Treatment Hematology/Oncology Treatment, [address] [place] [phone] Adrianna, Chair 6 Hem Onc [address] [place], [place] [address] 01/02/2024 9:00 AM EST Hem/Onc Treatment Hematology/Oncology Treatment, [place] 200 [facility], [place] [phone] Adrianna, Chair 6 Hem Onc [address] [place], [place] [address] Health Maintenance Due Date Last Done Comments [...] mg documented in this encounter Care Teams Gun Perforator Loader Relationship Specialty Start Date End Date Abdulkadir Olivera MD [address] [place] [address] PCP - General Family Medicine 12/27/22 documented as of this encounter
--- OUTSIDE RECORDS SUMMARY | 2024-01-23 19:18 | External Medical Summary ---
Author Name Unknown Address Unknown Organization [facility] [address] [place] [address] Laboratory Report Ordering Provider Test Date Status ANGUS BAUM 12/31/2023 07:57:43 Final Observation Date Value Abnormality Reference (Units ) Status BUN 12/31/2023 07:57:43 11 6-20 (mg/dL) Final Creatinine 12/31/2023 07:57:43 0.6 0.5-1.0 (mg/dL) Final Glomerular filtration rate/1.73 sq M.predicted [Volume Rate/Area] in Serum, Plasma or Blood by Creatinine-based formula (CKD-EPI) 12/31/2023 07:57:43 >90 >=60 (mL/min) Final eGFR is calculated based on the CKD-EPI 2020 equation SODIUM 12/31/2023 07:57:43 140 135-146 (m mol/L) Final Potassium 12/31/2023 07:57:43 3.7 3.5-5.1 (m mol/L) Final Cl 12/31/2023 07:57:43 102 98-107 (mm ol/L) Final CO2 12/31/2023 07:57:43 26 22-32 (mmo l/L) Final Anion gap 12/31/2023 07:57:43 12 7-15 (mmol /L) Final Glucose 12/31/2023 07:57:43 83 70-120 (mg /dL) Final Albumin 12/31/2023 07:57:43 3.8 3.8-5.0 (g /dL) Final AST (Aspartate aminotransferase) 12/31/2023 07:57:43 52 Above high normal 10-35 (U/L) Final Alk Phos 12/31/2023 07:57:43 159 Above high normal 35 -130 (U/L) Final Bilirubin, Total 12/31/2023 07:57:43 0.2 <=1 .2 (mg/dL) Final Calcium 12/31/2023 07:57:43 9.9 8.4-10.2 ( mg/dL) Final Protein 12/31/2023 07:57:43 8.2 6.0-8.3 (g /dL) Final ALT (Alanine aminotransferase) 12/31/2023 07:57:43 35 10-35 (U/L) [place] [facility] Performing Location [facility] [address] [place] [address]
--- OUTSIDE RECORDS SUMMARY | 2024-01-23 19:18 | External Medical Summary | Summary of Care ---
Author Name Unknown Organization [facility] Address [address] [facility] [place] [address] Phone [phone] Care Team Providers Care Learning And Development Analyst Name Role Phone Abdulkadir Olivera MD Primary Care Provider [phone] Reason for Visit * Reason Comments Chemotherapy C2D2 Etoposide * Episode Based Medications (Routine) - Authorized Specialty Diagnoses / Procedures Referred By Contlucila t Referred To Contact Diagnoses Encounter for antineoplastic chemotherapy Metastasis to liver (HCC) Metastasis to mediastinal lymph node (HCC) Small cell lung cancer (HCC) Procedures NC CARBOPLATIN INJECTION NC FOSAPREPITANT INJECTION NC ETOPOSIDE 10 MG INJ NC INJ, ATEZOLIZUMAB,10 MG Jose Worthy MD 200 [place] [address] Anc Hem/Onc Scenery [address] [address] Referral ID Status Reason Start Date Expiration Date V isits Requested Visits Authorized [id number] Authorized 11/15/2023 10/28/2099 [id number] Encounter Details Date Type Department Care Team (Latest Contact Info) Description 12/11/2023 10:00 AM EST Hem/Onc Treatment Hematology/Oncolog y Treatment, [address] [address] Adrianna, Chair [address] On[address] [place] [address] Encounter for antineoplastic chemotherapy*; Metastasis to liver (HCC); Metastasis to mediastinal lymph node (HCC); Small cell lung cancer (HCC) Allergies No known active allergiesdocumented as of this encounter (statuses as of 12/11/2023) Medications Medication Sig Dispensed Refills Start Date [...] as of this encounter (statuses as of 12/11/2023) Active Problems Problem Noted Date Diagnosed Date Small cell lung cancer 11/15/2023 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 Encounter for antineoplastic chemotherapy 2023 Depression 11/03/2013 Anxiety 11/03/2013 Other ectopic documented as of this encounter (statuses as of 12/11/2023) Immunizations Name Administration Dates Next Due Pneumococcal [...] Care Team (Late st Contact Info) Description 12/12/2023 10:30 AM EST Hem/Onc Treatment Hematology/Oncology Treatment, [place] [address] [place] [address] Adrianna, Chair 4 Hem Onc Scenery [address] [place] [address] 12/31/2023 7:50 AM EST Laboratory Laboratory Scenery [place] Mary Rodas [address] [place] [phone] Adrianna, Lab Scenery [address] [place] [address] 12/31/2023 9:00 AM EST Hem/Onc Treatment Hematology/Oncology Treatment, [place] [address] [place] [address] Adrianna, Chair 5 Hem Onc Scenery 200 [facility] [place], [place] [address] 01/01/2024 9:15 AM EST Office Visit Hematology/Oncology Scenery [facility] 200 [facility], [place] [address] Jose Worthy MD [address] [facility], [place] [address] 01/01/2024 9:45 AM EST Hem/Onc Treatment Hematology/Oncology Treatment, [place] 200 [facility], [place] [address] Adrianna, Chair 6 Hem Onc Scenery 200 [facility] [place], [place] [address] 01/02/2024 9:00 AM EST Hem/Onc Treatment Hematology/Oncology Treatment, [place] [address] [facility], [place] [address] Adrianna, Chair 6 Hem Onc Scenery 200 [place] [address] Health Maintenance Due Date Last Done Comments [...] ONCE PRN Other, Hypersensitivity Reaction, Starting on Sun12/11/23 at 1032, Until Sun12/12/23 at 1031, For 24 hours EPINEPHrine 1 MG/ML inj 0.3 mg 0.3 mg, Intramuscular, ONCE PRN Other, Hypersensitivity Reaction or Anaphylaxis, Starting on Sun12/11/23 at 1032, Until Sun12/12/23 at 1031, For 24 hours hEParin 100 UNIT/ML Lock Flush inj 500 Units 500 Units (5 mL), IV Lock, PRN Other, IV Flush, Starting on Sun12/11/23 at 1032, Until Sun12/12/23 at 1031, For 24 hours, Do not flush if lock, PICC, or central line not in place; IV infusing or unable to flush. Hydrocortisone Sod Suc (PF) (Solu-Cortef) inj 100 mg 100 mg, IV Push, ONCE PRN Other, Hypersensitivity Reaction, Starting on Sun12/11/23 at 1032, Until Sun12/12/23 at 1031, For 24 hours LORAzepam (Ativan) tab 0.5 mg 0.5 mg, Oral, ONCE PRN Anxiety, Nausea, Starting on Sun12/11/23 at 1145, Until Discontinued NSS infusion Intravenous, at 50 mL/hr, PRN, Starting on Sun12/11/23 at 1145, Until Discontinued, Maintenance line Start Infusion 12/11/2023 10:25 AM EST 50 mL/hr oxygen GAS Inhalation, OXYGEN, First dose on Sun12/11/23 at 1115, Until Discontinued, Device/Managed by: Low Flow Device, [...] Push, PRN Other, IV Flush, Starting on Sun12/11/23 at 1032, Until Sun12/12/23 at 1031, For 24 hours, Do not flush if [...] 11:00 AM EST 180 mg 250 mL/hr ondansetron (Zofran) tab 8 mg 8 mg, Oral, ONCE, On Sun12/11/23 at 1145, For 1 dose, Give 30 minutes prior to chemotherapy. Given By 12/11/2023 7:00 AM EST 8 mg documented in this encounter Care Teams Learning And Development Analyst Relationship Specialty Start Date End Date Abdulkadir Olivera MD [address] [place], [place] [id number] PCP - General Family Medicine 12/27/22 documented as of this encounter
--- OUTSIDE RECORDS SUMMARY | 2024-01-23 19:18 | External Medical Summary | Summary of Care ---
Author Name Unknown Organization [facility] Address [address] [place] [facility] [place] [address] Phone [phone] Care Team Providers Care Explosive Operator Bomb Name Role Phone Abdulkadir Olivera MD Primary Care Provider [phone] Reason for Visit * Reason Comments Chemotherapy [...] ME INJ, ATEZOLIZUMAB,10 MG Jose Worthy MD [address] [place] [id number] Anc Hem/Onc [address] [address] Referral ID Status Reason Start Date Expiration Date V isits Requested Visits Authorized [id number] Authorized 11/15/2023 10/28/2099 [id number] Encounter Details Date Type Department Care Team (Latest Contact Info) Description 11/21/2023 11:30 AM EST Hem/Onc Treatment Hematology/Oncolog y Treatment, [address] [address] Encounter for antineoplastic chemotherapy*; Metastasis [...] Description 12/31/2023 7:50 AM EST Laboratory Laboratory [facility] [address] [place] [phone] Adrianna, Lab [address] [place] [address] 12/31/2023 9:00 AM EST Hem/Onc Treatment Hematology/Oncology [address] [phone] Adrianna, Chair 5 Hem Onc [address] [place] [address] 01/01/2024 9:15 AM EST Office Visit Hematology/Oncology [facility] [address] [place] [phone] Jose Worthy MD [address] [place], [place] [address] [address] 01/01/2024 9:45 AM EST Hem/Onc Treatment Hematology/Oncology Treatment, [address] [place] [phone] Adrianna, Chair 6 Hem Onc [address] [place], [place] [address] 01/02/2024 9:00 AM EST Hem/Onc Treatment Hematology/Oncology Treatment, [place] 200 [facility], [place] [phone] Adrianna, Chair 6 Hem Onc [address] [place], [place] [address] Health Maintenance Due Date Last Done Comments [...] mg documented in this encounter Care Teams Explosive Operator Bomb Relationship Specialty Start Date End Date Abdulkadir Olivera MD [address] [place] [address] PCP - General Family Medicine 12/27/22 documented as of this encounter
--- OUTSIDE RECORDS SUMMARY | 2024-01-23 19:18 | External Medical Summary | Summary of Care ---
Author Name Unknown Organization [facility] Address [address] [place] [facility] [place] [address] Phone [phone] Care Team Providers Care Tuft Machine Operator Name Role Phone Abdulkadir Olivera MD Primary Care Provider [phone] Reason for Visit * Reason Comments Chemotherapy C1D1 Tecentriq/Carbo /Etoposide * Episode Based Medications (Routine) - Authorized Specialty Diagnoses / Procedures Referred By Contlucila t Referred To Contact Diagnoses Encounter for antineoplastic chemotherapy Metastasis to liver (HCC) Metastasis to mediastinal lymph node (HCC) Small cell lung cancer (HCC) Procedures AR CARBOPLATIN INJECTION AR FOSAPREPITANT INJECTION AR ETOPOSIDE 10 MG INJ AR INJ, ATEZOLIZUMAB,10 MG Jose Worthy MD [address] [facility] [place] [address] Anc Hem/Onc [address] [address] Referral ID Status Reason Start Date Expiration Date V isits Requested Visits Authorized [id number] Authorized 11/15/2023 10/28/2099 999 [id number] Encounter Details Date Type Department Care Team (Latest Contact Info) Description 11/19/2023 10:00 AM EST Hem/Onc Treatment Hematology/Oncolog y Treatment, [address] [phone] Adrianna, Chair [address] Hem Onc [address] [place] [address] Encounter for antineoplastic chemotherapy*; Metastasis to liver [...] State Mary Rodas [address] [place] [phone] [place], Lab Scenery [address] [place] [address] 12/31/2023 9:00 AM EST Hem/Onc Treatment Hematology/Oncology Treatment, [place] 200 [place] [phone] Adrianna, Chair 5 Hem Onc Scenery 200 [facility] [place] [address] 01/01/2024 9:15 AM EST Office Visit Hematology/Oncology [facility] [place] 200 [facility] [place], [place] [phone] Jose Worthy MD [address] [place] [address] 01/01/2024 9:45 AM EST Hem/Onc Treatment Hematology/Oncology Treatment, [place] 200 [place] [phone] Adrianna, Chair 6 Hem Onc Scenery 200 [facility] [place], [place] [address] 01/02/2024 9:00 AM EST Hem/Onc Treatment Hematology/Oncology Treatment, [place] 200 [place] [phone] Adrianna, Chair 6 Hem Onc Scenery 200 [facility] [place] [address] Health Maintenance Due Date Last Done Comments [...] mL documented in this encounter Care Teams Tuft Machine Operator Relationship Specialty Start Date End Date Abdulkadir Olivera MD [address] [place] [address] PCP - General Family Medicine 12/27/22 documented as of this encounter
--- OUTSIDE RECORDS SUMMARY | 2024-01-23 19:18 | External Medical Summary | Summary of Care ---
Author Name Unknown Organization [facility] Address [address] [place] [facility] [place] [address] Phone [phone] Care Team Providers Care Hand Mold Maker Name Role Phone Abdulkadir Olivera MD Primary Care Provider Reason for Visit * Reason Comments Chemotherapy Etoposide. * Episode Based Medications (Routine) - Authorized Specialty Diagnoses / Procedures Referred By Contlucila t Referred To Contact Diagnoses Encounter for antineoplastic chemotherapy Metastasis to liver (HCC) Metastasis to mediastinal lymph node (HCC) Small cell lung cancer (HCC) Procedures ID CARBOPLATIN INJECTION ID FOSAPREPITANT INJECTION ID ETOPOSIDE 10 MG INJ ID INJ, ATEZOLIZUMAB,10 MG Jose Worthy MD 200 [facility] [place] [address] Anc Hem/Onc Scenery [address] [address] Referral ID Status Reason Start Date Expiration Date V isits Requested Visits Authorized [id number] Authorized 11/15/2023 10/28/2099 999 [id number] Encounter Details Date Type Department Care Team (Latest Contact Info) Description 12/12/2023 10:30 AM EST Hem/Onc Treatment Hematology/Oncolog y Treatment, [address] [address] Adrianna, Chair 4 Hem Onc [address] [place] [address] Encounter for antineoplastic chemotherapy*; Metastasis to liver (HCC); Metastasis to mediastinal lymph node (HCC); Small cell lung cancer (HCC) Allergies No known active allergiesdocumented as of this encounter (statuses as of 12/12/2023) Medications Medication Sig Dispensed Refills Start Date [...] as of this encounter (statuses as of 12/12/2023) Active Problems Problem Noted Date Diagnosed Date Small cell lung cancer 11/15/2023 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 Encounter for antineoplastic chemotherapy 2023 Depression 11/03/2013 Anxiety 11/03/2013 Other ectopic documented as of this encounter (statuses as of 12/12/2023) Immunizations Name Administration Dates Next Due Pneumococcal [...] Description 12/31/2023 7:50 AM EST Laboratory Laboratory [facility] [place] 200 [facility] [place] [phone] Adrianna, Lab [facility] 200 [facility] [place] [address] 12/31/2023 9:00 AM EST Hem/Onc Treatment Hematology/Oncology Treatment, [place] [address] [place] [address] Adrianna, Chair 5 Hem Onc [facility] 200 [facility] [place] [address] 01/01/2024 9:15 AM EST Office Visit Hematology/Oncology [facility] [place] [address] [place] [address] Jose Worthy MD [address] [place] [address] 01/01/2024 9:45 AM EST Hem/Onc Treatment Hematology/Oncology Treatment, [place] 200 [place] [address] Adrianna, Chair 6 [facility] 200 [facility] [place] [address] 01/02/2024 9:00 AM EST Hem/Onc Treatment Hematology/Oncology Treatment, [place] 200 [facility], [place] [address] Adrianna, Chair 6 Hem Onc Scenery 200 [facility] [place], [place] [address] Health Maintenance Due Date Last Done Comments [...] Reaction, Starting on Sun12/12/23 at 1040, Until Sun12/13/23 at 1039, For 24 hours Given 12/12/2023 10:49 AM EST 50 mg EPINEPHrine 1 MG/ML inj 0.3 mg 0.3 mg, Intramuscular, ONCE PRN Other, Hypersensitivity Reaction or Anaphylaxis, Starting on Sun12/12/23 at 1040, Until Sun12/13/23 at 1039, For 24 hours hEParin 100 UNIT/ML Lock Flush inj 500 Units 500 Units (5 mL), IV Lock, PRN Other, IV Flush, Starting on Sun12/12/23 at 1040, Until Veronica 12/13/23 at 1039, For 24 hours, Do not flush if lock, PICC, or central line not in place; IV infusing or unable to flush. Hydrocortisone Sod Suc (PF) (Solu-Cortef) inj 100 mg 100 mg, IV Push, ONCE PRN Other, Hypersensitivity Reaction, Starting on Sun12/12/23 at 1040, Until Veronica 12/13/23 at 1039, For 24 hours LORAzepam (Ativan) tab 0.5 mg 0.5 mg, Oral, ONCE PRN Anxiety, Nausea, Starting on Sun12/12/23 at 1145, Until Discontinued NSS infusion Intravenous, at 50 mL/hr, PRN, Starting on Sun12/12/23 at 1145, Until Discontinued, Maintenance line Start Infusion 12/12/2023 10:30 AM EST 50 mL/hr oxygen GAS Inhalation, OXYGEN, First dose on Sun12/12/23 at 1115, Until Discontinued, Device/Managed by: Low [...] Push, PRN Other, IV Flush, Starting on Sun12/12/23 at 1040, Until Veronica 12/13/23 at 1039, For 24 hours, Do not flush if [...] 11:31 AM EST 180 mg 250 mL/hr ondansetron (Zofran) tab 8 mg 8 mg, Oral, ONCE, On Sun12/12/23 at 1145, For 1 dose, Give 30 minutes prior to chemotherapy. Patient/Caregiver Administered 12/12/2023 7:00 AM EST 8 mg documented in this encounter Care Teams Hand Mold Maker Relationship Specialty Start Date End Date Abdulkadir Olivera MD [address] [place] [address] PCP - General Family Medicine 12/27/22 documented as of this encounter
--- OUTSIDE RECORDS SUMMARY | 2024-01-23 19:18 | External Medical Summary | Summary of Care ---
Author Name Unknown Organization [facility] Address [address] [place] [facility] [place] [address] Phone [phone] Care Team Providers Care Shoe Packer Name Role Phone Abdulkadir Olivera MD Primary Care Provider Reason for Visit * Reason Comments Chemotherapy Tecentriq/carbo/etop oside. * Episode Based Medications (Routine) - Authorized Specialty Diagnoses / Procedures Referred By Contlucila t Referred To Contact Diagnoses Encounter for antineoplastic chemotherapy Metastasis to liver (HCC) Metastasis to mediastinal lymph node (HCC) Small cell lung cancer (HCC) Procedures [place] CARBOPLATIN INJECTION [place] FOSAPREPITANT INJECTION [place] ETOPOSIDE 10 MG INJ VT INJ, ATEZOLIZUMAB,10 MG Jose Worthy MD 200 [facility] [place] [address] Anc Hem/Onc [address] [address] Referral ID Status Reason Start Date Expiration Date V isits Requested Visits Authorized [id number] Authorized 11/15/2023 06/22/2024 [id number] Encounter Details Date Type Department Care Team (Latest Contact Info) Description 12/31/2023 9:00 AM EST Hem/Onc Treatment Hematology/Oncolog y Treatment, [address] [phone] Adrianna, Chair 5 Hem Onc [address] [place] [address] Encounter for antineoplastic chemotherapy*; Metastasis to liver [...] Sign Reading Time Taken Comments Blood Pressure 112/72 12/31/2023 8:55 AM EST Pulse 95 12/31/2023 8:55 AM EST Temperature 36.9 C (98.4 F) 12/31/2023 8:55 AM ES T Respiratory Rate 18 12/31/2023 8:55 AM EST Oxygen Saturation 95% 12/31/2023 8:55 AM EST Inhaled Oxygen Concentration - - Weight 64.1 kg (141 lb 6.4 oz) 12/31/2023 8:55 A M EST Height - - Body Mass Index 22.82 11/13/2023 2:38 PM EST documented in this encounter Nursing Notes * Annette Thao RN - 12/31/2023 12:59 PM EST Goals: Patient will remain free from injury. Possible barriers to meeting goals: Fall risk d/t ambulation with IV pole. Stability of the patient: Moderately stable - low risk of patient condition declining or worsening Summary regarding today's goals: Met: Patient remained free of injury. Patient tolerated infusion well. Discharged in stable condition. * Annette Thao RN - 12/31/2023 9:17 AM EST Chair 12. Patient arrived for tecentriq, carbo, eptoposide. Patient states is feeling well overall today. PIV established. Chemotherapy/Immunotherapy agents: Tecentriq, CARBOPLATIN and ETOPOSIDE Consent for chemotherapy drug treatment complete, dated, and signed? yes, date - 11/13/23 Treatment lab parameters met? Yes Has treatment weight changed > than 10%? No Treatment preauthorized? Yes VITALS Filed Vitals: 12/31/23 0855 BP: 112/72 Pulse: 95 Resp: 18 Temp: 36.9 C (98.4 F) TempSrc: Tympanic SpO2: 95% Weight: 64.1 kg (141 lb 6.4 oz) Urine protein: N/A Patient education completed for treatment? Yes Blood transfusion consent signed and complete? NA Return appointment scheduled? Yes Patient had provider visit today? No - If no provider visit must complete Pretreatment Assessment Functional Status: Functional status at today's visit: Fully active, [...] symptoms or adverse side effects during treatment. PRE-TREATMENT ASSESSMENT: NEURO: denies symptoms CV/RESP: denies symptoms GI/: denies symptoms OTHER: denies any additional symptoms PAIN: 0 Safety and Risk for Injury Patient will remain free from injury. Ensure appropriate safety devices are available. Provide and maintain safe environment. documented in this encounter Plan of Treatment Upcoming Encounters Date Type Department Care Team (Late st Contact Info) Description 01/01/2024 9:15 AM EST Office Visit Hematology/Oncology [facility] [place] [address] [place] [phone] Jose Worthy MD [address] [place], [place] [address] 01/01/2024 11:00 AM EST Hem/Onc Treatment Hematology/Oncology Treatment, [place] 200 [facility], [place] [address] Adrianna, Chair 6 Hem Onc Scenery [address] [facility] [address] [place], [place] [address] 01/02/2024 9:00 AM EST Hem/Onc Treatment Hematology/Oncology Treatment, [place] 200 [facility] [place], [place] [phone] Adrianna, Chair 6 Hem Onc Scenery 200 [facility] [place], [place] [address] 01/21/2024 7:50 AM EDT Laboratory Laboratory [facility] [place] [address] [place] [address] Adrianna, Lab Scenery 200 [facility] [place], [place] [address] 01/21/2024 9:00 AM EDT Hem/Onc Treatment Hematology/Oncology Treatment, [place] 200 [facility], [place] [address] Adrianna, Chair 3 Hem Onc Scenery [address] [facility] [address] [place], [place] [address] 01/22/2024 9:15 AM EDT Hem/Onc Treatment Hematology/Oncology Treatment, [place] 200 [facility], [place] [address] Adrianna, Chair 8 Hem Onc Scenery [address] [place] [address] 01/23/2024 8:45 AM EDT Hem/Onc Treatment Hematology/Oncology Treatment, [place] [address] [place] [phone] Adrianna, Chair 9 Hem Onc Scenery [address] [place] [address] Health Maintenance Due Date Last Done Comments [...] ONCE PRN Other, Hypersensitivity Reaction, Starting on Sun12/31/23 at 0910, Until Sun01/01/24 at 0909, For 24 hours EPINEPHrine 1 MG/ML inj 0.3 mg 0.3 mg, Intramuscular, ONCE PRN Other, Hypersensitivity Reaction or Anaphylaxis, Starting on Sun12/31/23 at 0910, Until Sun01/01/24 at 0909, For 24 hours hEParin 100 UNIT/ML Lock Flush inj 500 Units 500 Units (5 mL), IV Lock, PRN Other, IV Flush, Starting on Sun12/31/23 at 0910, Until Sun01/01/24 at 0909, For 24 hours, Do not flush if lock, PICC, or central line not in place; IV infusing or unable to flush. Hydrocortisone Sod Suc (PF) (Solu-Cortef) inj 100 mg 100 mg, IV Push, ONCE PRN Other, Hypersensitivity Reaction, Starting on Sun12/31/23 at 0910, Until Sun01/01/24 at 0909, For 24 hours LORAzepam (Ativan) tab 0.5 mg 0.5 mg, Oral, ONCE PRN Anxiety, Nausea, Starting on Sun12/31/23 at 1015, Until Discontinued NSS infusion Intravenous, at 50 mL/hr, PRN, Starting on Sun12/31/23 at 1015, Until Discontinued, Maintenance line Start Infusion 12/31/2023 9:25 AM EST 50 mL/hr oxygen GAS Inhalation, OXYGEN, First dose on Sun12/31/23 at 0945, Until Discontinued, Device/Managed by: Low [...] Push, PRN Other, IV Flush, Starting on Sun12/31/23 at 0910, Until Sun01/01/24 at 0909, For 24 hours, Do not flush if lock, PICC, or central line not in place; IV infusing or unable to flush. Inactive Administered Medications - up to 3 most recent administrations Medication Order MAR Action Action Date Dose Rate Site Atezolizumab (Tecentriq) 1,200 mg in NSS 250 mL infusion 1,200 mg, IV Piggyback, ONCE, 1 dose, On Sun12/31/23 at 1030, Administer over 30 Minutes, Administer first infusion over 60 minutes and if tolerated, subsequent doses may be infused over 30 minutes. Start Infusion 12/31/2023 10:21 AM EST 1,200 mg 500 mL/hr CARBOplatin (Paraplatin) 623 mg in D5W 250 mL infusion 623 mg (rounded from 622.5 mg, Target AUC = 5), IV Piggyback, at 500 mL/hr Administer over 30 Minutes, PROTECT FROM LIGHT (Max Creatinine Clearance at 125 ml/min for calculating AUC dose), ONCE, 1 dose, On Sun12/31/23 at 1100 Start Infusion 12/31/2023 11:01 AM EST 623 mg 500 mL/hr diphenhydrAMINE (Benadryl) inj 25 mg 25 mg, IV Push, ONCE, On Sun12/31/23 at 0945, For 1 dose Given 12/31/2023 9:46 AM EST 25 mg etoposide (VEPESID) 180 mg in NSS 500 mL infusion 180 mg (rounded from 175 mg = 100 mg/m2 1.75 m2 Treatment Plan BSA from Recorded weight), IV Piggyback, ONCE, 1 dose, On Sun12/31/23 at 1130, Administer over 60 Minutes, Recommended concentration is less than or equal to 0.4 mg/mL. If concentration is greater than 0.4 mg/mL recommend to administer through 0.22 micron low protein binding filter. Start Infusion 12/31/2023 11:32 AM EST 180 mg 500 mL/hr Fosaprepitant Dimeglumine (Emend) 150 mg, ondansetron (Zofran) 16 mg, dexamethasone sodium phosphate 12 mg in NSS 250 mL Infusion 150 mg, IV Piggyback, ONCE, 1 dose, On Sun12/31/23 at 1015, Administer over 30 Minutes, Give 30 minutes prior to chemotherapy. Infuse over 30 minutes. Start Infusion 12/31/2023 9:46 AM EST 150 mg 500 mL/hr documented in this encounter Care Teams Shoe Packer Relationship Specialty Start Date End Date Abdulkadir Olivera MD [address] [place] [address] PCP - General Family Medicine 12/27/22 documented as of this encounter
--- OUTSIDE RECORDS SUMMARY | 2024-01-23 19:18 | External Medical Summary | Summary of Care ---
Author Name Unknown Organization [facility] Address [address] [place] [address] Phone [phone] Care Team Providers Care Corporate Consultant Name Role Phone Abdulkadir Olivera MD Primary Care Provider [phone] Reason for Referral * Precert (Within 10 days (routine)) - Authorized Specialty Diagnoses / Procedures Referred By Contlucila t Referred To Contact Radiology Diagnoses Small cell lung cancer (HCC) Metastasis to mediastinal lymph node (HCC) Metastasis to liver (HCC) Procedures CT CHEST/ABDOMEN/PELVIS WITH IV CONTRAST WITH ORAL CONTRAST Jose W[facility] [place] [address] Referral ID Status Reason Start Date Expiration Date V isits Requested Visits Authorized [id number] Authorized Precert 01/01/2024 06/29/2024 999 [id number] Reason for Visit * Reason Comments Re-Check Chemo recheck * Precert (Within 10 days (routine)) - Pending Review Specialty Diagnoses / Procedures Referred By Contlucila t Referred To Contact Hematology Oncology Diagnoses 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) Malignant neoplasm of unspecified part of unspecified bronchus or lung (HCC) Encounter for antineoplastic chemotherapy Sander Kam MD [address] [place] [address] Hem/Onc [place] [address] [place] [address] [phone] Referral ID Status Reason Start Date Expiration Date Visits Requested Visits Authorized [id number] Pending Review Specialty Services Required 12/17/2023 12/17/2024 999 [id number] Encounter Details Date Type Department Care Team (Late st Contact Info) Description 01/01/2024 9:15 AM EST Office Visit Hematology/Oncology [place] [facility] [place] [phone] Jose Worthy MD 200 [facility] [place] [address] Small cell lung cancer (HCC)*; Metastasis to mediastinal lymph node (HCC); Metastasis to liver (HCC) Allergies No known active allergiesdocumented as of this encounter (statuses as of 01/01/2024) Medications Medication Sig Dispensed Refills Start Date [...] as of this encounter (statuses as of 01/01/2024) Active Problems Problem Noted Date Diagnosed Date Small cell lung cancer 11/15/2023 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 Encounter for antineoplastic chemotherapy 2023 Depression 11/03/2013 Anxiety 11/03/2013 Other ectopic documented as of this encounter (statuses as of 01/01/2024) Immunizations Name Administration Dates Next Due Pneumococcal [...] Sign Reading Time Taken Comments Blood Pressure 123/64 01/01/2024 8:58 AM EST Pulse 120 01/01/2024 8:58 AM EST Temperature 36.8 C (98.2 F) 01/01/2024 8:58 AM ES T Respiratory Rate - - Oxygen Saturation 95% 01/01/2024 8:58 AM EST Inhaled Oxygen Concentration - - Weight 65.8 kg (145 lb 1.6 oz) 01/01/2024 8:58 A M EST Height - - Body Mass Index 23.42 11/13/2023 2:38 PM EST documented in this encounter Progress Notes * Jose Worthy MD - 01/01/2024 9:15 AM EST [facility] [address] [facility] [place] [address] PRANEETH MARTINEZ MR # [id number] :1960 63-year-old female, Date of consultation:11/13/2023 DIAGNOSIS: Small cell lung cancer involving the right upper lobe, 4.6 cm in the size, right hilar mass, subcarinal lymphadenopathy, palpable left lower cervical lymphadenopathy on physical examination, multipleat least 20+ liver lesions, upper abdominal lymphadenopathy. T2b N3 M1c, stage IVB CURRENT TREATMENT: - Carboplatin, etoposide and atezolizumab.( 11/19/2023----) - started cycle 3 on 12/31/2023. DIAGNOSTIC WORKUP: Recently she had some increasing abdominal pain, constipation for the last several months, she was then admitted at [facility], reviewed the hospital records, she had [...] weight was around 129 lb, current weight 145 lb, no diarrhea, no constipation, no bleeding [...] primary stapled anastomosis;right ovarian cystectomy and completion proctoscopy/[facility]/ TREAT ECTOPIC /LAPAROSCOPY 1993 Current Outpatient Medications [...] the morning and 1 Tablet before bedtime. 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 Tobacco Use Smoking status: Every Day Current packs/day: 0.00 Average packs/day: 1 pack/day for 26.0 years (26.0 ttl pk-yrs) Types: Vaporizer, Cigarettes Start date: 03/28/1987 Last attempt to quit: 03/28/2013 Years since quittin.7 Smokeless tobacco: Never Substance and Sexual Activity [...] on file On Exam: LMP 08/04/2011 BP 123/64 (BP Site: Right Arm, BP Position: Sitting, BP Cuff Size: Regular) | Pulse 120 | Temp 36.8C (98.2 F) (Tympanic) | Wt 65.8 kg (145 lb 1.6 oz) | LMP 08/04/2011 | SpO2 95% | BMI 23.42 kg/m | BSA 1.75 m Constitutional: Patient is alert, cooperative and [...] paraspinal tenderness. LABS: Blood workup done on 12/31/2023: -WBC 8000, H&H of 10.7/33.7, Platelet count [id number] -BUN/Creat: 11/0.6 -AST 52, ALT 35, alkaline phosphatase 159, bilirubin level 0.2 -TSH --> 2.25 IMAGING: - Brain MRI (11/17/2023) -> No evidence of metastatic disease. ASSESSMENT AND PLAN: 63-year-old female, A case [...] receiving systemic chemotherapy with carboplatin, etoposide atezolizumab, so far received 2 cycles of chemotherapy 3rd cycle started yesterday. She says that she is feeling much better, previously noted palpable soft tissue mass in left side of the neck has gone down, pulmonary symptoms improved. Weight gain noted. Reviewed blood workup done yesterday, overall stable blood work, improvement of the liver function test noted Will proceed with 3rd cycle of chemotherapy as we planned. I am planning for CT scan of the chest, abdomen pelvis in about 2 weeks. Planning for total 6 cycles of chemotherapy and then will proceed with atezolizumab maintenance. Once again we talked about overall treatment goal which would be palliative and not curative. Will see her in 3 weeks before the next cycle. Dr. Jose Worthy Hem/Onc (This note was completed using the dictation program Fluency Direct. As such, there may be misspellings word substitutions, or other variations that should not change the essence of the clinical content of this encounter note. If there is need for further clarification, please direct questions to the provider listed above.) documented in this encounter Nursing Notes * Mikal Pedraza, CYNDI ASSIST - 01/01/2024 8:59 AM EST Patient identified by name and date of . Do you have any concerns about pain management for today's visit? No Living Will or Advance Directive for Health Care as noted on problem list. My M-Fileser is a way you can talk to your provider online through e-mail. Would you like to sign up? I can activate it for you? ALREADY ACTIVE BP 123/64 (BP Site: Right Arm, BP Position: Sitting, BP Cuff Size: Regular) | Pulse 120 | Temp 36.8C (98.2 F) (Tympanic) | Wt 65.8 kg (145 lb 1.6 oz) | LMP 08/04/2011 | SpO2 95% | BMI 23.42 kg/m | BSA 1.75 m Patient was instructed to not get up [...] Care Team (Late st Contact Info) Description 01/02/2024 9:00 AM EST Hem/Onc Treatment Hematology/Oncology Treatment, [place] 200 [facility] [place] [phone] Adrianna, Chair 6 Hem Onc Scenery 200 [place] [address] 01/09/2024 3:30 PM EDT Imaging Radiology [address], [address] [address] 01/21/2024 7:50 AM EDT Laboratory Laboratory [facility] [place] [phone] Adrianna, Lab [facility] [address] [facility] [place] [address] 01/21/2024 9:00 AM EDT Hem/Onc Treatment Hematology/Oncology Treatment, [place] 200 [facility] [place] [phone] Adrianna, Chair 3 Hem Onc [facility] [address] [place] [address] 01/22/2024 8:45 AM EDT Office Visit Hematology/Oncology [facility] [place] [address] [place] [address] [phone] Jose Worthy MD 200 [facility] [place], [place] [address] 01/22/2024 9:15 AM EDT Hem/Onc Treatment Hematology/Oncology Treatment, [place] 200 [facility], [place] [phone] Adrianna, Chair 8 Hem Onc [facility] 200 [facility] [place], [place] [address] 01/23/2024 8:45 AM EDT Hem/Onc Treatment Hematology/Oncology Treatment, [place] 200 [facility], [place] [phone] Adrianna, Chair 9 Hem Onc [facility] 200 [facility] [place], [place] [address] Scheduled Orders Name Type Priority Associated Diagnoses Orde r Schedule CT CHEST/ABDOMEN/PELVI S WITH IV CONTRAST WITH ORAL CONTRAST Medical Imaging Routine Small cell lung cancer (HCC) Metastasis to mediastinal lymph node (HCC) Metastasis to liver (HCC) Expected: 01/01/2024, Expires: 12/31/2024 Health Maintenance Due Date Last Done Comments [...] liver documented in this encounter Care Teams Corporate Consultant Relationship Specialty Start Date End Date Abdulkadir Olivera MD [address] [place] [address] PCP - General Family Medicine 12/27/22 documented as of this encounter"
--- OUTSIDE RECORDS SUMMARY | 2024-01-23 19:18 | External Medical Summary | Summary of Care ---
Author Name Unknown Organization [facility] Address [address] [place] [facility] [place] [address] Phone [phone] Care Team Providers Care Barbed Wire Machine Operator Name Role Phone Abdulkadir Olivera MD Primary Care Provider Reason for Visit * Reason Comments Chemotherapy C3/D2 - Etoposide * Episode Based Medications (Routine) - Authorized Specialty Diagnoses / Procedures Referred By Contac t Referred To Contact Diagnoses Encounter for antineoplastic chemotherapy Metastasis to liver (HCC) Metastasis to mediastinal lymph node (HCC) Small cell lung cancer (HCC) Procedures [place] CARBOPLATIN INJECTION [place] FOSAPREPITANT INJECTION [place] ETOPOSIDE 10 MG INJ [place] INJ, ATEZOLIZUMAB,10 MG Jose Worthy MD [address] [place] [address] Anc Hem/Onc [address] [address] Referral ID Status Reason Start Date Expiration Date V isits Requested Visits Authorized [id number] Authorized 11/15/2023 06/22/[phone] Encounter Details Date Type Department Care Team (Latest Contact Info) Description 01/01/2024 11:00 AM EST Hem/Onc Treatment Hematology/Oncolog y Treatment, [address] [phone] Adrianna, Chair 6 Hem Onc [address] [place] [address] Encounter for antineoplastic chemotherapy*; Metastasis to liver [...] as of this encounter Nursing Notes * Teresa Reilly RN - 01/01/2024 3:13 PM EST Chair 11. Patient saw Dr. Worthy today -- see OV note for details. Patient is feeling well today overall, here for day 2 Etoposide today. IV inserted bu SMITH, JIN, no issues. Chemotherapy/Immunotherapy agents: ETOPOSIDE Consent for chemotherapy drug treatment complete, dated, and signed? yes, date - 11/13/23 Treatment lab parameters met? Yes Has treatment weight changed > than 10%? No Treatment preauthorized? Yes VITALS There were no vitals filed for this visit. Urine protein: N/A Patient education completed for [...] adverse side effects during treatment. Patient tolerated treatment well without any acute issues or problems. IV left in place for tx tomorrow. Patient left facility in stable condition and denied any further needs. documented in this encounter Plan of Treatment Upcoming Encounters Date Type Department Care Team (Late st Contact Info) Description 01/02/2024 9:00 AM EST Hem/Onc Treatment Hematology/Oncology Treatment, [address] [phone] Adrianna, Chair 6 Hem Onc [address] [place] [address] 01/09/2024 3:30 PM EDT Imaging Radiology [address], [address] [place] [address] 01/21/2024 7:50 AM EDT Laboratory Laboratory [facility] [place] [address] [address] [place] [phone] Adrianna, Lab [address] [place] [address] 01/21/2024 9:00 AM EDT Hem/Onc Treatment Hematology/Oncology Treatment, [address] [phone] Adrianna, Chair 3 Hem Onc [address] [place] [address] 01/22/2024 8:45 AM EDT Office Visit Hematology/Oncology [facility] 200 [facility] [place] [phone] Jose Worthy MD 200 [facility] [place] [address] 01/22/2024 9:15 AM EDT Hem/Onc Treatment Hematology/Oncology Treatment, [place] 200 [facility], [place] [phone] Adrianna, Chair 8 Hem Onc [address] [place], [place] [address] 01/23/2024 8:45 AM EDT Hem/Onc Treatment Hematology/Oncology Treatment, [place] 200 [facility], [place] [phone] Adrianna, Chair 9 Hem Onc [address] [place], [place] [address] Health Maintenance Due Date Last Done Comments [...] ONCE PRN Other, Hypersensitivity Reaction, Starting on Sun01/01/24 at 0929, Until Sun01/02/24 at 0928, For 24 hours EPINEPHrine 1 MG/ML inj 0.3 mg 0.3 mg, Intramuscular, ONCE PRN Other, Hypersensitivity Reaction or Anaphylaxis, Starting on Sun01/01/24 at 0929, Until Sun01/02/24 at 0928, For 24 hours hEParin 100 UNIT/ML Lock Flush inj 500 Units 500 Units (5 mL), IV Lock, PRN Other, IV Flush, Starting on Sun01/01/24 at 0929, Until Sun01/02/24 at 0928, For 24 hours, Do not flush if lock, PICC, or central line not in place; IV infusing or unable to flush. Hydrocortisone Sod Suc (PF) (Solu-Cortef) inj 100 mg 100 mg, IV Push, ONCE PRN Other, Hypersensitivity Reaction, Starting on Sun01/01/24 at 0929, Until Sun01/02/24 at 0928, For 24 hours LORAzepam (Ativan) tab 0.5 mg 0.5 mg, Oral, ONCE PRN Anxiety, Nausea, Starting on Sun01/01/24 at 1030, Until Discontinued NSS infusion Intravenous, at 50 mL/hr, PRN, Starting on Sun01/01/24 at 1030, Until Discontinued, Maintenance line Start Infusion 01/01/2024 9:35 AM EST 50 mL/hr oxygen GAS Inhalation, OXYGEN, First dose on Sun01/01/24 at 1000, Until Discontinued, Device/Managed by: Low [...] Push, PRN Other, IV Flush, Starting on Sun01/01/24 at 0929, Until Sun01/02/24 at 0928, For 24 hours, Do not flush if lock, PICC, or central line not in place; IV infusing or unable to flush. Inactive Administered Medications - up to 3 most recent administrations Medication Order MAR Action Action Date Dose Rate Site diphenhydrAMINE (Benadryl) inj 25 mg 25 mg, IV Push, ONCE, On Sun01/01/24 at 1000, For 1 dose Given 01/01/2024 9:43 AM EST 25 mg etoposide (VEPESID) 180 mg in NSS 500 mL infusion 180 mg (rounded from 175 mg = 100 mg/m2 1.75 m2 Treatment Plan BSA from Recorded weight), IV Piggyback, ONCE, 1 dose, On Sun01/01/24 at 1100, Administer over 60 Minutes, Recommended concentration is less than or equal to 0.4 mg/mL. If concentration is greater than 0.4 mg/mL recommend to administer through 0.22 micron low protein binding filter. Start Infusion 01/01/2024 10:02 AM EST 180 mg 500 mL/hr ondansetron (Zofran) tab 8 mg 8 mg, Oral, ONCE, On Sun01/01/24 at 1030, For 1 dose, Give 30 minutes prior to chemotherapy. Given 01/01/2024 9:43 AM EST 8 mg documented in this encounter Care Teams Barbed Wire Machine Operator Relationship Specialty Start Date End Date Abdulkadir Olivera MD [address] [facility] [place] [place] [address] PCP - General Family Medicine 12/27/22 documented as of this encounter
--- OUTSIDE RECORDS SUMMARY | 2024-01-23 19:18 | External Medical Summary ---
Author Name Unknown Address Unknown Organization K01:LABORATORY [facility] [place] - [address] [place] [address] Laboratory Report Ordering Provider Test Date Status ANGUS BAUM 12/31/2023 07:57:43 Final Observation Date Value Abnormality Reference (Units ) Status TSH 12/31/2023 07:57:43 2.25 0.27-4.20 (uIU/mL) Final Performing Location [facility] - [address] [place] [address]
--- OUTSIDE RECORDS SUMMARY | 2024-01-23 19:18 | External Medical Summary | Summary of Care ---
Author Name Unknown Organization [facility] Address [address] [place] [address] Phone [phone] Care Team Providers Care Checker Dump Grounds Name Role Phone Abdulkadir Olivera MD Primary Care Provider [phone] Reason for Visit * Reason Comments Chemotherapy [...] INJ, ATEZOLIZUMAB,10 MG Jose Worthy MD 200 [facility] [place] [address] Anc Hem/Onc Scenery [address] [address] Referral ID Status Reason Start Date Expiration Date V isits Requested Visits Authorized [id number] Authorized 11/15/2023 10/28/2099 999 [id number] Encounter Details Date Type Department Care Team (Latest Contact Info) Description 12/10/2023 8:30 AM EST Hem/Onc Treatment Hematology/Oncolog y Treatment, [address] [address] Adrianna, Chair 7 Hem Onc Scenery [address] [place] [address] [place] [address] Encounter for antineoplastic chemotherapy*; Metastasis to liver (HCC); Metastasis to mediastinal lymph node (HCC); Small cell lung cancer (HCC) Allergies No known active allergiesdocumented as of this encounter (statuses as of 12/10/2023) Medications Medication Sig Dispensed Refills Start Date [...] as of this encounter (statuses as of 12/10/2023) Active Problems Problem Noted Date Diagnosed Date Small cell lung cancer 11/15/2023 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 Encounter for antineoplastic chemotherapy 2023 Depression 11/03/2013 Anxiety 11/03/2013 Other ectopic documented as of this encounter (statuses as of 12/10/2023) Immunizations Name Administration Dates Next Due Pneumococcal [...] in this encounter Nursing Notes * Annette Thao, FABIENNE - 12/10/2023 2:23 PM EST Goals: Patient [...] Care Team (Late st Contact Info) Description 12/11/2023 10:00 AM EST Hem/Onc Treatment Hematology/Oncology [address], [address] [address] Adrianna, Chair 3 Hem Onc Scenery 200 [facility] [place] [address] 12/12/2023 10:30 AM EST Hem/Onc Treatment Hematology/Oncology Treatment, [address] [address] Adrianna, Chair 4 Hem Onc Scenery 200 [facility] [place] [address] 12/31/2023 7:50 AM EST Laboratory Laboratory Scenery [place] 200 [facility] [place] [phone] Adrianna, Lab Scenery 200 [facility] [place], [place] [address] 12/31/2023 9:00 AM EST Hem/Onc Treatment [facility], [place] [facility] [address] Adrianna, Chair 5 Hem Onc Scenery [address] [place] [address] 01/01/2024 9:15 AM EST Office Visit Hematology/Oncology [facility] [address] [place] [address] Jose Worthy MD [address] [place] [facility] [place] [address] 01/01/2024 9:45 AM EST Hem/Onc Treatment Hematology/Oncology Treatment, [place] 200 [place] [address] Adrianna, Chair 6 Hem [facility] 200 [facility] [place] [address] 01/02/2024 9:00 AM EST Hem/Onc Treatment Hematology/Oncology Treatment, [place] 200 [place] [address] Adrianna, Chair 6 Hem Onc [facility] 200 [facility] [place], [place] [address] Health Maintenance Due Date Last Done Comments [...] Reaction, Starting on Sun12/10/23 at 0847, Until Sun12/11/23 at 0846, For 24 hours Given 12/10/2023 12:04 PM EST 50 mg EPINEPHrine 1 MG/ML inj 0.3 mg 0.3 mg, Intramuscular, ONCE PRN Other, Hypersensitivity Reaction or Anaphylaxis, Starting on Sun12/10/23 at 0847, Until Sun12/11/23 at 0846, For 24 hours hEParin 100 UNIT/ML Lock Flush inj 500 Units 500 Units (5 mL), IV Lock, PRN Other, IV Flush, Starting on Sun12/10/23 at 0847, Until Sun12/11/23 at 0846, For 24 hours, Do not flush if lock, PICC, or central line not in place; IV infusing or unable to flush. Hydrocortisone Sod Suc (PF) (Solu-Cortef) inj 100 mg 100 mg, IV Push, ONCE PRN Other, Hypersensitivity Reaction, Starting on Sun12/10/23 at 0847, Until Sun12/11/23 at 0846, For 24 hours Given 12/10/2023 10:54 AM EST 100 mg LORAzepam (Ativan) tab 0.5 mg 0.5 mg, Oral, ONCE PRN Anxiety, Nausea, Starting on Sun12/10/23 at 1000, Until Discontinued NSS infusion Intravenous, at 50 mL/hr, PRN, Starting on Sun12/10/23 at 1000, Until Discontinued, Maintenance line Start Infusion 12/10/2023 9:07 AM EST 50 mL/hr oxygen GAS Inhalation, OXYGEN, First dose on Sun12/10/23 at 0930, Until Discontinued, Device/Managed by: Low Flow Device, [...] Push, PRN Other, IV Flush, Starting on Sun12/10/23 at 0847, Until Sun12/11/23 at 0846, For 24 hours, Do not flush if [...] 10:14 AM EST 623 mg 500 mL/hr etoposide (VEPESID) 180 mg [...] 9:07 AM EST 150 mg 500 mL/hr documented in this encounter Care Teams Checker Dump Grounds Relationship Specialty Start Date End Date Abdulkadir Olivera MD [address] [place] [address] PCP - General Family Medicine 12/27/22 documented as of this encounter
--- OUTSIDE RECORDS SUMMARY | 2024-01-23 19:18 | External Medical Summary ---
Author Name Unknown Address Unknown Organization K09:[facility]ATORY [place] [address] Laboratory Report Ordering Provider Test Date Status ANGUS BAUM 12/31/2023 07:57:43 Final Observation Date Value Abnormality Reference (Units ) Status WBC, Total 12/31/2023 07:57:43 8.07 4.00-10.8 0 (K/uL) Final RBC 12/31/2023 07:57:43 3.72 3.85-5.15 (M/uL) Final Hemoglobin 12/31/2023 07:57:43 10.7 Below low normal 12 .0-15.3 (g/dL) Final HCT 12/31/2023 07:57:43 33.7 Below low normal 36. 0-45.2 (%) Final MCV 12/31/2023 07:57:43 90.6 81.5-97.5 (fL) Final MCH 12/31/2023 07:57:43 28.8 27.0-34.0 (pg) Final MCHC 12/31/2023 07:57:43 31.8 32.0-36.0 (g/dL) Final RDW 12/31/2023 07:57:43 15.7 11.5-15.5 (%) Final Platelets 12/31/2023 07:57:43 178 140-400 (K /uL) Final MPV 12/31/2023 07:57:43 8.8 6.6-11.1 ( fL) Final Performing Location [facility] [address]
--- OUTSIDE RECORDS SUMMARY | 2024-01-23 19:18 | External Medical Summary | Summary of Care ---
Author Name Unknown Organization [facility] Address [address] [facility] [place] [address] Phone [phone] Care Team Providers Care Supervisor Cloth Winding Name Role Phone Abdulkadir Olivera MD Primary Care Provider [phone] Reason for Visit * Reason Comments Chemotherapy C1D2 etoposide * Episode Based Medications (Routine) - Authorized Specialty Diagnoses / Procedures Referred By Contlucila t Referred To Contact Diagnoses Encounter for antineoplastic chemotherapy Metastasis to liver (HCC) Metastasis to mediastinal lymph node (HCC) Small cell lung cancer (HCC) Procedures UT CARBOPLATIN INJECTION UT FOSAPREPITANT INJECTION UT ETOPOSIDE 10 MG INJ UT INJ, ATEZOLIZUMAB,10 MG Jose Worthy MD 200 [facility] [place] [address] Anc Hem/Onc [address] [address] Referral ID Status Reason Start Date Expiration Date V isits Requested Visits Authorized [id number] Authorized 11/15/2023 10/28/2099 999 999 Encounter Details Date Type Department Care Team (Latest Contact Info) Description 11/20/2023 10:00 AM EST Hem/Onc Treatment Hematology/Oncolog y Treatment, [address] [address] Adrianna, Chair 11 Hem Onc [address] [place] [address] Encounter for antineoplastic chemotherapy*; Metastasis to liver [...] Description 12/31/2023 7:50 AM EST Laboratory Laboratory [facility] [address] [place] [phone] Adrianna, Lab [address] [place] [address] 12/31/2023 9:00 AM EST Hem/Onc Treatment Hematology/Oncology [address] [phone] Adrianna, Chair 5 Hem Onc [address] [place] [address] 01/01/2024 9:15 AM EST Office Visit Hematology/Oncology [facility] [place] 200 [facility] [place] [phone] Jose Worthy MD 200 [facility] [place] [address] 01/01/2024 9:45 AM EST Hem/Onc Treatment [facility]emat[facility]cology Treatment, [place] [facility] [phone] Adrianna, Chair [address] [facility] 200 [facility] [place] [address] 01/02/2024 9:00 AM EST Hem/Onc Treatment Hematology/Oncology Treatment, [place] [address] [place] [address] Adrianna, Chair 6 Hem Onc Scenery [address] [place] [address] Health Maintenance Due Date Last Done Comments [...] 10:28 AM EST 180 mg 500 mL/hr NSS infusion Intravenous, at 50 mL/hr, PRN, Starting on Sun11/20/23 at 1130, Until Sun11/20/23 at 1546, Maintenance line Start Infusion 11/20/2023 10:25 AM EST 50 mL/hr documented in this encounter Care Teams Supervisor Cloth Winding Relationship Specialty Start Date End Date Abdulkadir Olivera MD [address] [place] [address] PCP - General Family Medicine 12/27/22 documented as of this encounter
--- OUTSIDE RECORDS SUMMARY | 2024-01-23 19:19 | External Medical Summary | Summary of Care ---
Author Name Unknown Organization [facility] Address [address] [place] [address] Phone [phone] Care Team Providers Care Church Warden Name Role Phone Abdulkadir Olivera MD Primary Care Provider Reason for Visit * Reason Onset Date Comments Hospital Follow-Up 12/07/2023 MANISH Encounter Details Date Type Department Care Team (Late st Contact Info) Description 12/07/2023 Telephone [place] [address] [place] [address] Sandy Rapp, FABIENNE Hospital Follow-Up (MANISH) Allergies No known active allergiesdocumented as of this encounter (statuses as of 12/07/2023) Medications Medication Sig Dispensed Refills Start Date [...] as of this encounter (statuses as of 12/07/2023) Active Problems Problem Noted Date Diagnosed Date Small cell lung cancer 11/15/2023 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 Encounter for antineoplastic chemotherapy 2023 Depression 11/03/2013 Anxiety 11/03/2013 Other ectopic documented as of this encounter (statuses as of 12/07/2023) Immunizations Name Administration Dates Next Due Pneumococcal [...] Telephone Encounter - Sandy Rapp RN - 12/07/2023 9:20 AM EST Transitions of Care Note Reason for Referral:Recent Admission Phone visit for follow up: MANISH Admitted to: [facility], Date: 11/30/2023 Discharged to: Home, Date: 12/05/2023 Diagnosis driving hospitalization: Neutropenic Fever, Pancytopenia secondary to chemotherapy, Recently diagnosed with Small Cell Lung Cancer Metastatic Source/Contact: Patient SUBJECTIVE Consent: Verbal consent for review of hospital discharge: Yes REVIEW OF SYSTEMS Patient/Other Reports: Current patient/caregiver problems or concerns: Has had low grade fevers at home. 99.8, 99.4. States hard to tell as she gets hot and cold frequently. Gets hot when has covers and hat on, temp comes down when she takes them off. Did get to 100.1 last night briefly, came down when she took her covers off again. Did take tylenol. Temps this AM 99.3, 98.7. States she was told to call if Temp >100.1. Finished antibiotic today. Staying hydrated, eating off and on, but ok. CV: Denies problems Pulmonary: Denies problems Chills/Sweats/Fever:See above Appetite:See above Current diet: Neutropenic Bowel: date of last BM: today Bladder: denies problems Wound (If applicable): N/A Pain:Denies Sleep:Denies problems FUNCTIONAL STATUS: ADL'S: Needs Assistance With:N/A as pt is independent IADL'S: Needs Assistance With:N/A as pt is independent Cognitive and Mental Health: See abovedenies problems, alert and oriented x 3, and able to communicate, understand instructions, process information. MEDICATION RECONCILIATION Medications: Discharge med list reviewed with patient or caregiver New medications: Amoxicillin for 2 days, Guaifenesin ASSESSMENT Medication Risk Assessment: No risks identified Did patient fail outpatient treatment? No Discharge instructions available for review? Yes PLAN Symptom Monitoring Interventions:Member/caregiver education - signs and symptoms to contact PrimaryCare (DO NOT DELETE-Three kent symptoms patient is to report to PCP) 1. Chest Pain/SOB 2. Fevers/chills 3. Worsening symptoms Party Plan DemonstratorHandcrew Foreman of Care interventions/Action Plan: 5 - 7 day follow-up with PCP in place - Date: PCP appt 12/10/23 Educated on role of MANISH completed with patient/caregiver. Educated patient/caregiver on patient right to have input on MANISH plan of care. Verification of Home Health/DME if indicated: NA Identified Care Gaps: No Care Gaps closed this call: Appointment made or confirmed and Transition of Care follow-up communication Re-evaluation of Plan of Care and progress towards goals achievement: Patient education this visit: Verbal, Confirmed PCP appointment 12/10/2023, advised patient to touch base with Oncology regarding low grade fevers, discussed reasons to call sooner as above. Discussed low grade fevers with Dr. Olivera - states patient to continue to monitor. Plan to instructed to call Primary Care Provider with change in symptoms or as needed before next follow-up, discharge needs met, verbalizes understanding and agrees with plan. Sandy Rapp, RN documented in this encounter Plan of Treatment Upcoming Encounters Date Type Department Care Team (Late st Contact Info) Description 12/10/2023 7:20 AM EST Laboratory Laboratory [facility] [place] [address] [place] [address] [place], Lab Scenery 200 [facility] [place] [address] 12/10/2023 8:30 AM EST Hem/Onc Treatment Hematology/Oncology Treatment, [place] [address] [place] [address] Adrianna, Chair 7 Hem Onc [facility] [address] [place] [address] 12/10/2023 11:20 AM EST Office Visit [facility] [address] [facility] [phone] Abdulkadir Olivera MD [address] [place] [facility] [place] [address] 12/11/2023 10:00 AM EST Hem/Onc Treatment Hematology/Oncology Treatment, [place] 200 [place] [address] Adrianna, Chair 3 Hem Onc Scenery 200 [facility] [place], [place] [address] 12/12/2023 10:30 AM EST Hem/Onc Treatment Hematology/Oncology Treatment, [place] 200 [place] [address] Adrianna, Chair 4 Hem Onc Scenery 200 [facility] [place], [place] [address] 01/01/2024 9:15 AM EST Office Visit Hematology/Oncology [facility] 200 [facility], [place] [address] Jose Worthy MD [address] [place], [place] [address] Health Maintenance Due Date Last Done Comments [...] filedocumented as of this encounter Care Teams Church Warden Relationship Specialty Start Date End Date Abdulkadir Olivera MD [address] [place] [address] PCP - General Family Medicine 12/27/22 documented as of this encounter
--- OUTSIDE RECORDS SUMMARY | 2024-01-23 19:19 | External Medical Summary | Summary of Care ---
Author Name Unknown Organization [facility] Address [address] [place] [address] Phone [phone] Care Team Providers Care Shoe Repair Cobbler Name Role Phone Abdulkadir Olivera MD Primary Care Provider Reason for Visit * Reason Comments Outpatient Testing Encounter Details Date Type Department Care Team (Late st Contact Info) Description 12/10/2023 7:20 AM EST Laboratory Laboratory [facility] [address] [place] [phone] [facility] Lab Scenery [address] [place] [address] Small cell lung cancer (HCC); Metastasis to [...] Team (Late st Contact Info) Description 12/10/2023 8:30 AM EST Hem/Onc Treatment Hematology/Oncology Treatment, [address], [place] [address] Adrianna, Chair 7 Hem Onc Scenery 200 [facility] [place] [address] Arrived 12/10/2023 11:20 AM EST Office Visit [facility] [address] [place] [phone] Abdulkadir Olivera MD [address] [place] [address] 12/11/2023 10:00 AM EST Hem/Onc Treatment Hematology/Oncology Treatment, [place] 200 [facility], [place] [address] Adrianna, Chair 3 Hem Onc Scenery 200 [facility] [place] [address] 12/12/2023 10:30 AM EST Hem/Onc Treatment Hematology/Oncology Treatment, [place] 200 [facility] [place] [address] Adrianna, Chair 4 Hem Onc Scenery 200 [facility] [place] [address] 01/01/2024 9:15 AM EST Office Visit Hematology/Oncology Scenery Adri[place] 200 [facility] [place] [address] Jose Worthy MD 200 [facility] [place] [address] Pending Results Name Type Priority Associated Diagnoses Date /Time CBC WITH WBC DIFFERENTIAL Lab STAT Small cell lung cancer (HCC) Metastasis to liver (HCC) Metastasis to mediastinal lymph node (HCC) 12/10/2023 7:28 AM EST COMPREHENSIVE METABOLIC PANEL Lab STAT Small cell lung cancer (HCC) Metastasis to liver (HCC) Metastasis to mediastinal lymph node (HCC) 12/10/2023 7:28 AM EST TSH WITH FREE T4 IF INDICATED Lab STAT Small cell lung cancer (HCC) Metastasis to liver (HCC) Metastasis to mediastinal lymph node (HCC) 12/10/2023 7:28 AM EST CBC Lab STAT Small cell lung cancer (HCC) Metastasis to liver (HCC) Metastasis to mediastinal lymph node (HCC) 12/10/2023 7:28 AM EST DIFFERENTIAL, AUTOMATED Lab STAT Small cell lung cancer (HCC) Metastasis to liver (HCC) Metastasis to mediastinal lymph node (HCC) 12/10/2023 7:28 AM EST Health Maintenance Due Date Last [...] nodes documented in this encounter Care Teams Shoe Repair Cobbler Relationship Specialty Start Date End Date Abdulkadir Olivera MD [address] [place] [address] PCP - General Family Medicine 12/27/22 documented as of this encounter
--- OUTSIDE RECORDS SUMMARY | 2024-01-23 19:19 | External Medical Summary | Summary of Care ---
Author Name Unknown Organization [facility] Address [address] [place] [facility] [place] [address] Phone [phone] Care Team Providers Care Utility Inspector Name Role Phone Abdulkadir Olivera MD Primary Care Provider [phone] Encounter Details Date Type Department Care Team (Late st Contact Info) Description 12/10/2023 Orders Only Hematology/Oncology [facility] 200 [place] [address] Carrie Dela Cruz CRNP [address] [place] [address] Encounter for antineoplastic chemotherapy* Allergies No known active allergiesdocumented as of [...] 10:00 AM EST Hem/Onc Treatment Hematology/Oncology Treatment, [place] 200 [facility] [place], [place] [address] Adrianna, Chair 3 Hem Onc Scenery [address] [place] [address] 12/12/2023 10:30 AM EST Hem/Onc Treatment Hematology/Oncology Treatment, [place] [address] [place] [address] Adrianna, Chair 4 Hem Onc Scenery [address] [place] [address] 12/31/2023 7:50 AM EST Laboratory Laboratory [facility] Adrianna [place] [address] [place] [phone] Adrianna, Lab Scenery [address] [facility] [place] [address] 12/31/2023 9:00 AM EST [facility] 200 [facility] [place] [address] Adrianna, Chair 5 Hem Onc Scenery [address] [place] [address] 01/01/2024 9:15 AM EST Office Visit Hematology/Oncology [facility] Adrianna [place] [address] [place] [address] Jose Worthy MD 200 [facility] [place] [address] 01/01/2024 9:45 AM EST Hem/Onc Treatment Hematology/Oncology Treatment, [place] 200 [place] [address] Adrianna, Chair 6 Hem Onc Scenery 200 [facility] [place] [place] [address] 01/02/2024 9:00 AM EST Hem/Onc Treatment Hematology/Oncology Treatment, [place] 200 [facility], [place] [address] Adrianna, Chair 6 Hem Onc Scenery 200 [facility] [place], [place] [address] Health Maintenance Due Date Last Done Comments [...] Diagnoses Diagnosis Encounter for antineoplastic chemotherapy- Primary documented in this encounter Care Teams Utility Inspector Relationship Specialty Start Date End Date Abdulkadir Olivera MD [address] [facility] [place] [address] PCP - General Family Medicine 12/27/22 documented as of this encounter
--- OUTSIDE RECORDS SUMMARY | 2024-01-23 19:19 | External Medical Summary ---
Author Name Unknown Address Unknown Organization K09:[facility] [place] [address] Laboratory Report Ordering Provider Test Date Status ANGUS BAUM 12/10/2023 07:28:27 Final Observation Date Value Abnormality Reference (Units ) Status WBC, Total 12/10/2023 07:28:27 8.39 4.00-10.8 0 (K/uL) Final RBC 12/10/2023 07:28:27 3.67 3.85-5.15 (M/uL) Final Hemoglobin 12/10/2023 07:28:27 10.5 Below low normal 12 .0-15.3 (g/dL) Final HCT 12/10/2023 07:28:27 33.2 Below low normal 36. 0-45.2 (%) Final MCV 12/10/2023 07:28:27 90.5 81.5-97.5 (fL) Final MCH 12/10/2023 07:28:27 28.6 27.0-34.0 (pg) Final MCHC 12/10/2023 07:28:27 31.6 32.0-36.0 (g/dL) Final RDW 12/10/2023 07:28:27 13.0 11.5-15.5 (%) Final Platelets 12/10/2023 07:28:27 741 Above high normal 14 0-400 (K/uL) Final MPV 12/10/2023 07:28:27 8.4 6.6-11.1 ( fL) Final Performing Location [facility] [place] [address]
--- OUTSIDE RECORDS SUMMARY | 2024-01-23 19:19 | External Medical Summary ---
Author Name Unknown Address Unknown Organization K09:[facility] - [address] [place] [address] Laboratory Report Ordering Provider Test Date Status ANGUS BAUM 12/10/2023 07:28:27 Final Observation Date Value Abnormality Reference (Units ) Status SYNC LEUKOCYTES IN BLOOD BY AUTOMATED COUNT 12/10/2023 07:28:27 8.39 4.00-10.80 (K/uL) Final Neutrophils/100 leukocytes in Blood by Manual count 12/10/2023 07:28:27 72.0 40.0-75.0 (%) Final Lymphocytes/100 leukocytes in Blood by Manual count 12/10/2023 07:28:27 20.0 18.0-42.0 (%) Final Monocytes/100 leukocytes in Blood by Manual count 12/10/2023 07:28:27 5.0 1.0-11.0 (%) Final Eosinophils/100 leukocytes in Blood by Manual count 12/10/2023 07:28:27 1.0 0.0-6.0 (%) Final Metamyelocytes/100 leukocytes in Blood by Manual count 12/10/2023 07:28:27 2.0 Above high normal <=0.0 (%) Final Neutrophils [#/volume] in Blood by Manual count 12/10/2023 07:28:27 6.04 1.80-7.70 (K/uL) Final Lymphocytes [#/volume] in Blood by Manual count 12/10/2023 07:28:27 1.68 1.00-4.80 (K/uL) Final Monocytes [#/volume] in Blood by Manual count 12/10/2023 07:28:27 0.42 0.00-1.10 (K/uL) Final Eosinophils [#/volume] in Blood by Manual count 12/10/2023 07:28:27 0.08 0.00-0.70 (K/uL) Final Metamyelocytes [#/volume] in Blood by Manual count 12/10/2023 07:28:27 0.17 Above high normal <=0.00 (K/uL) Final Nucleated erythrocytes/100 leukocytes [Ratio] in Blood by Automated count 12/10/2023 07:28:27 Final Performing Location [facility] [address] [place] [address]
--- OUTSIDE RECORDS SUMMARY | 2024-01-23 19:19 | External Medical Summary ---
Author Name Unknown Address Unknown Organization K01:[facility] - [address] [place] [address] Laboratory Report Ordering Provider Test Date Status ANGUS BAUM 12/10/2023 07:28:27 Final Observation Date Value Abnormality Reference (Units ) Status TSH 12/10/2023 07:28:27 0.83 0.27-4.20 (uIU/mL) Final Performing Location [facility] - [address] [place] [address]
--- OUTSIDE RECORDS SUMMARY | 2024-01-23 19:19 | External Medical Summary | Summary of Care ---
Author Name Unknown Organization [facility] Address [address] [place] [address] Phone [phone] Care Team Providers Care Electronic Device Repairer Name Role Phone Abdulkadir Olivera MD Primary Care Provider Reason for Visit * Reason Onset Date Comments Hospital Follow-Up 12/07/2023 MANISH Encounter Details Date Type Department Care Team (Late st Contact Info) Description 12/07/2023 Telephone [place] [address] [place] [address] Sandy Rapp, FABIENNE Hospital Follow-Up [...] visit for follow up: MANISH Admitted to: [facility], Date: 11/30/2023 Discharged to: Home, Date: 12/05/2023 [...] Chest Pain/SOB 2. Fevers/chills 3. Worsening symptoms Cementer HandFelling Machine Operator of Care interventions/Action Plan: 5 - 7 [...] discussed reasons to call sooner as above. Plan to instructed to call Primary Care Provider with change in symptoms or as needed before next follow-up, discharge needs met, verbalizes understanding and agrees with plan. Sandy Rapp RN documented in this encounter Plan of Treatment Upcoming Encounters Date Type Department Care Team (Late st Contact Info) Description 12/10/2023 7:20 AM EST Laboratory Laboratory [facility] [place] [address] [place] [phone] [place], Lab [facility] [address] [facility] [place] [address] 12/10/2023 8:30 AM EST Hem/Onc Treatment Hematology/Oncology Treatment, [place] [address] [place] [address] Adrianna, Chair 7 Hem Onc [address] [place] [address] 12/10/2023 11:20 AM EST Office Visit [facility] [address] [place] [facility] [place] [phone] Abdulkadir Olivera MD [address] [place] [address] 12/11/2023 10:00 AM EST Hem/Onc Treatment Hematology/Oncology Treatment, [place] [address] [facility] [place] [address] Adrianna, Chair 3 Hem Onc [facility] [address] [facility] [place], [place] [address] 12/12/2023 10:30 AM EST Hem/Onc Treatment [facility]ematology[facility], [place] [facility] [address] Adrianna, Chair 4 [facility] 200 [facility] [place], [place] [address] 01/01/2024 9:15 AM EST Office Visit Hematology/Oncology [facility] [place] [address] [facility] [place] [address] Jose Worthy MD [address] [facility] [place] [address] Health Maintenance Due Date Last Done Comments [...] filedocumented as of this encounter Care Teams Electronic Device Repairer Relationship Specialty Start Date End Date Abdulkadir Olivera MD [address] [place] [address] PCP - General Family Medicine 12/27/22 documented as of this encounter
--- OUTSIDE RECORDS SUMMARY | 2024-01-23 19:19 | External Medical Summary | Summary of Care ---
Author Name Unknown Organization [facility] Address [address] [place] [facility] [place] [address] Phone [phone] Care Team Providers Care Notcher Name Role Phone Abdulkadir Olivera MD Primary Care Provider [phone] Encounter Details Date Type Department Care Team (Late st Contact Info) Description 12/10/2023 Orders Only Hematology/Oncology [facility] [address] [facility] [place] [address] Carrie Dela Cruz CRNP [address] [place] [address] Encounter for antineoplastic chemotherapy* Allergies [...] 10:00 AM EST Hem/Onc Treatment Hematology/Oncology Treatment, [place] 200 [facility] [place], [place] [address] Adrianna, Chair 3 Hem Onc Scen[address] [place] [address] 12/12/2023 10:30 AM EST Hem/Onc Treatment Hematology/Oncology Treatment, [place] [address] [place] [place] [address] Adrianna, Chair 4 Hem Onc Scenery [address] [place] [address] 12/31/2023 7:50 AM EST Laboratory Laboratory [facility] [place] [address] [place] [phone] Adrianna, Lab [address] [facility] [place] [address] 12/31/2023 9:00 AM EST [facility] 200 [facility] [place] [address] Adrianna, Chair 5 Hem Onc Scenery [address] [place] [address] 01/01/2024 9:15 AM EST Office Visit Hematology/Oncology [facility] [place] [address] [place] [address] Jose Worthy MD 200 [facility] [place] [address] 01/01/2024 9:45 AM EST Hem/Onc Treatment Hematology/Oncology Treatment, [place] 200 [place] [address] Adrianna, Chair 6 Hem Onc Scenery 200 [facility] [place] [address] 01/02/2024 9:00 AM EST Hem/Onc Treatment Hematology/Oncology Treatment, [place] 200 [facility], [place] [address] Adrianna, Chair 6 Hem Onc Scenery 200 [facility] [place], [place] [address] Health Maintenance Due Date Last Done Comments [...] Primary documented in this encounter Care Teams Notcher Relationship Specialty Start Date End Date Abdulkadir Olivera MD [address] [facility] [place] [address] PCP - General Family Medicine 12/27/22 documented as of this encounter
[2024-01-23] MEDS: MULTIVITAMIN TAB PO SCH (20:00)
[2024-01-23] MEDS ORDERED: VANCOMYCIN HCL 1000MG/20ML VIAL IV SCH (20:00)
[2024-01-23] MEDS: CHOLECALCIFEROL 125 MCG (5,000 UNITS) TAB PO SCH (20:00)
[2024-01-24] MEDS: VANCOMYCIN HCL 1,000 MG in SODIUM CHLORIDE 0.9% 250 ML IV SCH (02:40)
[2024-01-24] MEDS ORDERED: VANCOMYCIN HCL 1,000 MG in SODIUM CHLORIDE 0.9% 500 ML IV SCH (03:00)
--- NOTE | 2024-01-24 07:00 | Hospitalist Progress Note ---
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 S/P chemo 01/21/24. Outpatient T: 38.4 C in clinic on day of admission. In ER T:37.7C, P: 110, R: 20, BP: 104/53, 96% on RA. In ER given IV Tylenol, cefepime 2 g, 2K riders, 1 g magnesium sulfate, Zofran, total 2L NSS WBC: 8.8. ANC: 7328. Lactate 2.9--> 1.8. Procalcitonin: 0.23 Negative respiratory viral panel UA unremarkable Blood cultures pending CXR: A right upper lobe masslike opacity seen by CT on 11/06/2023 has decreased in size from prior studies. This is not well assessed by x-ray. Linear opacities at the right lung base likely represent scarring/atelectasis. Correlate clinically for evidence of a superimposed pneumonia. Radiographic follow-up to resolution is recommended. Meets SIRS criteria. No clear source. Patient does not have indwelling port as possible source of infection Patient examined after 2L NSS. Repeat P: 99, BP: 99/65, R: 19, 94% on RA. Lungs clear, Heart rate regular rhythm, brisk capillary refill, mentating well CT abd/pelvis - 1. No acute abnormalities to explain diffuse abdominal pain. 2. Hepatic and lidia metastases are seen. 3. Postsurgical changes of partial colectomy. CT chest - 1. Significant improvement in mediastinal and hilar lymphadenopathy and interval decrease in size of the right upper lobe mass consistent with a treatment response. Decrease in size of the hepatic metastases. 2. Subpleural lower lobe opacity suggestive of atelectasis. No consolidation to suggest pneumonia. Cefepime, vancomycin IVF CBC, CMP in am (2) Epigastric abdominal pain: Plan: Patient reporting epigastric discomfort after eating yesterday. Lipase WNL. Initial troponin negative CT Abd/pelvis: No acute abnormalities to explain diffuse abdominal pain. Hepatic and lidia metastases are seen. Postsurgical changes of partial colectomy. Plan to continue PPI Admitting provider notified by nurse patient having chest pain. EKG obtained and sinus tachycardia without acute ST changes noted Repeat troponin negative Trend troponin, resting echo Examined patient and actually states "no chest pain, just abdominal pain" and points to epigastric region. Suspect GI source and less likely ACS Will try Pepcid and GI cocktail Clear liquid diet as tolerated (3) Acute hypokalemia: Plan: K: 3.2 Replace and monitor (4) Hypomagnesemia: Plan: Magnesium: 1.5 Replace and monitor (5) Anemia: Plan: H/H: 8.4. Hgb: 9.3 on 01/21/24 Denies melena, hematochezia. Likely secondary to chemo Monitor CBC 01/23 - Current Hgb < 7, will provide blood transfusion 1 unit of pRBC (6) Small cell lung cancer: (7) Metastatic disease: Plan: Right upper lobe small lung cancer with metastasis to liver and lymphadenopathy On carboplatin, etoposide, atezolizumab 4th cycle on 01/21/[address] Jose Worthy LFTs have been elevated and are at recent baseline Follow CBC, CMP DVT Prophylaxis Lovenox SQ Full Code as per discussion with pt Follows with Dr Olivera for routine care, Dr. Worthy (heme/onc) Admission and Anticipated Discharge Date Admission Date: January 23, 2024 Subjective Pt seen in follow up of fever, currently on chemotherapy for lung ca w/ mets to liver This AM Hgb < 7 - blood consent obtained - plan to transfuse 1 unit of pRBC Currently pt is laying in bed in NAD, pt's is present at the bedside She says she already feels better Denies having any cough Reports epigastric tenderness No other pain or other complaints at this time Review of Systems Review of Systems: All systems reviewed & are unremarkable except as noted in Subjective Physical Exam Physical Exam: General: no acute distress, chronically ill appearing, WDWN Head: normocephalic, atraumatic Eyes: conjunctiva non-injected, anicteric ENT: normal inspection external ears, nose, mucous membranes dry Neck: supple Lungs: clear, no respiratory distress, no wheezing/rhonchi/rales CV: mid tachycardia, no murmur, no pretibial edema Abd: normal BS, soft, mild tenderness palpation epigastric, without rebound or guarding Ext: no calf tenderness, moves extremities Neuro: A&O x 3, speech fluent, no facial asymmetry, moves extremities Skin: warm, dry Results & Data Results & Data Vital Signs (Past 12 Hours) Vital Signs Temp Pulse Pulse Resp BP BP Pulse Ox 01/24/24 04:13 109 H 18 105/57 L 91 01/24/24 02:40 37.4 C 116 H 20 95/56 L 90 01/24/24 00:00 114 H 01/23/24 23:21 37.6 C H 111 H 18 98/63 L 91 01/23/24 20:00 01/23/24 19:21 37.3 C 106 H 19 100/66 92 O2 Del Method 01/24/24 04:13 Room Air 01/24/24 02:40 Room Air 01/24/24 00:00 01/23/24 23:21 Room Air 01/23/24 20:00 Room Air 01/23/24 19:21 Room Air Laboratory Results 01/24/24 01/23/24 01/23/24 Range/Units 05:40 23:04 17:45 WBC 6.94 (4.8-10.8) K/ul RBC 2.29 L (4.20-5.40) M/uL Hgb 6.7 L* (12.0-16.0) g/dl Hct 20.3 L* (37.0-47.0) % MCV 88.6 (80.0-100.0) fL MCH 29.3 (25.0-34.0) pg MCHC 33.0 (32.0-36.0) g/dL RDW Std Deviation 61.0 H (36.4-46.3) fL RDW Coeff of Brad 19.9 H (11.5-14.5) % Plt Count 150 (130-400) K/uL MPV 10.6 (9.4-12.4) fL Immature Gran % (Auto) 0.6 % Neut % (Auto) 81.8 % Lymph % (Auto) 14.6 % [place] % (Auto) 2.6 % Eos % (Auto) 0.0 % Baso % (Auto) 0.4 % Neut # (Auto) 5.68 (1.40-6.50) K/uL Lymph # (Auto) 1.01 L (1.20-3.40) K/uL [place] # (Auto) 0.18 (0.11-0.59) K/uL Eos # (Auto) 0.00 (0.00-0.50) K/uL Baso # (Auto) 0.03 (0.00-0.20) K/uL Immature Gran # (Auto) 0.04 (0.01-0.20) K/uL Anisocytosis Present Tear Drop Cells 1+ PT (9.0-12.0) Seconds INR (0.9-1.1) Sodium 130 L (136-145) mmol/L Potassium 3.6 (3.5-5.1) mmol/L Chloride 103 (98-107) mmol/L Carbon Dioxide 22 (21-32) mmol/L Anion Gap 5 (3-11) BUN 11 (6-23) mg/dl Creatinine 0.65 (0.6-1.2) mg/dl Est Cr Clr Drug Dosing 78.3 Est GFR ( Amer) 109.5 ml/min Est GFR (Non-Af Amer) 94.5 ml/min BUN/Creatinine Ratio 16.9 (10-20) Glucose 92 (70-99(Fasting)) mg/dl Lactate (0.4-2.0) mmol/L Calcium 7.8 L (8.6-10.3) mg/dl Magnesium 1.7 (1.7-2.4) mg/dl Total Bilirubin 0.9 (0.2-1.0) mg/dl AST 47 H (13-39) U/L ALT 37 (7-52) U/L Alkaline Phosphatase 114 H (34-104) U/L Troponin I High Sens 6.0 4.8 (0-14) pg/ml Total Protein 6.0 (6.0-8.3) gm/dl Albumin 2.8 L (3.4-5.0) gm/dl Globulin 3.2 (2.5-4.0) gm/dl Albumin/Globulin Ratio 0.9 (0.9-2) Lipase (11-82) U/L Procalcitonin (0-0.5) ng/ml Urine Color Urine Appearance (Clear) Urine pH (4.5-7.5) Ur Specific [place] (1.000-1.030) Urine Protein (Negative) Urine Glucose (UA) (Negative) Urine Ketones (Negative) Urine Blood (Negative) Urine Nitrite (Negative) Urine Bilirubin (Negative) Urine Urobilinogen (Negative) Ur Leukocyte Esterase (Negative) Urine WBC (Auto) (0-5) /hpf Urine RBC (Auto) (0-4) /hpf U Hyaline Cast (Auto) (0-5) /lpf U Epithel Cells (Auto) (0-5) /lpf Urine Bacteria (Auto) (Negative) Adenovirus (PCR) (NotDetected) B. pertussis DNA (PCR) (NotDetected) B.parapertussis DNA PCR (NotDetected) C. pneumoniae DNA (PCR) (NotDetected) Coronavirus OC43 (PCR) (NotDetected) Coronavirus HKU1 (PCR) (NotDetected) Coronavirus 229E (PCR) (NotDetected) SARS-CoV-2 (PCR) (NotDetected) Coronavirus NL63 (PCR) (NotDetected) Hepatitis C Ab (EIA) Pending Human Metapneumovir PCR (NotDetected) Influenza Type A (PCR) (NotDetected) Influenza Type B (PCR) (NotDetected) M. pneumoniae (PCR) (NotDetected) Parainfluenza 1 (PCR) (NotDetected) Parainfluenza 2 (PCR) (NotDetected) Parainfluenza 3 (PCR) (NotDetected) Parainfluenza 4 (PCR) (NotDetected) RSV (PCR) (NotDetected) Entero/Rhino (PCR) (NotDetected) Blood Type Antibody Screen 01/23/24 01/23/24 01/23/24 Range/Units 13:15 11:48 09:59 WBC (4.8-10.8) K/ul RBC (4.20-5.40) M/uL Hgb (12.0-16.0) g/dl Hct (37.0-47.0) % MCV (80.0-100.0) fL MCH (25.0-34.0) pg MCHC (32.0-36.0) g/dL RDW Std Deviation (36.4-46.3) fL RDW Coeff of Brad (11.5-14.5) % Plt Count (130-400) K/uL MPV (9.4-12.4) fL Immature Gran % (Auto) % Neut % (Auto) % Lymph % (Auto) % [place] % (Auto) % Eos % (Auto) % Baso % (Auto) % Neut # (Auto) (1.40-6.50) K/uL Lymph # (Auto) (1.20-3.40) K/uL [place] # (Auto) (0.11-0.59) K/uL Eos # (Auto) (0.00-0.50) K/uL Baso # (Auto) (0.00-0.20) K/uL Immature Gran # (Auto) (0.01-0.20) K/uL Anisocytosis Tear Drop Cells PT (9.0-12.0) Seconds INR (0.9-1.1) Sodium (136-145) mmol/L Potassium (3.5-5.1) mmol/L Chloride (98-107) mmol/L Carbon Dioxide (21-32) mmol/L Anion Gap (3-11) BUN (6-23) mg/dl Creatinine (0.6-1.2) mg/dl Est Cr Clr Drug Dosing Est GFR ( Amer) ml/min Est GFR (Non-Af Amer) ml/min BUN/Creatinine Ratio (10-20) Glucose (70-99(Fasting)) mg/dl Lactate 1.8 (0.4-2.0) mmol/L Calcium (8.6-10.3) mg/dl Magnesium (1.7-2.4) mg/dl Total Bilirubin (0.2-1.0) mg/dl AST (13-39) U/L ALT (7-52) U/L Alkaline Phosphatase (34-104) U/L Troponin I High Sens (0-14) pg/ml Total Protein (6.0-8.3) gm/dl Albumin (3.4-5.0) gm/dl Globulin (2.5-4.0) gm/dl Albumin/Globulin Ratio (0.9-2) Lipase (11-82) U/L Procalcitonin (0-0.5) ng/ml Urine Color Yellow Urine Appearance Clear (Clear) Urine pH 6.0 (4.5-7.5) Ur Specific [place] 1.011 (1.000-1.030) Urine Protein Negative (Negative) Urine Glucose (UA) Negative (Negative) Urine Ketones Negative (Negative) Urine Blood Negative (Negative) Urine Nitrite Negative (Negative) Urine Bilirubin Negative (Negative) Urine Urobilinogen Negative (Negative) Ur Leukocyte Esterase Trace H (Negative) Urine WBC (Auto) 1-5 (0-5) /hpf Urine RBC (Auto) 0-4 (0-4) /hpf U Hyaline Cast (Auto) 0 (0-5) /lpf U Epithel Cells (Auto) 0-5 (0-5) /lpf Urine Bacteria (Auto) Negative (Negative) Adenovirus (PCR) Not Detected (NotDetected) B. pertussis DNA (PCR) Not Detected (NotDetected) B.parapertussis DNA PCR Not Detected (NotDetected) C. pneumoniae DNA (PCR) Not Detected (NotDetected) Coronavirus OC43 (PCR) Not Detected (NotDetected) Coronavirus HKU1 (PCR) Not Detected (NotDetected) Coronavirus 229E (PCR) Not Detected (NotDetected) SARS-CoV-2 (PCR) Not Detected (NotDetected) Coronavirus NL63 (PCR) Not Detected (NotDetected) Hepatitis C Ab (EIA) Human Metapneumovir PCR Not Detected (NotDetected) Influenza Type A (PCR) Not Detected (NotDetected) Influenza Type B (PCR) Not Detected (NotDetected) M. pneumoniae (PCR) Not Detected (NotDetected) Parainfluenza 1 (PCR) Not Detected (NotDetected) Parainfluenza 2 (PCR) Not Detected (NotDetected) Parainfluenza 3 (PCR) Not Detected (NotDetected) Parainfluenza 4 (PCR) Not Detected (NotDetected) RSV (PCR) Not Detected (NotDetected) Entero/Rhino (PCR) Not Detected (NotDetected) Blood Type Antibody Screen 01/23/24 Range/Units 09:46 WBC 8.83 (4.8-10.8) K/ul RBC 2.89 L (4.20-5.40) M/uL Hgb 8.4 L (12.0-16.0) g/dl Hct 26.0 L (37.0-47.0) % MCV 90.0 (80.0-100.0) fL MCH 29.1 (25.0-34.0) pg MCHC 32.3 (32.0-36.0) g/dL RDW Std Deviation 58.5 H (36.4-46.3) fL RDW Coeff of Brad 19.6 H (11.5-14.5) % Plt Count 183 (130-400) K/uL MPV 9.6 (9.4-12.4) fL Immature Gran % (Auto) 0.7 % Neut % (Auto) 83.4 % Lymph % (Auto) 13.0 % [place] % (Auto) 2.6 % Eos % (Auto) 0.0 % Baso % (Auto) 0.3 % Neut # (Auto) 7.36 H (1.40-6.50) K/uL Lymph # (Auto) 1.15 L (1.20-3.40) K/uL [place] # (Auto) 0.23 (0.11-0.59) K/uL Eos # (Auto) 0.00 (0.00-0.50) K/uL Baso # (Auto) 0.03 (0.00-0.20) K/uL Immature Gran # (Auto) 0.06 (0.01-0.20) K/uL Anisocytosis Tear Drop Cells PT 10.9 (9.0-12.0) Seconds INR 1.0 (0.9-1.1) Sodium 132 L (136-145) mmol/L Potassium 3.2 L (3.5-5.1) mmol/L Chloride 98 (98-107) mmol/L Carbon Dioxide 25 (21-32) mmol/L Anion Gap 9 (3-11) BUN 14 (6-23) mg/dl Creatinine 0.72 (0.6-1.2) mg/dl Est Cr Clr Drug Dosing Not Reportable Est GFR ( Amer) 103.3 ml/min Est GFR (Non-Af Amer) 89.1 ml/min BUN/Creatinine Ratio 19.4 (10-20) Glucose 91 (70-99(Fasting)) mg/dl Lactate 2.9 H* (0.4-2.0) mmol/L Calcium 9.2 (8.6-10.3) mg/dl Magnesium 1.5 L (1.7-2.4) mg/dl Total Bilirubin 0.6 (0.2-1.0) mg/dl AST 83 H (13-39) U/L ALT 59 H (7-52) U/L Alkaline Phosphatase 147 H (34-104) U/L Troponin I High Sens 6.5 (0-14) pg/ml Total Protein 7.2 (6.0-8.3) gm/dl Albumin 3.5 (3.4-5.0) gm/dl Globulin 3.7 (2.5-4.0) gm/dl Albumin/Globulin Ratio 0.9 (0.9-2) Lipase 24 (11-82) U/L Procalcitonin 0.23 (0-0.5) ng/ml Urine Color Urine Appearance (Clear) Urine pH (4.5-7.5) Ur Specific [place] (1.000-1.030) Urine Protein (Negative) Urine Glucose (UA) (Negative) Urine Ketones (Negative) Urine Blood (Negative) Urine Nitrite (Negative) Urine Bilirubin (Negative) Urine Urobilinogen (Negative) Ur Leukocyte Esterase (Negative) Urine WBC (Auto) (0-5) /hpf Urine RBC (Auto) (0-4) /hpf U Hyaline Cast (Auto) (0-5) /lpf U Epithel Cells (Auto) (0-5) /lpf Urine Bacteria (Auto) (Negative) Adenovirus (PCR) (NotDetected) B. pertussis DNA (PCR) (NotDetected) B.parapertussis DNA PCR (NotDetected) C. pneumoniae DNA (PCR) (NotDetected) Coronavirus OC43 (PCR) (NotDetected) Coronavirus HKU1 (PCR) (NotDetected) Coronavirus 229E (PCR) (NotDetected) SARS-CoV-2 (PCR) (NotDetected) Coronavirus NL63 (PCR) (NotDetected) Hepatitis C Ab (EIA) Human Metapneumovir PCR (NotDetected) Influenza Type A (PCR) (NotDetected) Influenza Type B (PCR) (NotDetected) M. pneumoniae (PCR) (NotDetected) Parainfluenza 1 (PCR) (NotDetected) Parainfluenza 2 (PCR) (NotDetected) Parainfluenza 3 (PCR) (NotDetected) Parainfluenza 4 (PCR) (NotDetected) RSV (PCR) (NotDetected) Entero/Rhino (PCR) (NotDetected) Blood Type B Positive Antibody Screen NEGATIVE Medications Administered Current Inpatient Medications Acetaminophen (Acetaminophen 325 Mg Tab) 650 mg PO Q4H PRN PRN Reason: Pain or Fever Stop: 02/22/24 14:46 Enoxaparin Sodium (Enoxaparin Inj 40 Mg/0.4 Ml Syr) 40 mg SQ Q24H [facility] Stop: 02/22/24 14:46 Last Admin: 01/23/24 15:23 Dose: Not Given Cefepime HCl 2,000 mg/ Syringe 20 mls @ 5 mls/min IV Q8H [facility]; Protocol Stop: 01/25/24 17:59 Last Admin: 01/24/24 02:40 Dose: 5 mls/min Vancomycin HCl 1,000 mg/ (Sodium Chloride) 270 mls @ 200 mls/hr IV Q12H [facility]; Protocol Stop: 01/26/24 01:59 Last Infusion: 01/24/24 04:10 Dose: Infused Famotidine (Pepcid 20mg Iv Push) 20 mg in 5 mls @ 2.5 mls/min IV Q12H [facility] Stop: 02/22/24 16:59 Last Admin: 01/24/24 06:27 Dose: 2.5 mls/min Miscellaneous Information (Vancomycin Consult Active) 1 each N/A UD PRN PRN Reason: Consult Stop: 02/22/24 13:53 Multivitamins (Multivitamin Tab) 1 tab PO PM [facility] Stop: 02/22/24 20:59 Last Admin: 01/23/24 20:00 Dose: Not Given Ondansetron HCl (Ondansetron Inj 2 Mg/Ml 2 Ml Vial) 4 mg IV Q6H PRN PRN Reason: Nausea Stop: 02/22/24 14:46 Pantoprazole Sodium (Pantoprazole 40 Mg Tab) 40 mg PO QAM [facility] Stop: 02/23/24 08:59 Last Admin: 01/24/24 07:40 Dose: 40 mg Polyethylene Glycol (Polyethylene (Miralax) 17 Gm Pack) 17 gm PO DAILY PRN PRN Reason: Constipation Stop: 02/22/24 14:46 Vitamin D (Cholecalciferol 125 Mcg (5,000 Units) Tab) 125 mcg PO PM [facility] Stop: 02/22/24 20:59 Last Admin: 01/23/24 20:00 Dose: Not Given (7) Metastatic disease Area of secondary neoplastic involvement: unspecified site Qualified Code(s): C79.9 - Secondary malignant neoplasm of unspecified site
[2024-01-24 07:14] LABS: Hematocrit (blood only) 20.3 % (37.0-47.0); Hemoglobin 6.7 g/dl (12.0-16.0); Mean Corpuscular Hemoglobin 29.3 pg (25.0-34.0); Mean Corpuscular Volume 88.6 fL (80.0-100.0); Mean Platelet Volume 10.6 fL (9.4-12.4); Platelet Count 150 K/uL (130-400); RDW Coefficient of Variation 19.9 % (11.5-14.5); Red Blood Count 2.29 M/uL (4.20-5.40); White Blood Count 6.94 K/ul (4.8-10.8)
[2024-01-24 07:39] LABS: Anisocytosis Present; Basophils # (auto) 0.03 K/uL (0.00-0.20); Basophils % (auto) 0.4 %; Immature Granulocytes # (auto) 0.04 K/uL (0.01-0.20); Immature Granulocytes % (auto) 0.6 %; Lymphocytes # (auto) 1.01 K/uL (1.20-3.40); Lymphocytes % (auto) 14.6 %; Monocytes # (auto) 0.18 K/uL (0.11-0.59); Monocytes % (auto) 2.6 %; Neutrophils # (auto) 5.68 K/uL (1.40-6.50); Neutrophils % (auto) 81.8 %; Tear Drop Cells 1+
[2024-01-24 07:40] LABS: Albumin Level 2.8 gm/dl (3.4-5.0); Bilirubin,Total 0.9 mg/dl (0.2-1.0); Calcium 7.8 mg/dl (8.6-10.3); Magnesium 1.7 mg/dl (1.7-2.4); Potassium 3.6 mmol/L (3.5-5.1)
[2024-01-24] MEDS: PANTOprazole 40 MG TAB PO SCH (07:40)
[2024-01-24 07:46] LABS: Albumin Globulin Ratio 0.9 (0.9-2); BUN Creatinine Ratio 16.9 (10-20); Creatinine Clr Calc Pharmacy 78.3 ml/min; Est GFR (African American) 109.5 ml/min; Est GFR (Non-African American) 94.5 ml/min; Globulin 3.2 gm/dl (2.5-4.0)
--- OUTSIDE RECORDS SUMMARY | 2024-01-24 09:04 | External Medical Summary | Summary of Care ---
Author Name Unknown Organization [facility] Address [address] [place] [address] Phone [phone] Care Team Providers Care Oracle Manager Name Role Phone Abdulkadir Olivera MD Primary Care Provider Reason for Visit * Reason Comments Nurse Documentation Hold treatment Encounter Details Date Type Department Care Team (Late st Contact Info) Description 01/23/2024 8:45 AM EDT Hem/Onc Treatment Hematology/Oncology Treatment, [place] [address] [place] [phone] Adrianna, Chair [address] Hem Onc [address] [place] [address] Arrived Allergies No known active allergiesdocumented as of this encounter (statuses as of 01/23/2024) Medications Medication Sig Dispensed Refills Start Date [...] as of this encounter (statuses as of 01/23/2024) Active Problems Problem Noted Date Diagnosed Date Small cell lung cancer 11/15/2023 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 Encounter for antineoplastic chemotherapy 2023 Depression 11/03/2013 Anxiety 11/03/2013 Other ectopic documented as of this encounter (statuses as of 01/23/2024) Immunizations Name Administration Dates Next Due Pneumococcal [...] Sign Reading Time Taken Comments Blood Pressure 111/57 01/23/2024 9:00 AM EDT Pulse 104 01/23/2024 9:00 AM EDT Temperature 38.4 C (101.1 F) 01/23/2024 9:00 AM E DT Respiratory Rate 20 01/23/2024 9:00 AM EDT Oxygen Saturation 97% 01/23/2024 9:00 AM EDT Inhaled Oxygen Concentration - - Weight - - Height - - Body Mass Index - - documented in this encounter Nursing Notes * Duyen Alfaro RN - 01/23/2024 9:51 AM EDT Pt presented to clinic for Etoposide D3C4. Pt was visibly trembling and reported feeling "terrible." Pt stated she "ate too much" yesterday following treatment, and was then unable to move her bowelsfor several hours which was uncomfortable. Pt reported 2-3 bowel movements overnight, but stated she has been "shaking", feels very weak and SOB. Temp 101.1. Reviewed with Dr. Worthy; pt sent to [facility] ED for further assessment. * Kailey Spain RN - 01/23/2024 9:14 AM EDT Called [facility] ER and spoke to Michelle to make them aware patient is coming. documented in this encounter Plan of Treatment Upcoming Encounters Date Type Department Care Team (Late st Contact Info) Description 02/18/2024 8:50 AM EDT Laboratory Laboratory [place], [place] [address] [facility] [place] [phone] Adrianna, Lab [facility] [address] [facility] [place] [address] 02/18/2024 9:30 AM EDT Office Visit Hematology/Oncology [facility] [place] [address] [facility] [place] [phone] Carrie Dela Cruz CRNP [address] [facility] [place] [address] 02/18/2024 10:00 AM EDT Hem/Onc Treatment [address]ematology[address] [phone] 02/19/2024 9:00 AM EDT Hem/Onc Treatment Hematology/[address] [phone] Adrianna, Chair [address] Hem On[address] [place] [address] 02/20/2024 9:00 AM EDT Hem/Onc Treatment Hematology/[address]cology [address], [address] [phone] Adrianna, Chair [address] Hem On[address] [place] [address] 02/29/2024 9:00 AM EDT Imaging Radiology [facility] 1st [facility], [address] [place] [address] Health Maintenance Due Date Last Done Comments [...] filedocumented as of this encounter Care Teams Oracle Manager Relationship Specialty Start Date End Date Abdulkadir Olivera MD [address] [place] [address] PCP - General Family Medicine 12/27/22 documented as of this encounter
--- NOTE | 2024-01-24 09:07 | CT Scan Report ---
CT OF THE CHEST WITHOUT IV CONTRAST CLINICAL HISTORY: r/o pneumonia, f/u mass lesion. Small cell lung cancer. COMPARISON STUDY: Chest CT November 06, 2023. Chest radiograph January 23, 2024. CT DOSE: 333.4 mGy.cm TECHNIQUE: Axial images of the chest were obtained without IV contrast. Images were reviewed in the axial, sagittal, and coronal planes. IV contrast was not administered for this examination. Automat ed exposure control was utilized for the study. A dose lowering technique was utilized adhering to t he principles of ALARA. FINDINGS: Mediastinal and hilar lymphadenopathy has significantly improved since chest CT of November 06, 2023. Several lymph nodes are now partially calcified. Right paratracheal lymph node on image 90 of 229 measures 1.7 x 1.3 cm. This previously measured 3.9 x 3.1 cm. Right upper lobe mass has signif icantly decreased in size as well. This now measures 4.4 x 1.7 cm. It previously measured 5.4 x 4.1 c m. Subpleural lower lobe opacities favor atelectasis. There is no consolidation to suggest pneumothor ax. Moderate emphysema is noted. Central airways are patent. No new pulmonary nodules are present. He patic metastases are better depicted on contrast enhanced CT of January 23, 2024 but these have decreas ed in size since CT of November 06, 2023. There are no suspicious lesions within the bony thorax. IMPRESSION: 1. Significant improvement in mediastinal and hilar lymphadenopathy and interval decrease in size of the right upper lobe mass consistent with a treatment response. Decrease in size of the hepatic metas tases. 2. Subpleural lower lobe opacity suggestive of atelectasis. No consolidation to suggest pneumonia. ACT 112: Negative or not required by law. Electronically signed by: Ihsan Kaiser M.D. 01/24/2024 9:04 AM
[2024-01-24 09:15] LABS: Hematocrit (blood only) 19.6 % (37.0-47.0); Hemoglobin 6.6 g/dl (12.0-16.0)
--- NOTE | 2024-01-24 12:29 | Electrocardiogram Report ---
Test Reason : Blood Pressure : / mmHG Vent. Rate : 108 BPM Atrial Rate : 108 BPM P-R Int : 122 ms QRS Dur : 082 ms QT Int : 326 ms P-R-T Axes : 051 027 046 degrees QTc Int : 436 ms Sinus tachycardia Otherwise normal ECG When compared with ECG of 23-JAN-2024 16:06, No significant change was found Confirmed by Rosales Martin ([id number]) on 01/24/2024 12:29:03 PM Referred By: Abdulkadir Olivera Confirmed By:Rosales Martin
[2024-01-24] MEDS ORDERED: SODIUM CHLORIDE 0.9% 250 ML IV PRN (12:31)
[2024-01-24 18:17] LABS: Hematocrit (blood only) 23.5 % (37.0-47.0); Hemoglobin 8.3 g/dl (12.0-16.0)
[2024-01-25 07:10] LABS: Hemoglobin 8.3 g/dl (12.0-16.0); Mean Corpuscular Hgb Conc 34.6 g/dL (32.0-36.0); Mean Corpuscular Volume 86.6 fL (80.0-100.0); Mean Platelet Volume 9.3 fL (9.4-12.4); Platelet Count 192 K/uL (130-400); RDW Coefficient of Variation 17.9 % (11.5-14.5); RDW Standard Deviation 54.8 fL (36.4-46.3); Red Blood Count 2.77 M/uL (4.20-5.40); White Blood Count 5.91 K/ul (4.8-10.8)
[2024-01-25 07:16] LABS: BUN Creatinine Ratio 18.3 (10-20); Calcium 8.4 mg/dl (8.6-10.3); Creatinine Clr Calc Pharmacy 83.4 ml/min; Est GFR (African American) 112.4 ml/min; Magnesium 1.7 mg/dl (1.7-2.4); Phosphorus 2.7 mg/dl (2.5-4.9); Potassium 3.3 mmol/L (3.5-5.1)
--- NOTE | 2024-01-25 07:22 | Hospitalist Progress Note ---
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 S/P chemo 01/21/24. Outpatient T: 38.4 C in clinic on day of admission. In ER T:37.7C, P: 110, R: 20, BP: 104/53, 96% on RA. In ER given IV Tylenol, cefepime 2 g, 2K riders, 1 g magnesium sulfate, Zofran, total 2L NSS WBC: 8.8. ANC: 7328. Lactate 2.9--> 1.8. Procalcitonin: 0.23 Negative respiratory viral panel UA unremarkable Blood cultures negative for 48 hrs CXR: A right upper lobe masslike opacity seen by CT on 11/06/2023 has decreased in size from prior studies. This is not well assessed by x-ray. Linear opacities at the right lung base likely represent scarring/atelectasis. Correlate clinically for evidence of a superimposed pneumonia. Radiographic follow-up to resolution is recommended. Meets SIRS criteria. No clear source. Patient does not have indwelling port as possible source of infection Patient examined after 2L NSS. Repeat P: 99, BP: 99/65, R: 19, 94% on RA. Lungs clear, Heart rate regular rhythm, brisk capillary refill, mentating well CT abd/pelvis - 1. No acute abnormalities to explain diffuse abdominal pain. 2. Hepatic and lidia metastases are seen. 3. Postsurgical changes of partial colectomy. CT chest - 1. Significant improvement in mediastinal and hilar lymphadenopathy and interval decrease in size of the right upper lobe mass consistent with a treatment response. Decrease in size of the hepatic metastases. 2. Subpleural lower lobe opacity suggestive of atelectasis. No consolidation to suggest pneumonia. Cefepime, vancomycin IVF CBC, CMP in am (2) Epigastric abdominal pain: Plan: Patient reporting epigastric discomfort after eating yesterday. Lipase WNL. Initial troponin negative CT Abd/pelvis: No acute abnormalities to explain diffuse abdominal pain. Hepatic and lidia metastases are seen. Postsurgical changes of partial colectomy. Plan to continue PPI Admitting provider notified by nurse patient having chest pain. EKG obtained and sinus tachycardia without acute ST changes noted Repeat troponin negative Trend troponin, resting echo Echo - LV is normal in size. There is normal LV wall thickness. LV wall motion is normal. LV is hyperdynamic. EF 65 to 70%. Aortic and mitral valve leaflets appear mildly thickened. There is otherwise no significant valvular disease. Examined patient and actually states "no chest pain, just abdominal pain" and points to epigastric region. Suspect GI source and less likely ACS cont. Pepcid , ppi, and received GI cocktail advance diet as tolerated (3) Acute hypokalemia: Plan: K: 3.2 Replace and monitor (4) Hypomagnesemia: Plan: Magnesium: 1.5 Replace and monitor (5) Anemia: Plan: H/H: 8./. Hgb: 9.3 on 01/21/24 Denies melena, hematochezia. Likely secondary to chemo Monitor CBC 01/23 - Current Hgb < 7, will provide blood transfusion 1 unit of pRBC 01/24 - Hgb 8.3 (6) Small cell lung cancer: (7) Metastatic disease: Plan: Right upper lobe small lung cancer with metastasis to liver and lymphadenopathy On carboplatin, etoposide, atezolizumab 4th cycle on 01/21/[address] Jose Worthy LFTs have been elevated and are at recent baseline Follow CBC, CMP DVT Prophylaxis Lovenox SQ Full Code as per discussion with pt Follows with Dr Olivera for routine care, Dr. Worthy (heme/onc) Admission and Anticipated Discharge Date Admission Date: January 23, 2024 Subjective Pt seen in follow up of fever, currently on chemotherapy for lung ca w/ mets to liver Currently pt is laying in bed in NAD, says she is feeling much better today Denies having any cough Reports epigastric tenderness is improved No other pain or other complaints at this time Review of Systems Review of Systems: All systems reviewed & are unremarkable except as noted in Subjective Physical Exam Physical Exam: General: no acute distress, chronically ill appearing, WDWN Head: normocephalic, atraumatic Eyes: conjunctiva non-injected, anicteric ENT: normal inspection external ears, nose, mucous membranes dry Neck: supple Lungs: clear, no respiratory distress, no wheezing/rhonchi/rales CV: rrr, no murmur, no pretibial edema Abd: normal BS, soft, mild tenderness palpation epigastric, without rebound or guarding Ext: no calf tenderness, moves extremities Neuro: A&O x 3, speech fluent, no facial asymmetry, moves extremities Skin: warm, dry Results & Data Results & Data Vital Signs (Past 12 Hours) Vital Signs Temp Pulse Pulse Resp BP Pulse Ox O2 Del Method 01/25/24 02:35 36.8 C 106 H 18 101/59 L 91 Room Air 01/24/24 22:28 37.7 C H 104 H 18 100/68 92 Room Air 01/24/24 21:56 99 H 01/24/24 19:40 37.3 C 107 H 18 89/65 L 92 Room Air Laboratory Results 01/25/24 01/24/24 01/24/24 Range/Units 06:23 Unknown 17:38 WBC 5.91 (4.8-10.8) K/ul RBC 2.77 L (4.20-5.40) M/uL Hgb 8.3 L 8.3 L (12.0-16.0) g/dl Hct 24.0 L 23.5 L (37.0-47.0) % MCV 86.6 (80.0-100.0) fL MCH 30.0 (25.0-34.0) pg MCHC 34.6 (32.0-36.0) g/dL RDW Std Deviation 54.8 H (36.4-46.3) fL RDW Coeff of Brad 17.9 H (11.5-14.5) % Plt Count 192 (130-400) K/uL MPV 9.3 L (9.4-12.4) fL Immature Gran % (Auto) % Neut % (Auto) % Lymph % (Auto) % [place] % (Auto) % Eos % (Auto) % Baso % (Auto) % Neut # (Auto) (1.40-6.50) K/uL Lymph # (Auto) (1.20-3.40) K/uL [place] # (Auto) (0.11-0.59) K/uL Eos # (Auto) (0.00-0.50) K/uL Baso # (Auto) (0.00-0.20) K/uL Immature Gran # (Auto) (0.01-0.20) K/uL Anisocytosis Tear Drop Cells Sodium 132 L (136-145) mmol/L Potassium 3.3 L (3.5-5.1) mmol/L Chloride 102 (98-107) mmol/L Carbon Dioxide 23 (21-32) mmol/L Anion Gap 7 (3-11) BUN 11 (6-23) mg/dl Creatinine 0.60 (0.6-1.2) mg/dl Est Cr Clr Drug Dosing 83.4 ml/min Est GFR ( Amer) 112.4 ml/min Est GFR (Non-Af Amer) 97.0 ml/min BUN/Creatinine Ratio 18.3 (10-20) Glucose 111 H (70-99(Fasting)) mg/dl Calcium 8.4 L (8.6-10.3) mg/dl Phosphorus 2.7 (2.5-4.9) mg/dl Magnesium 1.7 (1.7-2.4) mg/dl Total Bilirubin (0.2-1.0) mg/dl AST (13-39) U/L ALT (7-52) U/L Alkaline Phosphatase (34-104) U/L Total Protein (6.0-8.3) gm/dl Albumin (3.4-5.0) gm/dl Globulin (2.5-4.0) gm/dl Albumin/Globulin Ratio (0.9-2) Nasal Screen MRSA (PCR) Negative (Negative) Blood Type Blood Type Recheck Antibody Screen Crossmatch 01/24/24 01/24/24 01/23/24 Range/Units 08:50 05:40 09:46 WBC (4.8-10.8) K/ul RBC (4.20-5.40) M/uL Hgb 6.6 L* (12.0-16.0) g/dl Hct 19.6 L* (37.0-47.0) % MCV (80.0-100.0) fL MCH (25.0-34.0) pg MCHC (32.0-36.0) g/dL RDW Std Deviation (36.4-46.3) fL RDW Coeff of Brad (11.5-14.5) % Plt Count (130-400) K/uL MPV (9.4-12.4) fL Immature Gran % (Auto) 0.6 % Neut % (Auto) 81.8 % Lymph % (Auto) 14.6 % [place] % (Auto) 2.6 % Eos % (Auto) 0.0 % Baso % (Auto) 0.4 % Neut # (Auto) 5.68 (1.40-6.50) K/uL Lymph # (Auto) 1.01 L (1.20-3.40) K/uL [place] # (Auto) 0.18 (0.11-0.59) K/uL Eos # (Auto) 0.00 (0.00-0.50) K/uL Baso # (Auto) 0.03 (0.00-0.20) K/uL Immature Gran # (Auto) 0.04 (0.01-0.20) K/uL Anisocytosis Present Tear Drop Cells 1+ Sodium 130 L (136-145) mmol/L Potassium 3.6 (3.5-5.1) mmol/L Chloride 103 (98-107) mmol/L Carbon Dioxide 22 (21-32) mmol/L Anion Gap 5 (3-11) BUN 11 (6-23) mg/dl Creatinine 0.65 (0.6-1.2) mg/dl Est Cr Clr Drug Dosing 78.3 ml/min Est GFR ( Amer) 109.5 ml/min Est GFR (Non-Af Amer) 94.5 ml/min BUN/Creatinine Ratio 16.9 (10-20) Glucose 92 (70-99(Fasting)) mg/dl Calcium 7.8 L (8.6-10.3) mg/dl Phosphorus (2.5-4.9) mg/dl Magnesium 1.7 (1.7-2.4) mg/dl Total Bilirubin 0.9 (0.2-1.0) mg/dl AST 47 H (13-39) U/L ALT 37 (7-52) U/L Alkaline Phosphatase 114 H (34-104) U/L Total Protein 6.0 (6.0-8.3) gm/dl Albumin 2.8 L (3.4-5.0) gm/dl Globulin 3.2 (2.5-4.0) gm/dl Albumin/Globulin Ratio 0.9 (0.9-2) Nasal Screen MRSA (PCR) (Negative) Blood Type B Positive Blood Type Recheck B Positive Antibody Screen NEGATIVE Crossmatch See Detail Medications Administered Current Inpatient Medications Acetaminophen (Acetaminophen 325 Mg Tab) 650 mg PO Q4H PRN PRN Reason: Pain or Fever Stop: 02/22/24 14:46 Enoxaparin Sodium (Enoxaparin Inj 40 Mg/0.4 Ml Syr) 40 mg SQ Q24H DANNY Stop: 02/22/24 14:46 Last Admin: 01/24/24 13:52 Dose: Not Given Cefepime HCl 2,000 mg/ Syringe 20 mls @ 5 mls/min IV Q8H ON LICENSE OF [facility]; Protocol Stop: 01/25/24 17:59 Last Admin: 01/25/24 02:22 Dose: 5 mls/min Vancomycin HCl 1,000 mg/ (Sodium Chloride) 270 mls @ 200 mls/hr IV Q12H ON LICENSE OF [facility]; Protocol Stop: 01/26/24 01:59 Last Infusion: 01/25/24 03:49 Dose: Infused Famotidine (Pepcid 20mg Iv Push) 20 mg in 5 mls @ 2.5 mls/min IV Q12H ON LICENSE OF [facility] Stop: 02/22/24 16:59 Last Admin: 01/25/24 06:04 Dose: 2.5 mls/min Magnesium Oxide (Magnesium Oxide 400 Mg Tab) 400 mg PO QAM ON LICENSE OF [facility] Stop: 02/24/24 08:59 Miscellaneous Information (Vancomycin Consult Active) 1 each N/A UD PRN PRN Reason: Consult Stop: 02/22/24 13:53 Multivitamins (Multivitamin Tab) 1 tab PO PM DANNY Stop: 02/22/24 20:59 Last Admin: 01/24/24 20:05 Dose: 1 tab Ondansetron HCl (Ondansetron Inj 2 Mg/Ml 2 Ml Vial) 4 mg IV Q6H PRN PRN Reason: Nausea Stop: 02/22/24 14:46 Pantoprazole Sodium (Pantoprazole 40 Mg Tab) 40 mg PO QAM DANNY Stop: 02/23/24 08:59 Last Admin: 01/24/24 07:40 Dose: 40 mg Polyethylene Glycol (Polyethylene (Miralax) 17 Gm Pack) 17 gm PO DAILY PRN PRN Reason: Constipation Stop: 02/22/24 14:46 Potassium Chloride (Potassium Chloride Crtab 20 Meq Tabcr) 40 meq PO NOW STA Stop: 01/25/24 07:20 Vitamin D (Cholecalciferol 125 Mcg (5,000 Units) Tab) 125 mcg PO PM DANNY Stop: 02/22/24 20:59 Last Admin: 01/24/24 20:05 Dose: 125 mcg (7) Metastatic disease Area of secondary neoplastic involvement: unspecified site Qualified Code(s): C79.9 - Secondary malignant neoplasm of unspecified site
[2024-01-25 07:37] LABS: Basophils # (auto) 0.02 K/uL (0.00-0.20); Basophils % (auto) 0.3 %; Immature Granulocytes # (auto) 0.05 K/uL (0.01-0.20); Immature Granulocytes % (auto) 0.8 %; Lymphocytes # (auto) 1.16 K/uL (1.20-3.40); Lymphocytes % (auto) 19.6 %; Monocytes % (auto) 1.7 %; Neutrophils # (auto) 4.58 K/uL (1.40-6.50); Neutrophils % (auto) 77.6 %; Rouleaux 1+; Tear Drop Cells 1+
[2024-01-25] MEDS: POTASSIUM CHLORIDE CRTAB 20 MEQ TABCR PO STA (08:03)
[2024-01-25] MEDS: MAGNESIUM OXIDE 400 MG TAB PO SCH (08:03)
--- NOTE | 2024-01-25 11:46 | Pharmacy Report ---
Pharmacy PK ABX Note - Date of Service January 25, 2024 - Assessment and Plan Assessment 63 year old F receiving vancomcyin/cefepime for empiric treatment of fever in immunocompromised patient. Patient has history of non small cell lung cancer with last chemotherapy treatment 01/21/24. * Day #3 of antimicrobial therapy. * Patient not neutropenic. Cultures with no growth to date. CT chest without evidence of pneumonia. * Recommended discontinuation of abx and provider would like to discuss with ID. Extending empiric abx x 24 hours. Plan Vancomycin * Current regimen: 1000 mg IV every 12 hours * Random level obtained 01/25/24 resulted as 12.2 mcg/mL. This is predicted to achieve target AUC/JYOTI of 400-600 mg/L.hr * Predicted AUC at steady state: 422 mg/L.hr * Continue 1000 mg IV every 12 hours * Will repeat level in the next 48-72 hours if therapy is continued and/or change in patient clinical status Pharmacy will continue to follow and will adjust dose/frequency as necessary. Thank you. Pharmacy has transitioned to AUC monitoring for vancomycin. AUC/JYOTI is the preferred PK/PD target and is associated with decreased risk of nephrotoxicity compared to traditional trough targets.
[2024-01-26 07:03] LABS: Hemoglobin 7.9 g/dl (12.0-16.0); Mean Corpuscular Hemoglobin 30.5 pg (25.0-34.0); Mean Corpuscular Hgb Conc 34.3 g/dL (32.0-36.0); Mean Corpuscular Volume 88.8 fL (80.0-100.0); Mean Platelet Volume 8.9 fL (9.4-12.4); Platelet Count 202 K/uL (130-400); RDW Coefficient of Variation 17.9 % (11.5-14.5); RDW Standard Deviation 57.1 fL (36.4-46.3); Red Blood Count 2.59 M/uL (4.20-5.40); White Blood Count 4.03 K/ul (4.8-10.8)
[2024-01-26 07:20] LABS: BUN Creatinine Ratio 19.7 (10-20); Calcium 8.7 mg/dl (8.6-10.3); Est GFR (African American) 111.8 ml/min; Est GFR (Non-African American) 96.5 ml/min; Magnesium 1.8 mg/dl (1.7-2.4); Phosphorus 2.6 mg/dl (2.5-4.9); Potassium 3.7 mmol/L (3.5-5.1)
[2024-01-26 07:49] LABS: Basophils # (auto) 0.02 K/uL (0.00-0.20); Basophils % (auto) 0.5 %; Eosinophils # (auto) 0.01 K/uL (0.00-0.50); Eosinophils % (auto) 0.2 %; Immature Granulocytes # (auto) 0.09 K/uL (0.01-0.20); Immature Granulocytes % (auto) 2.2 %; Lymphocytes # (auto) 0.82 K/uL (1.20-3.40); Lymphocytes % (auto) 20.3 %; Monocytes # (auto) 0.07 K/uL (0.11-0.59); Monocytes % (auto) 1.7 %; Neutrophils # (auto) 3.02 K/uL (1.40-6.50); Neutrophils % (auto) 75.1 %; Polychromasia 1+; Rouleaux 1+; Tear Drop Cells 1+
--- NOTE | 2024-01-26 15:49 | Hospitalist Progress Note ---
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 S/P chemo 01/21/24. Outpatient T: 38.4 C in clinic on day of admission. In ER T:37.7C, P: 110, R: 20, BP: 104/53, 96% on RA. In ER given IV Tylenol, cefepime 2 g, 2K riders, 1 g magnesium sulfate, Zofran, total 2L NSS WBC: 8.8. ANC: 7328. Lactate 2.9--> 1.8. Procalcitonin: 0.23 Negative respiratory viral panel UA unremarkable Blood cultures negative for 48 hrs CXR: A right upper lobe masslike opacity seen by CT on 11/06/2023 has decreased in size from prior studies. This is not well assessed by x-ray. Linear opacities at the right lung base likely represent scarring/atelectasis. Correlate clinically for evidence of a superimposed pneumonia. Radiographic follow-up to resolution is recommended. Meets SIRS criteria. No clear source. Patient does not have indwelling port as possible source of infection Patient examined after 2L NSS. Repeat P: 99, BP: 99/65, R: 19, 94% on RA. Lungs clear, Heart rate regular rhythm, brisk capillary refill, mentating well CT abd/pelvis - 1. No acute abnormalities to explain diffuse abdominal pain. 2. Hepatic and lidia metastases are seen. 3. Postsurgical changes of partial colectomy. CT chest - 1. Significant improvement in mediastinal and hilar lymphadenopathy and interval decrease in size of the right upper lobe mass consistent with a treatment response. Decrease in size of the hepatic metastases. 2. Subpleural lower lobe opacity suggestive of atelectasis. No consolidation to suggest pneumonia. Cefepime, vancomycin IVF CBC, CMP in am (2) Epigastric abdominal pain: Plan: Patient reporting epigastric discomfort after eating yesterday. Lipase WNL. Initial troponin negative CT Abd/pelvis: No acute abnormalities to explain diffuse abdominal pain. Hepatic and lidia metastases are seen. Postsurgical changes of partial colectomy. Plan to continue PPI Admitting provider notified by nurse patient having chest pain. EKG obtained and sinus tachycardia without acute ST changes noted Repeat troponin negative Trend troponin, resting echo Echo - LV is normal in size. There is normal LV wall thickness. LV wall motion is normal. LV is hyperdynamic. EF 65 to 70%. Aortic and mitral valve leaflets appear mildly thickened. There is otherwise no significant valvular disease. Examined patient and actually states "no chest pain, just abdominal pain" and points to epigastric region. Suspect GI source and less likely ACS cont. Pepcid , ppi, and received GI cocktail advance diet as tolerated (3) Acute hypokalemia: Plan: K: 3.2 Replace and monitor (4) Hypomagnesemia: Plan: Magnesium: 1.5 Replace and monitor (5) Anemia: Plan: H/H: 8./. Hgb: 9.3 on 01/21/24 Denies melena, hematochezia. Likely secondary to chemo Monitor CBC 01/23 - Current Hgb < 7, will provide blood transfusion 1 unit of pRBC 01/24 - Hgb 8.3 (6) Small cell lung cancer: (7) Metastatic disease: Plan: Right upper lobe small lung cancer with metastasis to liver and lymphadenopathy On carboplatin, etoposide, atezolizumab 4th cycle on 01/21/[address] Jose Worthy LFTs have been elevated and are at recent baseline Follow CBC, CMP DVT Prophylaxis Lovenox SQ Full Code as per discussion with pt Follows with Dr Olivera for routine care, Dr. Worthy (heme/onc) Admission and Anticipated Discharge Date Admission Date: January 23, 2024 Subjective Pt seen in follow up of fever, currently on chemotherapy for lung ca w/ mets to liver Currently pt is sitting up in bed in NAD, however has more epigastric pain now after having more substantial meal yesterday Denies having any cough No other complaints Review of Systems Review of Systems: All systems reviewed & are unremarkable except as noted in Subjective Physical Exam Physical Exam: General: no acute distress, chronically ill appearing, WDWN Head: normocephalic, atraumatic Eyes: conjunctiva non-injected, anicteric ENT: normal inspection external ears, nose, mucous membranes dry Neck: supple Lungs: clear, no respiratory distress, no wheezing/rhonchi/rales CV: rrr, no murmur, no pretibial edema Abd: normal BS, soft, mild tenderness palpation epigastric, without rebound or guarding Ext: no calf tenderness, moves extremities Neuro: A&O x 3, speech fluent, no facial asymmetry, moves extremities Skin: warm, dry Results & Data Results & Data Vital Signs (Past 12 Hours) Vital Signs Temp Pulse Pulse Resp BP Pulse Ox O2 Del Method 01/26/24 11:16 36.9 C 88 16 107/68 96 Room Air 01/26/24 07:55 36.8 C 95 H 18 93/64 L 96 Room Air 01/26/24 07:10 97 H 01/26/24 05:46 97 H Laboratory Results 01/26/24 Range/Units 06:45 WBC 4.03 L (4.8-10.8) K/ul RBC 2.59 L (4.20-5.40) M/uL Hgb 7.9 L (12.0-16.0) g/dl Hct 23.0 L (37.0-47.0) % MCV 88.8 (80.0-100.0) fL MCH 30.5 (25.0-34.0) pg MCHC 34.3 (32.0-36.0) g/dL RDW Std Deviation 57.1 H (36.4-46.3) fL RDW Coeff of Brad 17.9 H (11.5-14.5) % Plt Count 202 (130-400) K/uL MPV 8.9 L (9.4-12.4) fL Immature Gran % (Auto) 2.2 % Neut % (Auto) 75.1 % Lymph % (Auto) 20.3 % [place] % (Auto) 1.7 % Eos % (Auto) 0.2 % Baso % (Auto) 0.5 % Neut # (Auto) 3.02 (1.40-6.50) K/uL Lymph # (Auto) 0.82 L (1.20-3.40) K/uL [place] # (Auto) 0.07 L (0.11-0.59) K/uL Eos # (Auto) 0.01 (0.00-0.50) K/uL Baso # (Auto) 0.02 (0.00-0.20) K/uL Immature Gran # (Auto) 0.09 (0.01-0.20) K/uL Polychromasia 1+ Tear Drop Cells 1+ Rouleaux 1+ Sodium 133 L (136-145) mmol/L Potassium 3.7 (3.5-5.1) mmol/L Chloride 102 (98-107) mmol/L Carbon Dioxide 24 (21-32) mmol/L Anion Gap 7 (3-11) BUN 12 (6-23) mg/dl Creatinine 0.61 (0.6-1.2) mg/dl Est Cr Clr Drug Dosing 82.0 ml/min Est GFR ( Amer) 111.8 ml/min Est GFR (Non-Af Amer) 96.5 ml/min BUN/Creatinine Ratio 19.7 (10-20) Glucose 96 (70-99(Fasting)) mg/dl Calcium 8.7 (8.6-10.3) mg/dl Phosphorus 2.6 (2.5-4.9) mg/dl Magnesium 1.8 (1.7-2.4) mg/dl Medications Administered Current Inpatient Medications Acetaminophen (Acetaminophen 325 Mg Tab) 650 mg PO Q4H PRN PRN Reason: Pain or Fever Stop: 02/22/24 14:46 Enoxaparin Sodium (Enoxaparin Inj 40 Mg/0.4 Ml Syr) 40 mg SQ Q24H [facility] Stop: 02/22/24 14:46 Last Admin: 01/26/24 14:22 Dose: Not Given Cefepime HCl 2,000 mg/ Syringe 20 mls @ 5 mls/min IV Q8H [facility]; Protocol Stop: 01/26/24 17:59 Last Admin: 01/26/24 09:50 Dose: 5 mls/min Vancomycin HCl 1,000 mg/ (Sodium Chloride) 270 mls @ 200 mls/hr IV Q12H [facility]; Protocol Stop: 01/27/24 01:59 Last Admin: 01/26/24 14:21 Dose: 200 mls/hr Famotidine (Pepcid 20mg Iv Push) 20 mg in 5 mls @ 2.5 mls/min IV Q12H [facility] Stop: 02/22/24 16:59 Last Admin: 01/26/24 04:24 Dose: 2.5 mls/min Magnesium Oxide (Magnesium Oxide 400 Mg Tab) 400 mg PO QAM [facility] Stop: 02/24/24 08:59 Last Admin: 01/26/24 09:49 Dose: 400 mg Miscellaneous Information (Vancomycin Consult Active) 1 each N/A UD PRN PRN Reason: Consult Stop: 02/22/24 13:53 Multivitamins (Multivitamin Tab) 1 tab PO PM DANNY Stop: 02/22/24 20:59 Last Admin: 01/25/24 20:25 Dose: 1 tab Ondansetron HCl (Ondansetron Inj 2 Mg/Ml 2 Ml Vial) 4 mg IV Q6H PRN PRN Reason: Nausea Stop: 02/22/24 14:46 Pantoprazole Sodium (Pantoprazole 40 Mg Tab) 40 mg PO QAM DANNY Stop: 02/23/24 08:59 Last Admin: 01/26/24 09:49 Dose: 40 mg Polyethylene Glycol (Polyethylene (Miralax) 17 Gm Pack) 17 gm PO DAILY PRN PRN Reason: Constipation Stop: 02/22/24 14:46 Vitamin D (Cholecalciferol 125 Mcg (5,000 Units) Tab) 125 mcg PO PM DANNY Stop: 02/22/24 20:59 Last Admin: 01/25/24 20:25 Dose: 125 mcg (7) Metastatic disease Area of secondary neoplastic involvement: unspecified site Qualified Code(s): C79.9 - Secondary malignant neoplasm of unspecified site
[2024-01-26] MEDS ORDERED: oxyCODONE HCL IR 5 MG TAB (IMMEDIATE RELEASE) PO PRN (15:50)
[2024-01-26] MEDS: CALCIUM CARBONATE 500 MG CHEWABLE TAB PO SCH (16:06)
[2024-01-26] MEDS: SUCRALFATE 1 GM/10 ML UDC PO SCH (20:38)
[2024-01-26] MEDS: PANTOprazole 40 MG in SYRINGE 0 ML IV SCH (20:39)
[2024-01-27 05:46] LABS: Basophils # (auto) 0.02 K/uL (0.00-0.20); Basophils % (auto) 0.9 %; Eosinophils # (auto) 0.01 K/uL (0.00-0.50); Eosinophils % (auto) 0.4 %; Hemoglobin 7.7 g/dl (12.0-16.0); Immature Granulocytes # (auto) 0.04 K/uL (0.01-0.20); Immature Granulocytes % (auto) 1.8 %; Lymphocytes # (auto) 0.91 K/uL (1.20-3.40); Lymphocytes % (auto) 39.9 %; Mean Corpuscular Hemoglobin 30.1 pg (25.0-34.0); Mean Corpuscular Hgb Conc 33.5 g/dL (32.0-36.0); Mean Corpuscular Volume 89.8 fL (80.0-100.0); Mean Platelet Volume 9.2 fL (9.4-12.4); Monocytes # (auto) 0.08 K/uL (0.11-0.59); Monocytes % (auto) 3.5 %; Neutrophils # (auto) 1.22 K/uL (1.40-6.50); Neutrophils % (auto) 53.5 %; Platelet Count 192 K/uL (130-400); RDW Coefficient of Variation 17.5 % (11.5-14.5); RDW Standard Deviation 56.6 fL (36.4-46.3); Red Blood Count 2.56 M/uL (4.20-5.40); White Blood Count 2.28 K/ul (4.8-10.8)
[2024-01-27 06:03] LABS: BUN Creatinine Ratio 17.2 (10-20); Creatinine Clr Calc Pharmacy 86.2 ml/min; Est GFR (African American) 113.7 ml/min; Est GFR (Non-African American) 98.1 ml/min; Magnesium 1.8 mg/dl (1.7-2.4); Phosphorus 2.8 mg/dl (2.5-4.9); Potassium 3.6 mmol/L (3.5-5.1)
[2024-01-27 06:09] LABS: Rouleaux 1+; Tear Drop Cells 1+
--- NOTE | 2024-01-27 13:19 | Discharge Summary ---
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 History obtained from patient, inpatient and outpatient chart review. Patient had recent admission hospital 11/30/2023-12/05/2023 for neutropenic fever and was treated with cefepime and Doxy. Chest x-ray at time with possible RLL pneumonia however patient was without symptoms and had negative COVID, influenza, RSV, and MRSA swab. ID was consulted and had recommended switching to oral Augmentin for discharge. She states since discharge has been doing ok. Patient started chemo the end of October 2023. She reports after chemo has generalized malaise, decreased appetite. Reports usually will have several days of constipation that resolves after taking OTC laxative. She states she has been having exertional SOB and has been anemic. Is following with Dr Worthy. Last chemo was 01/21/24 and had immunotherapy yesterday 01/22/24. Today seen at outpatient oncology as was scheduled for immunotherapy today. There had temperature reported of 38.4 C, P:104, BP 111/57, R: 20, 97% on room air and patient was referred to ER for further evaluation. Patient states yesterday when home after treatment and was very hungry and she ate pint of soup, 2 pieces of bread and cake. After states that she felt overfull and had abdominal discomfort. Last BM was 01/20/24. Patient states took laxative tea and during the night had 3 BM's. She states has some mild upper abdominal discomfort but "nothing bad". Today felt lightheaded with standing and walking. Denies syncope or fall. Reports chills at home today. Denies worsening or increased SOB. Denies nausea, vomiting, diarrhea, CP, cough, dysuria, hematuria, urinary frequency, flank pain, rhinorrhea, sore throat, melena, hematochezia, extremity weakness, extremity edema, rashes. Admission Exam Per Admitting Provider General: no acute distress, chronically ill appearing, WDWN Head: normocephalic, atraumatic Eyes: conjunctiva non-injected, anicteric ENT: normal inspection external ears, nose, mucous membranes dry Neck: supple, trachea midline Lungs: clear, no respiratory distress, no wheezing/rhonchi/rales CV: rate 98, regular rhythm, no murmur, no pretibial edema Abd: normal BS, soft, mild tenderness palpation epigastric and LUQ without rebound or guarding Ext: no cyanosis, no calf tenderness Neuro: A&O x 3, no focal deficits noted, normal affect Skin: warm, dry Principal Diagnosis Fever, hx of lung ca w/ metastases, on chemotherapy Discharge Exam General: no acute distress, chronically ill appearing, WDWN Head: normocephalic, atraumatic Eyes: conjunctiva non-injected, anicteric ENT: normal inspection external ears, nose, mucous membranes dry Neck: supple Lungs: clear, no respiratory distress, no wheezing/rhonchi/rales CV: rrr, no murmur, no pretibial edema Abd: normal BS, soft, mild tenderness palpation epigastric, without rebound or guarding Ext: no calf tenderness, moves extremities Neuro: A&O x 3, speech fluent, no facial asymmetry, moves extremities Skin: warm, dry Discharge Data Allergies Allergy/AdvReac Type Severity Reaction Status Date / Time No Known Allergies Allergy Unknown Verified 11/30/23 22:31 Consultations 01/23/24 12:25 ED Decision to Admit Stat Ordered Studies 01/23/24 13:18 CT Abd and Pelvis [CT abd pelvis IV con only] Stat FINDINGS: Lower chest: Focal atelectasis is seen in the lower lungs. Liver: Partial visualization of numerous hepatic metastases. Gallbladder and biliary tree: No calcified gallstones. Normal caliber wall. Trace pericholecystic fluid may represent reactive change to surrounding metastatic disease. No intra- or extrahepatic biliary ductal dilation. Pancreas: Unremarkable, no focal lesions. Spleen: Unremarkable. Adrenals: Unremarkable. Kidneys and ureters: Unremarkable. Bladder: Unremarkable. Reproductive organs: Uterus is retroverted. Bowel: Postsurgical changes are seen in the colon. Diverticulosis is seen without diverticulitis. The appendix is normal. Lymph nodes Retroperitoneal: Enlarged retroperitoneal lymph nodes are seen, stable to mildly decreased from prior exam. Pelvic: Unremarkable. Mesenteric: Unremarkable. Peritoneum: Trace free fluid in the pelvis is likely physiologic. Trace perihepatic ascites is again seen predominantly in the gallbladder fossa. Vessels: Atherosclerotic calcifications are seen. Abdominal wall: Unremarkable. Bones: Degenerative changes in the visualized spine. IMPRESSION: 1. No acute abnormalities to explain diffuse abdominal pain. 2. Hepatic and lidia metastases are seen. 3. Postsurgical changes of partial colectomy. 01/24/24 08:00 CT chest diagnostic wo con Routine FINDINGS: Mediastinal and hilar lymphadenopathy has significantly improved since chest CT of November 06, 2023. Several lymph nodes are now partially calcified. Right paratracheal lymph node on image 90 of 229 measures 1.7 x 1.3 cm. This previously measured 3.9 x 3.1 cm. Right upper lobe mass has significantly decreased in size as well. This now measures 4.4 x 1.7 cm. It previously measured 5.4 x 4.1 cm. Subpleural lower lobe opacities favor atelectasis. There is no consolidation to suggest pneumothorax. Moderate emphysema is noted. Central airways are patent. No new pulmonary nodules are present. Hepatic metastases are better depicted on contrast enhanced CT of January 23, 2024 but these have decreased in size since CT of November 06, 2023. There are no suspicious lesions within the bony thorax. IMPRESSION: 1. Significant improvement in mediastinal and hilar lymphadenopathy and interval decrease in size of the right upper lobe mass consistent with a treatment response. Decrease in size of the hepatic metastases. 2. Subpleural lower lobe opacity suggestive of atelectasis. No consolidation to suggest pneumonia. 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 S/P chemo 01/21/24. Outpatient T: 38.4 C in clinic on day of admission. In ER T:37.7C, P: 110, R: 20, BP: 104/53, 96% on RA. In ER given IV Tylenol, cefepime 2 g, 2K riders, 1 g magnesium sulfate, Zofran, total 2L NSS WBC: 8.8. ANC: [id number]. Lactate 2.9--> 1.8. Procalcitonin: 0.23 Negative respiratory viral panel UA unremarkable Blood cultures negative for 48 hrs CXR: A right upper lobe masslike opacity seen by CT on 11/06/2023 has decreased in size from prior studies. This is not well assessed by x-ray. Linear opacities at the right lung base likely represent scarring/atelectasis. Correlate clinically for evidence of a superimposed pneumonia. Radiographic follow-up to resolution is recommended. Meets SIRS criteria. No clear source. Patient does not have indwelling port as possible source of infection Patient examined after 2L NSS. Repeat P: 99, BP: 99/65, R: 19, 94% on RA. Lungs clear, Heart rate regular rhythm, brisk capillary refill, mentating well CT abd/pelvis - 1. No acute abnormalities to explain diffuse abdominal pain. 2. Hepatic and lidia metastases are seen. 3. Postsurgical changes of partial colectomy. CT chest - 1. Significant improvement in mediastinal and hilar lymphadenopathy and interval decrease in size of the right upper lobe mass consistent with a treatment response. Decrease in size of the hepatic metastases. 2. Subpleural lower lobe opacity suggestive of atelectasis. No consolidation to suggest pneumonia. Cefepime, vancomycin IVF Discussed w/ ID (01/26) - discussed that WBC now trending down (pt had chemotherapy prior to coming to the hospital), however pt afebrile in the hospital w/o any clear source of infection - ok to stop antibiotics, and discharge home. Follow up w/ oncology. (2) Epigastric abdominal pain: Patient reporting epigastric discomfort after eating yesterday. Lipase WNL. Initial troponin negative CT Abd/pelvis: No acute abnormalities to explain diffuse abdominal pain. Hepatic and lidia metastases are seen. Postsurgical changes of partial colectomy. Plan to continue PPI Admitting provider notified by nurse patient having chest pain. EKG obtained and sinus tachycardia without acute ST changes noted Repeat troponin negative Trend troponin, resting echo Echo - LV is normal in size. There is normal LV wall thickness. LV wall motion is normal. LV is hyperdynamic. EF 65 to 70%. Aortic and mitral valve leaflets appear mildly thickened. There is otherwise no significant valvular disease. Examined patient and actually states "no chest pain, just abdominal pain" and points to epigastric region. Suspect GI source and less likely ACS cont. Pepcid , ppi, and received GI cocktail advance diet as tolerated Overall pt is feeling better - will discharge on sucralfate, in addition to PPI (3) Acute hypokalemia: K: 3.2 Replace and monitor (4) Hypomagnesemia: Magnesium: 1.5 Replace and monitor (5) Anemia: H/H: 8.4/26. Hgb: 9.3 on 01/21/24 Denies melena, hematochezia. Likely secondary to chemo Monitor CBC 01/23 - Current Hgb < 7, will provide blood transfusion 1 unit of pRBC 01/24 - Hgb 8.3 Hgb ~ 8 (6) Small cell lung cancer: (7) Metastatic disease: Right upper lobe small lung cancer with metastasis to liver and lymphadenopathy On carboplatin, etoposide, atezolizumab 4th cycle on 01/21/[address] Jose Worthy LFTs have been elevated and are at recent baseline Follow CBC, CMP Total Time Total Time Spent Total Time Spent (In Minutes): 40 Discharge Plan Discharge Items Patient Disposition: Home - Self-Care Reason For Visit: FEVER Discharge Diagnosis: Fever, hx of lung ca w/ metastases, on chemotherapy Activity: Per Instructions section Non-emergency contact: Primary Care Provider and Oncologist Call non-emergency contact if: you have any medication questions and your symptoms worsen Follow-up/Referrals: Abdulkadir Olivera MD [Primary Care Provider] - (Date & Time 01/30/2024 11:00 AM Provider Abdulkadir Olivera MD Department [facility] ) Diet: Regular Diet Comment: neutropenic diet Addtl Attending Provider Instructions: Follow up with your primary care doctor and oncologist. Continue taking pantoprazole. Take sucralfate before meals. Pending Studies at Discharge: Yes Studies:: final blood cultx results Stand-Alone Forms: [employer], Smoking Cessation Medications and DC Order Prescriptions: New sucralfate 100 mg/mL Suspension 1 g PO QID Qty: 200 0RF Rx Instructions: use before meals Continued multivitamin Tablet 1 tab PO PM cholecalciferol (vitamin D3) [Vitamin D3] 125 mcg (5,000 unit) Tablet 125 mcg PO PM cyanocobalamin (vitamin B-12) 2,000 mcg Tablet 2,000 mcg PO PM pantoprazole 40 mg tablet,delayed release (DR/EC) 40 mg PO QAM guaifenesin [Mucinex] 600 mg tablet extended release 12hr 600 mg PO Q12 PRN (Reason: Other) ondansetron HCl [Zofran] 8 mg Tablet 8 mg PO Q8H PRN (Reason: Nausea And Vomiting) Discharge Orders: Discharge Order (Routine); Ordered 01/27/24 Ordered By: Glen Siegel Admission Data Admit Date/Time: 01/23/24 12:33 Attending Provider: Glen Siegel Admit Provider: Dinorah Thacker Primary Care Provider: Abdulkadir Olivera Other Providers: Dinorah Thacker
== END 2024-01-27 15:24 | disposition home or self-care (01) | DRG 864 ==
LOC: ED 09:18 → SUATTDRO 12:33 → 2S 12:33

== ENCOUNTER 2024-02-14 17:15 | Inpatient (IN) ==
--- NOTE | 2024-02-14 17:23 | ED Triage Note ---
Date of Service February 14, 2024 Provider in Triage Author: Nikia Baker History of Present Illness This patient was briefly evaluated while in triage. An abbreviated physical exam was performed. This patient is a 63-year-old Female who presents to the ED for evaluation of SHOB, difficulty walking. Pt was called today after blood work showed leukocytosis. Pt states LUQ pain with vomiting and nausea. Pt currently being treated for lung and liver ca. Physical Exam Initial orders for labs and / or imaging were placed and patient was placed in the waiting area until a bed is available. Please see further documentation for the full ED course.
[2024-02-14] MEDS: SODIUM CHLORIDE 0.9% 500 ML IV STA (17:48)
[2024-02-14] MEDS: MoRPHine SULFATE 4 MG/ML 1 ML CARP\\VIAL IV STA (17:49)
[2024-02-14] MEDS: ONDANSETRON INJ 2 MG/ML 2 ML VIAL IV STA (17:49)
--- NOTE | 2024-02-14 18:05 | Emergency Department Note ---
Impression & Plan Sepsis, Anemia, Pneumonia, Acute hypotension, Leukocytosis ED Provider Note NAME: PRANEETH SHOEMAKER AGE: 63 SEX: F : 1960 ARRIVES VIA: Walk-In INFORMANT: Patient ED PROVIDER(S): Jozef Singer DO CHIEF COMPLAINT: Short of breath HPI: Patient is a 63-year-old female who presents to the ER for worsening shortness of breath which has been going on for the past week. She also notes that she has been feeling weak and rundown. She can no longer walk more than about 10 feet without becoming dyspneic. Denies any headache or change in vision. She has nausea intermittently. She has chronic abdominal pain since this started. No dysuria, urgency, or frequency. No recorded fevers. No other exacerbating or remitting factors. ADDITIONAL HISTORY OBTAINED: Per HPI Chronic Medical/Social Conditions Affecting Care: Per HPI PAST MEDICAL HISTORY:See Below PAST SURGICAL HISTORY:See Below FAMILY HISTORY:See Below SOCIAL HISTORY:See Below HOME MEDICATIONS:See Below ALLERGIES:See Below VITALS:See Below PHYSICAL EXAMINATION: GENERAL: Sitting up in bed, alert, disheveled, slightly ill-appearing EYE EXAM: normal conjunctiva. OROPHARYNX: no exudate, no erythema, lips, buccal mucosa, and tongue normal and mucous membranes are moist NECK: supple, no nuchal rigidity, no adenopathy, non-tender LUNGS: Clear to auscultation. Normal chest wall mechanics HEART: Tachycardic, S1 normal and S2 normal ABDOMEN: abdomen soft, non-tender, normo-active bowel sounds, no masses, no rebound or guarding. BACK: Back is symmetrical on inspection and there is no deformity, no midline tenderness, no CVA tenderness. SKIN: no rashes and no bruising UPPER EXTREMITIES: upper extremities are grossly normal. LOWER EXTREMITIES: No pitting edema. Calves are equal bilaterally NEURO EXAM: Normal sensorium, cranial nerves II-XII grossly intact, normal speech, no gross weakness of arms, no gross weakness of legs. No drift. Finger to nose intact. Gross sensation intact. MEDICAL DECISION MAKING: Patient is a 63-year-old female with metastatic cancer who presents to the ER for weakness associated with shortness of breath. IV was established blood work was obtained. She is found to be hypotensive with systolic pressures in the 80s and heart rate in the 140s. She is not hypoxic. Labs show leukocytosis of 16,000. Mild anemia at 8.5. BMP with a hyponatremia. Lactic acid was elevated at 2.7. Mag low at 1.4. Transaminitis present with a slightly elevated bilirubin. Pro-Bud up at 2.5. UA was clean. CT of the chest shows pneumonia. Patient was given IV fluids, cefepime, vancomycin and updated bedside. Heart rate did trend down. Systolic pressures improved to the low 100s. She was updated bedside and discussed with the hospitalist admitted for further workup. Heart rate trended down from the 140s to 100. Systolic pressures improved to low 100s as well. Consults/Care Managements Discussions: Per [facility] Triage Nursing notes reviewed. Limited review of prior medical records performed Vital Signs: reviewed and remarkable for hypotensive and tachycardic Differential diagnosis: Differential diagnoses includes but is not limited to pneumonia, bronchitis, COPD/Asthma exacerbation, pneumothorax, pulmonary embolism, congestive heart failure, acute coronary syndrome ER treatment provided: See below Diagnostics interpreted by me include EKG and cardiac monitoring as listed below: -Cardiac Monitoring: An order was placed for continuous cardiac monitoring. The monitor shows a rate of 134 with sinus rhythm. -ECG: Sinus tachycardia rate of 142 Normal axis No PVCs Nonspecific ST depressions in the inferior leads and lateral leads QTc 532 -Laboratory studies:Interpreted by me as stated above in MDM and shown below. Imaging studies: Xrays: As interpreted by me: Portable AP upright 1 view chest shows no focal infiltrate CTs show: CT angio chest shows pneumonia Procedures:none Critical Care: I have personally spent 35 minutes of critical care time in the direct management of this patient. This includes bedside care, interpretation of diagnostic studies, and testing, discussion with consultants, patient, and family members, and other required patient management activities. This 35 minutes is in excess of all separately billable procedures. Past Med/Surg History Medical History Small cell lung cancer Diverticulitis Depression Anxiety Surgical History Tubal ligation status History of colon resection partial colectomy with anastomosis in 2007 Family History Other COPD (chronic obstructive pulmonary disease) Ovarian cancer Social History Smoking Status: Never smoker Tobacco Type: Cigarettes and E-cigarettes / Vaping Second Hand Exposure: No; Hx Alcohol Use: No Hx Substance Use: No Preferred Language: Maltese Communication Ability: Effective Apprenticeship Consultant Required: No Beliefs That Will Affect Care: Confucianist Confucianist Beliefs: Sabianism Current Living Situation: Spouse Feels Safe at Home: Yes Assistive Devices: None Allergies Allergies Allergy/AdvReac Type Severity Reaction Status Date / Time No Known Allergies Allergy Unknown Verified 02/14/24 20:22 Home Meds Home Medications Medication Instructions Recorded Confirmed cholecalciferol (vitamin D3) 125 125 mcg PO PM 11/06/23 02/14/24 mcg (5,000 unit) tablet (Vitamin D3) cyanocobalamin (vitamin B-12) 2,000 mcg PO PM 11/06/23 02/14/24 2,000 mcg tablet multivitamin 1 tab PO PM 11/06/23 02/14/24 guaifenesin 600 mg tablet, 600 mg PO Q12 PRN Other 01/23/24 02/14/24 extended release 12 hr (Mucinex) ondansetron HCl 8 mg tablet 8 mg PO Q8H PRN Nausea And Vomiting 01/23/24 02/14/24 pantoprazole 40 mg tablet,delayed 40 mg PO QAM 01/23/24 02/14/24 release Previous Rx's Medication Instructions Recorded sucralfate 100 mg/mL oral 1 g (10 mL) PO QID #200 mL 01/27/24 suspension Results & Data (ED) Vital Signs Vital Signs - 24 hr 02/14/24 17:20 02/14/24 17:54 02/14/24 18:40 Temperature 36.6 C Temperature Source Temporal Artery Scan Pulse Rate 157 H 140 H 126 H Pulse Rate from SpO2 Sensor 126 H Pulse Rhythm Respiratory Rate 18 18 Respiratory Effort / Characteristics Non-Labored Spontaneous Respiratory Depth Normal Blood Pressure 87/50 L 97/72 L Blood Pressure Mean 62 80 Blood Pressure Position Sitting Pulse Oximetry 96 91 Oxygen Delivery Method Room Air Sepsis Recent Fever Within 48 Hours No Sepsis New/Unexplained Change in Mental Status No Sepsis Action Taken by Nursing Physician Notified 02/14/24 18:44 02/14/24 19:00 02/14/24 19:30 Temperature Temperature Source Pulse Rate 140 H 121 H 120 H Pulse Rate from SpO2 Sensor 122 H 121 H Pulse Rhythm Regular Respiratory Rate 18 24 25 H Respiratory Effort / Characteristics Respiratory Depth Blood Pressure 111/64 120/70 Blood Pressure Mean 79 86 Blood Pressure Position Pulse Oximetry 96 92 93 Oxygen Delivery Method Room Air Sepsis Recent Fever Within 48 Hours Sepsis New/Unexplained Change in Mental Status Sepsis Action Taken by Nursing 02/14/24 20:00 02/14/24 20:30 02/14/24 20:31 Temperature Temperature Source Pulse Rate 114 H 117 H 118 H Pulse Rate from SpO2 Sensor 115 H 116 H Pulse Rhythm Respiratory Rate 23 17 39 H Respiratory Effort / Characteristics Respiratory Depth Blood Pressure 97/63 L 102/54 L Blood Pressure Mean 74 70 Blood Pressure Position Pulse Oximetry 92 94 Oxygen Delivery Method Sepsis Recent Fever Within 48 Hours Sepsis New/Unexplained Change in Mental Status Sepsis Action Taken by Nursing 02/14/24 21:00 Temperature Temperature Source Pulse Rate 117 H Pulse Rate from SpO2 Sensor 117 H Pulse Rhythm Respiratory Rate 23 Respiratory Effort / Characteristics Respiratory Depth Blood Pressure 100/66 Blood Pressure Mean 77 Blood Pressure Position Pulse Oximetry 94 Oxygen Delivery Method Sepsis Recent Fever Within 48 Hours Sepsis New/Unexplained Change in Mental Status Sepsis Action Taken by Nursing Laboratory Data 02/14/24 17:49 02/14/24 20:35 Lab Results 02/14/24 02/14/24 02/14/24 Range/Units 17:49 18:07 20:35 WBC 16.30 H (4.8-10.8) K/ul RBC 2.69 L (4.20-5.40) M/uL Hgb 8.5 L (12.0-16.0) g/dl Hct 26.1 L (37.0-47.0) % MCV 97.0 (80.0-100.0) fL MCH 31.6 (25.0-34.0) pg MCHC 32.6 (32.0-36.0) g/dL RDW Std Deviation 72.5 H (36.4-46.3) fL RDW Coeff of Brad 20.8 H (11.5-14.5) % Plt Count 331 (130-400) K/uL MPV 9.7 (9.4-12.4) fL Immature Gran % (Auto) 0.7 % Neut % (Auto) 84.7 % Lymph % (Auto) 5.0 % [place] % (Auto) 9.2 % Eos % (Auto) 0.0 % Baso % (Auto) 0.4 % Neut # (Auto) 13.80 H (1.40-6.50) K/uL Lymph # (Auto) 0.81 L (1.20-3.40) K/uL [place] # (Auto) 1.50 H (0.11-0.59) K/uL Eos # (Auto) 0.00 (0.00-0.50) K/uL Baso # (Auto) 0.07 (0.00-0.20) K/uL Immature Gran # (Auto) 0.12 (0.01-0.20) K/uL Polychromasia 1+ Anisocytosis Present Sodium 129 L 130 L (136-145) mmol/L Potassium 3.8 (3.5-5.1) mmol/L Chloride 95 L (98-107) mmol/L Carbon Dioxide 20 L (21-32) mmol/L Anion Gap 14 H (3-11) BUN 11 (6-23) mg/dl Creatinine 0.77 (0.6-1.2) mg/dl Est Cr Clr Drug Dosing 70.0 ml/min Est GFR ( Amer) 95.2 ml/min Est GFR (Non-Af Amer) 82.2 ml/min BUN/Creatinine Ratio 14.3 (10-20) Glucose 110 H (70-99(Fasting)) mg/dl Osmolality 279 L (280-300) mOsm/kg Lactate 2.7 H* 1.4 (0.4-2.0) mmol/L Calcium 10.0 (8.6-10.3) mg/dl Magnesium 1.4 L (1.7-2.4) mg/dl Total Bilirubin 2.6 H (0.2-1.0) mg/dl AST 140 H (13-39) U/L ALT 93 H (7-52) U/L Alkaline Phosphatase 282 H (34-104) U/L Ammonia 25.0 (18-72) umol/L Troponin I High Sens 7.9 (0-14) pg/ml Total Protein 7.8 (6.0-8.3) gm/dl Albumin 3.4 (3.4-5.0) gm/dl Globulin 4.4 H (2.5-4.0) gm/dl Albumin/Globulin Ratio 0.8 L (0.9-2) Lipase 7 L (11-82) U/L Procalcitonin 2.55 H (0-0.5) ng/ml TSH 0.060 L (0.300-4.500) uIu/ml Blood Type B Positive Antibody Screen NEGATIVE Administered Medications Discontinued Medications Sodium Chloride (Nss) 500 mls @ 999 mls/hr IV .Q31M STA Stop: 02/14/24 17:53 Last Infusion: 02/14/24 18:35 Dose: Infused Documented By: Admin: 02/14/24 17:48 Dose: 999 mls/hr Documented By: HERBER Sodium Chloride (Nss) 1,000 mls @ 999 mls/hr IV .Q1H1M DANNY Stop: 02/14/24 20:15 Last Infusion: 02/14/24 20:23 Dose: Infused Documented By: Admin: 02/14/24 19:18 Dose: 999 mls/hr Documented By: Infusion: 02/14/24 19:18 Dose: Infused Documented By: Admin: 02/14/24 18:34 Dose: 999 mls/hr Documented By: HERBER Cefepime HCl (Maxipime) 2,000 mg in 20 mls @ 5 mls/min IV NOW STA; Protocol Stop: 02/14/24 18:05 Last Admin: 02/14/24 18:35 Dose: 5 mls/min Documented By: HERBER Azithromycin 500 mg/ Dextrose 255 mls @ 125 mls/hr IV NOW ONE Stop: 02/14/24 20:41 Last Infusion: 02/14/24 21:20 Dose: Infused Documented By: Admin: 02/14/24 19:18 Dose: 125 mls/hr Documented By: DUSTY Vancomycin HCl 1,250 mg/ (Sodium Chloride) 525 mls @ 200 mls/hr IV NOW ONE Stop: 02/14/24 22:37 Last Infusion: 02/14/24 23:34 Dose: Infused Documented By: Admin: 02/14/24 20:51 Dose: 200 mls/hr Documented By: DUSTY Ioversol (Optiray 320 125ml) 119 ml IV ONCE ONE Stop: 02/14/24 19:10 Last Admin: 02/14/24 19:09 Dose: 119 ml Documented By: ALCON Morphine Sulfate (Morphine Sulfate 4 Mg/Ml 1 Ml Carp\Vial) 4 mg IV NOW STA Stop: 02/14/24 17:26 Last Admin: 02/14/24 17:49 Dose: 4 mg Documented By: HERBER Ondansetron HCl (Ondansetron Inj 2 Mg/Ml 2 Ml Vial) 4 mg IV NOW STA Stop: 02/14/24 17:24 Last Admin: 02/14/24 17:49 Dose: 4 mg Documented By: HERBER Oxycodone HCl (Oxycodone Hcl Ir 5 Mg Tab (Immediate Release)) 5 mg PO NOW STA Stop: 02/14/24 20:36 Last Admin: 02/14/24 20:51 Dose: 5 mg Documented By: DUSTY Senna/Docusate Sodium (Docusate Sodium/Senna 50/8.6mg Tab) 1 tab PO NOW STA Stop: 02/14/24 22:12 Last Admin: 02/14/24 22:37 Dose: Not Given Documented By: DUSTY Imaging Data Radiologist's Impression: Chest X-Ray 02/14/24 18:02 SINGLE VIEW CHEST CLINICAL HISTORY: Dyspnea FINDINGS: An AP, portable, upright chest radiograph is compared to study dated 01/23/2024 and correlated with chest CT dated 01/24/2024. The heart is mildly enlarged noting atherosclerotic calcification of the thoracic aorta. The pulmonary vasculature is noncontrast. Emphysema and chronic interstitial thickening is similar to previous. The previously characterized right upper lobe masslike opacity has not significantly changed from 01/23/2024. There is bibasilar scarring/atelectasis. No large pleural effusion or pneumothorax is seen. The skeletal structures are osteopenic. The bony thorax is grossly intact. Degenerative change is noted in the shoulders and spine. IMPRESSION: 1. Cardiomegaly and emphysema without radiographic evidence of congestive failure. 2. A masslike opacity right upper lobe characterized previously has not significantly changed from 01/23/2024.. ACT 112: Negative or not required by law. Electronically signed by: Arnie Palma M.D. 02/14/2024 7:04 PM Chest CTA 02/14/24 18:05 Exam(s): CTA CHEST IV Amt: OPTIRAY [id number] EXAM: CT Angiography Chest With Intravenous Contrast CLINICAL HISTORY: Reason for exam: PE. TECHNIQUE: Axial computed tomographic angiography images of the chest with intravenous contrast. CTDI is 11.58 mGy and DLP is 350.75 mGy-cm. Automated exposure control was utilized for the study. A dose lowering technique was utilized adhering to the principles of ALARA. MIP reconstructed images were created and reviewed. COMPARISON: No relevant prior studies available. FINDINGS: Pulmonary arteries: Unremarkable. No pulmonary embolism. Aorta: No acute findings. No thoracic aortic aneurysm. Lungs: Airspace consolidation in the RIGHT upper lobe, consistent with pneumonia. Atelectasis at the lung bases. Pleural space: Unremarkable. No significant effusion. No pneumothorax. Heart: Cardiomegaly. No significant pericardial effusion. No evidence of RV dysfunction. Bones/joints: No acute fracture. No dislocation. Soft tissues: Unremarkable. Lymph nodes: Enlarged RIGHT hilar lymph node measures 2.8 x 2.0 cm. IMPRESSION: 1. Airspace consolidation in the RIGHT upper lobe, consistent with pneumonia. Follow-up CXR recommended to document resolution. 2. Enlarged RIGHT hilar lymph node measures 2.8 x 2.0 cm. Electronically signed by: Rafael Levi MD 02/14/24 19:55 PM Discharge Plan Visit Data Chief Complaint: Abnormal Labs/Diagnostic Testing Stated Complaint: ABN LABS ED Provider: Jozef Singer Discharge Problem: Sepsis, Anemia, Pneumonia, Acute hypotension, Leukocytosis Discharge Instructions Interventions: ED Discharge Assessment Last Done: 02/14/24 22:16 Discharge Problem: Sepsis Qualifiers: Sepsis acute organ dysfunction status: unspecified Anemia Qualifiers: Anemia type: unspecified type Qualified Code(s): D64.9 - Anemia, unspecified Pneumonia Qualifiers: Pneumonia type: due to unspecified organism Laterality: unspecified laterality Leukocytosis Qualifiers: Leukocytosis type: unspecified Qualified Code(s): D72.829 - Elevated white blood cell count, unspecified
[2024-02-14 18:08] LABS: Basophils # (auto) 0.07 K/uL (0.00-0.20); Basophils % (auto) 0.4 %; Hematocrit (blood only) 26.1 % (37.0-47.0); Hemoglobin 8.5 g/dl (12.0-16.0); Immature Granulocytes # (auto) 0.12 K/uL (0.01-0.20); Immature Granulocytes % (auto) 0.7 %; Lymphocytes # (auto) 0.81 K/uL (1.20-3.40); Mean Corpuscular Hemoglobin 31.6 pg (25.0-34.0); Mean Corpuscular Hgb Conc 32.6 g/dL (32.0-36.0); Mean Platelet Volume 9.7 fL (9.4-12.4); Monocytes % (auto) 9.2 %; Neutrophils % (auto) 84.7 %; Platelet Count 331 K/uL (130-400); RDW Coefficient of Variation 20.8 % (11.5-14.5); RDW Standard Deviation 72.5 fL (36.4-46.3); Red Blood Count 2.69 M/uL (4.20-5.40)
[2024-02-14 18:24] LABS: Albumin Globulin Ratio 0.8 (0.9-2); Albumin Level 3.4 gm/dl (3.4-5.0); BUN Creatinine Ratio 14.3 (10-20); Bilirubin,Total 2.6 mg/dl (0.2-1.0); Est GFR (African American) 95.2 ml/min; Est GFR (Non-African American) 82.2 ml/min; Globulin 4.4 gm/dl (2.5-4.0); Potassium 3.8 mmol/L (3.5-5.1); Total Protein 7.8 gm/dl (6.0-8.3)
[2024-02-14 18:27] LABS: Anisocytosis Present; Polychromasia 1+
[2024-02-14 18:30] LABS: Troponin I High Sensitivity 7.9 pg/ml (0-14)
[2024-02-14] MEDS: SODIUM CHLORIDE 0.9% 1,000 ML IV SCH (18:34)
[2024-02-14] MEDS: CEFEPIME 2,000 MG/20 ML VIAL IV STA (18:35)
--- NOTE | 2024-02-14 19:05 | XRay Report ---
SINGLE VIEW CHEST CLINICAL HISTORY: Dyspnea FINDINGS: An AP, portable, upright chest radiograph is compared to study dated 01/23/2024 and correlat ed with chest CT dated 01/24/2024. The heart is mildly enlarged noting atherosclerotic calcification o f the thoracic aorta. The pulmonary vasculature is noncontrast. Emphysema and chronic interstitial th ickening is similar to previous. The previously characterized right upper lobe masslike opacity has n ot significantly changed from 01/23/2024. There is bibasilar scarring/atelectasis. No large pleural ef fusion or pneumothorax is seen. The skeletal structures are osteopenic. The bony thorax is grossly i ntact. Degenerative change is noted in the shoulders and spine. IMPRESSION: 1. Cardiomegaly and emphysema without radiographic evidence of congestive failure. 2. A masslike opacity right upper lobe characterized previously has not significantly changed from .. ACT 112: Negative or not required by law. Electronically signed by: Arnie Palma M.D. 02/14/2024 7:04 PM
[2024-02-14] MEDS: OPTIRAY 320 125ml IV ONE (19:09)
[2024-02-14] MEDS: AZITHROMYCIN 500 MG in DEXTROSE 5% 250 ML IV ONE (19:18)
--- NOTE | 2024-02-14 19:56 | CT Scan Report ---
Exam(s): CTA CHEST IV Amt: OPTIRAY [id number] EXAM: CT Angiography Chest With Intravenous Contrast CLINICAL HISTORY: Reason for exam: PE. TECHNIQUE: Axial computed tomographic angiography images of the chest with intravenous contrast. CTDI is 11.58 mGy and DLP is 350.75 mGy-cm. Automated exposure control was utilized for the study. A dose lowering technique was utilized adhering to the principles of ALARA. MIP reconstructed images were created and reviewed. COMPARISON: No relevant prior studies available. FINDINGS: Pulmonary arteries: Unremarkable. No pulmonary embolism. Aorta: No acute findings. No thoracic aortic aneurysm. Lungs: Airspace consolidation in the RIGHT upper lobe, consistent with pneumonia. Atelectasis at the lung bases. Pleural space: Unremarkable. No significant effusion. No pneumothorax. Heart: Cardiomegaly. No significant pericardial effusion. No evidence of RV dysfunction. Bones/joints: No acute fracture. No dislocation. Soft tissues: Unremarkable. Lymph nodes: Enlarged RIGHT hilar lymph node measures 2.8 x 2.0 cm. IMPRESSION: 1. Airspace consolidation in the RIGHT upper lobe, consistent with pneumonia. Follow-up CXR recommended to document resolution. 2. Enlarged RIGHT hilar lymph node measures 2.8 x 2.0 cm. Electronically signed by: Rafael Levi MD 02/14/24 19:55 PM
[2024-02-14] MEDS ORDERED: VANCOMYCIN CONSULT ACTIVE PRN (20:00)
[2024-02-14] MEDS ORDERED: ACETAMINOPHEN 500 MG TAB PO PRN (20:35)
[2024-02-14] MEDS: oxyCODONE HCL IR 5 MG TAB (IMMEDIATE RELEASE) PO STA (20:51)
[2024-02-14] MEDS: VANCOMYCIN HCL 1,250 MG in SODIUM CHLORIDE 0.9% 500 ML IV ONE (20:51)
[2024-02-14 21:10] LABS: Magnesium 1.4 mg/dl (1.7-2.4)
--- NOTE | 2024-02-14 21:20 | History & Physical Report ---
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 Lovenox subcu Full code Text document was generated using PurePhoto voice recognition software. It may contain grammatical or spelling errors. Kindly contact undersigned for clarification of any documentation item in question. History of Present Illness Chief Complaint: Worsening shortness of breath, weakness Primary Care Provider: Abdulkadir Olivera MD History obtained from patient, family, and records. Medical history significant for small cell lung cancer on chemotherapy/immunotherapy, history of diverticulitis status post surgery, chronic hyponatremia, chronic anemia (baseline hemoglobin 9-10), anxiety/mood disorder, past tobacco abuse. Monthly admissions since October,. Recent confinement last month for fever. Blood cultures negative. Patient noted to be increasingly weak since last week. Worsening shortness of breath with transient chest pain. Patient denies cough symptoms. Poor appetite. Usual achy upper abdominal pain. Some constipation symptoms. Patient sleeping a lot as per family. Patient denies headache symptoms. Patient's family worried about abnormal blood work from a few days ago. High WBC, and abnormal TFTs. Cefepime, vancomycin, and azithromycin administered at the ER for sepsis. 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 Allergies Allergy/AdvReac Type Severity Reaction Status Date / Time No Known Allergies Allergy Unknown Verified 02/14/24 20:22 Home Medications Medication Instructions Recorded Confirmed Type cholecalciferol (vitamin D3) 125 125 mcg PO PM 11/06/23 02/14/24 History mcg (5,000 unit) tablet (Vitamin D3) cyanocobalamin (vitamin B-12) 2,000 mcg PO PM 11/06/23 02/14/24 History 2,000 mcg tablet multivitamin 1 tab PO PM 11/06/23 02/14/24 History guaifenesin 600 mg tablet, 600 mg PO Q12 PRN Other 01/23/24 02/14/24 History extended release 12 hr (Mucinex) ondansetron HCl 8 mg tablet 8 mg PO Q8H PRN Nausea And Vomiting 01/23/24 02/14/24 History pantoprazole 40 mg tablet,delayed 40 mg PO QAM 01/23/24 02/14/24 History release sucralfate 100 mg/mL oral 1 g (10 mL) PO QID #200 mL 01/27/24 02/14/24 Rx suspension Past Med/Surg History Medical History Small cell lung cancer Diverticulitis Depression Anxiety Surgical History Tubal ligation status History of colon resection partial colectomy with anastomosis in 2007 Family History Other COPD (chronic obstructive pulmonary disease) Ovarian cancer Social History Smoking Status: Former smoker Tobacco Type: Cigarettes and E-cigarettes / Vaping Second Hand Exposure: No; Hx Alcohol Use: No Hx Substance Use: No Preferred Language: Persian Communication Ability: Effective Javascript Front End Developer Required: No Beliefs That Will Affect Care: None Current Living Situation: Spouse Feels Safe at Home: Yes Safety Concerns: Feels Safe At This Time Assistive Devices: None Review of Systems Review of Systems: As per HPI, all other systems reviewed and negative Physical Exam Physical Exam: GENERAL: Slightly uncomfortable, pleasant, chronically ill, no respiratory distress SKIN: Pallor, warm HEENT: Alopecia, pale palpebral conjunctivae, no ptosis, dry buccal mucosa NECK : Supple, no tenderness CHEST : Decreased breath sounds, no tenderness HEART : Tachycardic, no obvious murmurs ABDOMEN: Some distention, left upper quadrant tenderness EXTREMITIES : No LE swelling/tenderness, no other conspicuous deformities noted NEUROLOGIC : Coherent, no facial asymmetry, no other gross focality Results & Data Results & Data Vital Signs (Past 12 Hours) Vital Signs Temp Pulse Resp BP Pulse Ox O2 Del Method 02/14/24 20:30 117 H 17 94 02/14/24 20:00 114 H 23 97/63 L 92 02/14/24 19:30 120 H 25 H 120/70 93 02/14/24 19:00 121 H 24 111/64 92 02/14/24 18:44 140 H 18 96 Room Air 02/14/24 18:40 126 H 18 97/72 L 91 02/14/24 17:54 140 H 02/14/24 17:20 36.6 C 157 H 18 87/50 L 96 Room Air Laboratory Results Laboratory Results WBC 16.30 K/ul (4.8-10.8) H 02/14/24 17:49 RBC 2.69 M/uL (4.20-5.40) L 02/14/24 17:49 Hgb 8.5 g/dl (12.0-16.0) L 02/14/24 17:49 Hct 26.1 % (37.0-47.0) L 02/14/24 17:49 MCV 97.0 fL (80.0-100.0) 02/14/24 17:49 MCH 31.6 pg (25.0-34.0) 02/14/24 17:49 MCHC 32.6 g/dL (32.0-36.0) 02/14/24 17:49 RDW Std Deviation 72.5 fL (36.4-46.3) H 02/14/24 17:49 RDW Coeff of Brad 20.8 % (11.5-14.5) H 02/14/24 17:49 Plt Count 331 K/uL (130-400) 02/14/24 17:49 MPV 9.7 fL (9.4-12.4) 02/14/24 17:49 Immature Gran % (Auto) 0.7 % 02/14/24 17:49 Neut % (Auto) 84.7 % 02/14/24 17:49 Lymph % (Auto) 5.0 % 02/14/24 17:49 Cowley % (Auto) 9.2 % 02/14/24 17:49 Eos % (Auto) 0.0 % 02/14/24 17:49 Baso % (Auto) 0.4 % 02/14/24 17:49 Neut # (Auto) 13.80 K/uL (1.40-6.50) H 02/14/24 17:49 Lymph # (Auto) 0.81 K/uL (1.20-3.40) L 02/14/24 17:49 Cowley # (Auto) 1.50 K/uL (0.11-0.59) H 02/14/24 17:49 Eos # (Auto) 0.00 K/uL (0.00-0.50) 02/14/24 17:49 Baso # (Auto) 0.07 K/uL (0.00-0.20) 02/14/24 17:49 Immature Gran # (Auto) 0.12 K/uL (0.01-0.20) 02/14/24 17:49 Polychromasia 1+ 02/14/24 17:49 Anisocytosis Present 02/14/24 17:49 Sodium 130 mmol/L (136-145) L 02/14/24 20:35 Potassium 3.8 mmol/L (3.5-5.1) 02/14/24 17:49 Chloride 95 mmol/L (98-107) L 02/14/24 17:49 Carbon Dioxide 20 mmol/L (21-32) L 02/14/24 17:49 Anion Gap 14 (3-11) H 02/14/24 17:49 BUN 11 mg/dl (6-23) 02/14/24 17:49 Creatinine 0.77 mg/dl (0.6-1.2) 02/14/24 17:49 Est Cr Clr Drug Dosing 70.0 ml/min 02/14/24 17:49 Est GFR ( Amer) 95.2 ml/min 02/14/24 17:49 Est GFR (Non-Af Amer) 82.2 ml/min 02/14/24 17:49 BUN/Creatinine Ratio 14.3 (10-20) 02/14/24 17:49 Glucose 110 mg/dl (70-99(Fasting)) H 02/14/24 17:49 Osmolality 279 mOsm/kg (280-300) L 02/14/24 20:35 Lactate 1.4 mmol/L (0.4-2.0) 02/14/24 20:35 Calcium 10.0 mg/dl (8.6-10.3) 02/14/24 17:49 Magnesium 1.4 mg/dl (1.7-2.4) L 02/14/24 20:35 Total Bilirubin 2.6 mg/dl (0.2-1.0) H 02/14/24 17:49 AST 140 U/L (13-39) H 02/14/24 17:49 ALT 93 U/L (7-52) H 02/14/24 17:49 Alkaline Phosphatase 282 U/L (34-104) H 02/14/24 17:49 Ammonia 25.0 umol/L (18-72) 02/14/24 20:35 Troponin I High Sens 7.9 pg/ml (0-14) 02/14/24 17:49 Total Protein 7.8 gm/dl (6.0-8.3) 02/14/24 17:49 Albumin 3.4 gm/dl (3.4-5.0) 02/14/24 17:49 Globulin 4.4 gm/dl (2.5-4.0) H 02/14/24 17:49 Albumin/Globulin Ratio 0.8 (0.9-2) L 02/14/24 17:49 Lipase 7 U/L (11-82) L 02/14/24 17:49 Procalcitonin 2.55 ng/ml (0-0.5) H 02/14/24 17:49 Blood Type B Positive 02/14/24 18:07 Antibody Screen NEGATIVE 02/14/24 18:07 Impressions Chest X-Ray 02/14/24 18:02 SINGLE VIEW CHEST CLINICAL HISTORY: Dyspnea FINDINGS: An AP, portable, upright chest radiograph is compared to study dated 01/23/2024 and correlated with chest CT dated 01/24/2024. The heart is mildly enlarged noting atherosclerotic calcification of the thoracic aorta. The pulmonary vasculature is noncontrast. Emphysema and chronic interstitial thickening is similar to previous. The previously characterized right upper lobe masslike opacity has not significantly changed from 01/23/2024. There is bibasilar scarring/atelectasis. No large pleural effusion or pneumothorax is seen. The skeletal structures are osteopenic. The bony thorax is grossly intact. Degenerative change is noted in the shoulders and spine. IMPRESSION: 1. Cardiomegaly and emphysema without radiographic evidence of congestive failure. 2. A masslike opacity right upper lobe characterized previously has not significantly changed from 01/23/2024.. ACT 112: Negative or not required by law. Electronically signed by: Arnie Palma M.D. 02/14/2024 7:04 PM Chest CTA 02/14/24 18:05 Exam(s): CTA CHEST IV Amt: OPTIRAY [id number] EXAM: CT Angiography Chest With Intravenous Contrast CLINICAL HISTORY: Reason for exam: PE. TECHNIQUE: Axial computed tomographic angiography images of the chest with intravenous contrast. CTDI is 11.58 mGy and DLP is 350.75 mGy-cm. Automated exposure control was utilized for the study. A dose lowering technique was utilized adhering to the principles of ALARA. MIP reconstructed images were created and reviewed. COMPARISON: No relevant prior studies available. FINDINGS: Pulmonary arteries: Unremarkable. No pulmonary embolism. Aorta: No acute findings. No thoracic aortic aneurysm. Lungs: Airspace consolidation in the RIGHT upper lobe, consistent with pneumonia. Atelectasis at the lung bases. Pleural space: Unremarkable. No significant effusion. No pneumothorax. Heart: Cardiomegaly. No significant pericardial effusion. No evidence of RV dysfunction. Bones/joints: No acute fracture. No dislocation. Soft tissues: Unremarkable. Lymph nodes: Enlarged RIGHT hilar lymph node measures 2.8 x 2.0 cm. IMPRESSION: 1. Airspace consolidation in the RIGHT upper lobe, consistent with pneumonia. Follow-up CXR recommended to document resolution. 2. Enlarged RIGHT hilar lymph node measures 2.8 x 2.0 cm. Electronically signed by: Rafael Levi MD 02/14/24 19:55 PM Diagnostic Findings EKG as per my interpretation :Rate 140, sinus tachycardia, normal axis, T wave abnormalities inferior leads
[2024-02-14] MEDS ORDERED: POLYETHYLENE (MIRALAX) 17 GM PACK PO PRN (21:23)
[2024-02-14] MEDS ORDERED: PROMETHAZINE HCL 6.25 MG in SODIUM CHLORIDE 0.9% 50 ML IV PRN (21:23)
[2024-02-14 21:25] LABS: Thyroid Stimulating Hormone 0.06 uIu/ml (0.300-4.500)
[2024-02-14] MEDS: DOCUSATE SODIUM/SENNA 50/8.6MG TAB PO STA (22:37)
[2024-02-14 23:03] LABS: Appearance Urine Clear (Clear); Bacteria Urine Automated None Seen (None Seen); Bilirubin Urine Negative (Negative); Blood Urine Negative (Negative); Cast Urine Automated 0-2 /lpf (0-2); Color Urine Yellow; Epithelial Cell Urine Auto 0-2 /hpf (0-2); Glucose Urine UA Negative (Negative); Ketones Urine 2+ (Negative); Leukocyte Esterase Urine Trace (Negative); Nitrite Urine Negative (Negative); Protein Urine Negative (Negative); RBC Urine Automated 0-2 /hpf (0-2); Specific Gravity Urine 1.035 (1.000-1.030); Urobilinogen Urine Negative (Negative); WBC Urine Automated 0-5 /hpf (0-5)
[2024-02-15] MEDS: POTASSIUM CHLORIDE 20 MEQ in LACTATED RINGER'S 1,000 ML IV ONE (00:20)
[2024-02-15] MEDS: oxyCODONE HCL IR 5 MG TAB (IMMEDIATE RELEASE) PO PRN (01:17)
[2024-02-15 02:14] LABS: Influenza A virus by PCR Negative (Neg); Influenza B virus by PCR Negative (Neg); RSV by PCR Negative (Neg); SARS CoV2 RNA(COVID-19) Ceph NEGATIVE (Negative)
[2024-02-15] MEDS: CEFEPIME 2,000 MG in SYRINGE 0 ML IV SCH (02:57)
[2024-02-15 05:40] LABS: Albumin Globulin Ratio 0.8 (0.9-2); Albumin Level 2.5 gm/dl (3.4-5.0); BUN Creatinine Ratio 14.5 (10-20); Bilirubin,Total 1.4 mg/dl (0.2-1.0); Calcium 8.7 mg/dl (8.6-10.3); Est GFR (African American) 115.7 ml/min; Est GFR (Non-African American) 99.8 ml/min; Globulin 3.3 gm/dl (2.5-4.0); Potassium 4.1 mmol/L (3.5-5.1); Total Protein 5.8 gm/dl (6.0-8.3)
[2024-02-15 05:47] LABS: Hematocrit (blood only) 21.1 % (37.0-47.0); Hemoglobin 6.8 g/dl (12.0-16.0); Mean Corpuscular Hemoglobin 32.1 pg (25.0-34.0); Mean Corpuscular Hgb Conc 32.2 g/dL (32.0-36.0); Mean Corpuscular Volume 99.5 fL (80.0-100.0); Mean Platelet Volume 9.7 fL (9.4-12.4); Platelet Count 252 K/uL (130-400); RDW Coefficient of Variation 20.9 % (11.5-14.5); RDW Standard Deviation 75.3 fL (36.4-46.3); Red Blood Count 2.12 M/uL (4.20-5.40)
[2024-02-15 05:51] LABS: Anisocytosis Present; Basophils # (auto) 0.03 K/uL (0.00-0.20); Basophils % (auto) 0.3 %; Immature Granulocytes # (auto) 0.16 K/uL (0.01-0.20); Immature Granulocytes % (auto) 1.5 %; Lymphocytes % (auto) 10.2 %; Monocytes % (auto) 13.9 %; Neutrophils # (auto) 8.01 K/uL (1.40-6.50); Neutrophils % (auto) 74.1 %; Polychromasia 1+; Tear Drop Cells 1+
[2024-02-15] MEDS ORDERED: SODIUM CHLORIDE 0.9% 250 ML IV PRN (05:51)
[2024-02-15] MEDS: NSS + 20MEQ KCL 20 MEQ/1,000 ML BAG IV ONE (05:56)
[2024-02-15] MEDS: MAGNESIUM SULFATE / D5W 1 GM/100 ML BAG IV SCH ×2 (05:57→21:40)
[2024-02-15] MEDS: SUCRALFATE 1 GM/10 ML UDC PO SCH (08:01)
[2024-02-15] MEDS: DOXYCYCLINE HYCLATE 100 MG CAP PO SCH (08:58)
[2024-02-15] MEDS: PANTOprazole 40 MG TAB PO SCH (08:58)
[2024-02-15] MEDS: DOCUSATE SODIUM/SENNA 50/8.6MG TAB PO SCH (08:59)
[2024-02-15] MEDS: ENOXAPARIN INJ 40 MG/0.4 ML SYR SQ SCH (09:00)
[2024-02-15] MEDS: CEFEPIME 2,000 MG/20 ML VIAL ONE (11:33)
[2024-02-15 15:04] LABS: Hematocrit (blood only) 25.4 % (37.0-47.0); Hemoglobin 8.5 g/dl (12.0-16.0)
[2024-02-15 15:27] LABS: T4 Free Thyroxine 2.12 ng/dl (0.61-1.60)
[2024-02-15] MEDS: OPTIRAY 320 100ml IV ONE (15:27)
--- NOTE | 2024-02-15 15:49 | CT Scan Report ---
CT OF THE ABDOMEN AND PELVIS WITH CONTRAST CLINICAL HISTORY: Abdominal pain. Small cell lung cancer. COMPARISON STUDY: CT of the abdomen and pelvis January 23, 2024. Chest CT February 14, 2024. TECHNIQUE: Following IV administration of 92 mL of Optiray, axial images of the abdomen and pelvis we re obtained from the lung bases to the proximal femurs. Images were reviewed in the axial, sagittal, and coronal planes. IV contrast was administered without complication. Automated exposure control wa s utilized for the study. A dose lowering technique was utilized adhering to the principles of ALARA . CT DOSE: 756.88 mGy.cm FINDINGS: A pathologically enlarged right infrahilar lymph node is partially imaged. There is mild in terlobular septal thickening within the lower lungs. There is a trace right pleural effusion. No pneu matosis, free air or portal venous gas is present. A small amount of ascites within the abdomen and p norah is present. There is no evidence for a bowel obstruction. There is no hydronephrosis. There has been progression of extensive hepatic metastatic disease since CT of January 23, 2024. Lesions have in creased in size and number since prior exam. Upper abdominal lymphadenopathy has slightly increased. A left para-aortic lymph node on image 146 of 369 measures 2.8 x 1.8 cm, previously 2.4 x 1.3 cm. No suspicious osseous lesions are present. The appendix is normal. No bowel wall thickening is identifie d. Sigmoid resection is noted. IMPRESSION: 1. Progression of extensive hepatic metastases since CT of January 23, 2024. Mild progression of pathol ogic abdominal lymphadenopathy. 2. No bowel obstruction. No bowel wall thickening. Normal appendix. 3. Small amount of ascites within the abdomen and pelvis. ACT 112: Negative or not required by law. Electronically signed by: Ihsan Kaiser M.D. 02/15/2024 3:48 PM
--- NOTE | 2024-02-15 16:10 | Hospitalist Progress Note ---
Date of Service February 15, 2024 Assessment & Plan (1) Severe sepsis: Plan: Severe sepsis Right upper lobe pneumonia Immunocompromised patient Lactic acidosis --CTA:Airspace consolidation in the RIGHT upper lobe, consistent with pneumonia. Follow-up CXR recommended to document resolution. Enlarged RIGHT hilar lymph node measures 2.8 x 2.0 cm. -- Blood cultures pending -Negative screen for COVID 19, influenza, RSV -Continue IV fluids Continue cefepime, doxycycline Continue supplemental oxygen as needed Abnormal thyroid function test Low TSH, high free T4 Likely secondary to immunotherapy with atezolizumab No known history of thyroid dysfunction per patient Will discuss with endocrinology today Transaminitis/ongoing abdominal pain Likely secondary to metastatic disease --CT ABD:Progression of extensive hepatic metastases since CT of January 23, 2024. Mild progression of pathologic abdominal lymphadenopathy. No bowel obstruction. No bowel wall thickening. Normal appendix. Small amount of ascites within the abdomen and pelvis. Pain control Needs follow-up with oncology on discharge Hypomagnesemia Monitor and replete electrolytes as needed Anemia of chronic disease Secondary to malignancy, chemotherapy S/P 1 unit PRBC Monitor H&H and transfuse as needed Chronic hyponatremia Likely secondary to small cell lung cancer Monitor sodium levels Small cell lung cancer Metastatic disease on chemotherapy/immunotherapy Follows with [facility] oncology Anxiety/mood disorder Possible deconditioning Past tobacco abuse Continue home medications DVT Px: Lovenox SQ Code Status Full code Admission and Anticipated Discharge Date Admission Date: February 14, 2024 Subjective Patient is seen and examined at bedside Dyspnea improved when compared to yesterday Denies any significant cough Nausea, vomiting resolved Admits to have abdominal pain which has been intermittent for many days Discussed with patient's family at bedside Offers no other complaints Review of Systems Review of Systems: All systems reviewed & are unremarkable except as noted in Subjective Physical Exam Physical Exam: Physical Exam: Vitals signs as noted above General Appearance:Thin, frail, chronic ill appearing, no apparent distress Head: normocephalic, Atraumatic Eyes: normal inspection, EOMI Neck: supple, Trachea midline Respiratory/Chest: Decreased breath sounds, CTA, No accessory muscle use Cardiovascular: S1, S2, No murmur, + tachycardia Abdomen/GI:Soft, + tender left upper quadrant, epigastric, hypogastric, no guarding or rigidity, bowel sounds present Extremities/Musculoskeletal:normal inspection, no edema Neurologic/Psych:AAOX3, grossly no focal neurological deficits Skin: normal color, warm Results & Data Results & Data Vital Signs (Past 12 Hours) Vital Signs Temp Pulse Pulse Resp BP BP Pulse Ox 02/15/24 14:19 109 H 15 96/61 L 96 02/15/24 13:18 112 H 15 103/59 L 97 02/15/24 08:12 106 H 02/15/24 08:02 36.8 C 108 H 15 92/57 L 97 02/15/24 08:00 101 H 22 97 02/15/24 08:00 92/57 L 02/15/24 07:45 106 H 16 85/60 L 98 02/15/24 07:30 113 H 20 89/71 L 02/15/24 07:15 119 H 23 84/53 L 02/15/24 07:00 94 H 17 87/52 L 94 02/15/24 07:00 90/60 L 02/15/24 06:45 105 H 20 02/15/24 06:30 92 H 17 97 02/15/24 06:15 98 H 24 02/15/24 06:00 90/58 L 02/15/24 06:00 100 H 15 99 02/15/24 05:45 87 22 97 02/15/24 05:30 87 15 96 02/15/24 05:01 89 02/15/24 05:00 88 15 82/50 L 96 02/15/24 04:30 91 H 19 95 02/15/24 04:00 94/61 L 02/15/24 04:00 95 H 18 93 O2 Del Method O2 Flow Rate 02/15/24 14:19 Nasal Cannula 2 02/15/24 13:18 Nasal Cannula 2 02/15/24 08:12 02/15/24 08:02 2 02/15/24 08:00 02/15/24 08:00 02/15/24 07:45 02/15/24 07:30 02/15/24 07:15 02/15/24 07:00 02/15/24 07:00 02/15/24 06:45 02/15/24 06:30 02/15/24 06:15 02/15/24 06:00 02/15/24 06:00 02/15/24 05:45 02/15/24 05:30 Nasal Cannula 2 02/15/24 05:01 02/15/24 05:00 Nasal Cannula 2 02/15/24 04:30 Nasal Cannula 2 02/15/24 04:00 02/15/24 04:00 Nasal Cannula 2 Laboratory Results Short CBC 02/14/24 02/15/24 02/15/24 Range/Units 17:49 04:32 14:39 WBC 16.30 H 10.80 (4.8-10.8) K/ul Hgb 8.5 L 6.8 L* 8.5 L (12.0-16.0) g/dl Hct 26.1 L 21.1 L 25.4 L (37.0-47.0) % Plt Count 331 252 (130-400) K/uL BMP 02/14/24 02/14/24 02/15/24 17:49 20:35 04:32 Sodium 129 L 130 L 133 L Potassium 3.8 4.1 Chloride 95 L 106 Carbon Dioxide 20 L 23 BUN 11 8 Creatinine 0.77 0.55 L Glucose 110 H 117 H Calcium 10.0 8.7 Liver Function 02/14/24 02/15/24 Range/Units 17:49 04:32 Total Bilirubin 2.6 H 1.4 H (0.2-1.0) mg/dl AST 140 H 88 H (13-39) U/L ALT 93 H 60 H (7-52) U/L Alkaline Phosphatase 282 H 191 H (34-104) U/L Albumin 3.4 2.5 L (3.4-5.0) gm/dl Urine 02/14/24 Range/Units 22:35 Urine Color Yellow Urine Appearance Clear (Clear) Urine pH 6.0 (4.5-7.5) Ur Specific [place] 1.035 H (1.000-1.030) Urine Protein Negative (Negative) Urine Glucose (UA) Negative (Negative)
[2024-02-15] MEDS: SODIUM CHLORIDE 0.9% 1,000 ML IV SCH (20:09)
[2024-02-15] MEDS: MULTIVITAMIN TAB PO SCH (20:09)
[2024-02-15 20:15] LABS: Magnesium 1.7 mg/dl (1.7-2.4)
--- OUTSIDE RECORDS SUMMARY | 2024-02-15 22:26 | External Medical Summary | Summary of Care ---
Author Name Unknown Organization [facility] Address [address] [facility] [place] [address] Phone [phone] Care Team Providers Care [employer] Lab Technician Name Role Phone Abdulkadir Olivera MD Primary Care Provider Reason for Visit * Reason Onset Date Comments Pre Cert/Prior Auth 02/14/2024 Encounter Details Date Type Department Care Team (Late st Contact Info) Description 02/14/2024 Telephone Hematology/Oncology [facility] [place] [address] [facility] [id number] Out[facility], Precert DO NOT CHANGE - JS Pre Cert/Prior Auth Allergies No known active allergiesdocumented as of this encounter (statuses as of 02/14/2024) Medications Medication Sig Dispensed Refills Start Date End Date Status MULTIVITAMINS PO CAPS 1 tablet daily 0 Active Vitamin D 125 MCG (5000 UT) Oral Capsule Take by mouth. 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 Spoke with Pallavi. Advised Brain MRI completed in October, has new symptoms of weakness/fatigue, shortness of breath. Ordered to rule out metastatic disease to the brain. The study has been approved. Auth #: [id number] Valid: 02/14/24 - 08/12/24 * Telephone Encounter - Abraham Lacey OSA - 02/14/2024 8:42 AM EDT The MRI Brain requested for María Martinez is currently awaiting [id number] Review with [facility]. Wekindly request a Nurse, ANGY, NELLY, or Physician, call and reference tracking # [id number] to engage in a discussion with a Physician Reviewer to obtain the necessary authorization. Based on the clinical documentation provided, the approval of the requested imaging study is contingent upon the completion of a [id number] Review. We urge you to initiate this review process promptly, adhering to any specified timeframes, or at your earliest convenience if no specific timeframe has been provided. This study is scheduled for 02/29/2024 and has recently been denied by [facility]. Please schedule a P2Pas soon as possible in order to obtain approval. In the event that a [id number] Review cannot be conducted, we kindly request that a Clinician contact the patient to discuss and propose an alternative treatment plan. Your prompt attention to thismatter is greatly appreciated. Denial Rationale: NAN Pelayo 02/14/2024, 8:42 AM documented in this encounter Plan of Treatment Upcoming Encounters Date Type Department Care Team (Late st Contact Info) Description 02/18/2024 8:50 AM EDT Laboratory Laboratory [facility] [address] [place] [id number] Adrianna, Lab [place] [address] [place] [id number] 02/18/2024 9:30 AM EDT Office Visit Hematology/Oncology [facility] [place] [address] [address] [place] [phone] Carrie Dela Cruz CRNP [address] [place] [address] [place] [address] 02/18/2024 10:00 AM EDT Hem/Onc Treatment Hematology/Oncology Treatment, [address] [place] [phone] 02/19/2024 9:00 AM EDT Hem/Onc Treatment Hematology/[address] [phone] Adrianna, Chair 3 Hem Onc [place] [address] [place] [address] 02/20/2024 9:00 AM EDT Hem/Onc Treatment Hematology/Oncology Treatment, [place] [address] [facility] [place] [phone] Adrianna, Chair 3 Hem Onc [place] [address] [place] [address] 02/29/2024 9:00 AM EDT Imaging Radiology [address], [place] [address] [facility] [place] [id number] Health Maintenance Due Date Last Done Comments [...] Additional history exists Influenza Vaccine (FLU shot) (Season Ended) 2024 10/30/2013 Lipid Panel 12/28/2027 12/27/2022, 06/2014, 09/22/2013, Additional [...] filedocumented as of this encounter Care Teams [employer] Lab Technician Relationship Specialty Start Date End Date Adbulkadir Olivera MD [address] [place] [address] PCP - General Family Medicine 12/27/22 documented as of this encounter
--- OUTSIDE RECORDS SUMMARY | 2024-02-15 22:26 | External Medical Summary | Summary of Care ---
Author Name Unknown Organization [facility] Address [address] [place] [address] Phone [phone] Care Team Providers Care Emergency Medicine Medical Director Name Role Phone Abdulkadir Olivera MD Primary Care Provider [phone] Reason for Visit * Reason Onset Date Comments Advice 02/12/2024 Dr. Worthy Encounter Details Date Type Department Care Team (Late st Contact Info) Description 02/12/2024 Telephone Hematology/Oncology [facility] [place] 200 [facility] [place] [place] [phone] Services, Scheduling [address] [place] [address] Advice (Dr. 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 She applied some frankincense oil and she was able to sleep a bit after applying that. She was unsure if this was caused by her treatment. She did some stretching she doesn't normally do on Sunday but she didn't think this would be caused by that. Please contact pt at [phone] at your earliest convenience. Thank you. documented in this encounter Plan of Treatment Upcoming Encounters Date Type Department Care Team (Late st Contact Info) Description 02/18/2024 8:50 AM EDT Laboratory Laboratory [facility] [place] 200 [facility] [place] [address] [address] [facility] [place] [address] 02/18/2024 9:30 AM EDT Office Visit Hematology/Oncology [facility] [address] [place] [address] Carrie Dela Cruz CRNP [address] [place] [address] [place] [address] 02/18/2024 10:00 AM EDT Hem/Onc Treatment Hematology/Oncology Treatment, [place] 200 [facility] [place] [address] 02/19/2024 9:00 AM EDT Hem/Onc Treatment Hematology/Oncology Treatment, [place] [address] [place], [place] [phone] Adrianna, Chair 3 Hem Onc [facility] 200 [facility] [place] [address] 02/20/2024 9:00 AM EDT Hem/Onc Treatment Hematology/Oncology Treatment, [place] [address] [facility], [place] [phone] Adrianna, Chair 3 Hem Onc [facility] 200 [facility] [place] [address] 02/29/2024 9:00 AM EDT Imaging Radiology [facility] 1st Floor, [place] 132 [facility] [place] [address] Health Maintenance Due Date Last Done Comments [...] filedocumented as of this encounter Care Teams Emergency Medicine Medical Director Relationship Specialty Start Date End Date Abdulkadir Olivera MD [address] [place] [address] PCP - General Family Medicine 12/27/22 documented as of this encounter
--- OUTSIDE RECORDS SUMMARY | 2024-02-15 22:26 | External Medical Summary | Summary of Care ---
Author Name Unknown Organization [facility] Address [address] [place] [address] Phone [phone] Care Team Providers Care Dirt Contractor Name Role Phone Abdulkadir Olivera MD Primary Care Provider [phone] Reason for Visit * Reason Onset Date Comments Advice 02/12/2024 Dr. Worthy Encounter Details Date Type Department Care Team (Late st Contact Info) Description 02/12/2024 Telephone Hematology/Oncology [facility] [place] 200 [facility] [place] [phone] Services, Scheduling [address] [place] [address] Advice (Dr. Worthy ) Allergies No known [...] encounter Miscellaneous Notes * Telephone Encounter - Anshul Marion RN - 02/12/2024 2:04 PM EDT I called and spoke with María about her symptoms and advised her last treatment was 01/22, I do not feel her symptoms she experienced last night were from treatment. Dr. Olivera/Dr. Worthy/Carrie- Pt on the phone states she is experiencing shortness of breath and racing heart when she gets up and walks. She states her HR has increased to 140-160 during this time and 02 sats have decreased in the 's. She states once she sits her HR goes back to normal and 02 sats increase again. She does not use supplemental oxygen. Pt has apt for chemo 02/17 and follow up with Carrie prior. Pt states she has felt terrible since her previous chemotherapy. Would you like any further labs/imaging done before her follow up. I advised patient that if she is experiencing shortness of breath/chest pain she needs to be seen in the ER. Dr. Olivera- pt may require supplemental oxygen when ambulating. * Telephone Encounter - Clarice Singh, NAN - 02/12/2024 1:23 PM EDT María advised [...] caused by that. Please contact pt at [phone] at your earliest convenience. Thank you. documented in this encounter Plan of Treatment Upcoming Encounters Date Type Department Care Team (Late st Contact Info) Description 02/18/2024 8:50 AM EDT Laboratory Laboratory [facility] [place] 200 [facility] [place] [phone] Adrianna, Lab [address] [facility] [place] [address] 02/18/2024 9:30 AM EDT Office Visit Hematology/Oncology [facility] [address] [place] [phone] Carrie Dela Cruz CRNP 400 [facility] [place] [address] 02/18/2024 10:00 AM EDT Hem/Onc Treatment [facility], [place] [facility] [address] 02/19/2024 9:00 AM EDT Hem/Onc Treatment Hematology/Oncology [address], [address] [phone] Adrianna, Chair 3 Hem Onc [address] [place] [address] 02/20/2024 9:00 AM EDT Hem/Onc Treatment Hematology/Oncology [address], [address] [phone] Adrianna, Chair 3 Hem Onc [address] [place] [address] 02/29/2024 9:00 AM EDT Imaging Radiology [address], [place] 132 [facility] [place] [address] Health Maintenance Due Date Last Done Comments [...] filedocumented as of this encounter Care Teams Dirt Contractor Relationship Specialty Start Date End Date Abdulkadir Olivera MD [address] [place] [address] PCP - General Family Medicine 12/27/22 documented as of this encounter
--- OUTSIDE RECORDS SUMMARY | 2024-02-15 22:26 | External Medical Summary ---
Author Name Unknown Address Unknown Organization K09:[facility] - [address] [place] [address] Laboratory Report Ordering Provider Test Date Status ANGUS BAUM 02/13/2024 12:16:00 Final Observation Date Value Abnormality Reference (Units ) Status BUN 02/13/2024 12:16:00 9 6-20 (mg/dL) Final Creatinine 02/13/2024 12:16:00 0.7 0.5-1.0 (mg/dL) Final Glomerular filtration rate/1.73 sq M.predicted [Volume Rate/Area] in Serum, Plasma or Blood by Creatinine-based formula (CKD-EPI) 02/13/2024 12:16:00 >90 >=60 (mL/min) Final eGFR is calculated based on the CKD-EPI 2020 equation Sodium 02/13/2024 12:16:00 135 135-146 (m mol/L) Final Potassium 02/13/2024 12:16:00 4.0 3.5-5.1 (m mol/L) Final Cl 02/13/2024 12:16:00 96 Below low normal 98- 107 (mmol/L) Final CO2 02/13/2024 12:16:00 23 22-32 (mmo l/L) Final Anion gap 02/13/2024 12:16:00 16 Above high normal 7- 15 (mmol/L) Final Glucose 02/13/2024 12:16:00 95 70-120 (mg /dL) Final Albumin 02/13/2024 12:16:00 3.6 Below low normal 3.8 -5.0 (g/dL) Final AST (Aspartate aminotransferase) 02/13/2024 12:16:00 232 Above high normal 10-35 (U/L) Final Alk Phos 02/13/2024 12:16:00 367 Above high normal 35 -130 (U/L) Final Bilirubin, Total 02/13/2024 12:16:00 0.9 <=1 .2 (mg/dL) Final Calcium 02/13/2024 12:16:00 10.3 Above high normal 8. 4-10.2 (mg/dL) Final Protein 02/13/2024 12:16:00 8.2 6.0-8.3 (g /dL) Final ALT (Alanine aminotransferase) 02/13/2024 12:16:00 125 Above high normal 10-35 (U/L) Final Performing Location [facility] - [address] [place] [address]
--- OUTSIDE RECORDS SUMMARY | 2024-02-15 22:26 | External Medical Summary ---
Author Name Unknown Address Unknown Organization [facility] - [address] [place] [address] Laboratory Report Ordering Provider Test Date Status ANGUS BAUM 02/13/2024 12:16:00 Final Observation Date Value Abnormality Reference (Units ) Status T4, Free 02/13/2024 12:16:00 2.2 Above high normal 0. 9-1.7 (ng/dL) Final Performing Location [facility] - [address] [place] [address]
--- OUTSIDE RECORDS SUMMARY | 2024-02-15 22:26 | External Medical Summary ---
Author Name Unknown Address Unknown Organization K01:[facility] - [address] [place] [address] Laboratory Report Ordering Provider Test Date Status RONY BLACKWOOD 02/13/2024 12:16:00 Final Observation Date Value Abnormality Reference (Units ) Status MYCODE SPECIMEN-SST 02/13/2024 12:16:00 Freezing of extracted DNA, whole blood and/or serum. Final Performing Location [facility] - [address] [place] [address]
--- OUTSIDE RECORDS SUMMARY | 2024-02-15 22:26 | External Medical Summary | Summary of Care ---
Author Name Unknown Organization [facility] Address [address] [facility] [place] [address] Phone [phone] Care Team Providers Care Community Recreation Programmer Name Role Phone Abdulkadir Olivera MD Primary Care Provider [phone] Reason for Visit * Reason Onset Date Comments Hospital Follow-Up 01/29/2024 Hem/onc disch arge Encounter Details Date Type Department Care Team (Late st Contact Info) Description 01/29/2024 Telephone Hematology/Oncology Treatment, [place] [address] [place] [phone] Jose Worthy MD [address] [place] [address] Hospital Follow-Up (Hem/onc discharge) Allergies No known active allergiesdocumented as of this encounter (statuses as of 01/29/2024) Medications Medication Sig Dispensed Refills Start Date [...] the morning. 30 Tablet 2 12/18/2023 Active Vitamin B-12 ER 2000 MCG Oral Tablet Extended Release Take by mouth. 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 Dates patient was admitted at [facility]: 01/23/24 to 01/27/24 with a primary diagnosis of fever. No antibiotics prescribed on discharge. Currently has no complaints. Feels tired, but expected that. Taking carafate as prescribed. She notes that she had started a B12 supplement a long time ago because she was feeling run down. Did not have low B12 (not checked previously). In lab work last week, B12 was high so she stopped taking it. Discontinued from home med list. All current medications reviewed with patient. Patient verbalizes understanding of regimen. Post discharge hospital visit is scheduled and patient is aware for 02/18/24. documented in this encounter Plan of Treatment Upcoming Encounters Date Type Department Care Team (Late st Contact Info) Description 02/18/2024 8:50 AM EDT Laboratory [facility] [address] [place] [address] [phone] [place] [address] 02/18/2024 9:30 AM EDT Office Visit Hematology/Oncology [facility] [address] [place] [address] [phone] Carrie Dela Cruz CRNP [address] [place] [address] 02/18/2024 10:00 AM EDT Hem/Onc Treatment Hematology/Oncology Treatment, [place] 200 [facility], [place] [phone] 02/19/2024 9:00 AM EDT Hem/Onc Treatment Hematology/Oncology Treatment, [place] 200 [facility], [place] [phone] Adrianna, Chair 3 Hem Onc [address] [place] [address] 02/20/2024 9:00 AM EDT Hem/Onc Treatment Hematology/Oncology Treatment, [place] 200 [facility], [place] [phone] Adrianna, Chair 3 Hem Onc [address] [place] [address] 02/29/2024 9:00 AM EDT Imaging Radiology [facility] 1st [facility], [place] 132 [facility] [place] [address] Health Maintenance Due Date Last Done Comments [...] 08/07/2016 08/07/2011, 08/07/2011, 11/27/2007, Additional history exists Depression Screening 12/28/2023 12/27/2022 Influenza Vaccine (FLU shot) (Season Ended) 2024 10/30/2013 Lipid Panel 12/28/2027 12/27/2022, 05/0 06/2014, 09/22/2013, [...] filedocumented as of this encounter Care Teams Community Recreation Programmer Relationship Specialty Start Date End Date Abdulkadir Olivera MD [address] [place] [address] PCP - General Family Medicine 12/27/22 documented as of this encounter
--- OUTSIDE RECORDS SUMMARY | 2024-02-15 22:26 | External Medical Summary ---
Author Name Unknown Address Unknown Organization K01[facility] [address] [place] [address] Laboratory Report Ordering Provider Test Date Status RONY BLACKWOOD 02/13/2024 12:16:00 Final Observation Date Value Abnormality Reference (Units ) Status MYCODE SPECIMEN-SST 02/13/2024 12:16:00 Freezing of extracted DNA, whole blood and/or serum. Final Performing Location [facility] - [address] [place] [address]
--- OUTSIDE RECORDS SUMMARY | 2024-02-15 22:26 | External Medical Summary | Summary of Care ---
Author Name Unknown Organization [facility] Address [address] [place] [address] Phone [phone] Care Team Providers Care Animal Husbandry Professor Name Role Phone Abdulkadir Olivera MD Primary Care Provider [phone] Encounter Details Date Type Department Care Team (Late st Contact Info) Description 01/28/2024 Orders Only Outcomes Research Department [address] [place] [address] Jennifer Lozano CHRA [employer] Research Other*[id number] Allergies No known active allergiesdocumented as of this encounter (statuses as of 01/28/2024) Medications Medication Sig Dispensed Refills Start Date [...] as of this encounter (statuses as of 01/28/2024) Active Problems Problem Noted Date Diagnosed Date Small cell lung cancer 11/15/2023 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 Encounter for antineoplastic chemotherapy 2023 Depression 11/03/2013 Anxiety 11/03/2013 Other ectopic documented as of this encounter (statuses as of 01/28/2024) Immunizations Name Administration Dates Next Due Pneumococcal [...] Description 02/18/2024 8:50 AM EDT Laboratory Laboratory [facility] Adrianna [place] [address] [place] [phone] Adrianna Lab [facility] [address] [facility] [place] [address] 02/18/2024 9:30 AM EDT Office Visit Hematology/Oncology [facility] Adrianna [place] 200 [facility] [place] [phone] Carrie Dela Cruz CRNP 400 [facility] [place] [address] 02/18/2024 10:00 AM EDT Hem/Onc Treatment Hematology/Oncology Treatment, [place] 200 [facility] [place] [address] 02/19/2024 9:00 AM EDT Hem/Onc Treatment Hematology/Oncology Treatment, [place] 200 [facility], [place] [address] Adrianna, Chair 3 Hem Onc [place] [address] [place] [address] 02/20/2024 9:00 AM EDT Hem/Onc Treatment [facility]ematology/Oncology Treatment, [place] [facility] [phone] Adrianna, Chair 3 Hem Onc [address] [place] [address] 02/29/2024 9:00 AM EDT Imaging Radiology [address], [place] 132 [facility] [place] [address] Scheduled Orders Name Type Priority Associated Diagnoses Orde r Schedule MYCODE SUBSEQUENT ADULT Lab Routine [employer] Other*[id number] Every 6 Months for 2 Occurrences starting 01/28/2024 until 02/16/2025 Health Maintenance Due Date Last Done Comments [...] this encounter Visit Diagnoses Diagnosis [employer] Other*[id number] documented in this encounter Care Teams Animal Husbandry Professor Relationship Specialty Start Date End Date Abdulkadir Olivera MD [address] [place], [place] [phone] PCP - General Family Medicine 12/27/22 documented as of this encounter
--- OUTSIDE RECORDS SUMMARY | 2024-02-15 22:26 | External Medical Summary | Summary of Care ---
Author Name Unknown Organization [facility] Address [address] [place] [address] Phone [phone] Care Team Providers Care Ctc Operator Name Role Phone Abdulkadir Olivera MD Primary Care Provider [phone] Reason for Visit * Reason Onset Date Comments Hospital Follow-Up 01/28/2024 MANISH Encounter Details Date Type Department Care Team (Late st Contact Info) Description 01/28/2024 Telephone [facility] [address] [place] [address] Sandy Rapp, FABIENNE Hospital Follow-Up [...] Telephone Encounter - Sandy Rapp RN - 01/28/2024 3:01 PM EDT Transitions of Care Note Reason for Referral:Recent Admission Phone visit for follow up: MANISH #1 Admitted to: [facility], Date: 01/23/2024 Discharged to: Home, Date: 01/27/2024 Diagnosis driving hospitalization: Fever, History of Lung CA w/ Metastases, on Chemo Source/Contact: Patient Attempted MANISH - No answer. Message left to return call to office [phone] or . Sandy Rapp RN Transitions of Care Note Reason for Referral:Recent Admission Phone visit for follow up: MANISH #2 Admitted to: [facility], Date: 01/23/2024 Discharged to: Home, Date: 01/27/2024 Diagnosis driving hospitalization: Fever, History of Lung CA w/ Metastases, on Chemo Source/Contact: Patient SUBJECTIVE Consent: Verbal consent for review of hospital discharge: Yes REVIEW OF SYSTEMS Patient/Other Reports: Current patient/caregiver problems or concerns: Doing OK at home. Appetite decreased with chemo, states normal for her. CV: Denies problems Pulmonary: Denies problems Chills/Sweats/Fever:Denies chills/sweats Denies fever Appetite:See above Current diet: Regular, Neutropenic Bowel: denies problems, last BM 2 days ago Bladder: denies problems Wound (If applicable): N/A Pain:Denies Sleep:Denies problems FUNCTIONAL STATUS: ADL'S: Needs Assistance With:N/A as pt is independent IADL'S: Needs Assistance With:N/A as pt is independent Cognitive and Mental Health: denies problems, alert and oriented x 3, and able to communicate, understand instructions, process information. MEDICATION RECONCILIATION Medications: Discharge med list reviewed with patient or caregiver New medication: Sucralfate ASSESSMENT Medication Risk Assessment: No risks identified Did patient fail outpatient treatment? No Discharge instructions available for review? Yes PLAN Symptom Monitoring Interventions:Member/caregiver education - signs and symptoms to contact PrimaryCare (DO NOT DELETE-Three kent symptoms patient is to report to PCP) 1. Chest Pain 2. SOB 3. Fever/chills Museum DirectorSr. Media Manager of Care interventions/Action Plan: Patient states she does not want to schedule PCP appt at this time and will follow up with Oncology. States she will schedule appt with PCP for future after chemo Educated on role of MANISH completed with patient/caregiver. Educated patient/caregiver on patient right to have input on MANIHS plan of care. Verification of Home Health/DME if indicated: NA Identified Care Gaps: No Care Gaps closed this call: Transition of Care follow-up communication Re-evaluation of Plan of Care and progress towards goals achievement: Patient education this visit: Verbal, Discussed reasons above to contact PCP if needed, follow with Oncology Plan to instructed to call Primary Care Provider with change in symptoms or as needed before next follow-up, discharge needs met, verbalizes understanding and agrees with plan. Sandy Rapp, RN documented in this encounter Plan of Treatment Upcoming Encounters Date Type Department Care Team (Late st Contact Info) Description 02/18/2024 8:50 AM EDT Laboratory Laboratory [facility] [place] 200 [facility] [place] [address] Adrianna Lab [address] [facility] [place] [address] 02/18/2024 9:30 AM EDT Office Visit Hematology/Oncology [facility] [address] [place] [phone] Carrie Dela Cruz CRNP [address] [place] [address] [place] [address] 02/18/2024 10:00 AM EDT Hem/Onc Treatment Hematology/Oncology Treatment, [place] 200 [facility] [place] [address] 02/19/2024 9:00 AM EDT Hem/Onc Treatment Hematology/Oncology Treatment, [place] [address] [place] [phone] Adrianna, Chair 3 Hem Onc [address] 200 [facility] [place] [address] 02/20/2024 9:00 AM EDT Hem/Onc Treatment Hematology/Oncology Treatment, [place] [address] [place] [place] [phone] Adrianna, Chair 3 Hem Onc [address] 200 [facility] [place] [address] 02/29/2024 9:00 AM EDT Imaging Radiology [facility] 1st [facility], [place] [address] [facility] [place] [address] Health Maintenance Due Date Last Done Comments [...] Ended) 2024 10/30/2013 Lipid Panel 12/28/2027 12/27/2022, 050 06/2014, 09/22/2013, [...] filedocumented as of this encounter Care Teams Ctc Operator Relationship Specialty Start Date End Date Abdulkadir Olivera MD [address] [place] [address] PCP - General Family Medicine 12/27/22 documented as of this encounter
--- OUTSIDE RECORDS SUMMARY | 2024-02-15 22:26 | External Medical Summary | Summary of Care ---
Author Name Unknown Organization [facility] Address [address] [place] [address] Phone [phone] Care Team Providers Care Trim Operator Name Role Phone Abdulkadir Olivera MD Primary Care Provider [phone] Reason for Visit * Reason Onset Date Comments Advice 02/12/2024 Dr. Worthy Encounter Details Date Type Department Care Team (Late st Contact Info) Description 02/12/2024 Telephone Hematology/Oncology [facility] [place] 200 [facility] [place] [place] [phone] Services, Scheduling [address] [place] [address] Advice (Dr. Worthy ) Allergies No known [...] encounter Miscellaneous Notes * Telephone Encounter - Marly Boo LPN - 02/14/2024 10:20 AM EDT Pt aware * Telephone Encounter - Carrie Dela Cruz CRNP - 02/14/2024 10:09 AM EDT Noted increasing LFTs. As patient is feeling improved will continue to closely monitor at this point. Could be disease or treatment related. Will repeat prior to office visit on Sunday and if LFTs have increased further may need to consider repeating imaging. * Telephone Encounter - Anshul Marion RN - 02/14/2024 8:03 AM EDT Carrie, please see lab results: Hgb 9.5 Liver enzymes elevated TSH 0.08, T4 2.2 * Telephone Encounter - Anshul Marion RN - 02/13/2024 8:01 AM EDT Called patient, she states she had a better night last night. Will go today to have lab work completed. * Addendum Note - Carrie Dela Cruz CRNP - 02/12/2024 3:28 PM EDTAddended by: CARRIE DELA CRUZ on: 02/12/2024 03:28 PM Modules accepted: Orders * Telephone Encounter - Carrie Dela Cruz CRNP - 02/12/2024 3:24 PM EDT Patient required PRBC transfusion during recent hospitalization. Would recommend having CBCd drawn to follow up on this and assess if symptoms may be due to anemia. * Telephone Encounter - Anshul Marion RN [...] and 02 sats have decreased in the 80's. She states once she sits her HR [...] when ambulating. * Telephone Encounter - Clarice Singh OSA [...] caused by that. Please contact pt at [phone] at your earliest convenience. Thank you. documented in this encounter Plan of Treatment Upcoming Encounters Date Type Department Care Team (Late st Contact Info) Description 02/18/2024 8:50 AM EDT Laboratory Laboratory [facility] [place] [address] [place] [phone] Adrianna, Lab [facility] [address] [facility] [place] [address] 02/18/2024 9:30 AM EDT Office Visit Hematology/Oncology [facility] [place] 200 [facility] [place] [address] Carrie Dela Cruz CRNP [address] [place] [address] [place] [address] 02/18/2024 10:00 AM EDT Hem/Onc Treatment Hematology/[address]cology [address], [address] [address] 02/19/2024 9:00 AM EDT Hem/Onc Treatment Hematology/Oncology [address], [address] [address] Adrianna, Chair 3 Hem Onc [place] [address] [place] [address] 02/20/2024 9:00 AM EDT Hem/Onc Treatment Hematology/Oncology [address], [address] [address] Adrianna, Chair 3 Hem Onc [place] [address] [place] [address] 02/29/2024 9:00 AM EDT Imaging Radiology [address], [place] 132 [facility] DANI[place] [id number] Health Maintenance Due Date Last Done Comments [...] Ended) 2024 10/30/2013 Lipid Panel 12/28/2027 12/27/2022, 0 06/2014, 09/22/2013, Additional history exists DTaP,Tdap,and Td [...] as of this encounter Visit Diagnoses Diagnosis 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
--- OUTSIDE RECORDS SUMMARY | 2024-02-15 22:26 | External Medical Summary | Summary of Care ---
Author Name Unknown Organization [facility] Address [address] [facility] [place] [address] Phone [phone] Care Team Providers Care Tobacco Sizer Name Role Phone Abdulkadir Olivera MD Primary Care Provider Reason for Visit * Reason Comments Outpatient Testing Encounter Details Date Type Department Care Team (Late st Contact Info) Description 02/13/2024 12:10 PM EDT Laboratory Laboratory [facility] [address] [place] [address] [facility] [address] [place] [address] [employer] Other*[id number] Allergies No known active allergiesdocumented as of this encounter (statuses as of 02/13/2024) Medications Medication Sig Dispensed Refills Start Date [...] as of this encounter (statuses as of 02/13/2024) Active Problems Problem Noted Date Diagnosed Date Small cell lung cancer 11/15/2023 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 Encounter for antineoplastic chemotherapy 2023 Depression 11/03/2013 Anxiety 11/03/2013 Other ectopic documented as of this encounter (statuses as of 02/13/2024) Immunizations Name Administration Dates Next Due Pneumococcal [...] Description 02/18/2024 8:50 AM EDT Laboratory Laboratory [facility] [place] 200 [facility] [place] [phone] Adrianna, Lab [place] [address] [place] [place] [address] 02/18/2024 9:30 AM EDT Office Visit Hematology/Oncology [facility] Adrianna [place] [address] [place] [address] [phone] Carrie Dela Cruz CRNP [address] [place] [address] [place] [address] 02/18/2024 10:00 AM EDT Hem/Onc Treatment Hematology/Oncology Treatment, [place] 200 [facility] [place] [address] 02/19/2024 9:00 AM EDT Hem/Onc Treatment Hematology/Oncology Treatment, [place] 200 [facility] [place] [address] Adrianna, Chair 3 Hem Onc [facility] [place] [address] 02/20/2024 9:00 AM EDT Hem/Onc Treatment Hematology/Oncology Treatment, [place] 200 [facility] [place] [address] Adrianna, Chair 3 Hem Onc [place] [address] [place] [address] 02/29/2024 9:00 AM EDT Imaging Radiology [address], [place] 132 [place] [address] Pending Results Name Type Priority Associated Diagnoses Date /Time MYCODE SUBSEQUENT ADULT Lab Routine [employer] Other*[id number] 02/13/2024 12:16 PM EDT MYCODE SST1 Lab Routine [employer] Other*[id number] 02/13/2024 12:16 PM EDT MYCODE SST2 Lab Routine [employer] Other*[id number] 02/13/2024 12:16 PM EDT Health Maintenance Due Date Last Done [...] this encounter Visit Diagnoses Diagnosis [employer] Other*[id number] documented in this encounter Care Teams Tobacco Sizer Relationship Specialty Start Date End Date Abdulkadir Olivera MD [address] [place] [address] PCP - General Family Medicine 12/27/22 documented as of this encounter
--- OUTSIDE RECORDS SUMMARY | 2024-02-15 22:26 | External Medical Summary | Summary of Care ---
Author Name Unknown Organization [facility] Address [address] [place] [address] Phone [phone] Care Team Providers Care Global Commodity Manager Name Role Phone Abdulkadir Olivera MD Primary Care Provider [phone] Reason for Visit * Reason Onset Date Comments Advice 02/12/2024 Dr. Worthy Encounter Details Date Type Department Care Team (Late st Contact Info) Description 02/12/2024 Telephone Hematology/Oncology [facility] [place] [address] [facility] [place] [phone] Services, Scheduling [address] [place] [address] Advice (Dr. Worthy ) Allergies No known [...] last night were from treatment. Dr. Olivera/Dr. Worthy/Aleida Green on the phone states she is experiencing [...] caused by that. Please contact pt at [phone] at your earliest convenience. Thank you. documented in this encounter Plan of Treatment Upcoming Encounters Date Type Department Care Team (Late st Contact Info) Description 02/18/2024 8:50 AM EDT Laboratory Laboratory [facility] [place] 200 [address] [place] [phone] Jigna Rodas [place] [address] [place] [address] [address] 02/18/2024 9:30 AM EDT Office Visit Hematology/Oncology [facility] Adrianna [place] [address] [place] [phone] Carrie Dela Cruz CRNP [address] [place] [address] 02/18/2024 10:00 AM EDT Hem/Onc Treatment Hematology/Oncology Treatment, [place] 200 [facility], [place] [address] 02/19/2024 9:00 AM EDT Hem/Onc Treatment Hematology/Oncology Treatment, [place] 200 [place] [address] Adrianna, Chair 3 Hem Onc [address] 200 [facility] [place] [address] 02/20/2024 9:00 AM EDT Hem/Onc Treatment Hematology/Oncology Treatment, [place] 200 [facility], [place] [address] Adrianna, Chair 3 Hem Onc [facility] 200 [facility] [place], [place] [address] 02/29/2024 9:00 AM EDT Imaging Radiology [address], [place] 132 [facility] [place] [address] Scheduled Orders Name Type Priority Associated Diagnoses Orde r Schedule CBC WITH WBC DIFFERENTIAL Lab STAT Anemia due to antineoplastic chemotherapy Expected: 02/12/2024, Expires: 05/13/2024 Health Maintenance Due Date Last Done Comments [...] anemia documented in this encounter Care Teams Global Commodity Manager Relationship Specialty Start Date End Date Abdulkadir Olivera MD [address] [place] [address] PCP - General Family Medicine 12/27/22 documented as of this encounter
--- OUTSIDE RECORDS SUMMARY | 2024-02-15 22:26 | External Medical Summary ---
Author Name Unknown Address Unknown Organization K09:[facility] [place] [address] Laboratory Report Ordering Provider Test Date Status ANGUS BAUM 02/13/2024 12:16:00 Final Observation Date Value Abnormality Reference (Units ) Status SYNC LEUKOCYTES IN BLOOD BY AUTOMATED COUNT 02/13/2024 12:16:00 11.07 Above high normal 4.00-10.80 (K/uL) Final Segs 02/13/2024 12:16:00 73.9 40.0-75.0 (%) Final Lymphs % 02/13/2024 12:16:00 15.5 Below low normal 18.0-42.0 (%) Final Monos 02/13/2024 12:16:00 9.9 1.0-11.0 (%) Final Eosinophils 02/13/2024 12:16:00 0.2 0.0-6.0 (%) Final Basos 02/13/2024 12:16:00 0.5 0.0-2.0 (%) Final Absolute Segs 02/13/2024 12:16:00 8.18 Above high normal 1.80-7.70 (K/uL) Final Lymphs, absolute 02/13/2024 12:16:00 1.72 1.00-4.80 (K/ul) Final Monos, Abs 02/13/2024 12:16:00 1.10 0.00-1.10 (K/uL) Final Eos, Abs 02/13/2024 12:16:00 0.02 0.00-0.70 (K/uL) Final Basos, Abs 02/13/2024 12:16:00 0.05 0.00-0.20 (K/uL) Final Performing Location [facility] [place] [address]
--- OUTSIDE RECORDS SUMMARY | 2024-02-15 22:26 | External Medical Summary ---
Author Name Unknown Address Unknown Organization K01:[facility] - [address] [place] [address] Laboratory Report Ordering Provider Test Date Status ANGUS BAUM 02/13/2024 12:16:00 Final Observation Date Value Abnormality Reference (Units ) Status TSH 02/13/2024 12:16:00 0.08 Below low normal 0.2 7-4.20 (uIU/mL) Final Performing Location [facility] - [address] [place] [address]
--- OUTSIDE RECORDS SUMMARY | 2024-02-15 22:26 | External Medical Summary | Summary of Care ---
Author Name Unknown Organization [facility] Address [address] [place] [address] Phone [phone] Care Team Providers Care Last Trimmer Name Role Phone Abdulkadir Olivera MD Primary Care Provider Reason for Visit * Reason Onset Date Comments Hospital Follow-Up 01/28/2024 MANISH Encounter Details Date Type Department Care Team (Late st Contact Info) Description 01/28/2024 Telephone [place] [address] [place] [address] Sandy Rapp, FABIENNE Hospital Follow-Up [...] for follow up: MANISH #1 Admitted to: [facility], Date: 01/23/2024 Discharged to: Home, Date: 01/27/2024 Diagnosis driving hospitalization: Fever, History of Lung CA w/ Metastases, on Chemo Source/Contact: Patient Attempted MANISH - No answer. Message left to return call to office [phone] or . Sandy Rapp RN documented in this encounter Plan of Treatment Upcoming Encounters Date Type Department Care Team (Late st Contact Info) Description 02/18/2024 8:50 AM EDT Laboratory Laboratory [facility] Adrianna [place] 200 [facility] [place] [address] [place] [address] [address] [address] 02/18/2024 9:30 AM EDT Office Visit Hematology/Oncology [facility] Adrianna [place] 200 [place] [address] Carrie Dela Cruz CRNP [address] [place] [address] D[place] [address] 02/18/2024 10:00 AM EDT Hem/Onc Treatment Hematology/Oncology Treatment, [place] 200 [facility] [place] [address] 02/19/2024 9:00 AM EDT Hem/Onc Treatment Hematology/Oncology Treatment, [place] [address] [facility], [place] [phone] Adrianna, Chair 3 Hem Onc [facility] 200 [facility] [place] [address] 02/20/2024 9:00 AM EDT Hem/Onc Treatment Hematology/Oncology Treatment, [place] [address] [facility], [place] [phone] Adrianna, Chair 3 Hem Onc [place] 200 [facility] [place] [address] 02/29/2024 9:00 AM EDT Imaging Radiology [facility] 1st Floor, [place] 132 [facility] [place] [address] Health Maintenance Due Date Last Done Comments [...] filedocumented as of this encounter Care Teams Last Trimmer Relationship Specialty Start Date End Date Abdulkadir Olivera MD [address] [place] [address] PCP - General Family Medicine 12/27/22 documented as of this encounter
--- OUTSIDE RECORDS SUMMARY | 2024-02-15 22:26 | External Medical Summary | Summary of Care ---
Author Name Unknown Organization [facility] Address [address] [place] [address] Phone [phone] Care Team Providers Care Educational Fundraising Director Name Role Phone Abdulkadir Olivera MD Primary Care Provider [phone] Reason for Visit * Reason Onset Date Comments Advice 02/12/2024 Dr. Worthy Encounter Details Date Type Department Care Team (Late st Contact Info) Description 02/12/2024 Telephone Hematology/Oncology [facility] [place] 200 [facility] [phone] Services, Scheduling [address] [place] [address] Advice (Dr. Worthy ) Allergies No known [...] encounter Miscellaneous Notes * Telephone Encounter - Carrie Dela Cruz [...] caused by that. Please contact pt at [phone] at your earliest convenience. Thank you. documented in this encounter Plan of Treatment Upcoming Encounters Date Type Department Care Team (Late st Contact Info) Description 02/18/2024 8:50 AM EDT Laboratory Laboratory [facility] Adrianna [place] [address] [place] [phone] Adrianna, Lab [facility] [address] [facility] [place] [address] 02/18/2024 9:30 AM EDT Office Visit Hematology/Oncology [facility] [place] [address] [place] [phone] Carrie Dela Cruz CRNP [address] [place] [phone] 02/18/2024 10:00 AM EDT Hem/Onc Treatment Hematology/Oncology Treatment, [address] [place] [address] 02/19/2024 9:00 AM EDT Hem/Onc Treatment Hematology/Oncology [address], [address] [address] Adrianna, Chair 3 Hem Onc [facility] 200 [facility] [place] [address] 02/20/2024 9:00 AM EDT Hem/Onc Treatment Hematology/Oncology Treatment, [address] [place] [address] Adrianna, Chair 3 Hem Onc [facility] 200 [facility] [place] [address] 02/29/2024 9:00 AM EDT Imaging Radiology [facility] [address] [facility], [place] 132 [facility] [place] [address] Health Maintenance Due Date Last Done Comments COVID-19 Vaccine (#1) 1965 HIV Screening 1975 Hepatitis C Screening 1978 Zoster Vaccines (1 of 2) 1979 HPV/Co-Test 1990 Pneumococcal Vaccine: Pediatrics (0 to 5 Years) and At-Risk Patients (6 to 64 Years) (2 of 2 - PCV) 07/04/2012 07/04/2011 Mammogram 05/07/2015 05/07/2014, /11/2012, 07/15/2012, Additional history exists Cervical Cancer Screening [...] anemia documented in this encounter Care Teams Educational Fundraising Director Relationship Specialty Start Date End Date Abdulkadir Olivera MD [address] [place] [address] PCP - General Family Medicine 12/27/22 documented as of this encounter
--- OUTSIDE RECORDS SUMMARY | 2024-02-15 22:26 | External Medical Summary | Summary of Care ---
Author Name Unknown Organization [facility] Address [address] [place] [address] Phone [phone] Care Team Providers Care Data Processing Specialist Name Role Phone Abdulkadir Olivera MD Primary Care Provider Reason for Visit * Reason Comments Outpatient Testing Encounter Details Date Type Department Care Team (Late st Contact Info) Description 02/13/2024 11:30 AM EDT Laboratory Laboratory, [place] [address] [place] [phone] [place], Laboratory [address] [place] [address] Small cell lung cancer (HCC); Metastasis to liver (HCC); Metastasis to mediastinal lymph node (HCC); Anemia due to antineoplastic chemotherapy Allergies No known active allergiesdocumented as of [...] Description 02/18/2024 8:50 AM EDT Laboratory Laboratory [facility] [place] [address] [place] [phone] Jigna Rodas [place] [address] [address] [facility] [place] [address] 02/18/2024 9:30 AM EDT Office Visit Hematology/Oncology [facility] [place] [address] [place] [address] Carrie Dela Cruz, NELLY [facility] [place] [address] 02/18/2024 10:00 AM EDT Hem/Onc Treatment Hematology/Oncology [address], [address] [address] 02/19/2024 9:00 AM EDT Hem/Onc Treatment Hematology/Oncology [address], [address] [address] Adrianna, Chair 3 Hem Onc [place] [address] [place] [address] 02/20/2024 9:00 AM EDT Hem/Onc Treatment Hematology/Oncology [address], [address] [address] Adrianna, Chair 3 Hem Onc [place] [address] [place] [address] 02/29/2024 9:00 AM EDT Imaging Radiology [facility] [address] [place] [address] Scheduled Orders Name Type Priority Associated Diagnoses Orde r Schedule CBC Lab STAT Small cell lung cancer (HCC) Metastasis to liver (HCC) Metastasis to mediastinal lymph node (HCC) Ordered: 02/13/2024 DIFFERENTIAL, AUTOMATED Lab STAT Small cell lung cancer (HCC) Metastasis to liver (HCC) Metastasis to mediastinal lymph node (HCC) Ordered: 02/13/2024 Health Maintenance Due Date Last Done Comments [...] 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
--- OUTSIDE RECORDS SUMMARY | 2024-02-15 22:26 | External Medical Summary | Summary of Care ---
Author Name Unknown Organization [facility] Address [address] [place] [address] Phone [phone] Care Team Providers Care Senior Rd Engineer Name Role Phone Abdulkadir Olivera MD Primary Care Provider [phone] Reason for Visit * Reason Onset Date Comments Advice 02/12/2024 Dr. Worthy Encounter Details Date Type Department Care Team (Late st Contact Info) Description 02/12/2024 Telephone Hematology/Oncology [facility] [place] 200 [facility] [place] [address] Services, Scheduling [address] [place] [address] Advice (Dr. Worthy ) Allergies No known [...] as of this encounter Miscellaneous Notes * Addendum Note - Carrie Dela Cruz [...] caused by that. Please contact pt at [phone] at your earliest convenience. Thank you. documented in this encounter Plan of Treatment Upcoming Encounters Date Type Department Care Team (Late st Contact Info) Description 02/18/2024 8:50 AM EDT Laboratory Laboratory [facility] [place] [address] [address] [place] [phone] Jigna Rodas [place] [address] [place] [address] [address] 02/18/2024 9:30 AM EDT Office Visit Hematology/Oncology [facility] [place] [address] [place] [phone] Carrie Dela Cruz CRNP [address] [place] [address] [place] [address] 02/18/2024 10:00 AM EDT Hem/Onc Treatment Hematology/Oncology Treatment, [address] [place] [phone] 02/19/2024 9:00 AM EDT Hem/Onc Treatment Hematology/Oncology Treatment, [address] [place] [phone] Adrianna, Chair 3 Hem Onc [address] [place] [address] 02/20/2024 9:00 AM EDT Hem/Onc Treatment Hematology/Oncology Treatment, [place] [address] [place] [facility] [phone] Adrianna, Chair 3 Hem Onc [place] [address] [facility] [address] 02/29/2024 9:00 AM EDT Imaging Radiology [facility] 1st Floor, [place] [address] [place] [address] Scheduled Orders Name Type Priority Associated Diagnoses [...] anemia documented in this encounter Care Teams Senior Rd Engineer Relationship Specialty Start Date End Date Abdulkadir Olivera MD [address] [place] [address] PCP - General Family Medicine 12/27/22 documented as of this encounter
--- OUTSIDE RECORDS SUMMARY | 2024-02-15 22:26 | External Medical Summary | Summary of Care ---
Author Name Unknown Organization [facility] Address [address] [place] [address] Phone [phone] Care Team Providers Care Magnetizer Name Role Phone Abdulkadir Olivera MD Primary Care Provider [phone] Reason for Visit * Reason Onset Date Comments Advice 02/12/2024 Dr. Worthy Encounter Details Date Type Department Care Team (Late st Contact Info) Description 02/12/2024 Telephone Hematology/Oncology [facility] [place] 200 [facility] [place] [phone] Services, Scheduling [address] [place] [address] Advice (Dr. Worthy ) Allergies No known [...] caused by that. Please contact pt at [phone] at your earliest convenience. Thank you. documented in this encounter Plan of Treatment Upcoming Encounters Date Type Department Care Team (Late st Contact Info) Description 02/18/2024 8:50 AM EDT Laboratory Laboratory [facility] [place] 200 [facility] [place] [phone] Adrianna, Lab [address] [facility] [place] [address] 02/18/2024 9:30 AM EDT Office Visit Hematology/Oncology [facility] [address] [place] [phone] Carrie Dela Cruz CRNP 400 [facility] [place] [address] 02/18/2024 10:00 AM EDT Hem/Onc Treatment [facility], [place] [facility] [phone] 02/19/2024 9:00 AM EDT Hem/Onc Treatment Hematology/Oncology [address], [address] [phone] Adrianna, Chair 3 Hem Onc [address] [place] [address] 02/20/2024 9:00 AM EDT Hem/Onc Treatment Hematology/Oncology [address] [phone] Adrianna, Chair 3 Hem Onc [address] [place] [address] 02/29/2024 9:00 AM EDT Imaging Radiology [address], [place] 132 [facility] [place] [address] Health Maintenance Due Date Last Done Comments [...] filedocumented as of this encounter Care Teams Magnetizer Relationship Specialty Start Date End Date Abdulkadir Olivera MD [address] [place] [address] PCP - General Family Medicine 12/27/22 documented as of this encounter
--- OUTSIDE RECORDS SUMMARY | 2024-02-15 22:26 | External Medical Summary ---
Author Name Unknown Address Unknown Organization K09:[facility] [place] [address] Laboratory Report Ordering Provider Test Date Status ANGUS BAUM 02/13/2024 12:16:00 Final Observation Date Value Abnormality Reference (Units ) Status WBC, Total 02/13/2024 12:16:00 11.07 Above high normal 4 .00-10.80 (K/uL) Final RBC 02/13/2024 12:16:00 3.05 3.85-5.15 (M/uL) Final Hemoglobin 02/13/2024 12:16:00 9.5 Below low normal 12 .0-15.3 (g/dL) Final HCT 02/13/2024 12:16:00 29.6 Below low normal 36. 0-45.2 (%) Final MCV 02/13/2024 12:16:00 97.0 81.5-97.5 (fL) Final MCH 02/13/2024 12:16:00 31.1 27.0-34.0 (pg) Final MCHC 02/13/2024 12:16:00 32.1 32.0-36.0 (g/dL) Final RDW 02/13/2024 12:16:00 21.4 11.5-15.5 (%) Final Platelets 02/13/2024 12:16:00 344 140-400 (K /uL) Final MPV 02/13/2024 12:16:00 9.0 6.6-11.1 ( fL) Final Performing Location [facility] [place] [address]
--- OUTSIDE RECORDS SUMMARY | 2024-02-15 22:26 | External Medical Summary | Summary of Care ---
Author Name Unknown Organization [facility] Address [address] [place] [address] Phone [phone] Care Team Providers Care Industrial Gas Servicer Supervisor Name Role Phone Abdulkadir Olivera MD Primary Care Provider [phone] Reason for Visit * Reason Onset Date Comments Advice 02/12/2024 Dr. Worthy Encounter Details Date Type Department Care Team (Late st Contact Info) Description 02/12/2024 Telephone Hematology/Oncology [facility] [place] 200 [facility] [phone] Services, Scheduling [address] [place] [address] Advice (Dr. Worthy ) Allergies No known [...] caused by that. Please contact pt at [phone] at your earliest convenience. Thank you. documented in this encounter Plan of Treatment Upcoming Encounters Date Type Department Care Team (Late st Contact Info) Description 02/18/2024 8:50 AM EDT Laboratory Laboratory [facility] [address] [place] [phone] Adrianna [facility] [address] [place] [address] 02/18/2024 9:30 AM EDT Office Visit Hematology/Oncology [facility] [address] [place] [phone] Carrie Dela Cruz CRNP 400 [facility] [place] [address] 02/18/2024 10:00 AM EDT Hem/Onc Treatment [facility]ematology[facility] Treatment, [place] [facility] [phone] 02/19/2024 9:00 AM EDT Hem/Onc Treatment Hematology/Oncology Treatment, [address], [place] [phone] Adrianna, Chair 3 Hem Onc [address] [place] [address] 02/20/2024 9:00 AM EDT Hem/Onc Treatment Hematology/Oncology Treatment, [address], [place] [phone] Adrainna, Chair 3 Hem Onc [address] [place] [address] 02/29/2024 9:00 AM EDT Imaging Radiology [facility] 1st Floor, [place] 132 [facility] [place] [address] Health Maintenance Due Date Last Done Comments [...] anemia documented in this encounter Care Teams Industrial Gas Servicer Supervisor Relationship Specialty Start Date End Date Abdulkadir Olivera MD [address] [place] [address] PCP - General Family Medicine 12/27/22 documented as of this encounter
--- NOTE | 2024-02-16 05:48 | Electrocardiogram Report ---
Test Reason : Blood Pressure : / mmHG Vent. Rate : 142 BPM Atrial Rate : 142 BPM P-R Int : 130 ms QRS Dur : 070 ms QT Int : 346 ms P-R-T Axes : 070 038 070 degrees QTc Int : 532 ms Sinus tachycardia Nonspecific ST and T wave abnormality Abnormal ECG When compared with ECG of 24-JAN-2024 07:05, Inverted T waves have replaced nonspecific T wave abnormality in Inferior leads Confirmed by Dipesh [place] ([id number]) on 02/16/2024 5:48:18 AM Referred By: Jose Worthy Confirmed By:Luisito [place]
[2024-02-16 06:46] LABS: Hematocrit (blood only) 24.1 % (37.0-47.0); Mean Corpuscular Hemoglobin 31.1 pg (25.0-34.0); Mean Corpuscular Hgb Conc 33.2 g/dL (32.0-36.0); Mean Corpuscular Volume 93.8 fL (80.0-100.0); Mean Platelet Volume 9.5 fL (9.4-12.4); Platelet Count 254 K/uL (130-400); RDW Coefficient of Variation 21.2 % (11.5-14.5); RDW Standard Deviation 70.1 fL (36.4-46.3); Red Blood Count 2.57 M/uL (4.20-5.40); White Blood Count 9.19 K/ul (4.8-10.8)
[2024-02-16 07:02] LABS: Albumin Level 2.5 gm/dl (3.4-5.0); BUN Creatinine Ratio 12.2 (10-20); Bilirubin Direct 1.2 mg/dl (0-0.2); Calcium 8.4 mg/dl (8.6-10.3); Est GFR (African American) 120.2 ml/min; Est GFR (Non-African American) 103.7 ml/min; Magnesium 1.7 mg/dl (1.7-2.4); Potassium 3.3 mmol/L (3.5-5.1); Total Protein 5.8 gm/dl (6.0-8.3)
[2024-02-16 07:11] LABS: Thyroid Stimulating Hormone 0.202 uIu/ml (0.300-4.500)
[2024-02-16] MEDS: POTASSIUM CHLORIDE CRTAB 20 MEQ TABCR PO ONE (09:52)
--- NOTE | 2024-02-16 17:01 | Hospitalist Progress Note ---
Date of Service February 16, 2024 Assessment & Plan (1) Severe sepsis: Plan: Severe sepsis Right upper lobe pneumonia Immunocompromised patient Lactic acidosis --CTA:Airspace consolidation in the RIGHT upper lobe, consistent with pneumonia. Follow-up CXR recommended to document resolution. Enlarged RIGHT hilar lymph node measures 2.8 x 2.0 cm. -- Blood cultures pending -Negative screen for COVID 19, influenza, RSV -Continue IV fluids Continue cefepime, doxycycline Saturating well on room air Severe hypothyroidism Low TSH, high free T4 Likely secondary to immunotherapy with atezolizumab No known history of thyroid dysfunction per patient Discussed with endocrinology on 02/16/24 Started on PTU 100 mg 3 times daily Will need repeat TSH, free T4 in 1 week Needs follow-up with endocrinology on discharge Check TSI and TRAb to help differentiate autoimmune versus destructive hypothyroidism Monitor for ACTH deficiency Check cortisol levels Transaminitis/ongoing abdominal pain Likely secondary to metastatic disease --CT ABD:Progression of extensive hepatic metastases since CT of January 23, 2024. Mild progression of pathologic abdominal lymphadenopathy. No bowel obstruction. No bowel wall thickening. Normal appendix. Small amount of ascites within the abdomen and pelvis. Pain control Needs follow-up with oncology on discharge Continue bowel regimen to help with constipation Hypomagnesemia Monitor and replete electrolytes as needed Anemia of chronic disease Secondary to malignancy, chemotherapy S/P 1 unit PRBC Monitor H&H and transfuse as needed Chronic hyponatremia Likely secondary to small cell lung cancer Monitor sodium levels Small cell lung cancer Metastatic disease on chemotherapy/immunotherapy Follows with [facility] oncology Anxiety/mood disorder Possible deconditioning Past tobacco abuse Continue home medications DVT Px: Lovenox SQ Code Status Full code Admission and Anticipated Discharge Date Admission Date: February 14, 2024 Subjective Patient is seen and examined at bedside Reports having poor sleep overnight Had minimal dry cough Abdominal pain controlled Reports constipation Discussed with patient's family at bedside Also discussed with endocrinology today Denies any chest pain, dyspnea Review of Systems Review of Systems: All systems reviewed & are unremarkable except as noted in Subjective Physical Exam Physical Exam: Physical Exam: Vitals signs as noted above General Appearance:Thin, frail, chronic ill appearing, no apparent distress Head: normocephalic, Atraumatic Eyes: normal inspection, EOMI Neck: supple, Trachea midline Respiratory/Chest: Decreased breath sounds, CTA, No accessory muscle use Cardiovascular: S1, S2, No murmur, + tachycardia Abdomen/GI:Soft, + tender left upper quadrant, epigastric, hypogastric, no guarding or rigidity, bowel sounds present Extremities/Musculoskeletal:normal inspection, no edema Neurologic/Psych:AAOX3, grossly no focal neurological deficits Skin: normal color, warm Results & Data Results & Data Vital Signs (Past 12 Hours) Vital Signs Temp Pulse Pulse Pulse Resp BP Pulse Ox 02/16/24 15:52 99 H 02/16/24 15:37 37.2 C 101 H 16 91/58 L 97 02/16/24 11:47 36.5 C 109 H 20 106/62 94 02/16/24 09:11 02/16/24 08:55 97 H 02/16/24 07:39 36.9 C 98 H 18 98/57 L 96 02/16/24 06:25 77 Pulse Ox O2 Del Method O2 Del Method O2 Flow Rate 02/16/24 15:52 02/16/24 15:37 Room Air 02/16/24 11:47 Room Air 02/16/24 09:11 Nasal Cannula 2 02/16/24 08:55 02/16/24 07:39 Room Air 02/16/24 06:25 93 Nasal Cannula Laboratory Results Short CBC 02/16/24 Range/Units 06:06 WBC 9.19 (4.8-10.8) K/ul Hgb 8.0 L (12.0-16.0) g/dl Hct 24.1 L (37.0-47.0) % Plt Count 254 (130-400) K/uL BMP 02/16/24 06:06 Sodium 133 L Potassium 3.3 L Chloride 102 Carbon Dioxide 24 BUN 6 Creatinine 0.49 L Glucose 95 Calcium 8.4 L Liver Function 02/16/24 Range/Units 06:06 Total Bilirubin 2.0 H (0.2-1.0) mg/dl Direct Bilirubin 1.2 H (0-0.2) mg/dl AST 64 H (13-39) U/L ALT 48 (7-52) U/L Alkaline Phosphatase 170 H (34-104) U/L Albumin 2.5 L (3.4-5.0) gm/dl
[2024-02-16] MEDS: SODIUM CHLORIDE 0.9% 1,000 ML IV ONE (17:44)
[2024-02-16] MEDS: propylthiouraciL 50 MG TAB PO SCH (20:41)
[2024-02-17 04:52] LABS: Hematocrit (blood only) 24.6 % (37.0-47.0); Hemoglobin 8.1 g/dl (12.0-16.0); Mean Corpuscular Hemoglobin 31.2 pg (25.0-34.0); Mean Corpuscular Hgb Conc 32.9 g/dL (32.0-36.0); Mean Corpuscular Volume 94.6 fL (80.0-100.0); Platelet Count 262 K/uL (130-400); RDW Coefficient of Variation 21.2 % (11.5-14.5); White Blood Count 7.91 K/ul (4.8-10.8)
[2024-02-17 05:07] LABS: BUN Creatinine Ratio 11.4 (10-20); Calcium 8.5 mg/dl (8.6-10.3); Creatinine Clr Calc Pharmacy 122.5 ml/min; Est GFR (African American) 124.5 ml/min; Est GFR (Non-African American) 107.4 ml/min; Magnesium 1.5 mg/dl (1.7-2.4); Potassium 3.8 mmol/L (3.5-5.1)
[2024-02-17] MEDS: POLYETHYLENE (MIRALAX) 17 GM PACK PO STA (05:50)
[2024-02-17] MEDS: DOCUSATE SODIUM/SENNA 50/8.6MG TAB PO STA (06:42)
[2024-02-17] MEDS: MAGNESIUM CHLORIDE W/CALCIUM 64MG DELAYED REL TAB PO SCH (10:12)
[2024-02-17] MEDS ORDERED: bisacodyL 5 MG TABEC PO PRN (12:49)
[2024-02-17] MEDS: POLYETHYLENE (MIRALAX) 17 GM PACK PO SCH (13:10)
--- NOTE | 2024-02-17 16:42 | Hospitalist Progress Note ---
Date of Service February 17, 2024 Assessment & Plan (1) Severe sepsis: Plan: Severe sepsis Right upper lobe pneumonia Immunocompromised patient Lactic acidosis --CTA:Airspace consolidation in the RIGHT upper lobe, consistent with pneumonia. Follow-up CXR recommended to document resolution. Enlarged RIGHT hilar lymph node measures 2.8 x 2.0 cm. -- Blood cultures negative to date -Negative screen for COVID 19, influenza, RSV -Received IV fluids Continue cefepime, doxycycline Saturating well on room air Blood pressure usually runs low per patient and on chart review Severe hypothyroidism Low TSH, high free T4 Likely secondary to immunotherapy with atezolizumab No known history of thyroid dysfunction per patient Discussed with endocrinology on 02/16/24 Started on PTU 100 mg 3 times daily as per endocrine--- patient currently has b een refusing to take medication. Explained the need for taking the medication in detail. Patient plans to review literature before starting the medication Will need repeat TSH, free T4 in 1 week Needs follow-up with endocrinology on discharge Check TSI and TRAb to help differentiate autoimmune versus destructive hypothyroidism--pending Monitor for ACTH deficiency Normal AM cortisol level Nocturnal hypoxia Reviewed oximetry study Needs supplemental oxygen at bedtime Transaminitis/ongoing abdominal pain Likely secondary to metastatic disease --CT ABD:Progression of extensive hepatic metastases since CT of January 23, 2024. Mild progression of pathologic abdominal lymphadenopathy. No bowel obstruction. No bowel wall thickening. Normal appendix. Small amount of ascites within the abdomen and pelvis. Pain control Needs follow-up with oncology on discharge Continue bowel regimen to help with constipation Hypomagnesemia Hypokalemia Monitor and replete electrolytes as needed Anemia of chronic disease Secondary to malignancy, chemotherapy S/P 1 unit PRBC Monitor H&H and transfuse as needed Chronic hyponatremia Likely secondary to small cell lung cancer Monitor sodium levels Small cell lung cancer Metastatic disease on chemotherapy/immunotherapy [facility]ology Anxiety/mood disorder Possible deconditioning Past tobacco abuse Continue home medications DVT Px: Lovenox SQ--intermittently refuses Code Status Full code Admission and Anticipated Discharge Date Admission Date: February 14, 2024 Subjective Patient is seen and examined at bedside Reports constipation Less dyspnea today Still has minimal cough usually at bedtime Discussed with patient's family at bedside No other complaints Denies any chest pain, nausea, vomiting, dyspnea Reports chronic abdominal pain Review of Systems Review of Systems: All systems reviewed & are unremarkable except as noted in Subjective Physical Exam Physical Exam: Physical Exam: Vitals signs as noted above General Appearance:Thin, frail, chronic ill appearing, no apparent distress Head: normocephalic, Atraumatic Eyes: normal inspection, EOMI Neck: supple, Trachea midline Respiratory/Chest: Decreased breath sounds, CTA, No accessory muscle use Cardiovascular: S1, S2, No murmur, + tachycardia Abdomen/GI:Soft, + tender left upper quadrant, epigastric, hypogastric, no guarding or rigidity, bowel sounds present Extremities/Musculoskeletal:normal inspection, no edema Neurologic/Psych:AAOX3, grossly no focal neurological deficits Skin: normal color, warm Results & Data Results & Data Vital Signs (Past 12 Hours) Vital Signs Temp Pulse Pulse Resp BP Pulse Ox O2 Del Method 02/17/24 15:35 89 02/17/24 14:30 36.6 C 94 H 16 97/67 L 95 Nasal Cannula 02/17/24 11:29 36.7 C 88 16 100/65 97 Room Air 02/17/24 07:35 36.8 C 82 16 100/63 93 Nasal Cannula 02/17/24 07:23 Nasal Cannula 02/17/24 07:14 95 H O2 Flow Rate 02/17/24 15:35 02/17/24 14:30 2 02/17/24 11:29 02/17/24 07:35 2 02/17/24 07:23 2 02/17/24 07:14 Laboratory Results Short CBC 02/17/24 Range/Units 03:51 WBC 7.91 (4.8-10.8) K/ul Hgb 8.1 L (12.0-16.0) g/dl Hct 24.6 L (37.0-47.0) % Plt Count 262 (130-400) K/uL BMP 02/17/24 03:51 Sodium 136 Potassium 3.8 Chloride 105 Carbon Dioxide 26 BUN 5 L Creatinine 0.44 L Glucose 94 Calcium 8.5 L
[2024-02-17] MEDS: DOCUSATE SODIUM/SENNA 50/8.6MG TAB PO SCH (20:46)
[2024-02-18 06:41] LABS: BUN Creatinine Ratio 13.5 (10-20); Calcium 8.7 mg/dl (8.6-10.3); Creatinine Clr Calc Pharmacy 145.7 ml/min; Est GFR (African American) 131.8 ml/min; Est GFR (Non-African American) 113.7 ml/min; Magnesium 1.4 mg/dl (1.7-2.4); Potassium 3.5 mmol/L (3.5-5.1)
[2024-02-18] MEDS: MAGNESIUM SULFATE / D5W 1 GM/100 ML BAG IV SCH (09:33)
--- NOTE | 2024-02-18 11:54 | XRay Report ---
KUB CLINICAL HISTORY: Constipation. COMPARISON STUDY: CT of the abdomen and pelvis February 15, 2024. FINDINGS: Sigmoid anastomosis is noted. The bowel gas pattern is normal. The amount of stool is withi n normal limits. Mild to moderate amount of stool is present. A round radiodensity projecting over th e pelvis is likely on the patient. IMPRESSION: 1. No evidence for a bowel obstruction. 2. Amount of stool within normal limits. ACT 112: Negative or not required by law. Electronically signed by: Ihsan Kaiser M.D. 02/18/2024 11:53 AM
--- NOTE | 2024-02-18 15:58 | Hospitalist Progress Note ---
Date of Service February 18, 2024 Assessment & Plan (1) Severe sepsis: Plan: Severe sepsis Right upper lobe pneumonia Immunocompromised patient Lactic acidosis --CTA:Airspace consolidation in the RIGHT upper lobe, consistent with pneumonia. Follow-up CXR recommended to document resolution. Enlarged RIGHT hilar lymph node measures 2.8 x 2.0 cm. -- Blood cultures negative to date -Negative screen for COVID 19, influenza, RSV -Received IV fluids Continue cefepime, doxycycline Saturating well on room air Blood pressure usually runs low per patient and on chart review Transition to p.o. antibiotics as able Severe hypothyroidism Low TSH, high free T4 Likely secondary to immunotherapy with atezolizumab No known history of thyroid dysfunction per patient Discussed with endocrinology on 02/16/24 Started on PTU 100 mg 3 times daily as per endocrine--- patient currently has been refusing to take medication. Explained the need for taking the medication in detail. Patient plans to review literature before starting the medication Will need repeat TSH, free T4 in 1 week Needs follow-up with endocrinology on discharge Check TSI and TRAb to help differentiate autoimmune versus destructive hypothyroidism--pending Monitor for ACTH deficiency Normal AM cortisol level Currently not interested in taking PTU Constipation --KUB:No evidence for a bowel obstruction. Amount of stool within normal limits. Continue bowel regimen Minimize narcotics as able Enema as needed Nocturnal hypoxia Reviewed oximetry study Needs supplemental oxygen at bedtime Transaminitis/ongoing abdominal pain Likely secondary to metastatic disease --CT ABD:Progression of extensive hepatic metastases since CT of January 23, 2024. Mild progression of pathologic abdominal lymphadenopathy. No bowel obstruction. No bowel wall thickening. Normal appendix. Small amount of ascites within the abdomen and pelvis. Pain control Needs follow-up with oncology on discharge Continue bowel regimen as above Hypomagnesemia Hypokalemia Monitor and replete electrolytes as needed Anemia of chronic disease Secondary to malignancy, chemotherapy S/P 1 unit PRBC Monitor H&H and transfuse as needed Hb 8.1 today Chronic hyponatremia Likely secondary to small cell lung cancer Monitor sodium levels Small cell lung cancer Metastatic disease on chemotherapy/immunotherapy Follows with [facility] oncology Anxiety/mood disorder Possible deconditioning Past tobacco abuse Continue home medications DVT Px: Lovenox SQ--intermittently refuses Code Status Full code Admission and Anticipated Discharge Date Admission Date: February 14, 2024 Subjective Patient is seen and examined at bedside Reports having nausea, vomiting, feels bloated and has constipation Also reports having chronic hot flashes Minimal cough Denies any chest pain, dyspnea today Chronic left lower quadrant abdominal pain Family at bedside No other complaints Review of Systems Review of Systems: All systems reviewed & are unremarkable except as noted in Subjective Physical Exam Physical Exam: Physical Exam: Vitals signs as noted above General Appearance:Thin, frail, chronic ill appearing, no apparent distress Head: normocephalic, Atraumatic Eyes: normal inspection, EOMI Neck: supple, Trachea midline Respiratory/Chest: Decreased breath sounds, CTA, No accessory muscle use Cardiovascular: S1, S2, No murmur, + tachycardia Abdomen/GI:Soft, + tender left upper quadrant, epigastric, hypogastric, no guarding or rigidity, bowel sounds present Extremities/Musculoskeletal:normal inspection, no edema Neurologic/Psych:AAOX3, grossly no focal neurological deficits Skin: normal color, warm Results & Data Results & Data Vital Signs (Past 12 Hours) Vital Signs Temp Pulse Pulse Resp BP Pulse Ox O2 Del Method 02/18/24 15:46 36.8 C 92 H 18 97/64 L 94 Room Air 02/18/24 12:06 36.1 C L 98 H 14 108/69 99 Room Air 02/18/24 07:59 36.7 C 107 H 12 97/64 L 94 Nasal Cannula 02/18/24 07:01 96 H 02/18/24 04:00 36.8 C 101 H 18 105/60 94 Nasal Cannula O2 Flow Rate 02/18/24 15:46 02/18/24 12:06 02/18/24 07:59 02/18/24 07:01 02/18/24 04:00 2 Laboratory Results [facility] 02/18/24 05:46 Sodium 133 L Potassium 3.5 Chloride 100 Carbon Dioxide 28 BUN 5 L Creatinine 0.37 L Glucose 90 Calcium 8.7
[2024-02-18] MEDS: MAGNESIUM CHLORIDE W/CALCIUM 64MG DELAYED REL TAB PO SCH (20:57)
[2024-02-19 03:59] LABS: Hematocrit (blood only) 25.5 % (37.0-47.0); Hemoglobin 8.3 g/dl (12.0-16.0); Mean Corpuscular Hemoglobin 31.1 pg (25.0-34.0); Mean Corpuscular Hgb Conc 32.5 g/dL (32.0-36.0); Mean Corpuscular Volume 95.5 fL (80.0-100.0); Platelet Count 259 K/uL (130-400); RDW Coefficient of Variation 20.2 % (11.5-14.5); RDW Standard Deviation 69.2 fL (36.4-46.3); Red Blood Count 2.67 M/uL (4.20-5.40); White Blood Count 7.83 K/ul (4.8-10.8)
[2024-02-19 04:15] LABS: BUN Creatinine Ratio 16.7 (10-20); Calcium 8.7 mg/dl (8.6-10.3); Creatinine Clr Calc Pharmacy 128.3 ml/min; Est GFR (African American) 126.4 ml/min; Est GFR (Non-African American) 109.1 ml/min; Magnesium 1.6 mg/dl (1.7-2.4); Potassium 3.4 mmol/L (3.5-5.1)
[2024-02-19] MEDS: POTASSIUM CHLORIDE CRTAB 20 MEQ TABCR PO ONE (10:20)
[2024-02-19] MEDS: MAGNESIUM SULFATE / D5W 1 GM/100 ML BAG IV ONE (10:20)
--- NOTE | 2024-02-19 12:54 | Hospitalist Progress Note ---
Date of Service February 19, 2024 Assessment & Plan (1) Severe sepsis: Plan: Severe sepsis Right upper lobe pneumonia Immunocompromised patient Lactic acidosis --CTA:Airspace consolidation in the RIGHT upper lobe, consistent with pneumonia. Follow-up CXR recommended to document resolution. Enlarged RIGHT hilar lymph node measures 2.8 x 2.0 cm. -- Blood cultures negative to date -Negative screen for COVID 19, influenza, RSV -Received IV fluids Continue cefepime, doxycycline Saturating well on room air Blood pressure usually runs low per patient and on chart review Transition to p.o. antibiotics as able Plan to discharge home today Severe hypothyroidism Low TSH, high free T4 Likely secondary to immunotherapy with atezolizumab No known history of thyroid dysfunction per patient Discussed with endocrinology on 02/16/24 Started on PTU 100 mg 3 times daily as per endocrine--- patient currently has been refusing to take medication. Explained the need for taking the medication in detail. Patient plans to review literature before starting the medication Will need repeat TSH, free T4 in 1 week Needs follow-up with endocrinology on discharge Check TSI and TRAb to help differentiate autoimmune versus destructive hypo thyroidism--pending Monitor for ACTH deficiency Normal AM cortisol level Currently not interested in taking PTU--plans to discuss with primary care physician and oncology for further recommendations on discharge Constipation --KUB:No evidence for a bowel obstruction. Amount of stool within normal limits. Continue bowel regimen Minimize narcotics as able Enema as needed Resolved Nocturnal hypoxia Reviewed oximetry study Needs supplemental oxygen at bedtime Transaminitis/ongoing abdominal pain Likely secondary to metastatic disease --CT ABD:Progression of extensive hepatic metastases since CT of January 23, 2024. Mild progression of pathologic abdominal lymphadenopathy. No bowel obstruction. No bowel wall thickening. Normal appendix. Small amount of ascites within the abdomen and pelvis. Pain control Needs follow-up with oncology on discharge Continue bowel regimen as above Hypomagnesemia Hypokalemia Monitor and replete electrolytes as needed Anemia of chronic disease Secondary to malignancy, chemotherapy S/P 1 unit PRBC Monitor H&H and transfuse as needed Hb 8.3 today Chronic hyponatremia Likely secondary to small cell lung cancer Monitor sodium levels Sodium level stable at 133 Small cell lung cancer Metastatic disease on chemotherapy/immunotherapy Follows with [facility] oncology Anxiety/mood disorder Possible deconditioning Past tobacco abuse Continue home medications DVT Px: Lovenox SQ--intermittently refuses Code Status Full code Disposition Home Admission and Anticipated Discharge Date Admission Date: February 14, 2024 Subjective Patient is seen and examined at bedside Constipation resolved No new complaints No significant cough Denies any chest pain, dyspnea today Chronic left lower quadrant abdominal pain Family at bedside Plan to be discharged home today Review of Systems Review of Systems: All systems reviewed & are unremarkable except as noted in Subjective Physical Exam Physical Exam: Physical Exam: Vitals signs as noted above General Appearance:Thin, frail, chronic ill appearing, no apparent distress Head: normocephalic, Atraumatic Eyes: normal inspection, EOMI Neck: supple, Trachea midline Respiratory/Chest: Decreased breath sounds, CTA, No accessory muscle use Cardiovascular: S1, S2, No murmur, + tachycardia Abdomen/GI:Soft, + mild tender, no guarding or rigidity, bowel sounds present Extremities/Musculoskeletal:normal inspection, no edema Neurologic/Psych:AAOX3, grossly no focal neurological deficits Skin: normal color, warm Results & Data Results & Data Vital Signs (Past 12 Hours) Vital Signs Temp Pulse Pulse Pulse Resp Resp Resp 02/19/24 12:25 02/19/24 12:09 130 H 96 H 28 H 20 02/19/24 11:06 36.6 C 94 H 18 02/19/24 07:43 36.7 C 99 H 16 02/19/24 03:29 36.9 C 102 H 18 BP Pulse Ox Pulse Ox Pulse Ox O2 Del Method O2 Flow Rate 02/19/24 12:25 Room Air, Nasal Cannula 2 02/19/24 12:09 92 95 02/19/24 11:06 105/69 96 Room Air 02/19/24 07:43 100/64 94 Nasal Cannula 02/19/24 03:29 97/55 L 94 Nasal Cannula 2 Laboratory Results Short CBC 02/19/24 Range/Units 03:43 WBC 7.83 (4.8-10.8) K/ul Hgb 8.3 L (12.0-16.0) g/dl Hct 25.5 L (37.0-47.0) % Plt Count 259 (130-400) K/uL BMP 02/19/24 03:43 Sodium 133 L Potassium 3.4 L Chloride 100 Carbon Dioxide 26 BUN 7 Creatinine 0.42 L Glucose 105 H Calcium 8.7
--- NOTE | 2024-02-19 13:07 | Discharge Summary ---
Date of Service February 19, 2024 Admission HPI Per Admitting Provider History obtained from patient, family, and records. Medical history significant for small cell lung cancer on chemotherapy/immunotherapy, history of diverticulitis status post surgery, chronic hyponatremia, chronic anemia (baseline hemoglobin 9-10), anxiety/mood disorder, past tobacco abuse. Monthly admissions since October,. Recent confinement last month for fever. Blood cultures negative. Patient noted to be increasingly weak since last week. Worsening shortness of breath with transient chest pain. Patient denies cough symptoms. Poor appetite. Usual achy upper abdominal pain. Some constipation symptoms. Patient sleeping a lot as per family. Patient denies headache symptoms. Patient's family worried about abnormal blood work from a few days ago. High WBC, and abnormal TFTs. Cefepime, vancomycin, and azithromycin administered at the ER for sepsis. 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 Admission Exam Per Admitting Provider GENERAL: Slightly uncomfortable, pleasant, chronically ill, no respiratory distress SKIN: Pallor, warm HEENT: Alopecia, pale palpebral conjunctivae, no ptosis, dry buccal mucosa NECK : Supple, no tenderness CHEST : Decreased breath sounds, no tenderness HEART : Tachycardic, no obvious murmurs ABDOMEN: Some distention, left upper quadrant tenderness EXTREMITIES : No LE swelling/tenderness, no other conspicuous deformities noted NEUROLOGIC : Coherent, no facial asymmetry, no other gross focality Principal Diagnosis Severe sepsis Right upper lobe pneumonia Severe hypothyroidism Nocturnal hypoxia Hypokalemia Hypomagnesemia Discharge Data Allergies Allergy/AdvReac Type Severity Reaction Status Date / Time No Known Allergies Allergy Unknown Verified 02/14/24 20:22 Consultations 02/14/24 20:00 ED Decision to Admit Stat Procedures Performed Laboratory Results WBC 7.83 K/ul (4.8-10.8) 02/19/24 03:43 RBC 2.67 M/uL (4.20-5.40) L 02/19/24 03:43 Hgb 8.3 g/dl (12.0-16.0) L 02/19/24 03:43 Hct 25.5 % (37.0-47.0) L 02/19/24 03:43 MCV 95.5 fL (80.0-100.0) 02/19/24 03:43 MCH 31.1 pg (25.0-34.0) 02/19/24 03:43 MCHC 32.5 g/dL (32.0-36.0) 02/19/24 03:43 RDW Std Deviation 69.2 fL (36.4-46.3) H 02/19/24 03:43 RDW Coeff of Brad 20.2 % (11.5-14.5) H 02/19/24 03:43 Plt Count 259 K/uL (130-400) 02/19/24 03:43 MPV 9.0 fL (9.4-12.4) L 02/19/24 03:43 Immature Gran % (Auto) 1.5 % 02/15/24 04:32 Neut % (Auto) 74.1 % 02/15/24 04:32 Lymph % (Auto) 10.2 % 02/15/24 04:32 [place] % (Auto) 13.9 % 02/15/24 04:32 Eos % (Auto) 0.0 % 02/15/24 04:32 Baso % (Auto) 0.3 % 02/15/24 04:32 Neut # (Auto) 8.01 K/uL (1.40-6.50) H 02/15/24 04:32 Lymph # (Auto) 1.10 K/uL (1.20-3.40) L 02/15/24 04:32 [place] # (Auto) 1.50 K/uL (0.11-0.59) H 02/15/24 04:32 Eos # (Auto) 0.00 K/uL (0.00-0.50) 02/15/24 04:32 Baso # (Auto) 0.03 K/uL (0.00-0.20) 02/15/24 04:32 Immature Gran # (Auto) 0.16 K/uL (0.01-0.20) 02/15/24 04:32 Polychromasia 1+ 02/15/24 04:32 Anisocytosis Present 02/15/24 04:32 Tear Drop Cells 1+ 02/15/24 04:32 Sodium 133 mmol/L (136-145) L 02/19/24 03:43 Potassium 3.4 mmol/L (3.5-5.1) L 02/19/24 03:43 Chloride 100 mmol/L (98-107) 02/19/24 03:43 Carbon Dioxide 26 mmol/L (21-32) 02/19/24 03:43 Anion Gap 7 (3-11) 02/19/24 03:43 BUN 7 mg/dl (6-23) 02/19/24 03:43 Creatinine 0.42 mg/dl (0.6-1.2) L 02/19/24 03:43 Est Cr Clr Drug Dosing 128.3 ml/min 02/19/24 03:43 Est GFR ( Amer) 126.4 ml/min 02/19/24 03:43 Est GFR (Non-Af Amer) 109.1 ml/min 02/19/24 03:43 BUN/Creatinine Ratio 16.7 (10-20) 02/19/24 03:43 Glucose 105 mg/dl (70-99(Fasting)) H 02/19/24 03:43 Osmolality 279 mOsm/kg (280-300) L 02/14/24 20:35 Lactate 1.4 mmol/L (0.4-2.0) 02/14/24 20:35 Calcium 8.7 mg/dl (8.6-10.3) 02/19/24 03:43 Magnesium 1.6 mg/dl (1.7-2.4) L 02/19/24 03:43 Total Bilirubin 2.0 mg/dl (0.2-1.0) H 02/16/24 06:06 Direct Bilirubin 1.2 mg/dl (0-0.2) H 02/16/24 06:06 AST 64 U/L (13-39) H 02/16/24 06:06 ALT 48 U/L (7-52) 02/16/24 06:06 Alkaline Phosphatase 170 U/L (34-104) H 02/16/24 06:06 Ammonia 25.0 umol/L (18-72) 02/14/24 20:35 Troponin I High Sens 7.9 pg/ml (0-14) 02/14/24 17:49 Total Protein 5.8 gm/dl (6.0-8.3) L 02/16/24 06:06 Albumin 2.5 gm/dl (3.4-5.0) L 02/16/24 06:06 Globulin 3.3 gm/dl (2.5-4.0) 02/15/24 04:32 Albumin/Globulin Ratio 0.8 (0.9-2) L 02/15/24 04:32 Lipase 7 U/L (11-82) L 02/14/24 17:49 Procalcitonin 1.93 ng/ml (0-0.5) H 02/17/24 03:51 TSH 0.202 uIu/ml (0.300-4.500) L 02/16/24 06:06 Free T4 2.12 ng/dl (0.61-1.60) H 02/15/24 14:39 Cortisol AM Sample 9.51 mcg/dl (6.2-22.6) 02/17/24 07:58 Urine Color Yellow 02/14/24 22:35 Urine Appearance Clear (Clear) 02/14/24 22:35 Urine pH 6.0 (4.5-7.5) 02/14/24 22:35 Ur Specific [place] 1.035 (1.000-1.030) H 02/14/24 22:35 Urine Protein Negative (Negative) 02/14/24 22:35 Urine Glucose (UA) Negative (Negative) 02/14/24 22:35 Urine Ketones 2+ (Negative) H 02/14/24 22:35 Urine Blood Negative (Negative) 02/14/24 22:35 Urine Nitrite Negative (Negative) 02/14/24 22:35 Urine Bilirubin Negative (Negative) 02/14/24 22:35 Urine Urobilinogen Negative (Negative) 02/14/24 22:35 Ur Leukocyte Esterase Trace (Negative) H 02/14/24 22:35 Urine WBC (Auto) 0-5 /hpf (0-5) 02/14/24 22:35 Urine RBC (Auto) 0-2 /hpf (0-2) 02/14/24 22:35 U Hyaline Cast (Auto) 0-2 /lpf (0-2) 02/14/24 22:35 U Epithel Cells (Auto) 0-2 /hpf (0-2) 02/14/24 22:35 Urine Bacteria (Auto) None Seen (None Seen) 02/14/24 22:35 Urine Osmolality 261 mOsm/kg (500-800) L 02/14/24 22:35 Ur Random Sodium 21 mmol/L 02/14/24 22:35 Nasal Screen MRSA (PCR) Negative (Negative) 02/15/24 01:27 SARS-CoV-2 (PCR) NEGATIVE (Negative) 02/15/24 01:27 Influenza Type A (PCR) Negative (Neg) 02/15/24 01:27 Influenza Type B (PCR) Negative (Neg) 02/15/24 01:27 RSV (RT-PCR) Negative (Neg) 02/15/24 01:27 Blood Type B Positive 02/14/24 18:07 Antibody Screen NEGATIVE 02/14/24 18:07 Crossmatch See Detail 02/14/24 18:07 Impressions Chest X-Ray 02/14/24 18:02 SINGLE VIEW CHEST CLINICAL HISTORY: Dyspnea FINDINGS: An AP, portable, upright chest radiograph is compared to study dated 01/23/2024 and correlated with chest CT dated 01/24/2024. The heart is mildly enlarged noting atherosclerotic calcification of the thoracic aorta. The pulmonary vasculature is noncontrast. Emphysema and chronic interstitial thickening is similar to previous. The previously characterized right upper lobe masslike opacity has not significantly changed from 01/23/2024. There is bibasi lar scarring/atelectasis. No large pleural effusion or pneumothorax is seen. The skeletal structures are osteopenic. The bony thorax is grossly intact. Degenerative change is noted in the shoulders and spine. IMPRESSION: 1. Cardiomegaly and emphysema without radiographic evidence of congestive failure. 2. A masslike opacity right upper lobe characterized previously has not significantly changed from 01/23/2024.. ACT 112: Negative or not required by law. Electronically signed by: Arnie Palma M.D. 02/14/2024 7:04 PM Chest CTA 02/14/24 18:05 Exam(s): CTA CHEST IV Amt: OPTIRAY [id number] EXAM: CT Angiography Chest With Intravenous Contrast CLINICAL HISTORY: Reason for exam: PE. TECHNIQUE: Axial computed tomographic angiography images of the chest with intravenous contrast. CTDI is 11.58 mGy and DLP is 350.75 mGy-cm. Automated exposure control was utilized for the study. A dose lowering technique was utilized adhering to the principles of ALARA. MIP reconstructed images were created and reviewed. COMPARISON: No relevant prior studies available. FINDINGS: Pulmonary arteries: Unremarkable. No pulmonary embolism. Aorta: No acute findings. No thoracic aortic aneurysm. Lungs: Airspace consolidation in the RIGHT upper lobe, consistent with pneumonia. Atelectasis at the lung bases. Pleural space: Unremarkable. No significant effusion. No pneumothorax. Heart: Cardiomegaly. No significant pericardial effusion. No evidence of RV dysfunction. Bones/joints: No acute fracture. No dislocation. Soft tissues: Unremarkable. Lymph nodes: Enlarged RIGHT hilar lymph node measures 2.8 x 2.0 cm. IMPRESSION: 1. Airspace consolidation in the RIGHT upper lobe, consistent with pneumonia. Follow-up CXR recommended to document resolution. 2. Enlarged RIGHT hilar lymph node measures 2.8 x 2.0 cm. Electronically signed by: Rafael Levi MD 02/14/24 19:55 PM Abdomen/Pelvis CT 02/15/24 18:00 CT OF THE ABDOMEN AND PELVIS WITH CONTRAST CLINICAL HISTORY: Abdominal pain. Small cell lung cancer. COMPARISON STUDY: CT of the abdomen and pelvis January 23, 2024. Chest CT February 14, 2024. TECHNIQUE: Following IV administration of 92 mL of Optiray, axial images of the abdomen and pelvis were obtained from the lung bases to the proximal femurs. Im ages were reviewed in the axial, sagittal, and coronal planes. IV contrast was administered without complication. Automated exposure control was utilized for the study. A dose lowering technique was utilized adhering to the principles of ALARA. CT DOSE: 756.88 mGy.cm FINDINGS: A pathologically enlarged right infrahilar lymph node is partially imaged. There is mild interlobular septal thickening within the lower lungs. There is a trace right pleural effusion. No pneumatosis, free air or portal venous gas is present. A small amount of ascites within the abdomen and pelvis is present. There is no evidence for a bowel obstruction. There is no hydronephrosis. There has been progression of extensive hepatic metastatic disease since CT of January 23, 2024. Lesions have increased in size and number since prior exam. Upper abdominal lymphadenopathy has slightly increased. A left para-aortic lymph node on image 146 of 369 measures 2.8 x 1.8 cm, previously 2.4 x 1.3 cm. No suspicious osseous lesions are present. The appendix is normal. No bowel wall thickening is identified. Sigmoid resection is noted. IMPRESSION: 1. Progression of extensive hepatic metastases since CT of January 23, 2024. Mild progression of pathologic abdominal lymphadenopathy. 2. No bowel obstruction. No bowel wall thickening. Normal appendix. 3. Small amount of ascites within the abdomen and pelvis. ACT 112: Negative or not required by law. Electronically signed by: Ihsan Kaiser M.D. 02/15/2024 3:48 PM KUB X-Ray 02/18/24 10:50 KUB CLINICAL HISTORY: Constipation. COMPARISON STUDY: CT of the abdomen and pelvis February 15, 2024. FINDINGS: Sigmoid anastomosis is noted. The bowel gas pattern is normal. The amount of stool is within normal limits. Mild to moderate amount of stool is present. A round radiodensity projecting over the pelvis is likely on the patient. IMPRESSION: 1. No evidence for a bowel obstruction. 2. Amount of stool within normal limits. ACT 112: Negative or not required by law. Electronically signed by: Ihsan Kaiser M.D. 02/18/2024 11:53 AM Ordered Studies 02/14/24 18:05 CT angio chest PE protocol Stat 02/15/24 18:00 CT Abd and Pelvis [CT abd pelvis IV con only] Urgent Hospital Course (1) Severe sepsis: Severe sepsis Right upper lobe pneumonia Immunocompromised patient Lactic acidosis --CTA:Airspace consolidation in the RIGHT upper lobe, consistent with pneumonia. Follow-up CXR recommended to document resolution. Enlarged RIGHT hilar lymph node measures 2.8 x 2.0 cm. -- Blood cultures negative to date -Negative screen for COVID 19, influenza, RSV -Received IV fluids Continue cefepime, doxycycline Saturating well on room air Blood pressure usually runs low per patient and on chart review Transition to p.o. antibiotics as able Plan to discharge home today Severe hypothyroidism Low TSH, high free T4 Likely secondary to immunotherapy with atezolizumab No known history of thyroid dysfunction per patient Discussed with endocrinology on 02/16/24 Started on PTU 100 mg 3 times daily as per endocrine--- patient currently has been refusing to take medication. Explained the need for taking the medication in detail. Patient plans to review literature before starting the medication Will need repeat TSH, free T4 in 1 week Needs follow-up with endocrinology on discharge Check TSI and TRAb to help differentiate autoimmune versus destructive hypothyroidism--pending Monitor for ACTH deficiency Normal AM cortisol level Currently not interested in taking PTU--plans to discuss with primary care physician and oncology for further recommendations on discharge Constipation --KUB:No evidence for a bowel obstruction. Amount of stool within normal limits. Continue bowel regimen Minimize narcotics as able Enema as needed Resolved Nocturnal hypoxia Reviewed oximetry study Needs supplemental oxygen at bedtime Transaminitis/ongoing abdominal pain Likely secondary to metastatic disease --CT ABD:Progression of extensive hepatic metastases since CT of January 23, 2024. Mild progression of pathologic abdominal lymphadenopathy. No bowel obstruction. No bowel wall thickening. Normal appendix. Small amount of ascites within the abdomen and pelvis. Pain control Needs follow-up with oncology on discharge Continue bowel regimen as above Hypomagnesemia Hypokalemia Monitor and replete electrolytes as needed Anemia of chronic disease Secondary to malignancy, chemotherapy S/P 1 unit PRBC Monitor H&H and transfuse as needed Hb 8.3 today Chronic hyponatremia Likely secondary to small cell lung cancer Monitor sodium levels Sodium level stable at 133 Small cell lung cancer Metastatic disease on chemotherapy/immunotherapy Follows with [facility] oncology Anxiety/mood disorder Possible deconditioning Past tobacco abuse Continue home medications DVT Px: Lovenox SQ--intermittently refuses Code Status Full code Disposition Home Total Time Total Time Spent Total Time Spent (In Minutes): 56 minutes Discharge Plan Discharge Items Patient Disposition: Home - Self-Care Reason For Visit: SEPSIS Discharge Diagnosis: Severe sepsis Right upper lobe pneumonia Severe hypothyroidism Nocturnal hypoxia Hypokalemia Hypomagnesemia Activity: Per Instructions section Exercise/Sports: Wait until after follow-up appointment Non-emergency contact: Primary Care Provider, Specialist and Oncologist Call non-emergency contact if: you have any medication questions, your symptoms worsen, your pain is concerning for you and you have a fever Follow-up/Referrals: Abdulkadir Olivera MD [Primary Care Provider] - (Date & Time 02/22/2024 3:00 PM Provider Abdulkadir Olivera MD [facility] ) Diet: Regular Addtl Attending Provider Instructions: Follow-up with your primary care physician Dr. Olivera on 02/22/2024 3:00 PM Follow-up with your oncologist Dr. Worthy as advised Follow-up with your science editor as soon as possible as recommended for management of severe hyperthyroidism --Your serological test for thyroid and blood cultures are pending at the time of discharge. Follow-up with your physician for results. -- Complete the antibiotic course cefdinir, and doxycycline as prescribed. -- Use oxygen 2 L via nasal cannula at bedtime. Obtain sleep study as outpatient. Seek immediate medical attention if your symptoms reoccur or worsen Please take all medications as instructed on discharge list below. Please call if you have any questions or problems. You can reach a [facility] hospitalist on duty at [facility] 24 hours a day by calling [phone] Pending Studies at Discharge: Yes Studies:: Blood cultures, thyroid antimicrosomal antibody, thyroglobulin antibody pending Stand-Alone Forms: My [facility], Smoking Cessation Medications and DC Order Prescriptions: New doxycycline hyclate 100 mg Capsule 100 mg PO BID Qty: 10 0RF Mag 64 64 mg Tablet,Delayed Release (Dr/Ec) 128 mg PO BID Qty: 60 0RF polyethylene glycol 3350 [Miralax] 17 gram Powder In Packet 17 g PO DAILY PRN (Reason: Constipation) Qty: 30 0RF sennosides-docusate sodium [Senokot-S] 8.6-50 mg Tablet 1 tab PO DAILY PRN (Reason: Constipation) Qty: 30 0RF cefdinir 300 mg capsule 300 mg PO BID 5 Days Qty: 10 0RF potassium chloride 10 mEq capsule, extended release 10 meq PO DAILY Qty: 5 0RF Continued multivitamin Tablet 1 tab PO PM cholecalciferol (vitamin D3) [Vitamin D3] 125 mcg (5,000 unit) Tablet 125 mcg PO PM cyanocobalamin (vitamin B-12) 2,000 mcg Tablet 2,000 mcg PO PM pantoprazole 40 mg tablet,delayed release (DR/EC) 40 mg PO QAM guaifenesin [Mucinex] 600 mg tablet extended release 12hr 600 mg PO Q12 PRN (Reason: Other) ondansetron HCl 8 mg Tablet 8 mg PO Q8H PRN (Reason: Nausea And Vomiting) sucralfate 100 mg/mL Suspension 1 g PO QID Qty: 200 0RF Rx Instructions: use before meals Discharge Orders: Discharge Order (Routine); Ordered 02/19/24 Ordered By: Steven Gage Admission Data Admit Date/Time: 02/14/24 21:23 Attending Provider: Steven Gage Admit Provider: Davis Winston Primary Care Provider: Abdulkadir Olivera Other Providers: Davis Winston
[2024-02-21 23:37] LABS: Microsomal Ab 15 IU/mL (<9); TSI <89 % baseline (<140); Thyroglobulin Antibodies 95 IU/mL (< or = 1)
== END 2024-02-19 14:26 | disposition home or self-care (01) | DRG 871 ==
LOC: ED 17:15 → EDINP 21:23 → 2W 22:16 → 2N 02-15 16:52 → 2W 02-15 16:58